=== PATIENT | female | born 1955 ===

== ENCOUNTER 2017-05-17 20:06 | Inpatient (IN) | payer OTHER, MEDICAID ==
[~2017-05-17] VITALS: Ht 154.9 cm; Wt 90.8 kg
--- NOTE | 2017-05-17 20:02 | ED.REPORT ---
HPI-Cardiac Arrest Date of Service May 17, 2017 ED Provider: Dr. Yo Pt is a 61 y/o female w/ an unknown history presenting to the ED from a SNF s/p cardiac arrest which occurred just prior to arrival. The patient was residing at [facility] in [place] after being transferred there for rehab from [facility] after some unspecified traumatic injury and screamed out to nursing staff from within her room. Nursing staff went into her room to find her unresponsive and started CPR. It is unknown if the nurse checked pulses prior to beginning CPR. Upon medics arrival she was found to be in PEA and received 2 further rounds of CPR and 1 mg of epinephrine at which time she had ROSC. On route she was intubated and was noted to be moving all 4 extremities and choking on the tube as well as vomiting copiously and was therefore sedated with 10 mg of Versed and 100 mcg of Fentanyl. Her rhythm after ROSC was thought to be A-fib with RvR with rate in the 120s which spontaneously converted to sinus tachycardia rate in 110s. Her BP was 150 systolic. The medics tell us that she has some unspecified cardiac and pulmonary disease although this is unable to be verified they have no additional further information. She is full code. the MAR from the [facility] indicates she is taking Percocet, bronchodilators, Ativan, Lasix and nortriptyline. After contacting the biomedical electronics technician of the facility: the patient has a history of severe interstitial lung disease, right-sided heart failure and chronic respiratory failure and is on 6-7 L O2 by AL at baseline. She is followed at for possible lung transplant. The patient was recently treated for respiratory failure at [facility] and was discharged 4 days ago. She was not at [facility] and did not have a traumatic injury. She also has right heart failure and has recently been treated for pneumonia. Today, she was declining her medications and passed out on her toilet and screamed prior to the event. Nursing Notes Stated Complaint: POST CARDIAC ARREST Nursing Notes Reviewed: Yes Allergies: Coded Allergies: Penicillins (Verified Allergy, Unknown, 05/17/17) Scheduled Epinephrine (Epipen 2-Jarad) 0.3 Mg/0.3 Ml Auto.injct 0.3 MG IM ANAPHYLLAXIS Fexofenadine (Fexofenadine) 180 Mg Tablet 180 MG PO QAM Flunisolide (Aerospan) 8.9 Gm Hfa.aer.ad 2 PUFFS IH BID Fluticasone Propionate (Fluticasone Propionate) 50 Mcg/Actuation [place].susp 1 SPRAY NS BID Furosemide (Furosemide) 40 Mg Tablet 40 MG PO BIDBL Furosemide (Furosemide) 80 Mg Tab 80 MG PO ONCE Gabapentin (Gabapentin) 600 Mg Tablet 600 MG PO TID Levalbuterol (Levalbuterol) 1.25 Mg/3 Ml Vial.neb 1.25 MG INHALATION Q6H Meloxicam (Meloxicam) 15 Mg Tablet 15 MG PO QAM Nortriptyline (Nortriptyline) 50 Mg Capsule 50 MG PO HS Omeprazole (Omeprazole) 20 Mg Capsule.dr 40 MG PO QAM Vit37/Iron/Folic Acid ([place] Chewable Tablet) 1 Each Tab.chew 1 EACH PO QAM Sertraline HCl (Sertraline) 100 Mg Tablet 100 MG PO QAM Topiramate (Topiramate) 100 Mg Tablet 100 MG PO QAM Scheduled PRN Albuterol HFA (Proair HFA) 8.5 Gm Hfa.aer.ad 2 PUFFS INHALATION Q4H PRN PRN For Shortness of Breath Bisacodyl (Dulcolax) 5 Mg Tablet.dr 5-10 MG PO DAILY PRN PRN For Constipation Bisacodyl (Dulcolax Rectal) 10 Mg Supp.rect 10 MG RC DAILY PRN PRN For Constipation Lactobacillus Acidophilus (Acidophilus Lactobacilli) 500 Million Cell Capsule 1 EACH PO DAILY PRN PRN WHEN ON ABX Lorazepam (Lorazepam) 0.5 Mg Tablet 0.5 MG PO BID PRN PRN For Anxiety Magnesium Hydroxide (Milk of Magnesia) 400 Mg/5 Ml Oral.susp 30 ML PO DAILY PRN PRN For Constipation Na Phos,M-B/Na Phos,Di-Ba (Fleet Enema) 133 Ml Enema 133 ML RC DAILY PRN PRN For Constipation Nortriptyline (Nortriptyline) 50 Mg Capsule 50 MG PO HS PRN PRN Insomnia IN ADDITION TO SCHEDULED IF NEEDED FOR INSOMNIA diphenhydrAMINE HCl (Benadryl) 25 Mg Capsule 25 MG PO Q6H PRN PRN ALLERGIES oxyCODONE-Acetaminophen 5-325 mg (oxyCODONE-Acetaminophen 5-325 mg) 1 Each Tablet 1 TAB PO Q4H PRN PRN For Pain General Time Seen by Provider: 20:07 Chief Complaint Other (s/p cardiac arrest) Hx Obtained From: EMS Unable to Obtain Hx: Patient condition Arrived By: Ambulance Past Medical History Unable to Obtain History Past medical history, Past surgical history, Family history, Smoking history, Social history, Occupation, Ambulatory status Review of Systems Unable to Obtain ROS Patient condition, Intubated Physical Exam Initial Vital Signs Vital Signs (First) Date Time Temp Pulse Resp B/P Pulse Ox O2 Delivery O2 Flow Rate FiO2 05/17/17 20:07 37.4 104 17 91/62 100 ET Tube Initial VS: Reviewed, Vital signs abnormal GENERAL: Intubated and sedated Respiratory / Chest: Breath sounds = bilat Intubated with 7-0 tube 23 cm at the teeth Cardiovascular: Regular rhythm, Heart sounds NL, No gallop, No murmurs, No rubs , Cap refill not delayed, Peripheral circulation NL, Pulses = bilaterally Heart Rate / Rhythm: Positive: Tachycardia Abdomen: Soft, No distention Ecchymosis which appears to be old Head / Eyes: Normocephalic, PERRL (3 mm) Ecchymosis and contusion over the forehead ENT: Atraumatic, Airway patent Vomit in mouth Neck: Atraumatic Upper Extremity / MS: Atraumatic, No deformity, Vascular intact Lower Extremity / Pelvis / MS: Vascular intact IO in left tibial plateau Abrasions about bilateral knees Skin: No rash, Warm, Dry NEURO: Sedated Making intentional movements Chewing on tube Interpretation & Diagnostics Lab Results Interpretation Result Diagram: 05/17/17203605/17/172036 Test 05/17/17 20:30 05/17/17 20:37 05/17/17 20:58 Triglycerides Level 61mg/dL (0-149) White Blood Count 11.6th/mm3 (3.8-10.1) Red Blood Count 3.81mil/mm3 (3.90-5.20) Hemoglobin 11.1g/dL (12.0-15.6) Hematocrit 36.2% (35.0-46.0) Mean Corpuscular Volume 95.0fL (81-100) Mean Corpuscular Hemoglobin 29.1pg (27.0-35.0) Mean Corpuscular Hemoglobin Concent 30.7% (32.0-37.0) Red Cell Distribution Width 15.2% (12.3-15.4) Platelet Count 289bil/L (150-400) Neutrophils (%) (Auto) 80.8% (40-74) Lymphocytes (%) (Auto) 10.2% (14-46) Monocytes (%) (Auto) 5.3% (4-12) Eosinophils (%) (Auto) 2.5% (0-5) Basophils (%) (Auto) 0.2% (0-3) Prothrombin Time 9.7sec (8.1-12.5) Prothromb Time International Ratio 0.91ratio Activated Partial Thromboplast Time 24.4sec (22.8-33.0) Sodium Level 137mEq/L (134-144) Potassium Level 4.7mEq/L (3.5-5.2) Chloride Level 99mEq/L (97-108) Carbon Dioxide Level 24mmol/L (18-29) Blood Urea Nitrogen 25mg/dL (6-24) Creatinine 1.30mg/dL (0.57-1.00) Estimat Glomerular Filtration Rate 60mL/min (>59) Glucose Level 122mg/dL (60-99) Calcium Level 7.8mg/dL (8.5-10.1) Magnesium Level 2.3mg/dL (1.6-2.6) Total Bilirubin 0.2mg/dL (0.0-1.2) Aspartate Amino Transf (AST/SGOT) 69U/L (0-50) Alanine Aminotransferase (ALT/SGPT) 39U/L (0-32) Alkaline Phosphatase 98U/L (25-165) Troponin T 0.010ug/L (0.0-0.011) Pro-B-Type Natriuretic Peptide 2070pg/mL (0-287) Total Protein 6.4g/dL (6.4-8.4) Albumin 3.3g/dL (3.4-5.0) Hold Soto Top Tube Received (Received) Hold Urine Received (Received) ECG Interpretation ECG Interpretation: Sinus tachycardia RAD No acute ST segment or T wave abnormalities No prior available for comparison Time: 20:30 Interpreted by: ED physician Normal ECG Interpretation: No acute ischemic changes X-Ray Chest Interpretation Chest Xray Interpretation: IMPRESSION: 1. Acute on chronic diffuse pulmonary opacities new since 05/11/2017 may represent edema, infection, or blood products superimposed on chronic scarring/fibrosis. 2. ET and enteric tubes. Dictated by: Junior Quinn M.D. on 05/17/2017 at 20:42 Approved by: Junior Quinn M.D. on 05/17/2017 at 20:45 View: Portable, 1 view Interpretation / Wet Read by: Interpret - Radiologist Chest Xray Interpretation: Proper central line placement. No other acute changes from prior. View: Portable, 1 view Interpretation / Wet Read by: Wet read ED physician CT Head Interpretation IMPRESSION: Low-density in the maninder may represent early infarction. Recommend MRI with and without contrast for further evaluation. If MRI cannot be performed, recommend short term CT followup. Dictated by: Junior Quinn M.D. on 05/17/2017 at 21:19 Approved by: Junior Quinn M.D. on 05/17/2017 at 21:24 Study: Head CT no contrast Interpretation / Wet Read by: Interpret - Radiologist CT Chest Interpretation IMPRESSION: 1. No acute pulmonary emboli in the main, left or right pulmonary arteries. Smaller pulmonary obscured by respiratory motion and cannot be evaluated. 2. Diffuse interstitial opacities with confluent opacities in the dependent right greater than left lungs representing chronic emphysema with superimposed fluid imbalance, atelectasis, infection, blood products, or a combination of these possibilities. 3. Bilateral anterior rib fractures. 4. ET and enteric tube in appropriate position . Dictated by: Junior Quinn M.D. on 05/17/2017 at 21:32 Approved by: Junior Quinn M.D. on 05/17/2017 at 21:41 Study type: CT pulm angiogram Interpretation / Wet Read by: Interpret - Radiologist CT C-Spine Interpretation IMPRESSION: 1. No CT evidence of acute cervical spine pathology. 2. Extensive degenerative change. 3. Possible right mandibular fracture or motion artifact on this study and on today's head CT. Please correlate with clinical point tenderness of the right mandible. Dictated by: Junior Quinn M.D. on 05/17/2017 at 21:27 Approved by: Junior Quinn M.D. on 05/17/2017 at 21:32 Study type: CT no contrast Interpretation / Wet Read by: Interpret - Radiologist Procedures Central Line Placement Central Line Placement Note: Already sedated with versed and fentanyl Time: 21:40 Procedure Performed by: ED physician Consent / Setup / Site Prep: No consent - emergent, Time-out performed, Needle aspirate performed, Oxygen administered, Pulse oximeter applied, laboratory monitor applied, Hand hygiene observed, Standard surgical scrub, Max barrier precaution, Sterile drapes applied, Position Trendelenburg Skin Preparation Agent: Hibiclens - Chlorhexidine Side / Location / Ultrasound: Internal jugular right, Ultrasound assisted Catheter / Lumen / Technique: Triple lumen, Good blood return Central Line Tip Location: Cath tip good position in the SVC Post-Procedure / Complications: Dressing placed, CXR neg for pneumothorax, Condition improved, Tolerated procedure well, Patient stable Lab Results Interpretation Result Diagram: 05/17/17203605/17/172036 Test 05/17/17 20:30 05/17/17 20:37 05/17/17 20:58 Triglycerides Level 61mg/dL (0-149) White Blood Count 11.6th/mm3 (3.8-10.1) Red Blood Count 3.81mil/mm3 (3.90-5.20) Hemoglobin 11.1g/dL (12.0-15.6) Hematocrit 36.2% (35.0-46.0) Mean Corpuscular Volume 95.0fL (81-100) Mean Corpuscular Hemoglobin 29.1pg (27.0-35.0) Mean Corpuscular Hemoglobin Concent 30.7% (32.0-37.0) Red Cell Distribution Width 15.2% (12.3-15.4) Platelet Count 289bil/L (150-400) Neutrophils (%) (Auto) 80.8% (40-74) Lymphocytes (%) (Auto) 10.2% (14-46) Monocytes (%) (Auto) 5.3% (4-12) Eosinophils (%) (Auto) 2.5% (0-5) Basophils (%) (Auto) 0.2% (0-3) Prothrombin Time 9.7sec (8.1-12.5) Prothromb Time International Ratio 0.91ratio Activated Partial Thromboplast Time 24.4sec (22.8-33.0) Sodium Level 137mEq/L (134-144) Potassium Level 4.7mEq/L (3.5-5.2) Chloride Level 99mEq/L (97-108) Carbon Dioxide Level 24mmol/L (18-29) Blood Urea Nitrogen 25mg/dL (6-24) Creatinine 1.30mg/dL (0.57-1.00) Estimat Glomerular Filtration Rate 60mL/min (>59) Glucose Level 122mg/dL (60-99) Calcium Level 7.8mg/dL (8.5-10.1) Magnesium Level 2.3mg/dL (1.6-2.6) Total Bilirubin 0.2mg/dL (0.0-1.2) Aspartate Amino Transf (AST/SGOT) 69U/L (0-50) Alanine Aminotransferase (ALT/SGPT) 39U/L (0-32) Alkaline Phosphatase 98U/L (25-165) Troponin T 0.010ug/L (0.0-0.011) Pro-B-Type Natriuretic Peptide 2070pg/mL (0-287) Total Protein 6.4g/dL (6.4-8.4) Albumin 3.3g/dL (3.4-5.0) Hold Soto Top Tube Received (Received) Hold Urine Received (Received) US FAST Exam 20:44 - negative Exam Performed by: ED physician Exam Type: Diagnostic Clinical Category: Initial exam Exam Interpreted by: ED physician Re-Eval/Medical Decision Med Decision/Clinical Course The patient is a 61-year-old female brought to the emergency department by EMS after sustaining a cardiac arrest. History is provided by medics and is extremely limited. They initially stated that she was at [facility] and had been transferred there from [facility] due to an unspecified traumatic injury. Later in the management of the patient I was able to contact their physician at the care facility and obtained contradictory history that the patient had not been at [facility], had not sustained any traumatic injuries and had recently been discharged from [facility] where she was being managed for respiratory failure secondary to severe pulmonary fibrosis and right-sided heart failure. Upon arrival in the emergency department the patient was intubated, intermittently hypotensive with a blood pressure as low as the 60s over 40s, intermittently gagging on her ET tube and making somewhat purposeful movements with her upper extremities. She was sedated with fentanyl and Versed placed on the ventilator. She was noted to have good oxygen saturation and good bilateral breath sounds. Portable chest x-ray revealed adequate tube placement. She had one interosseous line in 1 peripheral IV. A second peripheral IV was obtained and she was noted to have strong radial and femoral pulses bilaterally. The patient was placed on the ventilator and given her initial history of traumatic injury I had initial concern for possible exsanguination as a cause of her hypotension and cardiac arrest. Therefore I administered 2 [id number] 1 L fluid boluses with improvement in her blood pressure however shortly thereafter she was again noted to become hypotensive and was started on a norepinephrine drip. A central line was placed in the right internal jugular vein and was confirmed with chest x-ray. Given that the patient was completely undifferentiated with no known history upon her arrival I underwent an extensive workup attempting to determine the cause of the patient 's cardiac arrest. Given her known recent hospitalization strongly considered pulmonary embolism in my differential diagnosis. Initial EKG and troponin demonstrated no evidence of cardiac ischemia and therefore massive OK was lower on my differential diagnosis. Prior to obtaining the patient's history of right-sided heart failure was noted on bedside ultrasound to have evidence of right-sided heart strain further raising my concern for possible PE. EKG: Sinus tachycardia RAD No acute ST segment or T wave abnormalities No prior available for comparison Labs notable as below: CBC: Leukocytosis of 11.6, HCT of 36.2, Coag studies normal CMP: BUN of 24 and creatinine of 1.3. No significant electrolyte abnormalities. Mildly elevated transaminases Cardiac markers: Troponin negative, BNP of 2070 Chest x-ray: 1. Acute on chronic diffuse pulmonary opacities new since 05/11/2017 may represent edema, infection, or blood products superimposed on chronic scarring/ fibrosis. 2. ET and enteric tubes. Chest CTA: 1. No acute pulmonary emboli in the main, left or right pulmonary arteries. Smaller pulmonary obscured by respiratory motion and cannot be evaluated. 2. Diffuse interstitial opacities with confluent opacities in the dependent right greater than left lungs representing chronic emphysema with superimposed fluid imbalance, atelectasis, infection, blood products, or a combination of these possibilities. 3. Bilateral anterior rib fractures. 4. ET and enteric tube in appropriate position Brain CT: Low-density in the maninder may represent early infarction. Recommend MRI with and without contrast for further evaluation. If MRI cannot be performed, recommend short term CT followup. C-spine CT: 1. No CT evidence of acute cervical spine pathology. 2. Extensive degenerative change. 3. Possible right mandibular fracture or motion artifact on this study and on today's head CT. Please correlate with clinical point tenderness of the right mandible. After undergoing the above extensive workup I was finally able to contact the patient's physician at her care facility and obtained the additional history of her underlying severe pulmonary disease and cor pulmonale. Given this additional history I suspect that the patient's cardiac arrest may have been more respiratory in nature. That being said, her history does not entirely make sense as I would expect her to have significant decline in her respiratory status that would have been observed by care facility staff before she abruptly sustained a cardiac arrest. This leads me to wonder if there may have been additional factors. Of note, I obtained additional history the patient was on the commode having a bowel movement when she screamed out and subsequently to the floor. I certainly wonder if there may have been a vasovagal component to whatever event happened at her care facility. At this time, the patient has been stabilized with MAP >60 and she is no longer on vasopressors. The patient has been discussed with the admitting team and accepted for further management in the intensive care unit. I initially considered cooling the patient however she is quite purposeful in her movements and therefore after discussing the main hospital history of opted to withhold cooling protocol. Source of Hx: Private physician Re-Evaluation/Progress #1: Time of Eval: 20:41 Patient Status: Condition worsened Re-Evaluation/Progress Note: Pt rechecked. Becoming hypotensive with systolic BP in 60s. Repeat BP 81/45. FAST US performed and negative. Re-Evaluation/Progress #2: Time of Eval: 20:46 Patient Status: Condition improved Re-Evaluation/Progress Note: MAP now improved at 88. Re-Evaluation/Progress #3: Time of Eval: 20:57 Patient Status: Condition improved Re-Evaluation/Progress Note: Pt rechecked. Improved. Trying to stabilize to obtain CTs. Re-Evaluation/Progress #4: Time of Eval: 21:42 Patient Status: Condition unchanged Re-Evaluation/Progress Note: Will place central line. Consultation #1: Call Returned at: 20:53 Director Government: Agrees with eval, Agrees with plan Note: Discussed case with biomedical electronics technician of the [facility] José. Obtained further history. Consultation #2: Referral / Consult Name: Sole Foley DO Consulted With: Hospitalist Call Returned at: 22:14 Director Government: Will see patient, Agrees with eval, Agrees with plan, Accepts admit Counseled Regarding: Diagnosis, Lab results, Need for admission Discharge & Departure Impression: Primary Impression: Cardiac arrest Additional Impressions: Chronic pulmonary disease Rib fractures Encounter type: initial encounter Rib fracture type: multiple ribs Fracture type: closed Laterality: bilateral Qualified Code: S22.43XA - Multiple fractures of ribs, bilateral, initial encounter for closed fracture Hypotension Hypotension type: unspecified hypotension type Qualified Code: I95.9 - Hypotension, unspecified Leukocytosis Leukocytosis type: unspecified Qualified Code: D72.829 - Elevated white blood cell count, unspecified Elevated brain natriuretic peptide (BNP) level Cor pulmonale Acute respiratory failure Respiratory failure complication: unspecified whether with hypoxia or hypercapnia Qualified Code: J96.00 - Acute respiratory failure, unspecified whether with hypoxia or hypercapnia Right-sided heart failure Disposition: ADMITTED TO HOSPITAL All VS Reviewed: Yes Condition: Critical Crit Care Except Billable Proc Time Spent: 135-164 minutes Services Performed: Patient management by me, Time spent at bedside, Reviewing test results, Reviewing imaging, Discussing patient care, Documentation in record Critical Care Notes: Postarrest care, titration of vasopressors, discussion with consultants/specialists, stabilization of the patient, independent of any separately billable procedures Scribe Attestation Portions of this note were transcribed by Herber Wu. I, Dr. Yo personally performed the history, physical exam and medical decision-making; I reviewed and confirmed the accuracy of the information in the transcribed note. Jhonny Yo MD May 17, 2017 20:02 HERBER WU May 17, 2017 20:20
[2017-05-17 20:07] VITALS: BP 91/62; PULSE 104; RESP 17; O2SAT 100
[2017-05-17 20:10] VITALS: O2SAT 99
[2017-05-17 20:13] VITALS: BP 94/63; PULSE 109; RESP 28; O2SAT 93
[2017-05-17] MEDS ORDERED: 0.9% Sodium Chloride 1,000 ML IV ONE (20:16)
[2017-05-17] MEDS ORDERED: fentaNYL-PF 50 mCg/mL 2 mL Inj ONE (20:16)
[2017-05-17] MEDS ORDERED: Norepinephrine 8,000 mCg/250 mL NS Premix IV ONE ×2 (20:18→20:19)
[2017-05-17] MEDS ORDERED: FEXO-106 PO (20:26)
[2017-05-17] MEDS: fentaNYL 2,500 mCg/250 mL 2,500 MCG in IV Premix 1 EACH IV SCH (20:34)
[2017-05-17] MEDS: Midazolam 100 mg/100 mL Premix IV PRN (20:38)
[2017-05-17] MEDS ORDERED: MELO7.5O PO (20:45)
[2017-05-17] MEDS ORDERED: MELO-253 PO (20:47)
[2017-05-17] MEDS ORDERED: PREN-107 PO (20:47)
--- NOTE | 2017-05-17 20:47 | DRSVH ---
PROCEDURE: X-RAY CHEST ONE VIEW, PORTABLE ([id number]) INDICATIONS: ET tube TECHNIQUE: One view of the chest was acquired. COMPARISON: 05/11/2017. FINDINGS: Surgical changes and devices: Left-sided rib k. Enteric tube tip below the diaphragm. ET tube with ti p 3 CM above the cassidy. Lungs and pleura: No pleural effusions or pneumothorax. Diffuse bilateral pulmonary opacities. Mediastinum: Mediastinal contours appear normal. Heart size is normal. Bones and chest wall: No suspicious bony lesions. Overlying soft tissues appear unremarkable. Plea se note the left ribs are obscured and cannot be evaluated for fracture. IMPRESSION: 1. Acute on chronic diffuse pulmonary opacities new since 05/11/2017 may represent edema, infection, o r blood products superimposed on chronic scarring/fibrosis. 2. ET and enteric tubes. Dictated by: Junior Quinn M.D. on 05/17/2017 at 20:42 Approved by: Junior Quinn M.D. on 05/17/2017 at 20:45
[2017-05-17] MEDS ORDERED: NORT50CA PO (20:48)
[2017-05-17] MEDS ORDERED: SERT100T9 PO (20:53)
[2017-05-17] MEDS ORDERED: OMEP20CA11 PO (20:53)
[2017-05-17] MEDS ORDERED: FURO40TA4 PO (20:53)
[2017-05-17] MEDS ORDERED: FLUT15.88 NS (20:53)
[2017-05-17] MEDS ORDERED: TOPI-31 PO (20:53)
[2017-05-17] MEDS ORDERED: GABA600T2 PO (20:53)
[2017-05-17] MEDS ORDERED: FLUN8.9H IH (20:53)
[2017-05-17] MEDS ORDERED: LEVA1.2515 INHALATION (21:00)
[2017-05-17] MEDS ORDERED: DIPH25CA6 PO (21:00)
[2017-05-17] MEDS ORDERED: LACT1CAP86 PO (21:00)
[2017-05-17] MEDS ORDERED: BISA-67 PO (21:00)
[2017-05-17] MEDS ORDERED: FRSM80T PO (21:03)
[2017-05-17] MEDS ORDERED: EPIN0.3P2 IM (21:03)
[2017-05-17] MEDS ORDERED: BISA10SU61 RC (21:03)
[2017-05-17] MEDS ORDERED: NA P133E23 RC (21:03)
[2017-05-17 21:04] LABS: BASOPHILS % (AUTO) 0.2 % (0-3); EOSINOPHILS % (AUTO) 2.5 % (0-5); MONOCYTES % (AUTO) 5.3 % (4-12); Mean Corpuscular Hemoglobin 29.1 pg (27.0-35.0); NEUTROPHILS % (AUTO) 80.8 % (40-74); Platelet Count 289 bil/L (150-400)
[2017-05-17] MEDS ORDERED: MAGN400O4 PO (21:05)
[2017-05-17] MEDS ORDERED: ALBU8.5H2 INHALATION (21:05)
[2017-05-17] MEDS ORDERED: LORA0.5T PO (21:05)
[2017-05-17] MEDS ORDERED: OXYC1TAB24 PO (21:05)
[2017-05-17 21:15] LABS: INR 0.91 ratio
--- NOTE | 2017-05-17 21:25 | DRSVH ---
PROCEDURE: CT BRAIN WITHOUT CONTRAST ([id number]) INDICATIONS: cardiac arrest, PE? TECHNIQUE: Noncontrast 4.5 mm thick angled axial sections acquired from the foramen magnum to the vertex, with c oronal reformats. COMPARISON: [facility], CT, PE STUDY (CTA CHEST), 04/15/2017, 20:06. FINDINGS: Image quality: Excellent. CSF spaces: Basal cisterns are patent. No extra-axial fluid collections. Ventricles are normal in size and shape. Brain: No midline shift. No intracranial masses or hemorrhage. Gonzalez-white matter interface is norm al. Low density throughout the maninder (se 5 im 13). Skull and face: Calvarium and visualized facial bones are intact, without suspicious lesions. Sinuses: Mucosal thickening in the ethmoid air cells. Right maxillary sinus air-fluid level. Mastoid air cells are clear. IMPRESSION: Low-density in the maninder may represent early infarction. Recommend MRI with and without contrast for f urther evaluation. If MRI cannot be performed, recommend short term CT followup. Dictated by: Junior Quinn M.D. on 05/17/2017 at 21:19 Approved by: Junior Quinn M.D. on 05/17/2017 at 21:24
[2017-05-17 21:26] LABS: Magnesium 2.3 mg/dL (1.6-2.6); TROPONIN T 0.01 ug/L (0.0-0.011)
--- NOTE | 2017-05-17 21:34 | DRSVH ---
PROCEDURE: CT CERVICAL SPINE WITHOUT CONTRAST ([id number]) INDICATIONS: cardiac arrest, PE? TECHNIQUE: Noncontrast 3 mm thick sections acquired from the skull base to the T4 level. Sagittal and coronal r eformats were then constructed. For radiation dose reduction, the following was used: automated exp osure control, adjustment of mA and/or kV according to patient size. COMPARISON: [facility], CT, PE STUDY (CTA CHEST), 04/15/2017, 20:06. FINDINGS: Image quality: Excellent. Bones: T3 vertebral body height loss grossly stable since an 04/15/[address] No cervical vertebral body height loss. Normal vertebral body alignment. Intervertebral body disc height loss and osteophy te formation consistent with degenerative change greatest at C4-5. Motion obscures evaluation of the partially visualized mandible. Possible right mandibular irregularity. Soft tissues: ET and enteric tubes. Biapical pulmonary opacity better seen on today's chest CT. IMPRESSION: 1. No CT evidence of acute cervical spine pathology. 2. Extensive degenerative change. 3. Possible right mandibular fracture or motion artifact on this study and on today's head CT. Please correlate with clinical point tenderness of the right mandible. Dictated by: Junior Quinn M.D. on 05/17/2017 at 21:27 Approved by: Junior Quinn M.D. on 05/17/2017 at 21:32
[2017-05-17] MEDS ORDERED: Albuterol 2.5 mg/3 mL Inhalation Solution NEB ONE (21:35)
[2017-05-17] MEDS ORDERED: Albuterol-Ipratropium 3 mL Inhalation Solution ONE (21:35)
--- NOTE | 2017-05-17 21:43 | DRSVH ---
PROCEDURE: CT ANGIO CHEST PULMONARY EMBOLISM ([id number]) INDICATIONS: cardiac arrest, PE? TECHNIQUE: After the administration of intravenous contrast, 2 mm thick sections acquired from the pulmonary api rachna to the posterior costophrenic angles. 3-dimensional maximum intensity projection (MIP) coronal a nd sagittal reformats were then acquired through the thorax. For radiation dose reduction, the follo wing was used: automated exposure control, adjustment of mA and/or kV according to patient size. COMPARISON: [facility], CT, PE STUDY (CTA CHEST), 04/15/2017, 20:06. FINDINGS: Image quality: Excellent. Pulmonary arteries: No acute pulmonary emboli in the main, left or right pulmonary arteries. Smaller pulmonary arteries are obscured by respiratory motion and cannot be evaluated. Lungs and pleura: The left and right main stem bronchi are partially collapsed. There are diffuse int erstitial pulmonary opacities throughout both lungs with confluent pulmonary opacities in the depende nt and peripheral lungs. Emphysema. Mediastinum: Prominent mediastinal lymph nodes. ET and enteric tubes. Retroaortic right subclavian a rtery a benign variant. Otherwise the thoracic aorta and proximal great vessels are normal. Bones and chest wall: Nondisplaced anterior bilateral third-sixth rib fractures and anterior left sec ond rib fracture. Thyroid gland is enlarged where seen.. No axillary or supraclavicular adenopathy. Abdomen: Visualized upper abdominal solid organs appear normal in the early arterial phase of enhanc ement. IMPRESSION: 1. No acute pulmonary emboli in the main, left or right pulmonary arteries. Smaller pulmonary obscure d by respiratory motion and cannot be evaluated. 2. Diffuse interstitial opacities with confluent opacities in the dependent right greater than left l ungs representing chronic emphysema with superimposed fluid imbalance, atelectasis, infection, blood products, or a combination of these possibilities. 3. Bilateral anterior rib fractures. 4. ET and enteric tube in appropriate position . Dictated by: Junior Quinn M.D. on 05/17/2017 at 21:32 Approved by: Junior Quinn M.D. on 05/17/2017 at 21:41
[2017-05-17 22:32] VITALS: BP 135/95; PULSE 105; RESP 20; O2SAT 98
--- NOTE | 2017-05-17 22:32 | PCM.HPMED ---
Subjective Date of Service May 17, 2017 Primary Provider: Admitting Physician: Sole Foley DO Primary Care Physician: Brian Attending Physician: Sole Foley DO Chief Complaint: Post Cardiac Arrest History of Present Illness: Barbara Davila is a 61 year old woman with a PMH of severe interstitial lung disease of as yet unclear etiology with associated right sided heart failure and cor pulmonale with recent hospitalization at [facility] for respiratory failure only discharged 4 days ago and apparently some recent trauma requiring hospitalization at [facility] the nature of which is unclear at this time. She presents following a presumed cardiac arrest at [facility]. Nursing staff at the facility noted that the patient was acting strangely and refusing her home meds, then this evening she staff was alerted to her scream and found her passed out on the toilet and initiated CPR; it is unclear to what degree the patient was assessed prior to initiation of CPR; in any case when EMS arrived they noted the patient to be in PEA, and administered 2 further round of CPR and 1 dose of Epinephrine resulting in ROSC. She was somnolent post ROSC and was intubated en route to this facility, EMS notes that the patient was moving all 4 extremities and biting the ET tube, she also vomited profusely and was subsequently sedated with Versed and Fentanyl. Upon arrival to the ED the patient was initially only minimally responsive, however she began to manifest purposeful movements and was fighting the ventilator so she was again sedated in the ED. The patient is unable to provide any history or ROS. EMS noted in the field that her cardiac rhythm post ROSC appeared to be rapid Afib, however this spontaneously converted to Sinus Tach and the Afib was never definitively recorded. Per discussion with [facility], the patient is on 6-7 L O2 chronically due to her lung disease, and is in the midst of an evaluation for possible lung transplant at . In the ED the patient underwent extensive imaging including a Brain CT which was indicative of possible early infarction; a CXR which noted likely pulmonary opacities new since her last CXR on 05/11/[address] [facility]; a CT chest which revealed no PE with re-demonstration of pulmonary opacities and bilateral anterior rib fractures; CT of C spine revealed no cervical fracture and a possible mandibular fracture. ECG was noted to be Right axis deviated and negative for acute ischemic changes. Review of Systems: Comprehensive ROS negative except as listed above. Allergies Coded Allergies: Penicillins (Verified Allergy, Unknown, 05/17/17) Home Medications Epinephrine (Epipen 2-Jarad) 0.3 Mg/0.3 Ml Auto.injct 0.3 MG IM ANAPHYLLAXIS Fexofenadine (Fexofenadine) 180 Mg Tablet 180 MG PO QAM Flunisolide (Aerospan) 8.9 Gm Hfa.aer.ad 2 PUFFS IH BID Fluticasone Propionate (Fluticasone Propionate) 50 Mcg/Actuation [place].susp 1 SPRAY NS BID Furosemide (Furosemide) 40 Mg Tablet 40 MG PO BIDBL Furosemide (Furosemide) 80 Mg Tab 80 MG PO ONCE Gabapentin (Gabapentin) 600 Mg Tablet 600 MG PO TID Levalbuterol (Levalbuterol) 1.25 Mg/3 Ml Vial.neb 1.25 MG INHALATION Q6H Meloxicam (Meloxicam) 15 Mg Tablet 15 MG PO QAM Nortriptyline (Nortriptyline) 50 Mg Capsule 50 MG PO HS Omeprazole (Omeprazole) 20 Mg Capsule.dr 40 MG PO QAM Vit37/Iron/Folic Acid ([place]ata Chewable Tablet) 1 Each Tab.chew 1 EACH PO QAM Sertraline HCl (Sertraline) 100 Mg Tablet 100 MG PO QAM Topiramate (Topiramate) 100 Mg Tablet 100 MG PO QAM Scheduled PRN Albuterol HFA (Proair HFA) 8.5 Gm Hfa.aer.ad 2 PUFFS INHALATION Q4H PRN PRN For Shortness of Breath Bisacodyl (Dulcolax) 5 Mg Tablet.dr 5-10 MG PO DAILY PRN PRN For Constipation Bisacodyl (Dulcolax Rectal) 10 Mg Supp.rect 10 MG RC DAILY PRN PRN For Constipation Lactobacillus Acidophilus (Acidophilus Lactobacilli) 500 Million Cell Capsule 1 EACH PO DAILY PRN PRN WHEN ON ABX Lorazepam (Lorazepam) 0.5 Mg Tablet 0.5 MG PO BID PRN PRN For Anxiety Magnesium Hydroxide (Milk of Magnesia) 400 Mg/5 Ml Oral.susp 30 ML PO DAILY PRN PRN For Constipation Na Phos,M-B/Na Phos,Di-Ba (Fleet Enema) 133 Ml Enema 133 ML RC DAILY PRN PRN For Constipation Nortriptyline (Nortriptyline) 50 Mg Capsule 50 MG PO HS PRN PRN Insomnia IN ADDITION TO SCHEDULED IF NEEDED FOR INSOMNIA diphenhydrAMINE HCl (Benadryl) 25 Mg Capsule 25 MG PO Q6H PRN PRN ALLERGIES oxyCODONE-Acetaminophen 5-325 mg (oxyCODONE-Acetaminophen 5-325 mg) 1 Each Tablet 1 TAB PO Q4H PRN PRN For Pain . PMH Severe interstitial lung disease Right sided heart failure Cor pulmonale Depression/Anxiety Chronic Pain . Surgical History Patient cannot provide surgical history and none is forthcoming in accompanying documentation. Family History Patient unable to provide Family history and none was forthcoming with accompanying documentation Social History Smoking Status: Unknown if Ever Smoker Living Arrangement: [facility] Facility Exam Vital Signs Vital Sign - Last Date Time Temp Pulse Resp B/P Pulse Ox O2 Delivery O2 Flow Rate FiO2 05/17/17 20:13 109 28 94/63 93 ET Tube 05/17/17 20:07 37.4 Exam Gen: Intubated and sedated patient without meaningful response to external stimuli Neck: Right IJ in place and appears patent, no JVD, trachea midline HEENT: PERRL, does not motion track, no scleral icterus, no conjunctival pallor CV: Tachycardia with regular rate, 2/6 systolic murmur best heard over L Lower sternal border, no rubs or gallops Resp: Diffusely coarse breath sounds with significant expiratory wheezing, no rales or rhonchi Chest: Ecchymosis and abrasions on chest wall, no observed flail chest Abd: Soft, non distended, no appreciable masses or organomegaly Extr: Abrasions on BL knees, mild BL LE pitting edema Neuro: Patient without meaningful response to external stimuli at the time of evaluation, no focal neurologic deficit Lab and Diagnostics Labs Item Value Date Time Red Blood Count 3.81 mil/mm3 L 05/17/172036 Mean Corpuscular Volume 95.0 fL 05/17/172036 Mean Corpuscular Hemoglobin Concent 30.7 % L 05/17/172036 Mean Corpuscular Hemoglobin 29.1 pg 05/17/172036 Red Cell Distribution Width 15.2 % 05/17/172036 Neutrophils (%) (Auto) 80.8 % H 05/17/172036 Lymphocytes (%) (Auto) 10.2 % L 05/17/172036 Monocytes (%) (Auto) 5.3 % 05/17/172036 Eosinophils (%) (Auto) 2.5 % 05/17/172036 Basophils (%) (Auto) 0.2 % 05/17/172036 Estimat Glomerular Filtration Rate 60 mL/min 05/17/172036 Calcium Level 7.8 mg/dL L 05/17/172036 Magnesium Level 2.3 mg/dL 05/17/172036 Total Bilirubin 0.2 mg/dL 05/17/172036 Aspartate Amino Transf (AST/SGOT) 69 U/L H 05/17/172036 Alanine Aminotransferase (ALT/SGPT) 39 U/L H 05/17/172036 Alkaline Phosphatase 98 U/L 05/17/172036 Troponin T 0.010 ug/L 05/17/172036 Pro-B-Type Natriuretic Peptide 2070 pg/mL H 05/17/172036 Albumin 3.3 g/dL L 05/17/172036 Total Protein 6.4 g/dL 05/17/172036 Prothrombin Time 9.7 sec 05/17/172036 Activated Partial Thromboplast Time 24.4 sec 05/17/172036 Prothromb Time International Ratio 0.91 ratio 05/17/172036 Result Diagram: 05/17/17203605/17/172036 Microbiology Sputum culture pending Blood culture pending Nasal MRSA pending X-Rays, CTs and MRIs X-RAY CHEST ONE VIEW, PORTABLE IMPRESSION: 1. Acute on chronic diffuse pulmonary opacities new since 05/11/2017 may represent edema, infection, or blood products superimposed on chronic scarring/ fibrosis. 2. ET and enteric tubes. Dictated by: Junior Quinn M.D. on 05/17/2017 at 20:42 Approved by: Junior Quinn M.D. on 05/17/2017 at 20:45 CT CERVICAL SPINE WITHOUT CONTRAST IMPRESSION: 1. No CT evidence of acute cervical spine pathology. 2. Extensive degenerative change. 3. Possible right mandibular fracture or motion artifact on this study and on today's head CT. Please correlate with clinical point tenderness of the right mandible. Dictated by: Junior Quinn M.D. on 05/17/2017 at 21:27 Approved by: Junior Quinn M.D. on 05/17/2017 at 21:32 CT BRAIN WITHOUT CONTRAST IMPRESSION: Low-density in the maninder may represent early infarction. Recommend MRI with and without contrast for further evaluation. If MRI cannot be performed, recommend short term CT followup. Dictated by: Junior Quinn M.D. on 05/17/2017 at 21:19 Approved by: Junior Quinn M.D. on 05/17/2017 at 21:24 CT ANGIO CHEST PULMONARY EMBOLISM IMPRESSION: 1. No acute pulmonary emboli in the main, left or right pulmonary arteries. Smaller pulmonary obscured by respiratory motion and cannot be evaluated. 2. Diffuse interstitial opacities with confluent opacities in the dependent right greater than left lungs representing chronic emphysema with superimposed fluid imbalance, atelectasis, infection, blood products, or a combination of these possibilities. 3. Bilateral anterior rib fractures. 4. ET and enteric tube in appropriate position . Dictated by: Junior Quinn M.D. on 05/17/2017 at 21:32 Approved by: Junior Quinn M.D. on 05/17/2017 at 21:41 . 12-lead ECG Sinus tachycardia RAD No acute ST segment or T wave abnormalities No prior available for comparison . Additional Diagnostics: Abdominal FAST Ultrasound negative for acute intra-abdominal process . Assessment & Plan Barbara Davila is a 61 year old woman with a not entirely clear PMH inclusive of interstitial lung disease requiring 6-7L O2 chronically with associated right sided heart failure and cor pulmonale, who presents following a presumed cardiac arrest [facility]. Both EMT and ED staff note that in the period post ROSC and after arrival in the ED the patient was manifesting purposeful movement, biting the ET tube, and was battling the ventilator which was high suggestive of preserved underlying neurologic activity. Thus it was elected not to initiate therapeutic hypothermia. Of note review of records from [facility] note that the patient was hospitalized in Late April, and has had several admissions at that facility in 2017 due to respiratory difficulty. Prior to her most recent [place] hospitalization the patient had a syncopal episode due to her O2 tank running out and awoke upon receiving bystander CPR. Presumed Cardiac Arrest, POA, acute. Active -Etiology of arrest uncertain at this juncture, patient did scream prior to event which renders hypoxic or vasovagal syncope less likely -Patient manifesting purposeful movements and appropriate neurologic activity on the ventilator, thus is was decided not to initiate therapeutic hypothermia -Patient intubated post arrest due to concern over airway protection -Patient received compressions from SNF nursing staff, and 2 rounds by EMS with 1 mg of Epinephrine followed by ROSC -Anterior rib fractures noted -Fentanyl, Propofol, and Midazolam for sedation; patient with significant ventilator desynchrony if sedation is lightened Severe Interstitial Lung Disease with right sided heart failure and Cor Pulmonale, POA, chronic. Active -Patient is proving difficult to ventilate due to likely air trapping and poor pulmonary compliance -Currently saturating well on SIMV pressure support with tidal volumes in the 400-500 range -Holding paralytic agents as last resort given this patient's overall debility and the protracted recovery course that would entail -Patient recently was discharged having complete steroid therapy, will consider further steroid administration should respiratory difficulties persist -DuoNebs Q4 scheduled, with alternating Q4 PRN -Patient uses 6-7L O2 at baseline -Continue close monitoring and Tele Possible Aspiration event, POA, acute. Active -Patient vomited post intubation en route to the ED -New infiltrates on CXR and CT compared to 05/11 -Procalc pending, low threshold to initiate antibiotics with penicillin allergy in mind -Leukocytosis upon admission, though stress event and recent steroid use could explain this Chronic conditions to be managed by primary team Depression/Anxiety: currently holding home meds due to NPO status Chronic Pain: On Fentanyl as above Patient Status: Inpatient, anticipated length of stay >2 midnights due to severity of condition and complexity of treatment plan Pain Evaluation: Adequate Pain Control GI Prophylaxis: H2 pat VTE Prophylaxis: Sub-Q Heparin (Unfractionated) VTE Mechanical Devices: Intermittant Pneumatic CD Resuscitation Status: CPR: Attempt Resuscitation Attending Statement The patient was seen and examined together with house staff on 05/18/2017 and I agree with the history, exam and plan as outlined in the note above. Fco Leger DO May 17, 2017 22:32 Sole Foley DO May 18, 2017 04:35
[2017-05-17] MEDS ORDERED: Acetaminophen IV 1,000 MG in IV Premix 1 EACH IV PRN (22:40)
[2017-05-17] MEDS ORDERED: Alum-Mag Hydrox-Simeth 30 mL Suspension PO PRN (22:40)
[2017-05-17] MEDS ORDERED: fentaNYL-PF 50 mCg/mL 2 mL Inj IVPUSH PRN (22:40)
[2017-05-17] MEDS ORDERED: Ondansetron 2 mg/mL 2 mL Inj IVPUSH PRN (22:40)
[2017-05-17] MEDS ORDERED: Senna-Docusate 8.6-50 mg Tablet PO PRN (22:40)
[2017-05-17] MEDS ORDERED: Polyethylene Glycol (PEG) 17 Gm Powder PO PRN (22:40)
[2017-05-17 23:15] VITALS: BP 109/79; PULSE 109; RESP 22
[2017-05-17] MEDS ORDERED: Albuterol-Ipratropium 3 mL Inhalation Solution NEB PRN (23:20)
[2017-05-18] VITALS (14 sets, daily range): BP systolic 89–121; BP diastolic 46–63; PULSE 92–101; RESP 20–30; O2SAT 93–100
[2017-05-18] MEDS: Propofol Inj 1,000,000 MCG in IV Premix 1 EACH IV SCH ×2 (00:48→04:50)
[2017-05-18] MEDS: 0.9% Sodium Chloride 1,000 ML IV SCH ×4 (00:49→21:23)
[2017-05-18] MEDS: Chlorhexidine 0.12% 15 mL Oral Solution MT SCH ×5 (00:49→21:23)
[2017-05-18] MEDS: Heparin 5,000 Unit/mL Inj SUBQ SCH ×3 (00:49→16:18)
[2017-05-18] MEDS: Albuterol-Ipratropium 3 mL Inhalation Solution NEB SCH ×9 (00:57→23:56)
[2017-05-18] MEDS: fentaNYL 2,500 mCg/250 mL 2,500 MCG in IV Premix 1 EACH IV SCH (01:08)
--- NOTE | 2017-05-18 02:16 | ABG ---
DateTimeAnalyzed 02:07:00 -_ pH ____7.220 - 7.350 7.450 pCO2 ___66.3__ -mmHg 35.0 45.0 pO2 122 -mmHg 69.0 116 HCO3- ___26.1__ -mmol/L 22.0 26.0 ABE ___-2.1__ -mmol/L -2.0 2.0 tHb ___11.0__ -g/dL 12.0 18.0 O2Hb ___95.9__ -% COHb ____0.9__ -% 0.0 1.5 MetHb ____0.9__ -% 0.4 1.5 sO2 ___97.7__ -% FIO2 __100.0__ -% Pressure_Support ___20.0__ -cmH2O PEEP ____5.0__ -cmH2O Set_RR ___14.0__ -b/min Drawn By TLA - Date/Time Notified____ 02:16:00 -_ Spontaneous_RR ___21.0__ -b/min Oxygen Device 1 VENTILATOR - Notified By TLA - Notified Whom Abu C.- RN - B 756 -mmHg tO2 ___15.0__ -Vol% Wisam test _Positive -
--- NOTE | 2017-05-18 04:58 | ABG ---
DateTimeAnalyzed 04:51:00 -_ pH ____7.187 - 7.350 7.450 pCO2 ___70.4__ -mmHg 35.0 45.0 pO2 148 -mmHg 69.0 116 HCO3- ___25.7__ -mmol/L 22.0 26.0 ABE ___-3.4__ -mmol/L -2.0 2.0 tHb ___11.5__ -g/dL 12.0 18.0 O2Hb ___96.5__ -% COHb ____0.8__ -% 0.0 1.5 MetHb ____1.0__ -% 0.4 1.5 sO2 ___98.3__ -% FIO2 __100.0__ -% Pressure_Support ___20.0__ -cmH2O PEEP ____5.0__ -cmH2O Set_RR ___14.0__ -b/min Drawn By TLA - Date/Time Notified____ 04:58:00 -_ Spontaneous_RR ___21.0__ -b/min Oxygen Device 1 VENTILATOR - Notified By TLA - Notified Whom Abu C.-RN - B 756 -mmHg tO2 ___15.8__ -Vol% Wisam test _Positive -
[2017-05-18] MEDS ORDERED: MethylprednisoLONE Sodium Succinate 62.5 mg/mL 2 mL Inj IVPUSH ONE ×2 (05:15→09:45)
[2017-05-18 05:47] LABS: BASOPHILS % (AUTO) 0.2 % (0-3); EOSINOPHILS % (AUTO) 0.6 % (0-5); MONOCYTES % (AUTO) 6.1 % (4-12); Mean Corpuscular Volume 94.9 fL (81-100); NEUTROPHILS % (AUTO) 85.7 % (40-74); Platelet Count 276 bil/L (150-400)
[2017-05-18 06:30] LABS: Magnesium 2.2 mg/dL (1.6-2.6); Phosphorus 3.9 mg/dL (2.5-4.9)
--- NOTE | 2017-05-18 06:30 | NUR ---
CCU admit / Respiratory Pt arrived from ER to CCU # [id number] approx at 2300. Pt is intubated, mechanically ventilated, and sedated. Pt is unable to provide history. Most history obtained from SNF record and H&P. Pt was difficult to ventilate due to her chronic lung disease. Pt was over breathing, stacking breaths. ABGs shows poor ventilation. RT adjusted vent to various settings. Current setting SIMV 100% FIO2, PEEP=5, rate = 14, and PC above the PEEP =20. Dr. Leger at the bedside and aware of all findings including elevated Troponin-I. Please refer to CCU flowsheet for further details.
[2017-05-18] MEDS ORDERED: Cisatracurium Inj 200,000 MCG in 0.9% Sodium Chloride-Pha MIX 100 ML IV SCH (07:00)
--- NOTE | 2017-05-18 08:04 | DRSVH ---
PROCEDURE: X-RAY CHEST ONE VIEW, PORTABLE ([id number]) INDICATIONS: CENTRAL LINE PLACEMENT TECHNIQUE: One view of the chest was acquired. COMPARISON: [facility], CR, XR CHEST 1VW (PORTABLE), 05/17/2017, 20:23. FINDINGS: Surgical changes and devices: ET and NG tubes are stable in position. Central venous catheter has bee n placed which projects to the distal SVC via a right IJ approach. Lungs and pleura: No pleural effusions or pneumothorax. Bilateral, diffuse lung opacity stable hazel red to the prior examination. Mediastinum: Mediastinal contours appear normal. Heart size is normal. Bones and chest wall: No suspicious bony lesions. Overlying soft tissues appear unremarkable. IMPRESSION: Central venous catheter projects over the distal SVC. Dictated by: Anjali Dupont MD, PhD on 05/18/2017 at 8:01 Approved by: Anjali Dupont MD, PhD on 05/18/2017 at 8:02
--- NOTE | 2017-05-18 09:03 | DRSVH ---
PROCEDURE: X-RAY CHEST ONE VIEW, PORTABLE ([id number]) INDICATIONS: fu intubated TECHNIQUE: One view of the chest was acquired. COMPARISON: [facility], CR, XR CHEST 1VW (PORTABLE), 05/17/2017, 22:06. FINDINGS: Surgical changes and devices: ET tube projects 2.9 cm superior to the cassidy. NG tube and central lyric ous catheter are stable. Lungs and pleura: No pleural effusions or pneumothorax. Bilateral, diffuse, lung opacities no signif icant change compared to 05/17/17. Mediastinum: Mediastinal contours appear normal. Heart size is normal. Bones and chest wall: No suspicious bony lesions. Overlying soft tissues appear unremarkable. IMPRESSION: ET tube approximately 2.9 cm superior to the cassidy. Dictated by: Anjali Dupont MD, PhD on 05/18/2017 at 9:01 Approved by: Anjali Dupont MD, PhD on 05/18/2017 at 9:01
[2017-05-18] MEDS ORDERED: Sodium Chloride LOK Flush 10 mL Syringe IVFLUSH PRN ×4 (09:40→09:45)
[2017-05-18] MEDS ORDERED: Cisatracurium Inj 200,000 MCG in 0.9% Sodium Chloride 100 ML, Pharmacy To Mix 1 EA IV ONE (09:45)
[2017-05-18] MEDS ORDERED: Epinephrine Racemic 2.25% 0.5 mL Inhalation Solution NEB ONE (09:45)
--- NOTE | 2017-05-18 11:24 | NUR ---
NUTRITION ASSESSMENT Assess: 61 YO F admitted to CCU with cardiac arrest requiring intubation. Pt did not receive hypothermia protocol. Pt NPO X 1 day. PMHX: Interstitial lung disease, R sided heart failure, cor pulmonale, depression, anxiety, chronic pain. DIET: NPO. LABS: Cr 1.13, Glu 107, Ca 7.5, AST 67, ALT 39, Alb 3.3, PAB 14. MEDICATIONS: Reviewed. Fentanyl, Propofol. GI: No BM noted. SKIN: No issues noted. Low vernon. ANTHROPOMETRICS: Wt: 103.2 kg, BMI 43.0 kg/m2, Admit wt: 103.2 kg, IBW: 47.7 kg. ESTIMATED NEEDS: BMI/VENT Calories: 2335-6127 kcal/day (11-14 kcal/kg BW) Protein: 95-119 g/day (2.0-2.5 g/kg IBW) NUTRITION DIAGNOSIS: 1) Inadequate oral intake related to decreased ability to consume sufficient energy as evidenced by NPO/Vent status. INTERVENTION: 1) Will await plan of care decisions. If pt remains intubated, recommend initiating nutrition support in the next 24-48 hours. MONITOR/EVALUATE: NPO/Vent status, labs, nutrition support, GI/nutrition status. Follow per high nutrition risk guidelines.
--- NOTE | 2017-05-18 12:34 | CONS ---
[address] [address] CONSULTATION REPORT PATIENT: ALISSON STAFFORD : 1955 MR#: [id number] ADMIT: 05/17/2017 JOB ID: [id number] DATE OF SERVICE: 05/18/2017 PULMONARY CRITICAL CARE CONSULTATION: REQUESTING PHYSICIAN: Alexey Quintero MD REASON FOR CONSULTATION: Acute on chronic hypoxemic hypercarbic respiratory failure. HISTORY OF PRESENT ILLNESS: The patient is a 61-year-old female, currently on a ventilator. Patient unable to give any history whatsoever. The patient was apparently admitted to [facility] in [place] recently. She was discharged four days ago to a rehabilitation facility. Details surrounding her recent hospitalization are unclear. In any case she is reported to have underlying pulmonary fibrosis and is either being evaluated for or awaiting evaluation for lung transplantation for the pulmonary fibrosis. Again, details are unclear. In any case the patient was described as being a little confused prior to the episode where she cried out and was found unconscious in the bathroom. CPR was started. Details about pulse and rhythm are unclear. Paramedics arrived while CPR at the rehab facility was ongoing. She was found to be in PEA. ROSC obtained after two rounds of compression and 1 mg of epinephrine. Apparently with return of ROSC the patient was somewhat fighting the ventilator. Actually described by one observer as having purposeful movements but required heavy sedation. Therefore, upon transfer to this facility, therapeutic hypothermia was not undertaken. Report states that there were brief episodes of atrial fibrillation and sinus tach but not documented. No other particular history is available. REVIEW OF SYSTEMS: Unable. PAST MEDICAL HISTORY: As per HPI. MEDICATIONS: List of home medications includes epi pen, Marie, flunisolide, fluticasone, furosemide, gabapentin, levalbuterol, meloxicam, nortriptyline, omeprazole, iron, folic acid, sertraline, topiramate, albuterol inhaler, bisacodyl, lorazepam, magnesium hydroxide, nortriptyline for insomnia and diphenhydramine, and oxycodone with acetaminophen. ALLERGIES: PENICILLIN NOTED ON CHART. SOCIAL HISTORY: Smoking history unknown. PHYSICAL EXAMINATION: Vital signs on admission showed a pulse of 109, respiratory rate of 28, blood pressure 94/63. O2 sat on unknown concentration of oxygen 93%. The patient was very difficult to ventilate. Was heavily sedated utilizing fentanyl, propofol, and Midazolam. Maybe a bit hypotensive with propofol requiring addition of midazolam. Norepinephrine required for a brief period time. Multiple ventilator changes made without good effect. Arterial blood gases on an SIMV of 14, with pressure control of 20 and pressure support of 20, FiO2 of 100%, resulted in a pO2 of 122, pCO2 of 66, pH 7.22. Presently pulse about 100. Respiratory rate 24 with ventilator set at 14. Blood pressure 102/56. O2 sat on FiO2 of 90%, PEEP of 5 is 100%. General appearance: Heavily sedated. Occasional response to tactile stimuli. Pupils about 3-4 mm and reactive. Nose and throat could not be examined. Neck supple. Lymph nodes: None palpable. Chest: Moderately diminished breath sounds bilaterally. Diffuse inspiratory and expiratory leathery crackles, occasionally higher pitched. Some scattered inspiratory and expiratory wheezes. Marked use of the accessory muscles, especially with the use of the abdominal muscles during exhalation, with abdominal muscles contracted for maybe six or 7 seconds before they are released. Heart: Regular rhythm. Heart tones seem normal. Somewhat obscured by pulmonary adventitial sounds. Abdomen: No apparent tenderness. Soft when not actively exhaling. Extremities: SCDs in place, 2+ pretibial edema. CPR guide on lower anterior chest and sternal area. Defibrillation pad just to the left of that. Skin: Abrasions on forehead, especially the right lateral forehead and cheek. Abrasions on both knees. Some seem a bit older than some obvious fresh ones. Two purpuric lesions on the lower abdomen bilaterally, presuming from the subcu heparin. Ventilator showed marked ventilator/patient dyssynchrony. Inspiratory and expiratory loop showed marked expiratory limitation with 2-3 or 3/4 breaths having minimal expiatory volumes consisting of less than 100 mL, with the 4th breath showing expiratory volumes of 600, 700, 800 mL. The loop on that breath looked somewhat reasonable, but with most breaths the expiration was curtailed markedly and abruptly stopped. Inspiratory loop was not much better on those breaths with minimal inspiration and relatively high pressures. DIAGNOSTIC STUDIES: Chest x-ray showed diffuse markings both interstitial ground-glass and consolidation. Some of the pulmonary opacities were new since the film of May 11, 2017 done at [facility]. Cervical spine CT showed no evidence of acute cervical spine pathology. Extensive degeneration changes. Possible right mandibular fracture or motion artifact. Brain CT showed low density throughout the maninder. CT of the brain without contrast showed no masses or hemorrhages. Gonzalez-white interface was normal. Maninder had low density throughout. Right maxillary sinus air-fluid level. CT angiogram of the chest utilizing PE protocol showed no acute pulmonary emboli in the central arteries. Motion artifact obscured the small pulmonary vessels. Diffuse interstitial opacities with confluent consolidation and scattered areas of consolidation with areas of honeycombing and what appeared to be traction bronchiectasis. There are bilateral anterior rib fractures. Laboratory noted with a white count of 11,700 with moderate neutrophilia. Hemoglobin 10.8, platelet count 276,000. Lytes are normal. Creatinine mildly elevated 1.1. BUN normal at 22. Lactic acid is 0.8. Calcium is 7.5 with an albumin of 3.3. Phosphorus normal at 3.9, magnesium normal at 2.2. Total bilirubin normal at 0.3. AST mildly elevated at 67. ALT mildly elevated at 39. Alkaline phosphatase normal at 98. Procalcitonin 0.24, up from admission value of 0.13 six hours previously. INR is 0.9. PTT 24.4. ASSESSMENT: 1. Acute hypoxemic hypercarbic respiratory failure. Severe pulmonary parenchymal disease. In addition, there is marked narrowing of the airway. Review of the CT scan shows that a number seven endotracheal tube completely fills the tracheal lumen, which narrows distally at the main cassidy. Both the right mainstem and left mainstem bronchi are markedly narrowed. Multiple ventilator adjustments made. Continues to fight the ventilator, with poor ventilation, very variable in its character. Changes in flow, PEEP, respiratory rate, and tidal volume all ineffective. Ultimately decision made to paralyze the patient. Etiology unclear. She does have EpiPen and a Benadryl in her possession. Might be dealing with some kind of anaphylactic reaction and therefore will try high-dose steroids as well as H1 and H2 blockers. Given racemic epinephrine without effect. 2. Interstitial lung disease. Etiology unclear. Mention made that she is undergoing evaluation for possible lung transplant. Will obtain data from both [facility] where she was recently hospitalized as well as [facility] which she apparently is undergoing evaluation for lung transplant to see if we can get some more precise data and some help how to proceed. PLAN: 1. Echocardiogram unless echocardiogram recently done at [facility]. 2. Obtain data from [facility] and [facility]. 3. Pepcid IV. 4. Solu-Medrol IV push 250 mg now. 5. Racemic epinephrine already given. 6. Continue Versed, maybe switching over to lorazepam and fentanyl. Will taper the propofol as that made her somewhat hypotensive. Will try one sedative in order to simplify her regimen. 7. Evaluate for a radial arterial line. 8. Repeat EKG as corrected QT interval mildly prolonged. 9. Continue subcu heparin. 10. Continue nebulized DuoNeb. 11. Start cisatracurium drip. 12. Serial troponin-T. 13. Case discussed with nocturnal admitting physician as well as oncoming day team, and ICU team. Thank you so much, Dr. Quintero, for asking the Pulmonary Critical Care service to see this most engaging individual. TIME: Time spent in critical care 2 hours.
--- NOTE | 2017-05-18 14:56 | PCM.PROC ---
Procedure Note Date of Service: May 18, 2017 Pre Procedure Diagnosis: Acute Hypoxic Respiratory Failure Post Procedure Diagnosis: Acute Hypoxic Respiratory Failure Procedure: Left radial arterial line Provider and Pool Coordinator: Resident: Dr. Jany Moyer Attending: Dr. Leonardo Yeh Indication for Procedure: Frequent monitoring of blood gases and close hemodynamic monitoring Procedural Analgesia: Patient currently sedated with midazolam and fentanyl. No further analgesia provided. Procedure Details: A time-out was completed verifying correct patient, procedure, site, positioning , and special equipment if applicable. Allens test was performed to ensure adequate perfusion. The patients left wrist was prepped and draped in sterile fashion. A 20G Arrow arterial line was introduced into the radial artery. The catheter was threaded over the guide wire and the needle was removed with appropriate pulsatile blood return. The catheter was then secured with a sterile dressing. Perfusion to the extremity distal to the point of catheter insertion was checked and found to be adequate. Dr. Yeh and Dr. Moyer were present for the entire procedure. Estimated Blood Loss: 5 ml The patient tolerated the procedure well and there were no complications. JANY MOYER DO May 18, 2017 14:55
--- NOTE | 2017-05-18 15:07 | ABG ---
DateTimeAnalyzed 14:58:00 -_ pH ____7.184 - 7.350 7.450 pCO2 ___70.6__ -mmHg 35.0 45.0 pO2 ___82.7__ -mmHg 69.0 116 HCO3- ___25.5__ -mmol/L 22.0 26.0 ABE ___-3.3__ -mmol/L -2.0 2.0 tHb ___10.5__ -g/dL 12.0 18.0 O2Hb ___92.7__ -% COHb ____1.0__ -% 0.0 1.5 MetHb ____1.0__ -% 0.4 1.5 sO2 ___94.6__ -% FIO2 ___90.0__ -% PRVC 350 - PEEP ___12.0__ -cmH2O Set_RR ___15.0__ -b/min Vt __220.0__ -L Drawn By jmw - Date/Time Notified____ 15:06:00 -_ Spontaneous_RR ___18.0__ -b/min Oxygen Device 1 VENTILATOR - Notified By jmw - Notified Whom DR COMFORT - B 755 -mmHg tO2 ___13.8__ -Vol% Wisam test N/A -
--- NOTE | 2017-05-18 15:30 | NUR ---
Family contacts Patient's brother Edilson called and reports he was just here from [place] visiting. He attempts to keep in contact with his sister. He also reports he will contact the patient' s children which have been estranged from the patient for several years. Daughter Chrissy called and received update from both Doctor Gorge and nurse. She also verbalized consent for procedures. Chrissy reports that her mom is not especially close with any of the family members and has several sisters and brothers. She states that her brother who is in [facility] and and other sister is aware of thier mom's status. She also reports that it is ok to give information to siblings and her children. Brother Jose called and was updated he reports that both he and his brother Edilson believe that Chrissy should be the decision maker, he states he will try and come on tuesday from [place] in place of his brother Edilson since his brother was just here. He also states he will update the patient's sisters.
[2017-05-18] MEDS: Midazolam 100 mg/100 mL Premix IV PRN (16:17)
--- NOTE | 2017-05-18 16:52 | NUR ---
difficulty with ventilation Patient very difficult to ventilate . Settings were adjusted by Dr. Sommers , but unsuccessful and ordered nimbex to paralyze the patient. T 0f 4 baseline was only 1 out of 4 different sites and multiple attempts to do train of 4 however no twitches seen. Patient non reactive. Dr. Sommers notified of this. Per Dr. Sommers goal of nimbex is when patient is not initiating breaths on the ventilator. nimbex titrated up to 10mcg per kg which patient then stopped initiating breaths on the ventilator which is the goal Dr. Sommers is trying to achieve. Dr. Sommers then reported to stop the nimbex and when patient started initiating breaths again to restart the nimbex at 4mcg per kg. However after this being done patient has never quit initiating breaths. Dr. Sommers reports to continue to titrate back up until goal of no breaths is achieve. Patient is now on 10mcg per kg and still initiating breaths at this time . Per Dr. Sommers plan to continue at this rate. Reviewed labs vital signs and meds with Dr. Middleton and Dr. sommers. Arterial line placed and also Scope used to look down patient's throat via Dr. Sommers.(see Md notes.) BP borderline no pressers needed at this time. Sedation adjusted to place patient on versed and fentanyl only. Bis numbers in the 40's most of the shift. Patient has had minimal output from [facility] 400cc so far in 10 hours. IVF infusing.
[2017-05-18] MEDS: Cisatracurium Inj 200,000 MCG in 0.9% Sodium Chloride-Pha MIX 100 ML IV SCH (16:58)
--- NOTE | 2017-05-18 16:58 | NUR ---
Inpatient Wound Nurse Patient seen for Pressure Injury Prevention protocol. Heels warm and pink, without bogginess. All posterior areas warm and pink except for proximal half of intergluteal fold which is split for length of 4 cm. No drainage noted on bedding. Bordered sacral Mepilex with silicone facing was applied which can be changed PRN. Nursing staff are following appropriate pressure injury protocols, patient is repositioned frequently and heels are floated.
--- NOTE | 2017-05-18 17:05 | PCM.PNMED ---
Subjective Date of Service May 18, 2017 Subjective 61-year-old woman with history of pulmonary fibrosis and COPD presents with cardiac arrest due to pulseless electrical activity, and acute on chronic respiratory failure with hypercarbia and hypoxia. The patient remains intubated and sedated. She is proving very difficult to ventilate. Exam Vital Signs Vital Sign - Last Date Time Temp Pulse Resp B/P Pulse Ox O2 Delivery O2 Flow Rate FiO2 05/18/17 16:26 99 98/52 94 90 05/18/17 04:30 37.1 20 Mechanical Ventilator Intake and Output 05/17/17 05/17/17 05/18/17 Cumulative From/Thru 15:00 23:00 07:00 05/17/17 20:07 - 05/18/17 05:57 Intake Total 4000 ml 576 ml 4576 ml Output Total 300 ml 680 ml 980 ml Balance 3700 ml -104 ml 3596 ml Intake IV Total 4000 ml 576 ml 4576 ml Output Urine Total 550 ml 550 ml Gastric Drainage Total 130 ml 130 ml Other 300 ml 300 ml Exam General: Ill-appearing, intubated HEENT: sclerae anicteric Chest: Coarse inspiratory crackles bilaterally, no wheezing Cardiac: Difficult to auscultate S1S2, no apparent murmur Abdomen: BS present, Extremities: Pitting edema Neuro: Sedated, face is symmetric, motor tone seems normal, symmetric IVs and Medications Medications Reviewed: Medications were reviewed in detail Lab and Diagnostics Result Diagram: 05/18/17 0540 05/18/17 0540 Microbiology Sputum culture pending Blood culture pending Nasal MRSA pending X-Rays, CTs and MRIs X-RAY CHEST ONE VIEW, PORTABLE IMPRESSION: 1. Acute on chronic diffuse pulmonary opacities new since 05/11/2017 may represent edema, infection, or blood products superimposed on chronic scarring/ fibrosis. 2. ET and enteric tubes. Dictated by: Junior Quinn M.D. on 05/17/2017 at 20:42 CT CERVICAL SPINE WITHOUT CONTRAST IMPRESSION: 1. No CT evidence of acute cervical spine pathology. 2. Extensive degenerative change. 3. Possible right mandibular fracture or motion artifact on this study and on today's head CT. Please correlate with clinical point tenderness of the right mandible. Dictated by: Junior Quinn M.D. on 05/17/2017 at 21:27 CT BRAIN WITHOUT CONTRAST IMPRESSION: Low-density in the maninder may represent early infarction. Recommend MRI with and without contrast for further evaluation. If MRI cannot be performed, recommend short term CT followup. Dictated by: Junior Quinn M.D. on 05/17/2017 at 21:19 CT ANGIO CHEST PULMONARY EMBOLISM IMPRESSION: 1. No acute pulmonary emboli in the main, left or right pulmonary arteries. Smaller pulmonary obscured by respiratory motion and cannot be evaluated. 2. Diffuse interstitial opacities with confluent opacities in the dependent right greater than left lungs representing chronic emphysema with superimposed fluid imbalance, atelectasis, infection, blood products, or a combination of these possibilities. 3. Bilateral anterior rib fractures. 4. ET and enteric tube in appropriate position PROCEDURE: X-RAY CHEST ONE VIEW, PORTABLE ([id number]) IMPRESSION: ET tube approximately 2.9 cm superior to the cassidy. Dictated by: Anjali Dupont MD, PhD on 05/18/2017 at 9:01 . 12-lead ECG Sinus tachycardia RAD No acute ST segment or T wave abnormalities No prior available for comparison . Additional Diagnostics Abdominal FAST Ultrasound negative for acute intra-abdominal process . Assessment & Plan Barbara Davila is a 61 year old woman with interstitial lung disease requiring 6-7L O2, right sided heart failure, who presents with a hypotensive syncopal episode and acute hypercarbic respiratory failure Cardiac: Presumed Cardiac Arrest, POA, acute. Active -Etiology of arrest uncertain at this juncture, patient did scream prior to event which renders hypoxic or vasovagal syncope less likely -Patient manifesting purposeful movements and appropriate neurologic activity on the ventilator, thus is was decided not to initiate therapeutic hypothermia -Patient intubated post arrest due to concern over airway protection -Patient received compressions from SNF nursing staff, and 2 rounds by EMS with 1 mg of Epinephrine followed by ROSC Pulmonary: Acute on chronic respiratory failure with hypercarbia. Present on admission. Admission labs are notable for normal serum CO2, but markedly elevated PCO2 on venous blood gas. Chest CT and ventilator dynamics suggest airway narrowing and ventilatory dysfunction, unrelated to her history of pulmonary fibrosis, or even rib fractures. -Fentanyl, Propofol, and Midazolam for sedation; patient with significant ventilator desynchrony if sedation is lightened -Ventilator management per pulmonary consult -High-dose glucocorticoids and bronchodilators - Minimize fluid overload Severe Interstitial Lung Disease with right sided heart failure and Cor Pulmonale, POA, chronic. Active -Patient is proving difficult to ventilate due to likely air trapping and poor pulmonary compliance -Currently saturating well on SIMV pressure support with tidal volumes in the 400-500 range -Holding paralytic agents as last resort given this patient's overall debility and the protracted recovery course that would entail -Patient recently was discharged having complete steroid therapy, will consider further steroid administration should respiratory difficulties persist -DuoNebs Q4 scheduled, with alternating Q4 PRN -Patient uses 6-7L O2 at baseline -Continue close monitoring and Tele Rib fractures, present on admission. 2 recent episodes of CPR. Uncertain whether this contributes to her hypercarbia. -Analgesics as needed when patient emerges from ventilator sedation Infectious disease: Possible Aspiration event, POA, acute. Active. -Patient vomited post intubation en route to the ED -New infiltrates on CXR and CT compared to 05/11 -Leukocytosis upon admission, -Penicillin allergic Neurological: Possible CVA, acuity unknown. CT brain with diffuse low-density maninder. - Monitor neurologic status after emergence from sedation Renal: Acute kidney injury. Serum creatinine 1.3 on admission - Follow BMP - Maintenance hydration Resolving, stable and/or chronic problems: Depression/Anxiety: currently holding home meds due to NPO status Chronic Pain: On Fentanyl as above Patient Status: Inpatient, anticipated one week or more of hospital care GI Prophylaxis: H2 pat VTE Prophylaxis: Sub-Q Heparin (Unfractionated) VTE Mechanical Devices: Intermittant Pneumatic CD Resuscitation Status: CPR: Attempt Resuscitation Time spent 45 minutes Alexey Quintero MD May 18, 2017 17:05
--- NOTE | 2017-05-18 17:34 | NUR ---
Social Work: Attempted Assessment D: SOFTWARE SALES MANAGER attempted to complete assessment with patient's family at bedside. No family has been present during SOFTWARE SALES MANAGER attempts to visit. Patient is currently vented and sedated with high 02 needs. [facility] SOFTWARE SALES MANAGER has left a message for facility staff to contact SOFTWARE SALES MANAGER with possible [facility] contact information as there is none presently on the patient's chart. A: Pt who is in CCU, vented and sedated. P: Evolving; SOFTWARE SALES MANAGER to follow up with the patient and/or family when appropriate. SOFTWARE SALES MANAGER to continue to follow clinical course closely. STEPHON Avila
[2017-05-18] MEDS: fentaNYL 2,500 mCg/250 mL 2,500 MCG in IV Premix 1 EACH IV PRN (18:07)
[2017-05-18] MEDS: Famotidine Inj 20 MG in IV Premix 1 EACH IV SCH (21:23)
[2017-05-18] MEDS: MethylprednisoLONE Sodium Succinate 62.5 mg/mL 2 mL Inj IVPUSH SCH (21:23)
[2017-05-19] VITALS (14 sets, daily range): BP systolic 99–138; BP diastolic 54–75; PULSE 95–112; RESP 18–24; O2SAT 94–100
--- NOTE | 2017-05-19 00:40 | ABG ---
DateTimeAnalyzed 00:33:00 -_ pH ____7.203 - 7.350 7.450 pCO2 ___62.4__ -mmHg 35.0 45.0 pO2 ___94.4__ -mmHg 69.0 116 HCO3- ___23.6__ -mmol/L 22.0 26.0 ABE ___-4.6__ -mmol/L -2.0 2.0 tHb ___11.0__ -g/dL 12.0 18.0 O2Hb ___94.7__ -% COHb ____0.9__ -% 0.0 1.5 MetHb ____1.0__ -% 0.4 1.5 sO2 ___96.5__ -% FIO2 ___90.0__ -% Pressure_Support ___16.0__ -cmH2O PEEP ___12.0__ -cmH2O Drawn By TLA - Date/Time Notified____ 00:40:00 -_ Notified By TLA - Notified Whom Abu C.- RN - B 755 -mmHg tO2 ___14.8__ -Vol% Wisam test N/A -
[2017-05-19] MEDS: Chlorhexidine 0.12% 15 mL Oral Solution MT SCH ×6 (01:01→20:03)
[2017-05-19] MEDS: Heparin 5,000 Unit/mL Inj SUBQ SCH ×3 (01:01→17:13)
[2017-05-19] MEDS: Albuterol-Ipratropium 3 mL Inhalation Solution NEB SCH ×10 (02:00→21:51)
[2017-05-19] MEDS: Cisatracurium Inj 200,000 MCG in 0.9% Sodium Chloride-Pha MIX 100 ML IV SCH ×2 (03:45→14:32)
--- NOTE | 2017-05-19 04:26 | ABG ---
DateTimeAnalyzed 04:19:00 -_ pH ____7.280 - 7.350 7.450 pCO2 ___50.6__ -mmHg 35.0 45.0 pO2 108 -mmHg 69.0 116 HCO3- ___23.0__ -mmol/L 22.0 26.0 ABE ___-3.4__ -mmol/L -2.0 2.0 tHb ___10.8__ -g/dL 12.0 18.0 O2Hb ___96.0__ -% COHb ____0.9__ -% 0.0 1.5 MetHb ____1.1__ -% 0.4 1.5 sO2 ___98.0__ -% FIO2 ___90.0__ -% Pressure_Support ___19.0__ -cmH2O PEEP ___12.0__ -cmH2O Drawn By TLA - Date/Time Notified____ 04:26:00 -_ Oxygen Device 1 VENTILATOR - Notified By TLA - Notified Whom Abu C.- RN - B 756 -mmHg tO2 ___14.8__ -Vol% Wisam test N/A -
[2017-05-19 04:54] LABS: BASOPHILS % (AUTO) 0 % (0-3); EOSINOPHILS % (AUTO) 0 % (0-5); Mean Corpuscular Hemoglobin 29.3 pg (27.0-35.0); Mean Corpuscular Volume 96.8 fL (81-100); NEUTROPHILS % (AUTO) 94.9 % (40-74); Platelet Count 246 bil/L (150-400)
[2017-05-19 05:42] LABS: Magnesium 2.2 mg/dL (1.6-2.6); Phosphorus 2.2 mg/dL (2.5-4.9)
[2017-05-19] MEDS: 0.9% Sodium Chloride 1,000 ML IV SCH ×4 (06:21→23:30)
--- NOTE | 2017-05-19 07:00 | NUR ---
Respiratory / Sedation Pt was paralyzed on Nimbex at 10 mcg. TOF zero. BIS mid 30s. She is hypotensive. Levophed re-started. BP improved. Pt Respirations 30s. Nimbex stopped. Pt is awake and follows commands appropriately. Dr. Leger d/cd Nimbex and changed vent settings to Pressure Support mode. Pt tolerated well. Pt respirations and sats improved. Obtained ABGs and it showed improvement. Pt has period of apnea then she wakes up anxious. Over all she tolerated P.S well. VSS. No overt complications noted. Refer to CCU flowsheet for further details.
[2017-05-19] MEDS ORDERED: Sodium Phosphate Inj 20 MEQ in Dextrose 5% 250 ML IV ONE ×2 (07:50→17:30)
[2017-05-19] MEDS ORDERED: 0.9% Sodium Chloride 500 ML IV ONE (08:30)
--- NOTE | 2017-05-19 08:38 | DRSVH ---
PROCEDURE: X-RAY CHEST ONE VIEW, PORTABLE ([id number]) INDICATIONS: intubated TECHNIQUE: One view of the chest was acquired. COMPARISON: [facility], CR, XR CHEST 1VW (PORTABLE), 05/18/2017, 6:00. FINDINGS: Surgical changes and devices: Endotracheal tube with the tip approximately 3 cm above the cassidy. Rig ht central venous catheter with tip projecting in the lower SVC as before. Enteric tube with the tip not included on the study however beyond the gastroesophageal junction. Lungs and pleura: No pneumothorax seen. There are bibasilar consolidative and groundglass opacities. There is also hazy diffuse groundglass opacity suggesting pulmonary edema, although this appears slig htly decreased since yesterday within the left upper lobe. Mediastinum: Mediastinal contours appear normal. Heart size is normal. Bones and chest wall: No suspicious bony lesions. Overlying soft tissues appear unremarkable. IMPRESSION: Mild improvement in left upper lobe aeration since yesterday. Persistent bibasilar areas of consolidation, grossly unchanged. Recommend clinical correlation and co ntinued radiographic surveillance. Support equipment unchanged as above Dictated by: Dwayne Aguirre M.D. on 05/19/2017 at 8:32 Approved by: Dwayne Aguirre M.D. on 05/19/2017 at 8:36
[2017-05-19] MEDS: MethylprednisoLONE Sodium Succinate 62.5 mg/mL 2 mL Inj IVPUSH SCH ×2 (09:45→20:44)
[2017-05-19] MEDS: Famotidine Inj 20 MG in IV Premix 1 EACH IV SCH ×2 (09:46→20:32)
--- NOTE | 2017-05-19 10:00 | NUR ---
NUTRITION FOLLOW-UP. Assess: 61 YO female admitted to CCU with cardiac arrest (PEA), requiring intubation but not hypothermia protocol. Nimbex and propofol discontinued. Respiratory status improved. POC is for possible pressure support trial today. Orders received to initiate enteral feeding. PMHX: Interstitial lung disease, R sided heart failure, cor pulmonale, depression, anxiety, chronic pain. DIET: NPO. LABS: Glu 159, Ca 7.3, Phos 2.2, PAB 14. MEDICATIONS: Reviewed. Fentanyl, Midazolam, Levophed, Solu-medrol. GI: No BM noted. SKIN: Per Teen Counselor, proximal half of intergluteal fold is split for length of 4 cm. No drainage noted. ANTHROPOMETRICS: Wt: 103.2 kg, BMI 43.0 kg/m2, Admit wt: 103.2 kg, IBW: 47.7 kg. ESTIMATED NEEDS: BMI/VENT Calories: 4460-9994 kcal/day (11-14 kcal/kg BW) Protein: 95-119 g/day (2.0-2.5 g/kg IBW) NUTRITION DIAGNOSIS: 1) Inadequate oral intake related to decreased ability to consume sufficient energy as evidenced by NPO/Vent status - PERSISTS. INTERVENTION: 1) Enteral feeding initiated as follows this morning: Pulmocare at 10 mL/hr x 12 hr. Once tolerance established, mL every 8 hr. to goal rate 45 mL/hr. Once tolerance established, will add 1 packet ProSource liquid protein four times per day. Enteral feeding at goal will provide 1485 kcal, 62 g protein (106 g with ProSource), meeting approx. 100% nutrient needs. MONITOR/EVALUATE: NPO /vent status, enteral feeding initiation / advance / tolerance, labs, GI/nutrition status. Follow per high nutrition risk guidelines.
--- NOTE | 2017-05-19 11:05 | PROG NOTE ---
[address] [address] PROGRESS NOTE PATIENT: ALISSON STAFFORD : 1955 MR#: [id number] ADMIT: 05/17/2017 JOB ID: [id number] DATE: 05/19/2017 PROBLEMS: 1. Acute on chronic hypoxemic hypercarbic respiratory failure. 2. 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 3. Hypertension. 4. Obstructive airways disease. SUBJECTIVE: None. OBJECTIVE: Temperature 36.8 with a T-max being 37, pulse 100 to 108, respiratory rate 20 with vent set at 20, blood pressure 131/75 on norepinephrine at 0.05 mics per kg per minute. O2 sat on FiO2 90%, PEEP of 12 is 97%. General appearance no acute distress. Mental status: The patient is awake. Responds appropriately to questions. Eyes: Conjunctivae are pink. Nose and throat could not be examined. Chest fairly good breath sounds bilaterally. Right lung field is relatively clear, somewhat coarse harsh pulmonary adventitial sounds on both inspiration and expiration and the right anteriorly. Heart somewhat distant heart tones. Heart tones otherwise seem normal. Abdomen is soft. Nondistended. No tenderness. Bowel tones present. Extremities: No pretibial edema though SCDs precluded adequate optimal examination. Skin warm. Perfusing nicely. No use of the expiratory muscles. White cell count is 12,800 with a significant neutrophilia. Hemoglobin stable at 10.9. Platelet count slowly decreasing, currently at 246,000 with peak being 289,000. Sodium 141, potassium 4.6, chloride 108. CO2 is 21, BUN 21, creatinine 0.8 down from 1.1. Glucose mildly elevated at 159. Calcium 7.3 with albumin of 3.1. Phosphorus 2.2. Magnesium 2.2. Total bilirubin transaminases and alkaline phos all normal. Troponin T is undetectable. Precalcitonin is 0.13 with a hectic course. MRSA screen is negative. Blood cultures negative at 24 hours. Sputum shows a few polys. A few mixed normal erich. Growing a gram-negative huey with sensitivities to follow. Chest x-ray shows bibasilar consolidations. There is some hazy diffuse ground-glass opacity. Some improvement in the left upper lung field. Arterial blood gases on an FiO2 of 0.9, PEEP of 12, pressure support of 19 shows a pO2 of 108 with the patient in pressure support mode. PCO2 is 50, pH is 7.28. ASSESSMENT: 1. Airway obstruction. Significant problem yesterday. In fact, the patient was attempted to be paralyzed with cisatracurium. Apparently it was pharmacologically ineffective. Ventilator changed to pressure support and seemed to do better. Flow volume loop looks a little bit better with a better expiatory volume running about the mid-100s yesterday now in mid 200s. Need to talk to respiratory therapy about ventilating a patient who is somewhat hypotensive with respiratory failure in pressure support mode, but she seems to be doing well at the moment and that may be a way we can get her off the ventilator. Hard to argue with success. Her ventilation is better. Suspect it is more due to improvement in the airways with bronchodilators and Solu-Medrol may be playing a major role. 2. Sepsis. The patient currently on norepinephrine. Not getting much in terms of fluid. I suspect she is somewhat hypovolemic. Will set up the Vigileo monitoring hemodynamic monitor and see if we can get a better feel for this, but I would suspect she is slightly septic from pulmonary infection. 3. Mental status. Markedly improved. Sedation is being decreased. She currently is quite appropriate and notably comfortable on the ventilator. 4. Pulmonary fibrosis. Doing a bit better. PLAN: 1. Vigileo monitoring. 2. Likely will need increased fluids. Will give a 500 mL of saline bolus now. 3. Sputum Gram stain now growing a gram-negative huey, heavy growth. She has recently been hospitalized and given antibiotics for pneumonia. Has a PENICILLIN allergy with an unknown reaction. We will explore the PENICILLIN allergy as the patient likely received either Zosyn and Levaquin and therefore may be one of the other antibiotics might be needed. Will research the antibiotics she received previously and use another class. 4. Airway obstruction. Doing better. Will continue the relatively high doses of steroids as well as the bronchodilators. Discussed with respiratory therapy ventilator mode. May need some support if she tires though. Right now seems to be doing reasonably well. However, I think her work of breathing still remains rather high. 5. Electrolyte disorders. Phosphorus is a bit low. Will replete with sodium phosphate. 6. Renal function. Renal function improved. The patient discussed on rounds and with nursing in detail regarding the pulmonary and hemodynamic problems. TIME: Time spent so far in critical care 75 minutes.
--- NOTE | 2017-05-19 11:32 | DRSVH ---
[facility] [address] [place] [address] Echocardiogram Report Name: ALISSON STAFFORD CStudy Date: 05/18/20 17 Height: 61 in Hospital Exam Location: [facility] Weight: 227 lb Gender: Female BSA: 2.0 m2 : 1955 Age: 61 yrs BP: 92/59 mmHg Reason For Study: Cardiac arrest Ordering Physician: Performed By: [facility] Staff Interpretation Summary The left ventricle is normal in size. Left ventricular systolic function is mildly reduced. Left ventricular ejection fraction is estimated to be 45%. Flattened septum is consistent with RV pressure/volume overload. There is hypokinesis along the anterolateral and inferolateral wall. The right ventricle is not well visualized however appears at least mildly enlarged. Grossly normal systolic function. Right ventricular systolic pressure is estimated to be 24 mmHg plus the clinically estimated CVP which cannot be estimated on this exam. There is mild tricuspid regurgitation. Inspiratory collapse cannot be assessed because of mechanical ventilation, thus CVP cannot be estimated.. Procedure: A two-dimensional transthoracic echocardiogram with color flow and Doppler was performed in limited views only. A contrast injection of Definity was performed to improve assessment of LV function. Comparison is made with the echocardiogram of 05/06/2017. The patient was in a tachycardic rhythm during the exam. The heart rate ranged between 103 bpm during the study. Left Ventricle: The left ventricle is normal in size. Left ventricular wall thickness is at the upper limits of normal. Left ventricular systolic function is mildly reduced. Left ventricular ejection fraction is estimated to be 45%. Flattened septum is consistent with RV pressure/volume overload. There is hypokinesis along the anterolateral and inferolateral wall. Right Ventricle: The right ventricle is not well visualized however appears at least mildly enlarged. Grossly normal systolic function. Mitral Valve: No obvious hemodynamic mitral regurgitation. Aortic Valve: No aortic regurgitation is present. Tricuspid Valve: There is mild tricuspid regurgitation. Right ventricular systolic pressure is estimated to be 24 mmHg plus the clinically estimated CVP which cannot be estimated on this exam. Great Vessels: Inspiratory collapse cannot be assessed because of mechanical ventilation, thus CVP cannot be estimated.. Pericardium/ Pleura There is no pericardial effusion. There is no pleural effusion. MMode/2D Measurements & Calculations LVIDd LV johnson. diameter/BSA LV sys. diameter/BSA TAPSE : 5.1 cm (cm/m^2): 2.6 (cm/m^2): 2.0 : 1.9 cm LVIDs : 3.9 cm FS: 22.9 % IVSd : 0.9cm LVPWd : 0.9cm Doppler Measurements & Calculations TR max milad: 243.7 cm/sec TR max P.8 mmHg Reading Physician:CANELO
[2017-05-19] MEDS ORDERED: levoFLOXacin Inj 750 MG in IV Premix 1 EACH IV SCH (11:35)
[2017-05-19] MEDS ORDERED: 0.9% Sodium Chloride 1,000 ML IV SCH (11:40)
[2017-05-19] MEDS: Aztreonam Inj 2,000 MG in Dextrose 5% Minibag Plus 100 ML IV SCH ×2 (13:27→17:13)
--- NOTE | 2017-05-19 14:22 | PCM.PNMED ---
Subjective Date of Service May 19, 2017 Subjective 61-year-old woman with history of pulmonary fibrosis and COPD presents with cardiac arrest due to pulseless electrical activity, and acute on chronic respiratory failure with hypercarbia and hypoxia. The patient remains intubated but is more alert. She continues to be difficult to ventilate with obstructive dynamics. Exam Vital Signs Vital Sign - Last Date Time Temp Pulse Resp B/P Pulse Ox O2 Delivery O2 Flow Rate FiO2 05/19/17 11:01 110 124/75 95 80 05/19/17 04:30 36.8 20 Mechanical Ventilator Intake and Output 05/18/17 05/18/17 05/19/17 Cumulative From/Thru 15:00 23:00 07:00 05/17/17 20:07 - 05/19/17 06:47 Intake Total 2181 ml 1491 ml 8248 ml Output Total 600 ml 800 ml 2380 ml Balance 1581 ml 691 ml 5868 ml Intake IV Total 2181 ml 1491 ml 8248 ml Output Urine Total 500 ml 750 ml 1800 ml Gastric Drainage Total 100 ml 50 ml 280 ml Other 300 ml Exam General: Ill-appearing, intubated, responds to voice and tracks with eyes HEENT: sclerae anicteric Chest: No notable rales or crackles, no wheezing Cardiac: S1S2, no murmur Abdomen: BS present, Extremities: Trace edema Neuro: Alert to voice appropriate minimal responses, face is symmetric, motor tone seems normal, symmetric IVs and Medications Medications Reviewed: Medications were reviewed in detail Lab and Diagnostics Result Diagram: 05/19/17 0440 05/19/17 0440 Microbiology Sputum culture pending Blood culture pending Nasal MRSA pending X-Rays, CTs and MRIs X-RAY CHEST ONE VIEW, PORTABLE IMPRESSION: 1. Acute on chronic diffuse pulmonary opacities new since 05/11/2017 may represent edema, infection, or blood products superimposed on chronic scarring/ fibrosis. 2. ET and enteric tubes. Dictated by: Junior Quinn M.D. on 05/17/2017 at 20:42 CT CERVICAL SPINE WITHOUT CONTRAST IMPRESSION: 1. No CT evidence of acute cervical spine pathology. 2. Extensive degenerative change. 3. Possible right mandibular fracture or motion artifact on this study and on today's head CT. Please correlate with clinical point tenderness of the right mandible. Dictated by: Junior Quinn M.D. on 05/17/2017 at 21:27 CT BRAIN WITHOUT CONTRAST IMPRESSION: Low-density in the maninder may represent early infarction. Recommend MRI with and without contrast for further evaluation. If MRI cannot be performed, recommend short term CT followup. Dictated by: Junior Quinn M.D. on 05/17/2017 at 21:19 CT ANGIO CHEST PULMONARY EMBOLISM IMPRESSION: 1. No acute pulmonary emboli in the main, left or right pulmonary arteries. Smaller pulmonary obscured by respiratory motion and cannot be evaluated. 2. Diffuse interstitial opacities with confluent opacities in the dependent right greater than left lungs representing chronic emphysema with superimposed fluid imbalance, atelectasis, infection, blood products, or a combination of these possibilities. 3. Bilateral anterior rib fractures. 4. ET and enteric tube in appropriate position PROCEDURE: X-RAY CHEST ONE VIEW, PORTABLE ([id number]) IMPRESSION: ET tube approximately 2.9 cm superior to the cassidy. Dictated by: Anjali Dupont MD, PhD on 05/18/2017 at 9:01 . 12-lead ECG Sinus tachycardia RAD No acute ST segment or T wave abnormalities No prior available for comparison . Additional Diagnostics Abdominal FAST Ultrasound negative for acute intra-abdominal process . Assessment & Plan Barbara Davila is a 61 year old woman with interstitial lung disease requiring 6-7L O2, right sided heart failure, who presents with a hypotensive syncopal episode and acute hypercarbic respiratory failure. Primary issue is acute and chronic respiratory failure complicated by unexplained obstructive physiology, for which high-dose glucocorticoids administered. Cardiac: Presumed Cardiac Arrest, POA, acute. Active. Etiology of arrest uncertain. Patient intubated post arrest due to concern over airway protection with episode of emesis. Patient received compressions from SNF nursing staff, and 2 rounds by EMS with 1 mg of Epinephrine followed by ROSC. Hemodynamics have remained stable since admission requiring aggressive IV hydration and low- dose norepinephrine to counteract hypotension from sedation, but no evidence of primary dysrhythmia. - Continue to wean pressors as tolerated Pulmonary: Acute on chronic respiratory failure with hypercarbia. Present on admission. Admission labs are notable for normal serum CO2, but markedly elevated PCO2 on venous blood gas. Chest CT and ventilator dynamics suggest airway narrowing and ventilatory dysfunction, unrelated to her history of pulmonary fibrosis, or even rib fractures. -Fentanyl, Propofol, and Midazolam for sedation; patient with significant ventilator desynchrony if sedation is lightened -Ventilator management per pulmonary consult -High-dose glucocorticoids and bronchodilators - Minimize fluid overload Severe Interstitial Lung Disease with right sided heart failure and Cor Pulmonale, POA, chronic. Active -Patient is proving difficult to ventilate due to likely air trapping and poor pulmonary compliance -Currently saturating well on SIMV pressure support with tidal volumes in the 400-500 range -Holding paralytic agents as last resort given this patient's overall debility and the protracted recovery course that would entail -Patient recently was discharged having complete steroid therapy, will consider further steroid administration should respiratory difficulties persist -DuoNebs Q4 scheduled, with alternating Q4 PRN -Patient uses 6-7L O2 at baseline -Continue close monitoring and Tele Rib fractures, present on admission. 2 recent episodes of CPR. Uncertain whether this contributes to her hypercarbia. -Analgesics as needed when patient emerges from ventilator sedation Infectious disease: Possible Aspiration event, POA, acute. Active. -Patient vomited post intubation en route to the ED, but is remained afebrile with minimal secretions -New infiltrates on CXR and CT compared to 05/11 -Leukocytosis upon admission, but afebrile - No antibiotics at present Neurological: Possible CVA, acuity unknown. CT brain with diffuse low-density maninder. - Monitor neurologic status after emergence from sedation Renal: Acute kidney injury. Serum creatinine 1.3 on admission; declined to 0.83 - Follow BMP - Maintenance hydration Resolving, stable and/or chronic problems: Depression/Anxiety: currently holding home meds due to NPO status Chronic Pain: On Fentanyl as above Patient Status: Inpatient, anticipated one week or more of hospital care GI Prophylaxis: H2 pat VTE Prophylaxis: Sub-Q Heparin (Unfractionated) VTE Mechanical Devices: Intermittant Pneumatic CD Resuscitation Status: CPR: Attempt Resuscitation Time spent 35 minutes Alexey Quintero MD May 19, 2017 14:22
[2017-05-19] MEDS: Vancomycin Dose per Pharmacist XX SCH (16:25)
--- NOTE | 2017-05-19 16:27 | NUR ---
Social Work: Initial Assessment/Multidisciplinary Rounds D: Per EMR review, pt is a 61 year old female admitted for cardiac arrest. [facility]. PCP is not listed but had been followed by Dr. Cummings at [facility]. [facility] is not listed. Readmit score is high, 7/8. [employer] spoke with pulmonology resident who states that she was able to track down family [id number], the patient's brother Edilson Espinal ([phone]) and the patient's son Deisy (unknown last name) who is currently incarcerated at the [facility] ([phone]). [employer] attempted to make contact with the patient's brother to gather initial assessment information. Left message requesting return phone call. Pt discussed in multidisciplinary rounds; the patient remains in CCU on mechanical vent. No anticipated time frame for extubation provided. [employer] requested a CM order to coordinate with pt's previous SNF, [facility] in [place]. Order received and acknowledged by [employer]. t/c to Khoi Davies with [facility]. He confirms the patient was a rehab resident for several days between admissions at [facility] and [facility]. The patient had been ambulating using a walker with 6-8 L of 02 requirements. They would be willing to reconsider the patient for readmission pending the progress of her clinical status. Access provided. A: pt who is currently in CCU, vented. P: Evolving; [employer] to continue to follow pt's progress closely to assess for discharge needs. STEPHON Avila Addendum: 05/19/17 at 1640 by ENRIQUE MALAGON Amended: Links added.
[2017-05-19] MEDS ORDERED: Vancomycin Serum Trough XX ONE (16:55)
[2017-05-19] MEDS ORDERED: Vancomycin Inj 2,000 MG in 0.9% Sodium Chloride 500 ML IV ONE (16:55)
[2017-05-19 17:00] LABS: Magnesium 2.3 mg/dL (1.6-2.6); Phosphorus 2.7 mg/dL (2.5-4.9)
[2017-05-19] MEDS ORDERED: Dextrose 10% 250 ML IV PRN (18:00)
--- NOTE | 2017-05-19 18:13 | CONS ---
[address] [address] CONSULTATION REPORT PATIENT: ALISSON STAFFORD : 1955 MR#: [id number] ADMIT: 05/17/2017 JOB ID: [id number] DATE OF SERVICE: 05/19/[address] Leonardo Yeh for this consultation. REASON FOR CONSULT: Possible aspiration pneumonia in the setting of cardiopulmonary arrest in a patient with severe underlying pulmonary fibrosis and chronic respiratory failure. HISTORY OF PRESENT ILLNESS: The patient is an unfortunate 61-year-old woman who is admitted to this hospital for the first time under the most extreme of circumstances. Apparently, the patient has been evaluated and is under consideration for a lung transplant through the [facility] because of pulmonary fibrosis. It is reported this pulmonary fibrosis may have been a sequela of ARDS she suffered sometime ago. In any event, the patient has chronic respiratory insufficiency and has recently been both an inpatient and outpatient at the [facility] with periods of time at the [facility] in between. It is reported that the patient was in her usual state of chronic respiratory insufficiency but doing at least okay at the group home [facility], until May 17 when she was found to have a cardiac arrest while on the toilet. It was noted that just before this occurred, the patient was acting strangely and then passed out on the toilet and required CPR. On the same day, May 17, the patient had been re-evaluated on an outpatient basis at the [facility] and had been prescribed Lasix in addition to her usual standard medicines. In any event, she passed out on the toilet and then was found to be pulseless and apparently had a PEA arrest requiring CPR and intubation. She was transported here and had a spontaneous return of circulation and rhythm prior to her arrival here at [facility]. She was somnolent after the return of spontaneous circulation but was able to move everything and apparently follow some commands perhaps. Since that time, she has been in the ICU over the past 48 hours or so. There is little in the way of additional history, and we certainly have no reason to believe that she had a significant infection at the time she was evaluated in [place] two days ago prior to the events that led to her arrest and transfer here. It was noted, however, that she did vomit and presumably aspirated during the time of transport and intubation. This episode of vomiting has led to concerns about possible aspiration pneumonia which would consider a nosocomial-type aspiration pneumonia as he lives in a SNF and has recently been apparently hospitalized in [place]. ID consultation is requested at this time regarding management of possible significant aspiration pneumonia in the setting of pulmonary fibrosis and ventilatory-dependent respiratory failure. Note that the patient has a history of penicillin anaphylaxis and, for that reason, is said to carry an EpiPen. PAST MEDICAL HISTORY: 1. Pulmonary fibrosis with chronic respiratory failure. 2. Cor pulmonale. 3. History of ARDS which may have been a predecessor of the above-mentioned problems. 4. Recurrent sinusitis. 5. Peripheral neuropathy of unknown etiology. 6. History of substance abuse including alcohol, cocaine and methamphetamine in the past. 7. History of PFO was noted in some records we have on hand. SOCIAL HISTORY: Is basically unknown though the patient is reported to live in the local area typically and following an admission to the [facility] recently was sent to the [facility] where she was residing up until the date of her code on May 17, and we do not have an accurate smoking or alcohol history though apparently the family indicated to the nurse that there was a prior history of alcohol abuse and perhaps some other substance abuse, as mentioned above. FAMILY HISTORY: Cannot be obtained in this intubated patient. REVIEW OF SYSTEMS: Cannot be obtained in this intubated patient. PHYSICAL EXAMINATION: Reveals an afebrile woman, temperature 36.8, she has been afebrile during her almost 48 hours in the hospital. Pulse is currently 104 and the rhythm is sinus. Blood pressure is 116/68, and she has just been weaned off vasopressor agents. She is saturating pretty well but requiring 80% and 12 of PEEP at this point. Efforts to paralyze the patient were, interestingly, unsuccessful as even with maximal doses of paralytic agents she was not in fact paralyzed. Examination of the head reveals trauma to the right side of the head as well as the bridge of the nose and some mild right periorbital swelling. Her conjunctivae and sclerae appear normal at this time. She has no devices in her nose. She has oral endotracheal tube, oral gastric tube in good position. Her neck is without notable abnormality, though she is somewhat obese with a BMI of 43 so it is hard to tell. Lungs notable for diffuse crackles bilaterally consistent with her very severe interstitial lung disease. Cardiac tones: Regular rate and rhythm but distant. Abdomen: Obese, soft, no organomegaly. No apparent tenderness. No suprapubic fullness. A prior examiner notes that she did have some diffuse abdominal tenderness when she was more awake though at this point she is sufficiently sedated that I cannot ascertain if there is any tenderness. No suprapubic fullness. She has a Horn catheter. She is starting to produce reasonable amounts of urine. No evidence of synovitis. No skin rash per se but she does have abrasions over both knees which appear to be older than two days and are likely not related to the fall from the toilet on May 17. There is also a small lesion on the underside of the right foot which does not appear infected but appears to be evidence of older trauma. No drug apparent drug exanthem is present. No evidence of synovitis. Neurologic exam cannot be done in this intubated sedated patient. LABORATORIES: Include white count 11,000 when she came in, still 12,000. Almost no change. She has a left shift but this could easily be due to steroids. Her creatinine 0.83. Her LFTs are normal. Procalcitonin x3 all less than 0.25. Albumin 3.1. Urinalysis not done. Micro studies include negative blood cultures. Negative MRSA screen. A respiratory sample obtained on the after intubation shows few polys, mixed erich but grew gram-negative rods in heavy concentrations. We reviewed the chest x-ray which is very difficult to interpret. It shows bilateral infiltrates and we do not have old films to compare that to. We also reviewed her CT scan of the chest which is quite dramatic. It shows no pulmonary emboli, but there is bilateral diffuse interstitial opacities also with evidence of what appears to be chronic emphysema and bilateral anterior rib fractures likely related to CPR. IMPRESSION: This is an extremely difficult case of a patient on whom we have relatively few medical records. It is known that she is being followed very closely by the [facility] and evaluated for lung transplant on the basis of pulmonary fibrosis and associated cor pulmonale. She was seen at apparently just two days ago on an outpatient basis and her diuretic regimen was altered. That evening, she had a loss of consciousness, fell off the toilet and was found to have cardiopulmonary arrest requiring CPR briefly as well as intubation. She was known to have aspirated during these events on May 17 and after she was stabilized here, the respiratory culture showed relatively few polys but has grown a heavy growth of a gram-negative huey to be identified. Given the striking abnormalities of her lung neves on regular chest x-ray as well as CT, it is difficult to know if there is now a superimposed new infiltrate and/or aspiration type pneumonia. Nosocomial aspiration pneumonia in nursing homes or in hospital such as this is certainly a medical emergency and one must cover not only for standard oral streps and anaerobes but for more aggressive enteric gram-negative rods, Pseudomonas and Staph aureus. Because of the patient's PENICILLIN allergy, Dr. Yeh and his colleagues have wisely chosen to use aztreonam plus Flagyl for gram-negative and anaerobic coverage. To that I would only add vancomycin to give us some aerobic strep coverage as well as possible coverage for Staph aureus while we repeat a sputum and watch her status more closely. I would have preferred to use linezolid, but we were unable to do that because of her ongoing use of two selective serotonin reuptake inhibitors, likewise Ceftaroline would probably be unwise in this situation because of her penicillin anaphylaxis history and we have chosen not to use carbapenems because of the small but real risk of cross reactivity with a PENICILLIN allergy. RECOMMENDATIONS: 1. Will obtain urine Legionella and pneumococcal antigens. 2. We will add vancomycin to the aztreonam and Flagyl. 3. Will repeat a sputum Gram stain and culture. 4. Will continue to follow this complex patient with you. Thank you very much for this consult.
--- NOTE | 2017-05-19 19:08 | PCM.PHAPRO ---
Progress Date of Service: May 19, 2017 Post Cardiac Arrest Vancomycin Management per Pharmacy: Indication: Pneumonia Goal Trough: 15-20 mg/dL Labs: WBC: 12.8 Procalcitonin: 0.13 SrCr: 0.85 mg/dL Est CrCl: ~75 mL/min Nephrotoxic Risk Factors: None Micro: Sputum pending, MRSA nasal negative Additional Antibiotics: Aztreonam and Flagyl Vitals: All stable, HR somewhat elevated ~105 (baseline unknown) Recommendation: Load: Vancomycin 2000 mg IV x 1 (~20 mg/kg) Maintenance: Vancomycin 1250 mg IV Q12h (~17 mg/kg/dose adjusted body weight as BMI = 43). This may be overshooting only slightly but as it is the only antibiotic with gram positive coverage currently and patient has no nephrotoxic risk factors, as well as indication is pneumonia, higher levels are needed to penetrate the lungs, will go ahead w/ slightly higher dose. Trough: Due on 05/21 @ 1930 prior to 4th maintenance dose Pharmacy to continue to monitor and adjust dose as needed. Thank You, Rhiannon Ferreira, Pharm D. Rhiannon Ferreira May 19, 2017 19:08
[2017-05-19] MEDS: Midazolam 100 mg/100 mL Premix IV PRN (19:28)
[2017-05-19] MEDS: fentaNYL 2,500 mCg/250 mL 2,500 MCG in IV Premix 1 EACH IV PRN (19:30)
--- NOTE | 2017-05-19 19:33 | NUR ---
Sedation, Pressure support Patient very wakeful this am responsive however became more anxious , attempting to climb out of bed and pull on tubes even with restraints. Increased versed and fentanyl. Patient still responsive but much more calm . Pressors weaned off this am .[place] set up per Dr. Sommers. Numbers reviewed with him through out the day. Vital signs improving. Orogastric tube clogged from what looked like green beans and replaced with 16fr placed at 65 cm double checked and verified for placement with myself and Nurse Dona. Tube feeds started a trickle rate per orders. Patient tolerating ok so far. Ecoli found in sputum dr. sommers consulted ID Dr. Del Rio. Patient started on antibiotics. Patient's blood sugars also starting to climb. Dr. Middleton notified who ordered sliding scale insulin to start tonight. Patient's family (daughter Lidia and patients sister and brother here to see patient) updated on care.
[2017-05-19] MEDS: metroNIDAZOLE Inj 1,000 MG in IV Premix 1 EACH IV SCH (20:33)
[2017-05-19] MEDS: Insulin Human REGular 300 Unit/3 mL Inj SUBQ SCH (20:55)
[2017-05-19 23:34] LABS: Phosphorus 2.5 mg/dL (2.5-4.9)
[2017-05-20] VITALS (15 sets, daily range): BP systolic 95–132; BP diastolic 54–68; PULSE 95–118; RESP 14–22; O2SAT 91–98
[2017-05-20] MEDS: Albuterol-Ipratropium 3 mL Inhalation Solution NEB SCH ×8 (00:18→20:42)
[2017-05-20] MEDS: Heparin 5,000 Unit/mL Inj SUBQ SCH ×3 (01:03→16:22)
[2017-05-20] MEDS: Aztreonam Inj 2,000 MG in Dextrose 5% Minibag Plus 100 ML IV SCH ×3 (01:03→16:17)
[2017-05-20] MEDS: Chlorhexidine 0.12% 15 mL Oral Solution MT SCH ×6 (01:03→20:20)
[2017-05-20] MEDS: Insulin Human REGular 300 Unit/3 mL Inj SUBQ SCH ×4 (02:48→22:02)
[2017-05-20 05:11] LABS: BASOPHILS % (AUTO) 0 % (0-3); EOSINOPHILS % (AUTO) 0 % (0-5); MONOCYTES % (AUTO) 3.2 % (4-12); Mean Corpuscular Hemoglobin 29.1 pg (27.0-35.0); NEUTROPHILS % (AUTO) 93.8 % (40-74); Platelet Count 259 bil/L (150-400)
[2017-05-20] MEDS: metroNIDAZOLE Inj 1,000 MG in IV Premix 1 EACH IV SCH ×2 (05:13→16:21)
--- NOTE | 2017-05-20 05:14 | ABG ---
DateTimeAnalyzed 05:07:00 -_ pH ____7.305 - 7.350 7.450 pCO2 ___42.2__ -mmHg 35.0 45.0 pO2 ___81.0__ -mmHg 69.0 116 HCO3- ___20.4__ -mmol/L 22.0 26.0 ABE ___-5.1__ -mmol/L -2.0 2.0 tHb ____9.3__ -g/dL 12.0 18.0 O2Hb ___94.9__ -% COHb ____0.8__ -% 0.0 1.5 MetHb ____0.9__ -% 0.4 1.5 sO2 ___96.5__ -% FIO2 ___80.0__ -% Pressure_Support ___20.0__ -cmH2O PEEP ___12.0__ -cmH2O Drawn By TLA - Date/Time Notified____ 05:14:00 -_ Oxygen Device 1 VENTILATOR - Notified By TLA - Notified Whom _Anna- RN - B 756 -mmHg tO2 ___12.6__ -Vol% Wisam test N/A -
[2017-05-20 05:30] LABS: Magnesium 2.4 mg/dL (1.6-2.6); Phosphorus 2.4 mg/dL (2.5-4.9)
--- NOTE | 2017-05-20 06:47 | NUR ---
Respiratory/Sedation Patient remains on vent pressure support 20, 80% FiO2, PEEP 12. Large amounts of calderon thick secretions, frequent coughing. Fentanyl and versed for sedation, patient able to wake to voice and follows commands, moves all extremities. Vigileo monitor on, SVRI 1163 to 1220, C.I. 3.9-4.3, CVP 12-14. Patient tolerating tube feed, infusing at 20ml/hr, goal of 45ml/hr, low residuals. BG 143 and 150 overnight. Family at bedside at the beginning of shiftman, planning on returning for rounds this AM.
[2017-05-20] MEDS ORDERED: Potassium Phos (mEq) Inj 20 MEQ in Dextrose 5% 250 ML IV ONE (07:55)
--- NOTE | 2017-05-20 08:24 | DRSVH ---
PROCEDURE: X-RAY CHEST ONE VIEW, PORTABLE ([id number]) INDICATIONS: 61-year-old female with intubation. TECHNIQUE: One view of the chest was acquired. COMPARISON: [facility], CR, XR CHEST 1VW (PORTABLE), 05/19/2017, 4:01. [facility], CR, XR CHEST 1VW (PORTABLE), 05/18/2017, 6:00. [facility], CR, XR CHEST 1VW (ANABEL BLE), 05/17/2017, 22:06. FINDINGS: Surgical changes and devices: Endotracheal tube, nasogastric tube, and right internal jugular central venous catheter remain in expected positions. Lungs and pleura: Bilateral perihilar edema has continued to decrease. There is persistent trace bas al left pleural effusion. No pneumothorax. Mediastinum: Mediastinal contours appear normal. Heart size is normal. There is aortic atheroscler osis. Bones and chest wall: No suspicious bony lesions. Overlying soft tissues appear unremarkable. IMPRESSION: Continued interval decrease in bilateral perihilar pulmonary edema. Persistent small basa l left pleural effusion. Dictated by: Brooks Richard M.D. on 05/20/2017 at 8:21 Approved by: Brooks Richard M.D. on 05/20/2017 at 8:22
[2017-05-20] MEDS: Vancomycin Dose per Pharmacist XX SCH (08:30)
[2017-05-20] MEDS ORDERED: Vancomycin Inj 1,250 MG in 0.9% Sodium Chloride 250 ML IV SCH (08:30)
[2017-05-20] MEDS: Famotidine Inj 20 MG in IV Premix 1 EACH IV SCH ×2 (09:41→20:21)
[2017-05-20] MEDS: 0.9% Sodium Chloride 1,000 ML IV SCH ×2 (09:45→22:01)
[2017-05-20 09:47] LABS: APPEARANCE,URINE HAZY (CLEAR,HAZY); COLOR,URINE YELLOW (YELLOW); OCCULT BLOOD,URINE SMALL (NEGATIVE)
[2017-05-20 09:48] LABS: UROBILINOGEN,URINE NORMAL (NORMAL)
--- NOTE | 2017-05-20 10:06 | PROG NOTE ---
[address] [address] PROGRESS NOTE PATIENT: ALISSON STAFFORD : 1955 MR#: [id number] ADMIT: 05/17/2017 JOB ID: [id number] DATE: 05/20/2017 INFECTIOUS DISEASE FOLLOWUP NOTE: REASON FOR FOLLOWUP: Possible aspiration pneumonia in a patient with underlying severe pulmonary fibrosis following cardiac arrest. INTERVAL HISTORY: Overnight, the patient has been improving, though she remains ventilator dependent on relatively high FiO2 and PEEP. The patient has awakened, and is actually able to interact some this morning and to follow commands and even laugh when appropriate. She remains intubated, however, and it is difficult to obtain much additional history from her other than she denies facial pain or abdominal pain. This case discussed for about 20 minutes during ICU rounds with the entire team, as well as the patient's family. PHYSICAL EXAMINATION: Reveals an afebrile woman. Temp 37.4, pulse 100, respiratory rate is ventilator dependent. Blood pressure 117/63. She has been weaned off vasopressor agents. She is on 80% and 12 of PEEP, saturating well. Face notable for right forehead ecchymosis, as well as periorbital hematoma, as well as a scrape on the bridge of the nose. There is also some swelling along the right mandible. None of these areas surprisingly are tender despite the fact the patient is wide awake, and one would think they would be. She has some mild conjunctivitis of the right eye. Oral endotracheal tube and orogastric tube in good position. Lines without evidence of infection. Lungs are notable for diffuse crackles and Velcro-like sounds. Cardiac tones distant. Abdomen soft, nontender. She has a Horn catheter. No suprapubic fullness. No additional skin rash noted except bilateral knee abrasions. LABORATORIES: Include a white count of 9500, platelet count 259. Creatinine 0.8. LFT normal. Albumin 2.9. Procalcitonin 0.13. Urinalysis not done. Micro studies include the original sputum from the 5th which grew klebsiella. Recall it had only a few polys, however, so it is unclear whether this is colonization or more significant. That klebsiella was fairly susceptible except resistant to Bactrim and as all klebsiella are resistant to ampicillin. MRSA screen negative. Chest x-ray today was reviewed on the computer and compared to prior films. There may be less of the pulmonary edema type pattern in the lower lung neves but it is extremely difficult to draw any conclusions with the fibrotic appearance of the lungs bilaterally. IMPRESSION: This patient has improved overnight in that she has awakened and is now of fully cognizant of what is going on. In addition, her blood pressure has stabilized, and she no longer has any manifestations of shock. Whether or not she has pneumonia and/or septic shock remains unclear and probably unprovable given the fact we have negative blood cultures and difficult to interpret chest x-rays and CT scans but I think it is reasonable to continue with our broad-spectrum antibiotic coverage, which does include coverage for the klebsiella, until the situation has been clarified and stabilized. RECOMMENDATIONS: 1. I would continue with vancomycin, aztreonam and Flagyl to avoid a PENICILLIN anaphylaxis and provide broad-spectrum aspiration coverage for 5-7 days. 2. This case discussed in great detail with the ICU team, as well as the family. 3. We are going to repeat the sputum culture and especially more importantly perhaps the sputum Gram stain to see where we are going with respect to these organisms. 4. We await urine legionella and pneumococcal antigens, which I anticipate will be negative.
--- NOTE | 2017-05-20 11:04 | PCM.PNMED ---
Subjective Date of Service May 20, 2017 Subjective Pulmonology/Critical Care Progress Note Barbara Davila is a 61 year old woman with interstitial lung disease secondary to ARDS in 2011 who requires 6-7 L O2 at baseline who has been followed by [facility] for possibility of lung transplant which has been put on hold due to her recent bout of pneumonia in October and two arrest secondary to hypoxemia the second of which is the reason for this hospital admission. She was intubated in the field and found to be in acute hypercarbic respiratory failure. Initial CT demonstrated new obstruction of airways along with her interstitial lung disease which was not seen on last CT in April. Interval History Yesterday patient was weaned off norepinephrine and given a total of 4 L of fluid as she was fluid responsive. Overnight MAPs have maintained in the high 70s off norepinephrine and on maintenance fluids alone. Patient continues to tolerate pressure support. Ventilation has been somewhat easier and her expiratory volumes continue to slowly improve. She wakes to verbal stimuli. She follows commands and responds to questions appropriately. Today the patient's brother, sister, and daughter at the bedside. Her prognosis and current condition is explained. Exam Vital Signs Vital Sign - Last Date Time Temp Pulse Resp B/P Pulse Ox O2 Delivery O2 Flow Rate FiO2 05/20/17 08:22 104 117/63 94 80 05/20/17 04:45 Ventilator 05/20/17 04:35 37.4 20 Intake and Output 05/19/17 05/19/17 05/20/17 Cumulative From/Thru 15:00 23:00 07:00 05/17/17 20:07 - 05/20/17 06:43 Intake Total 3613 ml 2410 ml 78938 ml Output Total 550 ml 600 ml 3530 ml Balance 3063 ml 1810 ml 29947 ml Intake IV Total 3613 ml 2164 ml 36205 ml Tube Feeding 166 ml 166 ml Tube Irrigant 80 ml 80 ml Output Urine Total 550 ml 600 ml 2950 ml Gastric Drainage Total 280 ml Other 300 ml Exam General: Intubated and sedated but responsive to verbal stimuli. Appropriately responsive and follows commands. HEENT: Superficial abrasion on the nose and forehead from recent fall. Conjunctivae are pink no scleral icterus. ET tube in place. Neck: Supple with full range of motion. No jugular venous distension. No bruits. No lymphadenopathy or thyromegaly. Cardiovascular: Regular rate and rhythm with no murmurs, rubs, or gallops appreciated Pulmonary: Clear to auscultation bilaterally with no crackles, wheezes, or rhonchi. Normal respiratory effort with no use of accessory muscles. Abdomen: Bowel tones present. Soft, nontender, nondistended. No hepatosplenomegaly or masses appreciated. Extremities: Trace pretibial edema. Skin: Warm and well-perfused. Scattered superficial abrasions from recent fall. Neurological: Cranial nerves grossly intact. Lines: ET tube Horn catheter Right IJ Left radial arterial line Right peripheral Lab and Diagnostics Result Diagram: 05/20/17 0500 05/20/17 0500 Microbiology Sputum culture positive for Klebsiella Blood culture negative MRSA negative X-Rays, CTs and MRIs X-RAY CHEST ONE VIEW, PORTABLE IMPRESSION: 1. Acute on chronic diffuse pulmonary opacities new since 05/11/2017 may represent edema, infection, or blood products superimposed on chronic scarring/ fibrosis. 2. ET and enteric tubes. Dictated by: Junior Quinn M.D. on 05/17/2017 at 20:42 CT CERVICAL SPINE WITHOUT CONTRAST IMPRESSION: 1. No CT evidence of acute cervical spine pathology. 2. Extensive degenerative change. 3. Possible right mandibular fracture or motion artifact on this study and on today's head CT. Please correlate with clinical point tenderness of the right mandible. Dictated by: Junior Quinn M.D. on 05/17/2017 at 21:27 CT BRAIN WITHOUT CONTRAST IMPRESSION: Low-density in the maninder may represent early infarction. Recommend MRI with and without contrast for further evaluation. If MRI cannot be performed, recommend short term CT followup. Dictated by: Junior Quinn M.D. on 05/17/2017 at 21:19 CT ANGIO CHEST PULMONARY EMBOLISM IMPRESSION: 1. No acute pulmonary emboli in the main, left or right pulmonary arteries. Smaller pulmonary obscured by respiratory motion and cannot be evaluated. 2. Diffuse interstitial opacities with confluent opacities in the dependent right greater than left lungs representing chronic emphysema with superimposed fluid imbalance, atelectasis, infection, blood products, or a combination of these possibilities. 3. Bilateral anterior rib fractures. 4. ET and enteric tube in appropriate position PROCEDURE: X-RAY CHEST ONE VIEW, PORTABLE ([id number]) IMPRESSION: ET tube approximately 2.9 cm superior to the cassidy. Dictated by: Anjali Dupont MD, PhD on 05/18/2017 at 9:01. Additional Diagnostics ABG pH 7.3/42.2/81/20.4 on pressure support of a PEEP of 12 and pressure support 20 above PEEP Assessment & Plan Barbara Davila is a 61 year old woman with interstitial lung disease secondary to ARDS in 2011 who requires 6-7 L O2 at baseline who has been followed by [facility] for possibility of lung transplant which has been put on hold due to her recent bout of pneumonia in October and two arrest secondary to hypoxemia the second of which is the reason for this hospital admission. She was intubated in the field and found to be in acute hypercarbic respiratory failure. Initial CT demonstrated new obstruction of airways along with her interstitial lung disease which was not seen on last CT in April. Acute on chronic hypercarbic respiratory failure in setting of severe interstitial lung disease. Interstitial lung disease is secondary to ARDS in 2011 and she has been following with [facility]. On this admission CT showed airway obstruction along with interstitial lung disease. She was initially extremely difficult to ventilate and continues to have low but increasing expiratory volumes. As expiratory volumes continue to improve we will continue with steroids but decreased to Solu-Medrol 80mg Q12H. She is currently on pressure support and we will continue with this course. A breathing trial is scheduled for today. We will also work to lower her sedation although at this time she is able to follow commands and answer questions appropriately as able with ET tube in place. Hypotension which is difficult to determine whether this is secondary to sepsis or hypovolemia. It is difficult to determine whether this is secondary to sepsis as there has been Klebsiella isolated from her sputum but with her chronic lung disease this could be colonization. She also had a negative procalcitonin and unimpressive blood cell count. Although this is true in light of her recent hospitalization she has had many opportunities to contract infection and therefore antibiotic so started yesterday. Her hypotension at this time has resolved. She was fluid responsive yesterday with 1500 mL fluid bolus along with an additional 2.5 L for a total of 4 L. After initial fluid bolus norepinephrine was able to be titrated off without difficulty. She has maintained maps in the mid 70s without difficulty overnight. We will continue to monitor blood pressure and urine output closely. But at this time she appears euvolemic and possibly less septic due to initiation of antibiotics. Possible Klebsiella infection. Sputum culture obtained on admission has grown Klebsiella. Difficult to assess whether this is a real infection or colonization as discussed above. Empiric antibiotics were started by infectious disease. Antibiotics include aztreonam, vancomycin, and Flagyl. Repeat sputum sample sent along with urine Legionella and urine strep pneumonia. We appreciate infectious disease's recommendations. Nutrition. Tube feeds currently at 30 mL's will increase to goal of 45 mL over the course of today as long as patient continues to tolerate. GI prophylaxis: Famotidine DVT prophylaxis: Heparin CODE STATUS: FULL Total time spent 75 minutes. GI Prophylaxis: H2 pat VTE Prophylaxis: Sub-Q Heparin (Unfractionated) VTE Mechanical Devices: Intermittant Pneumatic CD Resuscitation Status: CPR: Attempt Resuscitation JANY MOYER DO May 20, 2017 11:04 Resolving, stable and/or chronic problems: Depression/Anxiety: currently holding home meds due to NPO status Chronic Pain: On Fentanyl as above Patient Status: Inpatient, anticipated one week or more of hospital care GI Prophylaxis: H2 pat VTE Prophylaxis: Sub-Q Heparin (Unfractionated) VTE Mechanical Devices: Intermittant Pneumatic CD Resuscitation Status: CPR: Attempt Resuscitation JANY MOYER DO May 20, 2017 11:04
--- NOTE | 2017-05-20 11:33 | NUR ---
FCI TRANSFER : Faxed clinicals to [facility], patient comes from there and is likely to return with to follow. Updated STUFFER
--- NOTE | 2017-05-20 13:54 | NUR ---
NUTRITION FOLLOW-UP. Assess: 61 YO female admitted to CCU with cardiac arrest (PEA), requiring intubation but not hypothermia protocol. Initial CT demonstrated new obstruction of airways along with her interstitial lung disease which was not seen on last CT in April. Yesterday patient was weaned off norepinephrine and given a total of 4 L of fluid as she was fluid responsive. Overnight MAPs have maintained in the high 70s off norepinephrine and on maintenance fluids alone. Patient continues to tolerate pressure support. Ventilation has been somewhat easier and her expiratory volumes continue to slowly improve. She wakes to verbal stimuli. She follows commands and responds to questions appropriately. Enteral feeding advancing to goal today, well tolerated. PMHX: Interstitial lung disease due to ARDS 2012, R sided heart failure, cor pulmonale, depression, anxiety, chronic pain. DIET: NPO. ENTERAL FEEDING: Pulmocare approaching goal rate 45 mL/hr, including 1 packet of ProSource liquid protein four times per day, providing 1485 kcal, 62 g protein (106 g with ProSource), meeting approx. 100% nutrient needs. LABS: Na 145, Chloride 114, Glu 150, Ca 7.0, Phos 2.4, Alb 2.9. MEDICATIONS: Reviewed. Fentanyl, Versed, Solu-medrol. GI: No BM noted. SKIN: Per Private Duty Lpn, proximal half of intergluteal fold is split for length of 4 cm. No drainage noted. ANTHROPOMETRICS: Wt: 104.6 kg, BMI 43.0 kg/m2, Admit wt: 103.2 kg, IBW: 47.7 kg. ESTIMATED NEEDS: BMI/VENT Calories: 2250-9345 kcal/day (11-14 kcal/kg BW) Protein: 95-119 g/day (2.0-2.5 g/kg IBW) NUTRITION DIAGNOSIS: 1) Inadequate oral intake related to decreased ability to consume sufficient energy as evidenced by NPO/Vent status - IMPROVED WITH ENTERAL FEEDING APPROACHING GOAL RATE. INTERVENTION: 1) No further recommendations at this time. MONITOR / EVALUATE: NPO / vent status, enteral feeding advance / tolerance, labs, nutritional status. Follow up per high nutrition risk guidelines.
[2017-05-20] MEDS: fentaNYL 2,500 mCg/250 mL 2,500 MCG in IV Premix 1 EACH IV PRN (14:54)
[2017-05-20] MEDS: Midazolam 100 mg/100 mL Premix IV PRN (14:54)
[2017-05-20 15:58] LABS: Magnesium 2.5 mg/dL (1.6-2.6); Phosphorus 2.4 mg/dL (2.5-4.9)
--- NOTE | 2017-05-20 17:34 | PCM.PNMED ---
Subjective Date of Service May 20, 2017 Subjective 61-year-old woman with history of pulmonary fibrosis and COPD presents with cardiac arrest due to pulseless electrical activity, and acute on chronic respiratory failure with hypercarbia and hypoxia. The continues to be more alert. Respiratory status seems to be improving with pressure support ventilation. May have breathing trial today. Family members counseling at bedside. Exam Vital Signs Vital Sign - Last Date Time Temp Pulse Resp B/P Pulse Ox O2 Delivery O2 Flow Rate FiO2 05/20/17 15:27 99 126/67 95 80 05/20/17 12:30 37.7 14 Mechanical Ventilator Intake and Output 05/19/17 05/19/17 05/20/17 Cumulative From/Thru 15:00 23:00 07:00 05/17/17 20:07 - 05/20/17 06:43 Intake Total 3613 ml 2410 ml 07595 ml Output Total 550 ml 600 ml 3530 ml Balance 3063 ml 1810 ml 47811 ml Intake IV Total 3613 ml 2164 ml 53465 ml Tube Feeding 166 ml 166 ml Tube Irrigant 80 ml 80 ml Output Urine Total 550 ml 600 ml 2950 ml Gastric Drainage Total 280 ml Other 300 ml Exam General: Eyes open, responds to voice, follows commands and tracks with eyes HEENT: sclerae anicteric moist secretions Chest: No notable rales or crackles, no wheezing Cardiac: S1S2, no murmur Abdomen: BS present, Extremities: Trace edema Neuro: Alert to voice appropriate minimal responses, face is symmetric, motor normal, symmetric Lab and Diagnostics Result Diagram: 05/20/17 0500 05/20/17 1519 Microbiology Sputum culture positive for Klebsiella Blood culture negative MRSA negative X-Rays, CTs and MRIs X-RAY CHEST ONE VIEW, PORTABLE IMPRESSION: 1. Acute on chronic diffuse pulmonary opacities new since 05/11/2017 may represent edema, infection, or blood products superimposed on chronic scarring/ fibrosis. 2. ET and enteric tubes. Dictated by: Junior Quinn M.D. on 05/17/2017 at 20:42 CT CERVICAL SPINE WITHOUT CONTRAST IMPRESSION: 1. No CT evidence of acute cervical spine pathology. 2. Extensive degenerative change. 3. Possible right mandibular fracture or motion artifact on this study and on today's head CT. Please correlate with clinical point tenderness of the right mandible. Dictated by: Junior Quinn M.D. on 05/17/2017 at 21:27 CT BRAIN WITHOUT CONTRAST IMPRESSION: Low-density in the maninder may represent early infarction. Recommend MRI with and without contrast for further evaluation. If MRI cannot be performed, recommend short term CT followup. Dictated by: Junior Quinn M.D. on 05/17/2017 at 21:19 CT ANGIO CHEST PULMONARY EMBOLISM IMPRESSION: 1. No acute pulmonary emboli in the main, left or right pulmonary arteries. Smaller pulmonary obscured by respiratory motion and cannot be evaluated. 2. Diffuse interstitial opacities with confluent opacities in the dependent right greater than left lungs representing chronic emphysema with superimposed fluid imbalance, atelectasis, infection, blood products, or a combination of these possibilities. 3. Bilateral anterior rib fractures. 4. ET and enteric tube in appropriate position PROCEDURE: X-RAY CHEST ONE VIEW, PORTABLE ([id number]) IMPRESSION: ET tube approximately 2.9 cm superior to the cassidy. Dictated by: Anjali Dupont MD, PhD on 05/18/2017 at 9:01. Additional Diagnostics ABG pH 7.3/42.2/81/20.4 on pressure support of a PEEP of 12 and pressure support 20 above PEEP Assessment & Plan Barbara Davila is a 61 year old woman with interstitial lung disease requiring 6-7L O2, right sided heart failure, who presents with a hypotensive syncopal episode and acute hypercarbic respiratory failure. Primary issue is acute and chronic respiratory failure complicated by unexplained obstructive physiology, for which high-dose glucocorticoids administered. Cardiac: Presumed Cardiac Arrest, POA, acute. Active. Etiology of arrest uncertain. Patient intubated post arrest due to concern over airway protection with episode of emesis. Patient received compressions from SNF nursing staff, and 2 rounds by EMS with 1 mg of Epinephrine followed by [facility]. Hemodynamics have remained stable since admission requiring aggressive IV hydration and low- dose norepinephrine to counteract hypotension from sedation, but no evidence of primary dysrhythmia. Cardiovascular monitoring indicated high output peripheral resistance. Initially required norepinephrine which is weaned off. - Intravenous fluids as needed Pulmonary: Acute on chronic respiratory failure with hypercarbia. Present on admission. Admission labs are notable for normal serum CO2, but markedly elevated PCO2 on venous blood gas. Chest CT and ventilator dynamics suggest airway narrowing and ventilatory dysfunction, unrelated to her history of pulmonary fibrosis, or even rib fractures. -Fentanyl, Propofol, and Midazolam for sedation; patient with significant ventilator desynchrony if sedation is lightened -Ventilator management per pulmonary consult -High-dose glucocorticoids and bronchodilators - Minimize fluid overload Severe Interstitial Lung Disease with right sided heart failure and Cor Pulmonale, POA, chronic. Active -Patient is proving difficult to ventilate due to likely air trapping and poor pulmonary compliance -Currently saturating well on SIMV pressure support with tidal volumes in the 400-500 range -Holding paralytic agents as last resort given this patient's overall debility and the protracted recovery course that would entail -Patient recently was discharged having complete steroid therapy, will consider further steroid administration should respiratory difficulties persist -DuoNebs Q4 scheduled, with alternating Q4 PRN -Patient uses 6-7L O2 at baseline -Continue close monitoring and Tele Rib fractures, present on admission. 2 recent episodes of CPR. Probably contributes to her acute on chronic respiratory failure. -Analgesics as needed when patient emerges from ventilator sedation Infectious disease: Possible Aspiration event, POA, acute. Active. Patient vomited post intubation en route to the ED. Klebsiella grown from sputum. Sputum not significantly purulent showing mixed erich. She has been afebrile. New infiltrates on CXR and CT compared to 05/11 -Leukocytosis upon admission, now resolved, but remains afebrile -Antibiotic coverage per infectious disease consult Neurological: Possible CVA, acuity unknown. No focal abnormalities on limited neurologic exam at present. CT brain with diffuse low-density maninder. - Monitor neurologic status after emergence from sedation Renal: Acute kidney injury. Serum creatinine 1.3 on admission; declined to 0.74 - Follow BMP - Maintenance hydration Resolving, stable and/or chronic problems: Depression/Anxiety: currently holding home meds due to NPO status Chronic Pain: On Fentanyl as above GI Prophylaxis: H2 pat VTE Prophylaxis: Sub-Q Heparin (Unfractionated) VTE Mechanical Devices: Intermittant Pneumatic CD Resuscitation Status: CPR: Attempt Resuscitation Time spent 45 minutes Alexey Quintero MD May 20, 2017 17:34
--- NOTE | 2017-05-20 17:52 | NUR ---
P: Respiratory Distress I: Versed decreased to 1mg and fentanyl decreased to 50mcqs and pt PST started. Pt became agitated and sats dropped to 88%. PST stopped. versed increased to 2mg and fentanyl increased to 75mcqs. Pt needs some bolus with care and turns. K phos rider infused. Tube feeding at goal 45cc/hr with 40 H2O flush Q 4 hours. Residuals 30cc. CVP 18. Vigileo dc'd per Dr. Yeh. ST occasional PVC. T max 37.7. Turned q 2 hours. SCD's on. Left arterial line patent. RIJ TLC patent. Pt opens her eyes. Shakes her head yes and no appropriately. E: Stable S: Restraints on for pt safety. Frequent rounding.
[2017-05-20] MEDS ORDERED: Sodium Phosphate Inj 40 MEQ in Dextrose 5% 500 ML IV ONE (18:20)
[2017-05-20] MEDS: MethylprednisoLONE Sodium Succinate 62.5 mg/mL 2 mL Inj IVPUSH SCH (20:20)
[2017-05-20] MEDS: Vancomycin Inj 1,000 MG in IV Premix 1 EACH IV SCH (20:21)
[2017-05-21] VITALS (9 sets, daily range): BP systolic 115–153; BP diastolic 58–84; PULSE 97–109; RESP 14–19; O2SAT 90–98
[2017-05-21] MEDS: Albuterol-Ipratropium 3 mL Inhalation Solution NEB SCH ×6 (00:18→20:32)
[2017-05-21] MEDS: Aztreonam Inj 2,000 MG in Dextrose 5% Minibag Plus 100 ML IV SCH ×4 (01:07→23:46)
[2017-05-21] MEDS: Chlorhexidine 0.12% 15 mL Oral Solution MT SCH ×7 (01:07→23:46)
[2017-05-21] MEDS: Heparin 5,000 Unit/mL Inj SUBQ SCH ×3 (01:07→17:19)
[2017-05-21] MEDS: Insulin Human REGular 300 Unit/3 mL Inj SUBQ SCH ×4 (02:30→21:15)
--- NOTE | 2017-05-21 04:25 | ABG ---
DateTimeAnalyzed 04:18:00 -_ pH ____7.300 - 7.350 7.450 pCO2 ___40.7__ -mmHg 35.0 45.0 pO2 129 -mmHg 69.0 116 HCO3- ___19.4__ -mmol/L 22.0 26.0 ABE ___-6.0__ -mmol/L -2.0 2.0 tHb ____9.6__ -g/dL 12.0 18.0 O2Hb ___96.9__ -% COHb ____0.8__ -% 0.0 1.5 MetHb ____0.8__ -% 0.4 1.5 sO2 ___98.5__ -% FIO2 ___80.0__ -% Pressure_Support ___20.0__ -cmH2O PEEP ___12.0__ -cmH2O Drawn By MK - Date/Time Notified____ 04:24:00 -_ Spontaneous_RR ___11.0__ -b/min Oxygen Device 1 VENTILATOR - Notified By MK - B 757 -mmHg tO2 ___13.4__ -Vol% Wisam test N/A -
[2017-05-21 04:27] LABS: BASOPHILS % (AUTO) 0 % (0-3); EOSINOPHILS % (AUTO) 0 % (0-5); MONOCYTES % (AUTO) 3.7 % (4-12); Mean Corpuscular Hemoglobin 28.8 pg (27.0-35.0); Mean Corpuscular Volume 97.6 fL (81-100); NEUTROPHILS % (AUTO) 92.8 % (40-74); Platelet Count 267 bil/L (150-400)
[2017-05-21 04:51] LABS: Magnesium 2.6 mg/dL (1.6-2.6); Phosphorus 3.2 mg/dL (2.5-4.9)
[2017-05-21] MEDS: metroNIDAZOLE Inj 1,000 MG in IV Premix 1 EACH IV SCH ×2 (05:22→17:22)
--- NOTE | 2017-05-21 06:13 | NUR ---
Sedation/FiO2 Dr. Venegas consulted regarding need for additional sedation and Dr. Lofton's instruction to lighten sedation. Earlier in the night, the patient was thrashing her head back and foreth and had disconnected the ventilator tubing from her ET tube. Tube immediatly reconnected and Versed increased to 3mg/hour, and fentanyl to 125mcg/hour. Versed subsequently increased again to 4mg/hour. Starting at 0400 this morning, fentanyl remained unchanged and Versed titrated back down to 2mg/hour. Morning ABG resulted in lowering FiO2 to 70%. Vent changes made by RT.
--- NOTE | 2017-05-21 06:42 | DRSVH ---
PROCEDURE: X-RAY CHEST ONE VIEW, PORTABLE ([id number]) INDICATIONS: 61 year-old intubated female. TECHNIQUE: One view of the chest was acquired. COMPARISON: [facility], CR, XR CHEST 1VW (PORTABLE), 05/20/2017, 5:41. [facility], CR, XR CHEST 1VW (PORTABLE), 05/19/2017, 4:01. [facility], CR, XR CHEST 1VW (ANABEL BLE), 05/18/2017, 6:00. FINDINGS: Surgical changes and devices: Endotracheal tube, nasogastric tube, and right internal jugular central venous catheter remain in expected positions. Lungs and pleura: Bilateral perihilar and peripheral interstitial opacities persist. Trace left basa l pleural effusion has decreased. Lung volumes are low. No pneumothorax. Mediastinum: Mediastinal contours appear normal. Heart size is normal. There is aortic atheroscler osis. Bones and chest wall: No suspicious bony lesions. Overlying soft tissues appear unremarkable. IMPRESSION: 1. No significant interval change in mild residual pulmonary edema. 2. Trace left basal pleural effusion has decreased. Dictated by: Brooks Richard M.D. on 05/21/2017 at 6:38 Approved by: Brooks Richard M.D. on 05/21/2017 at 6:41
[2017-05-21] MEDS: MethylprednisoLONE Sodium Succinate 62.5 mg/mL 2 mL Inj IVPUSH SCH ×2 (08:35→20:57)
[2017-05-21] MEDS: Famotidine Inj 20 MG in IV Premix 1 EACH IV SCH ×2 (08:35→20:57)
[2017-05-21] MEDS: Vancomycin Dose per Pharmacist XX SCH (08:36)
[2017-05-21] MEDS: Vancomycin Inj 1,000 MG in IV Premix 1 EACH IV SCH (08:38)
[2017-05-21] MEDS: Midazolam 100 mg/100 mL Premix IV PRN (10:43)
[2017-05-21] MEDS: 0.9% Sodium Chloride 1,000 ML IV SCH (12:46)
[2017-05-21] MEDS: fentaNYL 2,500 mCg/250 mL 2,500 MCG in IV Premix 1 EACH IV PRN ×2 (12:47→23:46)
--- NOTE | 2017-05-21 12:58 | PCM.PNMED ---
Subjective Date of Service May 21, 2017 Subjective Pulmonology/Critical Care Progress Note Barbara Davila is a 61 year old woman with interstitial lung disease secondary to ARDS in 2011 who requires 6-7 L O2 at baseline who has been followed by [facility] for possibility of lung transplant which has been put on hold due to her recent bout of pneumonia in October and two arrest secondary to hypoxemia the second of which is the reason for this hospital admission. She was intubated in the field and found to be in acute hypercarbic respiratory failure. Initial CT demonstrated new obstruction of airways along with her interstitial lung disease which was not seen on last CT in April. Hospital day 5. Ventilator day 5. Interval History Yesterday patient had long periods of apnea during her breathing trial. She was placed back on pressure support and has remained on this mode since. Ventilation had been coming minimally easier every day with her expiratory volumes continuing to slowly improve although today they seem unchanged from yesterday. Blood pressure has remained stable and has not required fluid boluses or norepinephrine. She wakes to verbal stimuli. She follows commands and responds to questions appropriately. Exam Vital Signs Vital Sign - Last Date Time Temp Pulse Resp B/P Pulse Ox O2 Delivery O2 Flow Rate FiO2 05/21/17 11:42 144/77 95 65 05/21/17 08:00 36.9 109 16 Mechanical Ventilator Intake and Output 05/20/17 05/20/17 05/21/17 Cumulative From/Thru 15:00 23:00 07:00 05/17/17 20:07 - 05/21/17 05:39 Intake Total 4236 ml 2619 ml 86255 ml Output Total 650 ml 1000 ml 5180 ml Balance 3586 ml 1619 ml 46598 ml Intake Oral 0 ml 0 ml IV Total 3742 ml 2067 ml 12158 ml Tube Feeding 414 ml 472 ml 1052 ml Tube Irrigant 80 ml 80 ml 240 ml Output Urine Total 650 ml 1000 ml 4600 ml Gastric Drainage Total 280 ml Other 300 ml # Bowel Movements 0 0 Exam General: Intubated and sedated but responsive to verbal stimuli. Appropriately responsive and follows commands. HEENT: Superficial abrasion on the nose and forehead from recent fall. Conjunctivae are pink no scleral icterus. ET tube in place. Neck: Supple with full range of motion. No jugular venous distension. No bruits. No lymphadenopathy or thyromegaly. Cardiovascular: Regular rate and rhythm with no murmurs, rubs, or gallops appreciated Pulmonary: Clear to auscultation bilaterally with no crackles, wheezes, or rhonchi. Abdomen: Bowel tones present. Soft, nontender, nondistended. No hepatosplenomegaly or masses appreciated. Extremities: Trace pretibial edema. Skin: Warm and well-perfused. Scattered superficial abrasions from recent fall. Neurological: Cranial nerves grossly intact. Lines: ET tube Horn catheter Right IJ Left radial arterial line Right peripheral Lab and Diagnostics Result Diagram: 05/21/1740905/21/17409 Microbiology Sputum culture positive for Klebsiella Blood culture negative MRSA negative X-Rays, CTs and MRIs X-RAY CHEST ONE VIEW, PORTABLE IMPRESSION: 1. Acute on chronic diffuse pulmonary opacities new since 05/11/2017 may represent edema, infection, or blood products superimposed on chronic scarring/ fibrosis. 2. ET and enteric tubes. Dictated by: Junior Quinn M.D. on 05/17/2017 at 20:42 CT CERVICAL SPINE WITHOUT CONTRAST IMPRESSION: 1. No CT evidence of acute cervical spine pathology. 2. Extensive degenerative change. 3. Possible right mandibular fracture or motion artifact on this study and on today's head CT. Please correlate with clinical point tenderness of the right mandible. Dictated by: Junior Quinn M.D. on 05/17/2017 at 21:27 CT BRAIN WITHOUT CONTRAST IMPRESSION: Low-density in the maninder may represent early infarction. Recommend MRI with and without contrast for further evaluation. If MRI cannot be performed, recommend short term CT followup. Dictated by: Junior Quinn M.D. on 05/17/2017 at 21:19 CT ANGIO CHEST PULMONARY EMBOLISM IMPRESSION: 1. No acute pulmonary emboli in the main, left or right pulmonary arteries. Smaller pulmonary obscured by respiratory motion and cannot be evaluated. 2. Diffuse interstitial opacities with confluent opacities in the dependent right greater than left lungs representing chronic emphysema with superimposed fluid imbalance, atelectasis, infection, blood products, or a combination of these possibilities. 3. Bilateral anterior rib fractures. 4. ET and enteric tube in appropriate position PROCEDURE: X-RAY CHEST ONE VIEW, PORTABLE ([id number]) IMPRESSION: ET tube approximately 2.9 cm superior to the cassidy. Dictated by: Anjali Dupont MD, PhD on 05/18/2017 at 9:01. Additional Diagnostics ABG pH 7.3/42.2/81/20.4 on pressure support of a PEEP of 12 and pressure support 20 above PEEP Assessment & Plan Barbara Davila is a 61 year old woman with interstitial lung disease secondary to ARDS in 2011 who requires 6-7 L O2 at baseline who has been followed by [facility] for possibility of lung transplant which has been put on hold due to her recent bout of pneumonia in October and two arrest secondary to hypoxemia the second of which is the reason for this hospital admission. She was intubated in the field and found to be in acute hypercarbic respiratory failure. Initial CT demonstrated new obstruction of airways along with her interstitial lung disease which was not seen on last CT in April. Hospital day 5. Ventilator day 5. Acute on chronic hypercarbic respiratory failure in setting of severe interstitial lung disease. Interstitial lung disease is secondary to ARDS in 2011 and she has been following with [facility]. On this admission CT showed airway obstruction along with interstitial lung disease. She was initially extremely difficult to ventilate and continues to have low but increasing expiratory volumes. As expiratory volumes continue to improve we will continue with steroids but decreased to Solu-Medrol 80mg Q12H. She is currently on pressure support and we will continue with this course. Breathing trial yesterday was unsuccessful and patient had long periods of apnea. Sedation has been attempted to be weaned back but patient's polysubstance abuse is making this difficult as her tolerance is likely high. Plans to extubate this patient are extremely guarded as she did not tolerate breathing trial and her combined processes of interstitial lung disease and airway obstruction make her situation complex. There may need to be discussions regarding possible tracheostomy in the future. Hypotension which is difficult to determine whether this is secondary to sepsis or hypovolemia. It is difficult to determine whether this is secondary to sepsis as there has been Klebsiella isolated from her sputum but with her chronic lung disease this could be colonization. She also had a negative procalcitonin and unimpressive blood cell count. Although this is true in light of her recent hospitalization she has had many opportunities to contract infection and therefore antibiotic so started yesterday. Her hypotension at this time has resolved. She was fluid responsive yesterday with 1500 mL fluid bolus along with an additional 2.5 L for a total of 4 L. After initial fluid bolus norepinephrine was able to be titrated off without difficulty. She has maintained maps in the mid 70s without difficulty overnight. We will continue to monitor blood pressure and urine output closely. But at this time she appears euvolemic and possibly less septic due to initiation of antibiotics. Possible Klebsiella infection. Sputum culture obtained on admission has grown Klebsiella. Difficult to assess whether this is a real infection or colonization as discussed above. Empiric antibiotics were started by infectious disease. Antibiotics include aztreonam, vancomycin, and Flagyl. Repeat sputum sample sent along with urine Legionella and urine strep pneumonia. We appreciate infectious disease's recommendations. Nutrition. Tube feeds at goal of 45 ml/hr. Patient tolerating. GI prophylaxis: Famotidine DVT prophylaxis: Heparin CODE STATUS: FULL Total time spent 35 minutes. GI Prophylaxis: H2 pat VTE Prophylaxis: Sub-Q Heparin (Unfractionated) VTE Mechanical Devices: Intermittant Pneumatic CD Resuscitation Status: CPR: Attempt Resuscitation JANY MOYER DO May 21, 2017 12:58
--- NOTE | 2017-05-21 18:22 | NUR ---
Respiratory/sedation Pt has intermittent, seemingly random periods of desat, low tidal volumes, increased RR to 40s as well as sinus tach and hypertension with systolics in the 180s. Suction pt with small creamy brown secretions, notified RT, who lavaged PRN as well as MD adjusting vent settings. Pt coughing with suction. Pt RASS -1, with the ability to nod yes and no to questions and follow some commands. FELDT score 0-4 most of shift, with bolus of versed and fentanyl used for patient care and anxiety. Q2h turns, oral care and frequent rounding continues.
--- NOTE | 2017-05-21 18:33 | PCM.PNMED ---
Subjective Date of Service May 21, 2017 Subjective 61-year-old woman with history of pulmonary fibrosis and COPD presents with cardiac arrest due to pulseless electrical activity, and acute on chronic respiratory failure with hypercarbia and hypoxia. FiO2 is slightly lower but she is not tolerating pressure support trials. Does not tolerate reduction in sedation. Exam Vital Signs Vital Sign - Last Date Time Temp Pulse Resp B/P Pulse Ox O2 Delivery O2 Flow Rate FiO2 05/21/17 16:00 144/77 97 60 05/21/17 16:00 36.9 97 16 Mechanical Ventilator Intake and Output 05/20/17 05/20/17 05/21/17 Cumulative From/Thru 15:00 23:00 07:00 05/17/17 20:07 - 05/21/17 05:39 Intake Total 4236 ml 2619 ml 76858 ml Output Total 650 ml 1000 ml 5180 ml Balance 3586 ml 1619 ml 15196 ml Intake Oral 0 ml 0 ml IV Total 3742 ml 2067 ml 48272 ml Tube Feeding 414 ml 472 ml 1052 ml Tube Irrigant 80 ml 80 ml 240 ml Output Urine Total 650 ml 1000 ml 4600 ml Gastric Drainage Total 280 ml Other 300 ml # Bowel Movements 0 0 Exam General: Eyes open, responds to voice, follows commands and tracks with eyes HEENT: sclerae anicteric moist secretions Chest: Coarse breath sounds but no rales, no wheezing Cardiac: S1S2, no murmur Abdomen: BS present, Extremities: Trace edema Neuro: Alert to voice, minimal responses, face is symmetric, motor normal, symmetric Lab and Diagnostics Result Diagram: 05/21/17 0410 05/21/17 0410 Microbiology Sputum culture positive for Klebsiella Blood culture negative MRSA negative X-Rays, CTs and MRIs X-RAY CHEST ONE VIEW, PORTABLE IMPRESSION: 1. Acute on chronic diffuse pulmonary opacities new since 05/11/2017 may represent edema, infection, or blood products superimposed on chronic scarring/ fibrosis. 2. ET and enteric tubes. Dictated by: Junior Quinn M.D. on 05/17/2017 at 20:42 CT CERVICAL SPINE WITHOUT CONTRAST IMPRESSION: 1. No CT evidence of acute cervical spine pathology. 2. Extensive degenerative change. 3. Possible right mandibular fracture or motion artifact on this study and on today's head CT. Please correlate with clinical point tenderness of the right mandible. Dictated by: Junior Quinn M.D. on 05/17/2017 at 21:27 CT BRAIN WITHOUT CONTRAST IMPRESSION: Low-density in the maninder may represent early infarction. Recommend MRI with and without contrast for further evaluation. If MRI cannot be performed, recommend short term CT followup. Dictated by: Junior Quinn M.D. on 05/17/2017 at 21:19 CT ANGIO CHEST PULMONARY EMBOLISM IMPRESSION: 1. No acute pulmonary emboli in the main, left or right pulmonary arteries. Smaller pulmonary obscured by respiratory motion and cannot be evaluated. 2. Diffuse interstitial opacities with confluent opacities in the dependent right greater than left lungs representing chronic emphysema with superimposed fluid imbalance, atelectasis, infection, blood products, or a combination of these possibilities. 3. Bilateral anterior rib fractures. 4. ET and enteric tube in appropriate position PROCEDURE: X-RAY CHEST ONE VIEW, PORTABLE ([id number]) IMPRESSION: ET tube approximately 2.9 cm superior to the cassidy. Dictated by: Anjali Dupont MD, PhD on 05/18/2017 at 9:01. Additional Diagnostics ABG pH 7.3/42.2/81/20.4 on pressure support of a PEEP of 12 and pressure support 20 above PEEP Assessment & Plan Barbara Davila is a 61 year old woman with interstitial lung disease requiring 6-7L O2, right sided heart failure, who presents with a hypotensive syncopal episode and acute hypercarbic respiratory failure. Primary issue is acute and chronic respiratory failure complicated by unexplained obstructive physiology, for which high-dose glucocorticoids administered. Pulmonary: Acute on chronic respiratory failure with hypercarbia. Present on admission. Admission labs are notable for normal serum CO2, but markedly elevated PCO2 on venous blood gas. Chest CT and ventilator dynamics suggest airway narrowing and ventilatory dysfunction, unrelated to her history of pulmonary fibrosis, or even rib fractures. -Fentanyl, Propofol, and Midazolam for sedation; patient with significant ventilator desynchrony if sedation is lightened -Ventilator management per pulmonary consult -High-dose glucocorticoids and bronchodilators - Minimize fluid overload Severe Interstitial Lung Disease with right sided heart failure and Cor Pulmonale, POA, chronic. Active -Patient is proving difficult to ventilate due to likely air trapping and poor pulmonary compliance -Currently saturating well on SIMV pressure support with tidal volumes in the 400-500 range -Holding paralytic agents as last resort given this patient's overall debility and the protracted recovery course that would entail -Patient recently was discharged having complete steroid therapy, will consider further steroid administration should respiratory difficulties persist -DuoNebs Q4 scheduled, with alternating Q4 PRN -Patient uses 6-7L O2 at baseline -Continue close monitoring and Tele Rib fractures, present on admission. 2 recent episodes of CPR. Probably contributes to her acute on chronic respiratory failure. -Analgesics as needed when patient emerges from ventilator sedation Infectious disease: Possible Aspiration event, POA, acute. Active. Patient vomited post intubation en route to the ED. Klebsiella grown from sputum. Sputum not significantly purulent showing mixed erich. She has been afebrile. New infiltrates on CXR and CT compared to 05/11 -Leukocytosis upon admission, now resolved, but remains afebrile -Antibiotic coverage per infectious disease consult Cardiac: Presumed Cardiac Arrest, POA, acute. Active. Etiology of arrest uncertain. Patient intubated post arrest due to concern over airway protection with episode of emesis. Patient received compressions from SNF nursing staff, and 2 rounds by EMS with 1 mg of Epinephrine followed by [facility]. Cardiac rhythm is stable since admission. She has intermittent hypotension. Cardiovascular monitoring indicated high output peripheral resistance. Initially required norepinephrine which is weaned off. - Intravenous fluids as needed Resolving, stable and are chronic problems: Neurological: Possible CVA, acuity unknown. CT brain with diffuse low-density maninder. No focal abnormalities on limited neurologic exam at present. - Monitor neurologic status after emergence from sedation Renal: Acute kidney injury. Serum creatinine 1.3 on admission; declined to 0.75 - Follow BMP - Maintenance hydration Depression/Anxiety: currently holding home meds due to NPO status Chronic Pain: On Fentanyl as above GI Prophylaxis: H2 pat VTE Prophylaxis: Sub-Q Heparin (Unfractionated) VTE Mechanical Devices: Intermittant Pneumatic CD Resuscitation Status: CPR: Attempt Resuscitation Time spent 30 minutes Alexey Quintero MD May 21, 2017 18:33
[2017-05-21] MEDS ORDERED: Vancomycin Serum Trough XX ONE (19:30)
--- NOTE | 2017-05-21 20:19 | PCM.PHAPRO ---
Progress Date of Service: May 21, 2017 Post Cardiac Arrest VANCOMYCIN MANAGEMENT A\ 61YO F ADMITTED FOR PNEUMONIA VANCOMYCIN TROUGH =19.5 DRAWN APPROXIMATELY 30MIN EARLY GOAL VANCOMYCIN PER ID RECOMMENDATION 13MCG/ML SCR=0.76 CRCL=94 WBC=10.2 AFEBRILE P\ WILL DECREASE VANCOMYCIN PER ID RECOMMENDATION FOR VANCOMYCIN GOAL OF 13MCG/ ML VANCOMYCIN 750MG IV Q12H AND CHECK A LEVEL BEFORE THE 4TH DOSE 05/23 0800 WITH MONITORING OF DAILY SERUM CREATININE LEVELS FOR 3 DAYS. Olman [facility] May 21, 2017 20:19
[2017-05-21] MEDS: Vancomycin Inj 750 MG in 0.9% Sodium Chloride 250 ML IV SCH (20:57)
[2017-05-22] VITALS (12 sets, daily range): BP systolic 122–178; BP diastolic 60–109; PULSE 74–99; RESP 15–30; O2SAT 92–97
[2017-05-22] MEDS: Midazolam 100 mg/100 mL Premix IV PRN ×2 (00:16→20:32)
[2017-05-22] MEDS: Albuterol-Ipratropium 3 mL Inhalation Solution NEB SCH ×6 (00:22→20:07)
[2017-05-22] MEDS: Heparin 5,000 Unit/mL Inj SUBQ SCH ×3 (00:49→18:30)
[2017-05-22] MEDS: Dexmedetomidine 400 mCg/100 mL 400 MCG in IV Premix 1 EACH IV SCH ×3 (00:50→18:28)
[2017-05-22] MEDS: Insulin Human REGular 300 Unit/3 mL Inj SUBQ SCH ×4 (02:30→20:19)
[2017-05-22] MEDS: 0.9% Sodium Chloride 1,000 ML IV SCH ×2 (03:18→07:05)
[2017-05-22] MEDS: Chlorhexidine 0.12% 15 mL Oral Solution MT SCH ×6 (04:38→20:15)
[2017-05-22] MEDS: metroNIDAZOLE Inj 1,000 MG in IV Premix 1 EACH IV SCH ×2 (04:41→18:29)
[2017-05-22 06:10] LABS: BASOPHILS % (AUTO) 0 % (0-3); EOSINOPHILS % (AUTO) 0 % (0-5); MONOCYTES % (AUTO) 6.8 % (4-12); Mean Corpuscular Hemoglobin 28.7 pg (27.0-35.0); Mean Corpuscular Volume 97.7 fL (81-100); NEUTROPHILS % (AUTO) 85.9 % (40-74); Platelet Count 261 bil/L (150-400)
--- NOTE | 2017-05-22 06:20 | NUR ---
Vent Pt's work of breathing increasing throughout the night. RT Philly called to assess patient. Dr. Hutchinson consulted regarding PRN nebulizer treatments. Pt having intermittent coughing. Addendum: 05/22/17 at 0621 by CLAUDIA OLVERA RN Wrong Patient.
[2017-05-22 06:32] LABS: Magnesium 2.6 mg/dL (1.6-2.6); Phosphorus 2.6 mg/dL (2.5-4.9)
[2017-05-22] MEDS: Aztreonam Inj 2,000 MG in Dextrose 5% Minibag Plus 100 ML IV SCH ×2 (08:45→15:56)
[2017-05-22] MEDS: Vancomycin Dose per Pharmacist XX SCH (08:48)
[2017-05-22] MEDS: Famotidine Inj 20 MG in IV Premix 1 EACH IV SCH ×2 (09:03→20:15)
[2017-05-22] MEDS: MethylprednisoLONE Sodium Succinate 62.5 mg/mL 2 mL Inj IVPUSH SCH (09:10)
--- NOTE | 2017-05-22 09:39 | DRSVH ---
PROCEDURE: X-RAY CHEST ONE VIEW, PORTABLE ([id number]) INDICATIONS: intubated TECHNIQUE: One view of the chest was acquired. COMPARISON: [facility], CR, XR CHEST 1VW (PORTABLE), 05/17/2017, 22:06. [facility], , CHEST 1 VIEW, 05/11/2017, 5:26. [facility], , CHEST 2 VIEW, 05/08/2017, 6:56. FINDINGS: Surgical changes and devices: equipment monitor phototypesetting leads are seen over the chest. There is an NG tube into the stomach. There is an endotracheal tube ending 4.4 cm above the cassidy. There is a right internal jugular catheter at the level of the right hilum. Lungs and pleura: The appearance of the lungs is that of incompletely cleared but significantly impro luna pulmonary edema. There is air bronchogram in the left lower lobe suggesting consolidation. Mediastinum: Mediastinal contours appear normal. Heart size is normal. Bones and chest wall: No suspicious bony lesions. Overlying soft tissues appear unremarkable. IMPRESSION: Significantly improved congestive heart failure/ pulmonary edema changes. There is now the appearance of some air bronchograms consistent with some consolidation/pneumonia in the left lower lobe. Tubes and lines are appropriate in position. Dictated by: Edilson Atkins M.D. on 05/22/2017 at 9:34 Approved by: Edilson Atkins M.D. on 05/22/2017 at 9:38
--- NOTE | 2017-05-22 10:47 | PCM.PNMED ---
Subjective Date of Service May 22, 2017 Subjective 61-year-old woman with history of pulmonary fibrosis and COPD presents with cardiac arrest due to pulseless electrical activity, and acute on chronic respiratory failure with hypercarbia and hypoxia. FiO2 is slightly lower; still not tolerating pressure support trials. Does not tolerate reduction in sedation. Exam Vital Signs Vital Sign - Last Date Time Temp Pulse Resp B/P Pulse Ox O2 Delivery O2 Flow Rate FiO2 05/22/17 10:20 101 17 96 55 05/22/17 09:30 178/109 05/22/17 08:00 Ventilator 05/22/17 08:00 38.0 Intake and Output 05/21/17 05/21/17 05/22/17 Cumulative From/Thru 15:00 23:00 07:00 05/17/17 20:07 - 05/22/17 06:12 Intake Total 2329 ml 2190 ml 66468 ml Output Total 1150 ml 1400 ml 7730 ml Balance 1179 ml 790 ml 40939 ml Intake Oral 0 ml 0 ml IV Total 1652 ml 1553 ml 83343 ml Tube Feeding 557 ml 517 ml 2126 ml Tube Irrigant 120 ml 120 ml 480 ml Output Urine Total 1150 ml 1400 ml 7150 ml Gastric Drainage Total 280 ml Other 300 ml # Bowel Movements 1 1 Exam General: Sedated today, HEENT: sclerae anicteric, facial abrasions, moist secretions Chest: Coarse breath sounds but no rales, no wheezing Cardiac: S1S2, no murmur Abdomen: BS present, Extremities: 1+ edema Neuro: Limited responses at today, face seems symmetric, motor tone normal, symmetric IVs and Medications Medications Reviewed: Medications were reviewed in detail Lab and Diagnostics Result Diagram: 05/22/17 0552 05/22/17 0552 Microbiology Sputum culture positive for Klebsiella Blood culture negative MRSA negative X-Rays, CTs and MRIs X-RAY CHEST ONE VIEW, PORTABLE IMPRESSION: 1. Acute on chronic diffuse pulmonary opacities new since 05/11/2017 may represent edema, infection, or blood products superimposed on chronic scarring/ fibrosis. 2. ET and enteric tubes. Dictated by: Junior Quinn M.D. on 05/17/2017 at 20:42 CT CERVICAL SPINE WITHOUT CONTRAST IMPRESSION: 1. No CT evidence of acute cervical spine pathology. 2. Extensive degenerative change. 3. Possible right mandibular fracture or motion artifact on this study and on today's head CT. Please correlate with clinical point tenderness of the right mandible. Dictated by: Junior Quinn M.D. on 05/17/2017 at 21:27 CT BRAIN WITHOUT CONTRAST IMPRESSION: Low-density in the maninder may represent early infarction. Recommend MRI with and without contrast for further evaluation. If MRI cannot be performed, recommend short term CT followup. Dictated by: Junior Quinn M.D. on 05/17/2017 at 21:19 CT ANGIO CHEST PULMONARY EMBOLISM IMPRESSION: 1. No acute pulmonary emboli in the main, left or right pulmonary arteries. Smaller pulmonary obscured by respiratory motion and cannot be evaluated. 2. Diffuse interstitial opacities with confluent opacities in the dependent right greater than left lungs representing chronic emphysema with superimposed fluid imbalance, atelectasis, infection, blood products, or a combination of these possibilities. 3. Bilateral anterior rib fractures. 4. ET and enteric tube in appropriate position PROCEDURE: X-RAY CHEST ONE VIEW, PORTABLE ([id number]) IMPRESSION: Significantly improved congestive heart failure/ pulmonary edema changes. There is now the appearance of some air bronchograms consistent with some consolidation/pneumonia in the left lower lobe. Tubes and lines are appropriate in position. Dictated by: Edilson Atkins M.D. on 05/22/2017 at 9:34 . Additional Diagnostics DateTimeAnalyzed 04:18:00 -_ pH ____7.300 - 7.350 7.450 pCO2 ___40.7__ -mmHg 35.0 45.0 pO2 129 -mmHg 69.0 116 HCO3- ___19.4__ -mmol/L 22.0 26.0 FIO2 ___80.0__ -% Pressure_Support ___20.0__ -cmH2O PEEP ___12.0__ -cmH2O Assessment & Plan Barbara Davila is a 61 year old woman with interstitial lung disease, right sided heart failure, who presents with a hypotensive syncopal episode and acute hypercarbic respiratory failure. Primary issue is acute and chronic respiratory failure complicated by unexplained obstructive physiology, for which high-dose glucocorticoids administered. Pulmonary: Acute on chronic respiratory failure with hypercarbia. Present on admission. Admission labs are notable for normal serum CO2, but markedly elevated PCO2 on venous blood gas. Chest CT and ventilator dynamics suggest airway narrowing and ventilatory dysfunction, unrelated to her history of pulmonary fibrosis, or even rib fractures. High-dose glucocorticoids initiated on 05/17/17 -Fentanyl, Propofol, and Midazolam for sedation; patient with significant ventilator desynchrony if sedation is lightened -Ventilator management per pulmonary consult -High-dose glucocorticoids and bronchodilators - Minimize fluid overload Severe Interstitial Lung Disease with right sided heart failure and Cor Pulmonale, POA, chronic. Active. Patient uses 6-7L O2 at baseline. Recently discontinued chronic prednisone. -Patient is proving difficult to ventilate due to likely air trapping and poor pulmonary compliance; not typical for restrictive interstitial lung disease. Etiology of obstructive pattern is unclear. -Currently saturating well on SIMV pressure support -DuoNebs Q4 scheduled, with alternating Q4 PRN -Continue close monitoring and Tele Rib fractures, present on admission. 2 recent episodes of CPR. Probably contributes to her acute on chronic respiratory failure. -Analgesics as needed when patient emerges from ventilator sedation Infectious disease: Possible Aspiration event, POA, acute. Active. Patient vomited post intubation en route to the ED. Klebsiella grown from sputum. Sputum not significantly purulent showing mixed erich. She has been afebrile. New infiltrates on CXR and CT compared to 05/11 -Leukocytosis upon admission, now resolved, but remains afebrile -Antibiotic coverage per infectious disease consult Cardiac: Presumed Cardiac Arrest, POA, acute. Active. Etiology of arrest uncertain. Patient received compressions from SNF nursing staff, and 2 rounds by EMS with 1 mg of Epinephrine followed by ROSC. Cardiac rhythm is stable since admission. She has had intermittent hypotension, but now hypertensive. Initially required norepinephrine which is weaned off. - Minimize Intravenous fluids - Diuretics as per the pulmonary service Resolving, stable and are chronic problems: Neurological: Possible CVA, acuity unknown. CT brain with diffuse low-density maninder. No focal abnormalities on limited neurologic exam at present. - Monitor neurologic status after emergence from sedation Renal: Acute kidney injury. Serum creatinine 1.3 on admission; declined to 0.75 - Follow BMP Depression/Anxiety: currently holding home meds due to NPO status Chronic Pain: On Fentanyl as above GI Prophylaxis: H2 pat VTE Prophylaxis: Sub-Q Heparin (Unfractionated) VTE Mechanical Devices: Intermittant Pneumatic CD Resuscitation Status: CPR: Attempt Resuscitation Alexey Quintero MD May 22, 2017 10:47
[2017-05-22] MEDS ORDERED: Furosemide 10 mg/mL 2 mL Inj IVPUSH SCH (10:50)
[2017-05-22] MEDS: Vancomycin Inj 750 MG in 0.9% Sodium Chloride 250 ML IV SCH ×2 (10:57→20:15)
--- NOTE | 2017-05-22 13:12 | PROG NOTE ---
[address] [address] PROGRESS NOTE PATIENT: ALISSON STAFFORD : 1955 MR#: [id number] ADMIT: 05/17/2017 JOB ID: [id number] DATE: 05/22/2017 PROBLEM LIST: 1. Acute on chronic hypoxemic, hypercarbic respiratory failure. 2. 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 3. Polysubstance abuse. 4. Upper airway obstruction. 5. Klebsiella/MSSA respiratory tract infection. OBJECTIVE: Temperature 38, which is T-max. Pulse 74-101, respiratory rate 15-18 on pressure support, ventilatory mode. Blood pressure 171/86. O2 sat on FiO2 of 55%, PEEP of 12 is 96%. I and O shows 4.9 L in, 2.1 L out. Currently, she is 18 L positive over the past six days. General appearance: Sedated on the ventilator. Apparently, had a pressure support trial with pressure support of 10. Did rather well. However, upon awakening, she was quite agitated yet short of breath and therefore was placed back on her original settings with improvement in her anxiety. Nursing reports that when she is a bit more awake, she remains neurologically and cognitively appropriate. Chest fairly good breath sounds bilaterally. Good inspiratory as well as some expiratory sounds. No wheeze. No use of the accessory muscles. Heart: Regular rhythm. Heart tones normal. Abdomen is soft. Nondistended. Bowel tones present. Extremities: 1 to 2+ pedal edema. SCD in place. Distal extremities: Warm. LABORATORY DATA: Shows a white count of 9000 with a moderate neutrophilia. Hemoglobin stable at 10. Platelet count stable at 261,000. Sodium 148, potassium 5.3, chloride 117, BUN 33, creatinine 0.72 and stable. Calcium 7.4 with albumin of 3. Phosphorus normal at 2.6. Magnesium normal at 2.6. Total bilirubin normal at 0.2. AST normal at 43. ALT minimally elevated at 33 and relatively stable. Alkaline phos normal at 64. Sputum I now growing Klebsiella with Staph aureus. Gram stain shows many polys. Sensitivity show Staph aureus, MSSA, with vancomycin sensitivity of 1 mcg/mL. Chest x-ray shows a decreased in the interstitial markings. Tubes and lines in good position. There is left lower lobe consolidation. Arterial blood gases on pressure support of 20, PEEP of 12 noted spontaneous respiratory rate of 11, FiO2 of 0.6 shows a pO2 of 129, pCO2 of 40, pH is 7.30, and bicarbonate 19.4. FiO2 subsequently was turned to 0.55. ASSESSMENT: 1. Pulmonary fibrosis with subsequent aspiration pneumonia. Pulmonary status is slowly improving. Flow volume loops show still significant compromise with some collapse of the expiratory flow. However, expiratory volumes have been increasing, currently now at about 400-450, with delivered volumes of a little over 600. This has significantly improved since we started with return volumes of 27 mL to, at best, less than 100. With the improvement in expiratory flows, even though the flow volume loop is still problematic, I think we can decrease the steroids which will help with the infectious process. Suspect the infection started at the time of her aspiration. Only growing it now and therefore I do not think it represents a hospital-acquired pneumonia but rather community-acquired in a patient who has basically a healthcare-associated pneumonia. 2. Anxiety. Apparently quite anxious. When she was awake, she was extremely anxious and, in fact, developed significant patient ventilator dyssynchrony. Doing quite a bit better now. This we will have to face down the line. Currently, on dexmedetomidine to see if this will help with her anxiety. Also receiving benzodiazepines with a concern that some element of some of this behavior might be related to withdrawal symptoms. PLAN: 1. Decrease methylprednisolone to 60 mg daily. 2. Increase Lasix to 20 mg q.12. 3. Discontinue saline infusion. 4. Continue enteral feeding. 5. Continue current regimen of antibiotics. Discussed the current status and plan with the patient's daughter in detail. Also discussed the difficulty we might have with weaning and concerned about her underlying pulmonary functional status given that she has severe fibrosis and now we are dealing with a Staph respiratory tract infection along with Klebsiella. Time spent in critical care 55 minutes.
[2017-05-22] MEDS: fentaNYL 2,500 mCg/250 mL 2,500 MCG in IV Premix 1 EACH IV PRN (15:50)
[2017-05-22] MEDS: Furosemide 10 mg/mL 2 mL Inj IVPUSH SCH (18:29)
--- NOTE | 2017-05-22 19:49 | NUR ---
Agitation/Emesis... Has been able to awaken intermittently and nod appropriately. Noted to agitate intermittently and was found with tube feeding pulled apart and draining on bed. Settles once given fentanyl boluses. Noted at 1630 to have tube feed like emesis from mouth. Pt's HOB was elevated and pt was on L side when noted to have emesis. Feeds stopped and OGT placed to suction. MD notified and feeds will be dc'd. Daughter was here and updated on status and plan of care.
[2017-05-23] VITALS (12 sets, daily range): BP systolic 117–158; BP diastolic 50–78; PULSE 73–95; RESP 17–25; O2SAT 92–97
[2017-05-23] MEDS: Albuterol-Ipratropium 3 mL Inhalation Solution NEB SCH ×6 (00:32→20:57)
[2017-05-23] MEDS: Heparin 5,000 Unit/mL Inj SUBQ SCH ×3 (00:35→16:57)
[2017-05-23] MEDS: Chlorhexidine 0.12% 15 mL Oral Solution MT SCH ×6 (00:36→20:35)
[2017-05-23] MEDS: Aztreonam Inj 2,000 MG in Dextrose 5% Minibag Plus 100 ML IV SCH ×3 (00:36→16:57)
[2017-05-23] MEDS: Dexmedetomidine 400 mCg/100 mL 400 MCG in IV Premix 1 EACH IV SCH ×3 (02:03→16:55)
[2017-05-23] MEDS: Insulin Human REGular 300 Unit/3 mL Inj SUBQ SCH ×4 (03:00→20:30)
[2017-05-23 03:39] LABS: BASOPHILS % (AUTO) 0 % (0-3); EOSINOPHILS % (AUTO) 0.9 % (0-5); MONOCYTES % (AUTO) 8.1 % (4-12); Mean Corpuscular Hemoglobin 28.8 pg (27.0-35.0); Mean Corpuscular Volume 96.6 fL (81-100); NEUTROPHILS % (AUTO) 76.6 % (40-74); Platelet Count 241 bil/L (150-400)
[2017-05-23 04:15] LABS: Magnesium 2.2 mg/dL (1.6-2.6); Phosphorus 2.7 mg/dL (2.5-4.9)
--- NOTE | 2017-05-23 04:40 | ABG ---
DateTimeAnalyzed 04:33:00 -_ pH ____7.376 - 7.350 7.450 pCO2 ___45.7__ -mmHg 35.0 45.0 pO2 ___69.9__ -mmHg 69.0 116 HCO3- ___26.2__ -mmol/L 22.0 26.0 ABE ____1.3__ -mmol/L -2.0 2.0 tHb ____9.2__ -g/dL 12.0 18.0 O2Hb ___92.2__ -% COHb ____1.1__ -% 0.0 1.5 MetHb ____1.0__ -% 0.4 1.5 sO2 ___94.2__ -% FIO2 ___60.0__ -% Pressure_Support ___18.0__ -cmH2O PEEP ___10.0__ -cmH2O Drawn By AF - Date/Time Notified____ 04:40:00 -_ Spontaneous_RR ___.0__ -b/min Oxygen Device 1 VENTILATOR - Notified By AF - B 762 -mmHg tO2 ___12.1__ -Vol% OrderingPhysicianInitials bak - Wisam test N/A -
[2017-05-23] MEDS: metroNIDAZOLE Inj 1,000 MG in IV Premix 1 EACH IV SCH ×2 (05:49→16:57)
[2017-05-23] MEDS: fentaNYL 2,500 mCg/250 mL 2,500 MCG in IV Premix 1 EACH IV PRN ×2 (05:59→17:43)
[2017-05-23] MEDS ORDERED: Vancomycin Serum Trough XX ONE (08:00)
[2017-05-23] MEDS: Furosemide 10 mg/mL 2 mL Inj IVPUSH SCH ×2 (08:28→16:59)
[2017-05-23] MEDS: Famotidine Inj 20 MG in IV Premix 1 EACH IV SCH ×2 (08:29→20:34)
[2017-05-23] MEDS: Vancomycin Inj 750 MG in 0.9% Sodium Chloride 250 ML IV SCH ×2 (08:29→20:35)
[2017-05-23] MEDS: Vancomycin Dose per Pharmacist XX SCH (08:30)
[2017-05-23] MEDS: MethylprednisoLONE Sodium Succinate 62.5 mg/mL 2 mL Inj IVPUSH SCH (08:31)
--- NOTE | 2017-05-23 10:32 | PCM.PNMED ---
Subjective Date of Service May 23, 2017 Subjective Pulmonology/Critical Care Progress Note Barbara Davila is a 61 year old woman with interstitial lung disease secondary to ARDS in 2011 who requires 6-7 L O2 at baseline who has been followed by [facility] for possibility of lung transplant which has been put on hold due to her recent bout of pneumonia in October and two arrest secondary to hypoxemia the second of which is the reason for this hospital admission. She was intubated in the field and found to be in acute hypercarbic respiratory failure. Initial CT demonstrated new obstruction of airways along with her interstitial lung disease which was not seen on last CT in April. Hospital day 7. Ventilator day 7. Interval History Yesterday patient had an episode of emesis and tube feeds were subsequently turned off. Sedation continues to be an issue as patient is quite alert and fights the vent. She has failed breathing trials. Diuresis was started yesterday. Patient had 3 bowel movements yesterday. Exam Vital Signs Vital Sign - Last Date Time Temp Pulse Resp B/P Pulse Ox O2 Delivery O2 Flow Rate FiO2 05/23/17 07:50 73 118/50 93 60 05/23/17 04:00 Ventilator 05/23/17 04:00 37.7 18 Intake and Output 05/22/17 05/22/17 05/23/17 Cumulative From/Thru 15:00 23:00 07:00 05/17/17 20:07 - 05/23/17 06:15 Intake Total 2145 ml 1067 ml 41149 ml Output Total 2500 ml 2950 ml 93466 ml Balance -355 ml -1883 ml 43707 ml Intake Oral 0 ml IV Total 1561 ml 1067 ml 46033 ml Tube Feeding 464 ml 2590 ml Tube Irrigant 120 ml 600 ml Output Urine Total 2500 ml 2800 ml 83895 ml Gastric Drainage Total 150 ml 430 ml Other 300 ml # Bowel Movements 2 0 3 Exam General: Intubated and sedated but responsive to verbal stimuli. Appropriately responsive and follows commands. HEENT: Superficial abrasion on the nose and forehead from recent fall. Conjunctivae are pink no scleral icterus. ET tube in place. Neck: Supple with full range of motion. No jugular venous distension. No bruits. No lymphadenopathy or thyromegaly. Cardiovascular: Regular rate and rhythm with no murmurs, rubs, or gallops appreciated Pulmonary: Coarse inspiratory breath sounds bilaterally but greater on the right. Abdomen: Bowel tones present. Soft, nontender, nondistended. No hepatosplenomegaly or masses appreciated. Extremities: Trace pretibial edema. Skin: Warm and well-perfused. Scattered superficial abrasions from recent fall. Neurological: Cranial nerves grossly intact. Lines: ET tube Horn catheter Right IJ Left radial arterial line Right peripheral Lab and Diagnostics Result Diagram: 05/23/1731405/23/17314 Microbiology Sputum culture positive for Klebsiella Blood culture negative MRSA negative X-Rays, CTs and MRIs X-RAY CHEST ONE VIEW, PORTABLE IMPRESSION: 1. Acute on chronic diffuse pulmonary opacities new since 05/11/2017 may represent edema, infection, or blood products superimposed on chronic scarring/ fibrosis. 2. ET and enteric tubes. Dictated by: Junior Quinn M.D. on 05/17/2017 at 20:42 CT CERVICAL SPINE WITHOUT CONTRAST IMPRESSION: 1. No CT evidence of acute cervical spine pathology. 2. Extensive degenerative change. 3. Possible right mandibular fracture or motion artifact on this study and on today's head CT. Please correlate with clinical point tenderness of the right mandible. Dictated by: Junior Qunin M.D. on 05/17/2017 at 21:27 CT BRAIN WITHOUT CONTRAST IMPRESSION: Low-density in the maninder may represent early infarction. Recommend MRI with and without contrast for further evaluation. If MRI cannot be performed, recommend short term CT followup. Dictated by: Junior Quinn M.D. on 05/17/2017 at 21:19 CT ANGIO CHEST PULMONARY EMBOLISM IMPRESSION: 1. No acute pulmonary emboli in the main, left or right pulmonary arteries. Smaller pulmonary obscured by respiratory motion and cannot be evaluated. 2. Diffuse interstitial opacities with confluent opacities in the dependent right greater than left lungs representing chronic emphysema with superimposed fluid imbalance, atelectasis, infection, blood products, or a combination of these possibilities. 3. Bilateral anterior rib fractures. 4. ET and enteric tube in appropriate position PROCEDURE: X-RAY CHEST ONE VIEW, PORTABLE ([id number]) IMPRESSION: Significantly improved congestive heart failure/ pulmonary edema changes. There is now the appearance of some air bronchograms consistent with some consolidation/pneumonia in the left lower lobe. Tubes and lines are appropriate in position. Dictated by: Edilson Atkins M.D. on 05/22/2017 at 9:34 . Additional Diagnostics DateTimeAnalyzed 04:33:00 -_ pH ____7.376 - 7.350 7.450 pCO2 ___45.7__ -mmHg 35.0 45.0 pO2 ___69.9__ -mmHg 69.0 116 HCO3- ___26.2__ -mmol/L 22.0 26.0 ABE ____1.3__ -mmol/L -2.0 2.0 tHb ____9.2__ -g/dL 12.0 18.0 O2Hb ___92.2__ -% COHb ____1.1__ -% 0.0 1.5 MetHb ____1.0__ -% 0.4 1.5 sO2 ___94.2__ -% FIO2 ___60.0__ -% Pressure_Support ___18.0__ -cmH2O PEEP ___10.0__ -cmH2O Drawn By AF - Date/Time Notified____ 04:40:00 -_ Spontaneous_RR ___11.0__ -b/min Assessment & Plan Barbara Davila is a 61 year old woman with history of spinal substance abuse and interstitial lung disease secondary to ARDS in 2011 who requires 6-7 L O2 at baseline who has been followed by [facility] for possibility of lung transplant which has been put on hold due to her recent bout of pneumonia in October and two arrest secondary to hypoxemia the second of which is the reason for this hospital admission. She was intubated in the field and found to be in acute hypercarbic respiratory failure. Initial CT demonstrated new obstruction of airways along with her interstitial lung disease which was not seen on last CT in April. Hospital day 7. Ventilator day 7. Acute on chronic hypercarbic respiratory failure in setting of severe interstitial lung disease. Interstitial lung disease is thought to be secondary to ARDS in 2011 according to notes from the [facility] who she has been following with. On this admission CT showed airway obstruction along with interstitial lung disease. She was initially extremely difficult to ventilate and continues to have low but increasing expiratory volumes. - Patient is currently on pressure support at 18/10. She continues to fail SBTs. - Solu-Medrol 60 mg daily. Initially given high-dose steroids as there was some suspicion of an allergic component due to the airway obstruction seen on CT. - Furosemide 20 mg twice a day started yesterday as we work towards extubation. - Sedation currently is with fentanyl, midazolam, and Precedex. Attention then made to wean back sedation but due to patient's polysubstance abuse this has proven difficult. Possible aspiration event. Patient with positive sputum cultures 2 for Klebsiella along with a recent urine culture positive for Klebsiella. Difficult to assess whether this is an active infection or colonization. - Patient has had low-grade fevers throughout hospitalization MAXIMUM TEMPERATURE over the last 24 hours was 37.7. - Patient currently on aztreonam, vancomycin, and Flagyl per ID. - Procalcitonin is 0.06 and has never been significantly elevated. Presumed cardiac arrest. Etiology uncertain although likely secondary to hypoxic episode. Patient was also noted to have a prolonged QT and therefore arrhythmia must be considered. - Avoid QT prolonging medications. - Treatment for respiratory failure as above to remove likely cause. Polysubstance abuse. Family has brought forth that the patient uses numerous street drugs and alcohol. Unclear when her last use was as she was recently in a SNF prior to this admission. - Complicating sedation at this time. Current sedation with midazolam and Precedex. - Pain from rib fractures sustained during CPR. - Pain control with fentanyl gtt. Nutrition. Tube feeds at goal of 45 ml/hr but stopped yesterday due to episode of emesis. Likely will restart tube feeds today. GI prophylaxis: Famotidine DVT prophylaxis: Heparin CODE STATUS: FULL Total time spent 35 minutes. GI Prophylaxis: H2 pat VTE Prophylaxis: Sub-Q Heparin (Unfractionated) VTE Mechanical Devices: Intermittant Pneumatic CD Resuscitation Status: CPR: Attempt Resuscitation Attending Statement I have seen and examined this patient with the resident physician. Vital signs , labs, imaging have been reviewed. I agree with the assessment and plan above. Please refer to my separately dictated progress note for any modifications to above. Josie Reese M.D. Pulmonary and Critical Care medicine Pager [phone] JANY MOYER DO May 23, 2017 10:32 Josie Reese MD May 24, 2017 16:03 uncertain. Patient received compressions from SNF nursing staff, and 2 rounds by EMS with 1 mg of Epinephrine followed by ROSC. Cardiac rhythm is stable since admission. She has had intermittent hypotension, but now hypertensive. Initially required norepinephrine which is weaned off. - Minimize Intravenous fluids - Diuretics as per the pulmonary service Resolving, stable and are chronic problems: Neurological: Possible CVA, acuity unknown. CT brain with diffuse low-density maninder. No focal abnormalities on limited neurologic exam at present. - Monitor neurologic status after emergence from sedation Renal: Acute kidney injury. Serum creatinine 1.3 on admission; declined to 0.75 - Follow BMP Depression/Anxiety: currently holding home meds due to NPO status Chronic Pain: On Fentanyl as above GI Prophylaxis: H2 pat VTE Prophylaxis: Sub-Q Heparin (Unfractionated) VTE Mechanical Devices: Intermittant Pneumatic CD Resuscitation Status: CPR: Attempt Resuscitation COMFORTJANY Moise GAMEZ May 23, 2017 10:32 - Minimize Intravenous fluids - Diuretics as per the pulmonary service Resolving, stable and are chronic problems: Neurological: Possible CVA, acuity unknown. CT brain with diffuse low-density maninder. No focal abnormalities on limited neurologic exam at present. - Monitor neurologic status after emergence from sedation Renal: Acute kidney injury. Serum creatinine 1.3 on admission; declined to 0.75 - Follow BMP Depression/Anxiety: currently holding home meds due to NPO status Chronic Pain: On Fentanyl as above GI Prophylaxis: H2 pat VTE Prophylaxis: Sub-Q Heparin (Unfractionated) VTE Mechanical Devices: Intermittant Pneumatic CD Resuscitation Status: CPR: Attempt Resuscitation JANY MOYER DO May 23, 2017 10:32
--- NOTE | 2017-05-23 10:59 | PROG NOTE ---
[address] [address] PROGRESS NOTE PATIENT: ALISSON STAFFORD : 1955 MR#: [id number] ADMIT: 05/17/2017 JOB ID: [id number] DATE: 05/23/2017 REASON FOR FOLLOWUP: Possible aspiration pneumonia in the setting of a severe advanced pulmonary fibrosis with cardiac arrest at a alf facility. INTERVAL HISTORY: Recall this is a patient who was admitted now seven days ago following cardiac arrest at a alf facility. Recall that she had been closely followed at the [facility] and in fact was there just before her cardiac arrest at the alf facility for re-evaluation of her pulmonary fibrosis and possible lung transplant status. Upon admission here it was unclear if this had been purely a cardiac event or whether she may have aspirated. Sputum subsequently grew Klebsiella in this patient with a life-threatening PENICILLIN allergy so she was treated very broadly for aspiration pneumonia with vanc, aztreonam, and Flagyl to cover all the bacterial pathogens associated with aspiration pneumonia as well as to specifically cover the Klebsiella. Over the past few days she has remained intubated in the ICU, but she has been relatively stable and at times awake on the ventilator. Her respiratory status has been slowly improving as she has been weaned from 80% FiO2 to 60, but she has failed breathing trials and is not yet a candidate by any means for extubation. Her blood pressure has been relatively stable. She has not been on vasopressor agents over the weekend. PHYSICAL EXAMINATION: Reveals an afebrile intubated woman lying supine in the ICU. Her temp is 37.7 this morning. She has been as high as 38.0 over the past 24 hours. Her highest temperature during the entire admission though has been the 38 even yesterday morning. Blood pressure 118/50. No vasopressors she is on 60% and 10 of PEEP and saturating fairly well. The patient is not responsive this morning, though she has been to other examiners earlier today. Eyes without conjunctivitis. Oral endotracheal tube and orogastric tube in good position. Lungs scattered Velcro type rales bilaterally, more or less as before certainly no better. Cardiac tones regular rate and rhythm. Abdomen soft, nontender. No skin rash. Lines in good position. LABORATORIES: Include white count today 10,000. Creatinine 0.76. LFTs are normal. Procalcitonin is basically zero at this point. Recall that she has now had four procalcitonins none exceeding 0.25. Vanco troughs physiologic. Urinalysis 6-10 white cells. Urine Legionella negative. Micro includes sputum growing now Staph aureus which is MSSA as well as Klebsiella pneumoniae. The Klebsiella is sensitive to cephalosporins, though we did not specifically test aztreonam it almost certainly is also sensitive to aztreonam. Chest x-ray shows bilateral interstitial infiltrates without notable change, and we reviewed this during ICU rounds. IMPRESSION: This extremely unfortunate woman with progressive pulmonary fibrosis and polysubstance abuse who suffered a cardiac arrest now one week ago and has been intubated since. She has awakened, but has not yet been able to be weaned off the ventilator and looks like this may be a lengthy process. As to whether or not she is infected remains unclear. She is clearly colonized with Klebsiella as this was found in both sputum and urine, but not in blood. Initial sputum did not grow Staphylococcus aureus, but we now have methicillin sensitive Staphylococcus aureus growing in his sputum culture. Whether or not she has a significant respiratory infection is unclear, but I am inclined to doubt it based on negative procalcitonin, absence of any temperature greater than 38 degrees, and scant purulent secretions. RECOMMENDATIONS: 1. Will continue with these current broad-spectrum antibiotics at least over the next day or two as we continue to closely follow this patient. It is likely we will start to draw back on antibiotics as we approach the 7-10 day total course. 2. This case discussed extensively during ICU rounds.
--- NOTE | 2017-05-23 12:01 | PCM.PHAPRO ---
Progress Post Cardiac Arrest VACOMYCIN DOSING PER PHARMACY Indication: pneumonia Dose 750 mg every 12 hours SCr: 0.76 (stable) Quang following Trough today: 14 (19.5 on 05/21 with 1,000 mg Q12h) Will continue with current dosing and monitor renal fx as indicated. Will not time repeat trough as of yet. Alex Perea, PharmD Alex Perea May 23, 2017 12:00
[2017-05-23] MEDS: Midazolam 100 mg/100 mL Premix IV PRN (13:11)
--- NOTE | 2017-05-23 13:12 | NUR ---
NUTRITION FOLLOW-UP. Assess: 61 YO female admitted to CCU with cardiac arrest (PEA), requiring intubation. She has been on TF and tolerating well at goal. Overnight, pt pulled out TF and had some emesis. TF has been offx1 day. PMHX: Interstitial lung disease due to ARDS 2011, R sided heart failure, cor pulmonale, depression, anxiety, chronic pain. DIET: NPO. ENTERAL FEEDING: On hold. LABS: Cl 110, Bun 32, glu 116, alb 3.0 MEDICATIONS: Reviewed. Fentanyl, Versed, Solu-medrol. GI: BMx3 05/22. SKIN: Per Program Management Intern, proximal half of intergluteal fold is split for length of 4 cm. No drainage noted. ANTHROPOMETRICS: Wt: 113.3kg, BMI 47.2 kg/m2, Admit wt: 103.2 kg, IBW: 47.7 kg. ESTIMATED NEEDS: BMI/VENT Calories: 2060-2265kcal/day (20-22kcal/kg) Protein: 85-95g/day (1.8-2.0g/kg IBW) NUTRITION DIAGNOSIS: 1) Inadequate oral intake related to decreased ability to consume sufficient energy as evidenced by NPO/Vent status PERSISTS, TF on hold INTERVENTION: 1) Recommend re-start TF of Pulmocare @ 20ml/hr and advance 10ml q 4 hrs until reach goal rate of 65ml/hr to provide 2145kcal/day and 89g pro (100% estimated needs). MONITOR / EVALUATE: NPO / vent status, TF restart?, labs, nutritional status. Follow up per high nutrition risk guidelines.
--- NOTE | 2017-05-23 14:26 | DRSVH ---
PROCEDURE: X-RAY CHEST ONE VIEW, PORTABLE ([id number]) INDICATIONS: poulmonary fibrosis, pneumonia TECHNIQUE: One view of the chest was acquired. COMPARISON: [facility], CR, CHEST 2 VIEW, 03/26/2017, 9:12. [facility], CR, CHEST 1 VIEW, 05/11/2017, 5:26. [facility], CR, XR CHEST 1VW (PORTABLE), 05/19/2017, 4:01. [facility], CR, XR CHEST 1VW (PORTABLE), 05/21/2017, 5:46. [facility], CR, XR CHEST 1VW ( PORTABLE), 05/22/2017, 5:16. FINDINGS: Surgical changes and devices: Stable positioning of the ETT, nasogastric tube and right IJ CVL. Lungs and pleura: Interval increase in patchy bibasilar patchy airspace opacities, otherwise persiste nt interstitial densities are unchanged. No definite pleural effusion. No pneumothorax. Mediastinum: Mediastinal contours appear normal. Heart size is enlarged. Bones and chest wall: No suspicious bony lesions. Overlying soft tissues appear unremarkable. IMPRESSION: 1. Interstitial opacities redemonstrated in this patient with history of chronic interstitial lung di sease. Although the interstitial opacities may be chronic, superimposed interstitial process cannot be excluded. 2. Interval increase in bibasilar patchy airspace opacities suggestive of pneumonia. Correlate clini yfn. Dictated by: Imtiaz Olivares RRA Interpreted: Zuly Bowen MD on 05/23/2017 at 9:44 Approved by: Zuly Bowen M.D. on 05/23/2017 at 14:24
--- NOTE | 2017-05-23 18:12 | PROG NOTE ---
[address] [address] PROGRESS NOTE PATIENT: ALISSON STAFFORD : 1955 MR#: [id number] ADMIT: 05/17/2017 JOB ID: [id number] DATE: 05/23/2017 The patient was seen and evaluated with resident physician, Kimberly Mcfadden. Please refer to her separate detailed note for complete information. PULMONARY CRITICAL CARE PROGRESS NOTE: The patient is a 61-year-old woman with history of post ARDS pulmonary fibrosis, chronic hypoxic respiratory failure admitted with acute respiratory failure requiring mechanical ventilation. INTERVAL HISTORY: No major overnight events. She remains on 60% FiO2 and 10 cm of PEEP. REVIEW OF SYSTEMS: Could not be obtained since patient is intubated. PHYSICAL EXAMINATION: Vital signs reviewed. Afebrile. T-max 37.7. She is on 60% FiO2, 10 cm of PEEP and pressure support of 18. General: Intubated, sedated, unresponsive. Chest clear. LABORATORIES: Reviewed. WBC 10.1. Chemistry also reviewed and within normal limits. Procalcitonin 0.06. Cultures: Sputum culture growing Staph aureus, Klebsiella. Chest x-ray reviewed and shows bilateral fibrotic changes similar to prior. Chest CT reviewed and shows bilateral multilobar fibrotic changes with acute consolidation that is new compared to April 2017. The consolidation is multilobar. Arterial blood gas shows pH 7.37, pCO2 of 45, pO2 of 69, bicarb of 26. ASSESSMENT AND RECOMMENDATIONS: 1. Acute on chronic hypoxic respiratory failure on mechanical ventilation since May 17, 2017. 2. Pulmonary fibrosis-post acute respiratory distress syndrome. 3. Severe sepsis. 4. Klebsiella and Staphylococcus aureus pneumonia. A 61-year-old woman with pulmonary fibrosis, followed at the [facility], presumed post ARDS from prior intubation and mechanical ventilation. I reviewed records from the [facility] which showed that her last PFTs from January 2017 have a total lung capacity of 73%, DLCO 28%, FVC 61% and FEV1 60%. Also, she had an echocardiogram that showed normal heart function with RVSP 35 mm. She had labs done in February 2017 which showed a negative IBRAHIMA and ANCA. For all these reasons, and her history of fibrotic lung disease after a hospitalization for mechanical ventilation and ARDS, she was attributed to have post ARDS pulmonary fibrosis. She has not had a lung transplant evaluation, however, and was informed by a sales project administrator at [facility] [employer] that she needs to lose weight and get to a BMI less than 30 before she would even be considered. The patient does have a distant history of polysubstance abuse last recorded in 2013 including methamphetamine. Currently, she is intubated, on mechanical ventilation with unusual pressure support settings of 18/10. There is a question of airflow obstruction/airway obstruction which is unclear to me. She has significant loss of tidal volume, which could be from an air leak from cuff leak, etc., so I think we should look into that in more detail. With regards to medications, she is getting Solu-Medrol 60 q.24 as well as metronidazole, vancomycin and aztreonam for suspected pneumonia especially in the setting of Klebsiella and Staph aureus in her sputum. I would like to start diuresis and trying to wean her vent settings slowly. She does not appear to have a steroid responsive disease based on workup to date. She is on appropriate DVT and GI prophylaxis. TIME: Critical care time is 60 minutes.
--- NOTE | 2017-05-23 18:41 | PCM.PNMED ---
Subjective Date of Service May 23, 2017 Subjective 61-year-old woman with history of pulmonary fibrosis and COPD presents with cardiac arrest due to pulseless electrical activity, and acute on chronic respiratory failure with hypercarbia and hypoxia. FiO2 is slightly lower; still not tolerating pressure support trials. Exam Vital Signs Vital Sign - Last Date Time Temp Pulse Resp B/P Pulse Ox O2 Delivery O2 Flow Rate FiO2 05/23/17 16:02 81 158/78 92 60 05/23/17 12:30 37.2 17 Mechanical Ventilator Intake and Output 05/22/17 05/22/17 05/23/17 Cumulative From/Thru 15:00 23:00 07:00 05/17/17 20:07 - 05/23/17 06:15 Intake Total 2145 ml 1067 ml 62738 ml Output Total 2500 ml 2950 ml 46685 ml Balance -355 ml -1883 ml 49232 ml Intake Oral 0 ml IV Total 1561 ml 1067 ml 66747 ml Tube Feeding 464 ml 2590 ml Tube Irrigant 120 ml 600 ml Output Urine Total 2500 ml 2800 ml 80073 ml Gastric Drainage Total 150 ml 430 ml Other 300 ml # Bowel Movements 2 0 3 Exam General: Sedated today, but moving spontaneously HEENT: sclerae anicteric, facial abrasions, moist secretions Chest: Coarse breath sounds, but no rales, no wheezing Cardiac: S1S2, no murmur Abdomen: BS present, Extremities: 1+ edema Neuro: Limited responses at today, face seems symmetric, motor tone normal, symmetric Lab and Diagnostics Result Diagram: 05/23/1731405/23/17314 Microbiology Sputum culture positive for Klebsiella Blood culture negative MRSA negative X-Rays, CTs and MRIs X-RAY CHEST ONE VIEW, PORTABLE IMPRESSION: 1. Acute on chronic diffuse pulmonary opacities new since 05/11/2017 may represent edema, infection, or blood products superimposed on chronic scarring/ fibrosis. 2. ET and enteric tubes. Dictated by: Junior Quinn M.D. on 05/17/2017 at 20:42 CT CERVICAL SPINE WITHOUT CONTRAST IMPRESSION: 1. No CT evidence of acute cervical spine pathology. 2. Extensive degenerative change. 3. Possible right mandibular fracture or motion artifact on this study and on today's head CT. Please correlate with clinical point tenderness of the right mandible. Dictated by: Junior Quinn M.D. on 05/17/2017 at 21:27 CT BRAIN WITHOUT CONTRAST IMPRESSION: Low-density in the maninder may represent early infarction. Recommend MRI with and without contrast for further evaluation. If MRI cannot be performed, recommend short term CT followup. Dictated by: Junior Quinn M.D. on 05/17/2017 at 21:19 CT ANGIO CHEST PULMONARY EMBOLISM IMPRESSION: 1. No acute pulmonary emboli in the main, left or right pulmonary arteries. Smaller pulmonary obscured by respiratory motion and cannot be evaluated. 2. Diffuse interstitial opacities with confluent opacities in the dependent right greater than left lungs representing chronic emphysema with superimposed fluid imbalance, atelectasis, infection, blood products, or a combination of these possibilities. 3. Bilateral anterior rib fractures. 4. ET and enteric tube in appropriate position PROCEDURE: X-RAY CHEST ONE VIEW, PORTABLE ([id number]) IMPRESSION: Significantly improved congestive heart failure/ pulmonary edema changes. There is now the appearance of some air bronchograms consistent with some consolidation/pneumonia in the left lower lobe. Tubes and lines are appropriate in position. Dictated by: Edilson Atkins M.D. on 05/22/2017 at 9:34 . Additional Diagnostics DateTimeAnalyzed 04:33:00 -_ pH ____7.376 - 7.350 7.450 pCO2 ___45.7__ -mmHg 35.0 45.0 pO2 ___69.9__ -mmHg 69.0 116 HCO3- ___26.2__ -mmol/L 22.0 26.0 ABE ____1.3__ -mmol/L -2.0 2.0 tHb ____9.2__ -g/dL 12.0 18.0 O2Hb ___92.2__ -% COHb ____1.1__ -% 0.0 1.5 MetHb ____1.0__ -% 0.4 1.5 sO2 ___94.2__ -% FIO2 ___60.0__ -% Pressure_Support ___18.0__ -cmH2O PEEP ___10.0__ -cmH2O Drawn By AF - Date/Time Notified____ 04:40:00 -_ Spontaneous_RR ___11.0__ -b/min Assessment & Plan Barbara Davila is a 61 year old woman with interstitial lung disease, right sided heart failure, who presents with a hypotensive syncopal episode, and acute hypercarbic respiratory failure. Pulmonary: Acute on chronic respiratory failure with hypercarbia. Present on admission. Admission labs are notable for normal serum CO2, but markedly elevated PCO2 on venous blood gas. High-dose glucocorticoids initiated on 05/17/17. Pressure- support ventilation initiated on 05/18/17. -Fentanyl, Propofol, and Midazolam for sedation; patient with significant ventilator desynchrony if sedation is lightened -Ventilator management per pulmonary consult -High-dose glucocorticoids and bronchodilators - Minimize fluid overload - initiate diuresis on 05/23/17 Severe Interstitial Lung Disease with right sided heart failure and Cor Pulmonale, POA, chronic. Active. Patient uses 6-7L O2 at baseline. Recently discontinued chronic prednisone. -Patient is proving difficult to ventilate due to likely air trapping and poor pulmonary compliance; not typical for restrictive interstitial lung disease. Etiology of obstructive pattern is unclear. -Currently saturating well on SIMV pressure support -DuoNebs Q4 scheduled, with alternating Q4 PRN -Continue close monitoring and Tele Rib fractures, present on admission. 2 recent episodes of CPR. Probably contributes to her acute on chronic respiratory failure. -Analgesics as needed when patient emerges from ventilator sedation Infectious disease: Possible Aspiration event, POA, acute. Active. Patient vomited post intubation en route to the ED. afebrile for the first several days of admission. Sputum initially not significantly purulent showing mixed erich. Subsequently with Klebsiella and staphylococcal cultures. New infiltrates on CXR and CT compared to 05/11 present on admission. [place] low-grade fever as of 05/22/17. -Antibiotic coverage aztreonam, metronidazole, vancomycin per infectious disease consult Cardiac: Pulseless electrical activity event. Possible Cardiac Arrest, POA, acute. Etiology of hypotension and syncope is uncertain. Patient received compressions from SNF nursing staff, and 2 rounds by EMS with 1 mg of Epinephrine followed by ROSC. Cardiac rhythm is stable since admission. She has had intermittent hypotension, but now hypertensive. Initially required norepinephrine which is weaned off. - Minimize Intravenous fluids - Diuretics as per the pulmonary service Resolving, stable and are chronic problems: Neurological: Possible CVA, acuity unknown. CT brain with diffuse low-density maninder. No focal abnormalities on limited neurologic exam at present. - Monitor neurologic status after emergence from sedation Renal: Acute kidney injury. Serum creatinine 1.3 on admission; declined to 0.75 - Follow BMP Depression/Anxiety: currently holding home meds due to NPO status Chronic Pain: On Fentanyl as above GI Prophylaxis: H2 pat VTE Prophylaxis: Sub-Q Heparin (Unfractionated) VTE Mechanical Devices: Intermittant Pneumatic CD Resuscitation Status: CPR: Attempt Resuscitation Time spent 35 minutes Alexey Quintero MD May 23, 2017 18:41
--- NOTE | 2017-05-23 19:06 | NUR ---
P: Respiratory Distress I: Pt requiring 60% FiO2 and 10 of peep. pt doesn't tolerate less pressure on her mode. Versed 4mg/hr and fentanyl 150 mcqs. Precedex 0.4mcqs. Pt wakes up and opens her eyes. She fights the vent and sats drop to 86%. Bolus of versed and fentanyl needed. Turned Q 2 hours. OGT patent with 150cc and Horn patent and drained 3300 clear yellow urine. Blood sugars WNL and did not require coverage. Daughter, brother and son all updated on pt's condition and plan of care. RIJ TLc patent and Left radial arterial line patent. E: Stable S: Restraints on for pt safety. Frequent rounding.
[2017-05-24] VITALS (15 sets, daily range): BP systolic 137–179; BP diastolic 56–79; PULSE 75–88; RESP 18–24; O2SAT 92–93
[2017-05-24] MEDS: Heparin 5,000 Unit/mL Inj SUBQ SCH ×3 (00:13→16:12)
[2017-05-24] MEDS: Dexmedetomidine 400 mCg/100 mL 400 MCG in IV Premix 1 EACH IV SCH ×5 (00:13→20:26)
[2017-05-24] MEDS: Chlorhexidine 0.12% 15 mL Oral Solution MT SCH ×6 (00:14→20:27)
[2017-05-24] MEDS: Aztreonam Inj 2,000 MG in Dextrose 5% Minibag Plus 100 ML IV SCH (00:14)
[2017-05-24] MEDS: Albuterol-Ipratropium 3 mL Inhalation Solution NEB SCH ×6 (00:36→21:15)
--- NOTE | 2017-05-24 01:05 | NUR ---
vent settings rt in to see pt and noted that resp rate was low and sats dropped to mid 80's,, resp rate usually in low 20's, with sats in low 90's, hob up, sx sml amt of thick creamy sputum per ett, ls- course decreased, back up rate added to vent settings per md orders, precedex increased to 0.5mcg/kg/min from 0.4, versed decreased to 3mg/hr and fentanyl decreased to 125mcg/hr from 150mcg/hr, pt's resp rate now continues to be in low 20's, pt intermittently opens eyes, pt fights oral care, .60 fio2, sats in low 90's, see ccu flow sheet, plan: monitor resp status, diuretics, cvp=15, large uop, bp stable, left a line intact, right ij cvl intact, see ccu flow sheet, plan:resp support,
[2017-05-24] MEDS: Insulin Human REGular 300 Unit/3 mL Inj SUBQ SCH ×4 (03:30→20:29)
[2017-05-24 03:42] LABS: BASOPHILS % (AUTO) 0 % (0-3); EOSINOPHILS % (AUTO) 1.4 % (0-5); MONOCYTES % (AUTO) 7.4 % (4-12); Mean Corpuscular Hemoglobin 28.5 pg (27.0-35.0); Mean Corpuscular Volume 93.4 fL (81-100); NEUTROPHILS % (AUTO) 75.3 % (40-74); Platelet Count 229 bil/L (150-400)
[2017-05-24 04:30] LABS: Magnesium 2.1 mg/dL (1.6-2.6); Phosphorus 3.1 mg/dL (2.5-4.9)
--- NOTE | 2017-05-24 04:42 | ABG ---
DateTimeAnalyzed 04:35:00 -_ pH ____7.449 - 7.350 7.450 pCO2 ___39.1__ -mmHg 35.0 45.0 pO2 ___87.8__ -mmHg 69.0 116 HCO3- ___26.7__ -mmol/L 22.0 26.0 ABE ____3.0__ -mmol/L -2.0 2.0 tHb ____9.8__ -g/dL 12.0 18.0 O2Hb ___95.5__ -% COHb ____1.2__ -% 0.0 1.5 MetHb ____0.8__ -% 0.4 1.5 sO2 ___97.5__ -% FIO2 ___60.0__ -% PEEP ___10.0__ -cmH2O Set_RR ___15.0__ -b/min Vt __350.0__ -L Drawn By AF - Date/Time Notified____ 04:42:00 -_ Spontaneous_RR ___15.0__ -b/min Notified By AF - B 757 -mmHg tO2 ___13.3__ -Vol% Wisam test N/A -
[2017-05-24] MEDS: metroNIDAZOLE Inj 1,000 MG in IV Premix 1 EACH IV SCH ×2 (05:31→16:13)
[2017-05-24] MEDS: Furosemide 10 mg/mL 2 mL Inj IVPUSH SCH ×2 (08:25→16:12)
[2017-05-24] MEDS: Famotidine Inj 20 MG in IV Premix 1 EACH IV SCH ×2 (08:25→20:27)
[2017-05-24] MEDS: MethylprednisoLONE Sodium Succinate 62.5 mg/mL 2 mL Inj IVPUSH SCH (08:25)
[2017-05-24] MEDS: Vancomycin Inj 750 MG in 0.9% Sodium Chloride 250 ML IV SCH ×2 (08:26→20:28)
[2017-05-24] MEDS: Vancomycin Dose per Pharmacist XX SCH (08:27)
[2017-05-24] MEDS ORDERED: Aztreonam Inj 2,000 MG in Dextrose 5% Minibag Plus 100 ML IV SCH (08:30)
[2017-05-24] MEDS: AZTREONAM IV SCH ×2 (09:30→16:25)
[2017-05-24] MEDS: DEXTROSE 5% IV SCH ×2 (09:30→16:25)
--- NOTE | 2017-05-24 10:09 | PROG NOTE ---
[address] [address] PROGRESS NOTE PATIENT: ALISSON STAFFORD : 1955 MR#: [id number] ADMIT: 05/17/2017 JOB ID: [id number] DATE: 05/24/2017 REASON FOR FOLLOWUP: Bilateral pulmonary fibrosis with superimposed infiltrates and respiratory failure. INTERVAL HISTORY: Overnight, the patient has been relatively stable on the ventilator. She remains on 60% and 10 of PEEP. The respiratory therapist notes that there has been some scant yellow secretions from endotracheal tube. There was an apparent episode of vomiting with a possible aspiration over the weekend two or three days ago. The patient remains intubated sedated and this morning is not interactive though earlier she was awake and following some commands. No additional history is available from the patient. PHYSICAL EXAMINATION: Reveals an afebrile woman. Temp 37.4, pulse 70, blood pressure 170/69. She is saturating well, but on 60% and 10 of PEEP. Oral endotracheal tube and orogastric tube in good position. Lungs with Velcro-like coarse breath sounds bilaterally which may be slightly improved over the past several days. Cardiac tones regular rate and rhythm. Abdomen unchanged, soft, nontender. No skin rash. LABORATORIES: Include white count 9100, basically normal diff 75% segs. Creatinine 0.71 stable. LFTs normal. Procalcitonin zero today or yesterday. His cultures are negative from blood and a MRSA screen is negative. Recall that we did isolate both Staph aureus and Klebsiella pneumoniae from sputum, that sputum sample showed many polys and on the Gram stain mixed erich, but grew moderate growth of both Klebsiella and Staph aureus. IMAGING: Reviewed today with the pulmonary attending. The chest x-rays are clearly improving since admission, but she is left with a very impressive bilateral fixed infiltrates consistent with her pulmonary fibrosis. IMPRESSION: This is a difficult case of an elderly woman with pulmonary fibrosis and polysubstance abuse. He suffered a cardiac arrest and has been intubated. It would appear that she had at least some degree of aspiration pneumonia on top of her chronic lung disease and her chest x-ray is now improving, arguing against infection is the absence of leukocytosis or elevated procalcitonin. At this point, I think our best course of action is to finish about a week of our broad-spectrum antibiotics. RECOMMENDATIONS: 1. Will continue with the antibiotics for seven days each. This would involve stopping the aztreonam and Flagyl tomorrow and continuing the vancomycin for a few more days. 2. This case discussed extensively during ICU rounds. 3. Will continue to follow this complex case with you.
[2017-05-24] MEDS: fentaNYL 2,500 mCg/250 mL 2,500 MCG in IV Premix 1 EACH IV PRN (10:20)
--- NOTE | 2017-05-24 10:28 | PCM.PNMED ---
Subjective Date of Service May 24, 2017 Subjective Pulmonology/Critical Care Progress Note Barbara Davila is a 61 year old woman with interstitial lung disease secondary to ARDS in 2011 who requires 6-7 L O2 at baseline who has been followed by [facility] for possibility of lung transplant which has been put on hold due to her recent bout of pneumonia in October and two arrest secondary to hypoxemia the second of which is the reason for this hospital admission. She was intubated in the field and found to be in acute hypercarbic respiratory failure. Initial CT demonstrated new obstruction of airways along with her interstitial lung disease which was not seen on last CT in April. Hospital day 8. Ventilator day 8. Interval History Tube feeds were turned off on 03/21/2017 due to episode of emesis. We will restart today at a slow rate. Overnight she became apneic and vent settings were changed to give her a set rate. Sedation continues to be an issue as patient is quite alert and fights the vent. She is now on midazolam, fentanyl, and Precedex. Diuresis continues. Exam Vital Signs Vital Sign - Last Date Time Temp Pulse Resp B/P Pulse Ox O2 Delivery O2 Flow Rate FiO2 05/24/17 04:45 69 170/69 93 60 05/24/17 04:00 37.4 23 Mechanical Ventilator Intake and Output 05/23/17 05/23/17 05/24/17 Cumulative From/Thru 15:00 23:00 07:00 05/17/17 20:07 - 05/24/17 05:51 Intake Total 1200 ml 1087 ml 80470 ml Output Total 3450 ml 1750 ml 46960 ml Balance -2250 ml -663 ml 74912 ml Intake Oral 0 ml IV Total 1200 ml 1087 ml 74602 ml Tube Feeding 2590 ml Tube Irrigant 600 ml Output Urine Total 3300 ml 1700 ml 09948 ml Gastric Drainage Total 150 ml 50 ml 630 ml Other 300 ml # Bowel Movements 0 3 Exam General: Intubated and sedated but responsive to verbal stimuli. Appropriately responsive and follows commands. HEENT: Superficial abrasion on the nose and forehead from recent fall. Conjunctivae are pink no scleral icterus. ET tube in place. Neck: Supple with full range of motion. No jugular venous distension. No bruits. No lymphadenopathy or thyromegaly. Cardiovascular: Regular rate and rhythm with no murmurs, rubs, or gallops appreciated Pulmonary: Clear to auscultation bilaterally. Abdomen: Bowel tones present. Soft, nontender, nondistended. No hepatosplenomegaly or masses appreciated. Extremities: Pitting edema extending to mid calf. Skin: Warm and well-perfused. Scattered superficial abrasions from recent fall. Neurological: Cranial nerves grossly intact. Lines: ET tube Horn catheter Right IJ Left radial arterial line Right peripheral Lab and Diagnostics Result Diagram: 05/24/17 03305/24/17 033 Microbiology Sputum culture positive for Klebsiella Blood culture negative MRSA negative X-Rays, CTs and MRIs X-RAY CHEST ONE VIEW, PORTABLE IMPRESSION: 1. Acute on chronic diffuse pulmonary opacities new since 05/11/2017 may represent edema, infection, or blood products superimposed on chronic scarring/ fibrosis. 2. ET and enteric tubes. Dictated by: Junior Quinn M.D. on 05/17/2017 at 20:42 CT CERVICAL SPINE WITHOUT CONTRAST IMPRESSION: 1. No CT evidence of acute cervical spine pathology. 2. Extensive degenerative change. 3. Possible right mandibular fracture or motion artifact on this study and on today's head CT. Please correlate with clinical point tenderness of the right mandible. Dictated by: Junior Quinn M.D. on 05/17/2017 at 21:27 CT BRAIN WITHOUT CONTRAST IMPRESSION: Low-density in the maninder may represent early infarction. Recommend MRI with and without contrast for further evaluation. If MRI cannot be performed, recommend short term CT followup. Dictated by: Junior Quinn M.D. on 05/17/2017 at 21:19 CT ANGIO CHEST PULMONARY EMBOLISM IMPRESSION: 1. No acute pulmonary emboli in the main, left or right pulmonary arteries. Smaller pulmonary obscured by respiratory motion and cannot be evaluated. 2. Diffuse interstitial opacities with confluent opacities in the dependent right greater than left lungs representing chronic emphysema with superimposed fluid imbalance, atelectasis, infection, blood products, or a combination of these possibilities. 3. Bilateral anterior rib fractures. 4. ET and enteric tube in appropriate position PROCEDURE: X-RAY CHEST ONE VIEW, PORTABLE ([id number]) IMPRESSION: Significantly improved congestive heart failure/ pulmonary edema changes. There is now the appearance of some air bronchograms consistent with some consolidation/pneumonia in the left lower lobe. Tubes and lines are appropriate in position. Dictated by: Edilson Atkins M.D. on 05/22/2017 at 9:34 . Additional Diagnostics DateTimeAnalyzed 04:35:00 -_ pH ____7.449 - 7.350 7.450 pCO2 ___39.1__ -mmHg 35.0 45.0 pO2 ___87.8__ -mmHg 69.0 116 HCO3- ___26.7__ -mmol/L 22.0 26.0 ABE ____3.0__ -mmol/L -2.0 2.0 tHb ____9.8__ -g/dL 12.0 18.0 O2Hb ___95.5__ -% COHb ____1.2__ -% 0.0 1.5 MetHb ____0.8__ -% 0.4 1.5 sO2 ___97.5__ -% FIO2 ___60.0__ -% PEEP ___10.0__ -cmH2O Set_RR ___15.0__ -b/min Vt __350.0__ -L Spontaneous_RR ___15.0__ -b/min Assessment & Plan Barbara Davila is a 61 year old woman with history of spinal substance abuse and interstitial lung disease secondary to ARDS in 2011 who requires 6-7 L O2 at baseline who has been followed by [facility] for possibility of lung transplant which has been put on hold due to her recent bout of pneumonia in October and two arrest secondary to hypoxemia the second of which is the reason for this hospital admission. She was intubated in the field and found to be in acute hypercarbic respiratory failure. Initial CT demonstrated new obstruction of airways along with her interstitial lung disease which was not seen on last CT in April. Hospital day 8. Ventilator day 8. Acute on chronic hypercarbic respiratory failure in setting of severe interstitial lung disease. Interstitial lung disease is thought to be secondary to ARDS in 2011 according to notes from the [facility] who she has been following with. On this admission CT showed airway obstruction along with interstitial lung disease. She was initially extremely difficult to ventilate and continues to have low but increasing expiratory volumes. - Patient Overnight and then sitting changed to have a set rate of 12. She has failed prior SBTs. Repeat trial today and attempts to decrease PEEP. - Solu-Medrol 60 mg daily. Initially given high-dose steroids as there was some suspicion of an allergic component due to the airway obstruction seen on CT. - Furosemide 20 mg twice a day started 05/22/2017 as we work towards extubation. - Sedation currently is with fentanyl, midazolam, and Precedex. Attempt will be made to wean back sedation but due to patient's polysubstance abuse this has proven difficult. Possible aspiration event. Patient with positive sputum cultures 2 for Klebsiella along with a recent urine culture positive for Klebsiella. Difficult to assess whether this is an active infection or colonization. - Patient has had low-grade fevers throughout hospitalization MAXIMUM TEMPERATURE over the last 24 hours was 38.1. - Patient currently on aztreonam, vancomycin, and Flagyl per ID. - Last procalcitonin was 0.06 and has never been significantly elevated. Presumed cardiac arrest. Etiology uncertain although likely secondary to hypoxic episode. Patient was also noted to have a prolonged QT and therefore arrhythmia must be considered. - Avoid QT prolonging medications. - Treatment for respiratory failure as above to remove likely cause. Polysubstance abuse. Family has brought forth that the patient uses numerous street drugs and alcohol. Unclear when her last use was as she was recently in a SNF prior to this admission. - Complicating sedation at this time. Current sedation with midazolam and Precedex. - Pain from rib fractures sustained during CPR. - Pain control with fentanyl gtt. Nutrition. Tube feeds to be restarted today. Addition of Reglan to help with nausea and to avoid emesis and possible aspiration. GI prophylaxis: Famotidine DVT prophylaxis: Heparin CODE STATUS: FULL GI Prophylaxis: H2 pat VTE Prophylaxis: Sub-Q Heparin (Unfractionated) VTE Mechanical Devices: Intermittant Pneumatic CD Resuscitation Status: CPR: Attempt Resuscitation Attending Statement I have seen and examined this patient with the resident physician. Vital signs , labs, imaging have been reviewed. I agree with the assessment and plan above. Please refer to my separately dictated progress note for any modifications to above. Josie Reese M.D. Pulmonary and Critical Care medicine Pager [phone] JANY MOYER DO May 24, 2017 07:15 Josie Reese MD May 24, 2017 16:07
[2017-05-24] MEDS: Midazolam 100 mg/100 mL Premix IV PRN (11:18)
--- NOTE | 2017-05-24 12:55 | PCM.PNMED ---
Subjective Date of Service May 24, 2017 Subjective 61-year-old woman with history of post inflammatory pulmonary scarring, past substance abuse, presents with cardiac arrest due to pulseless electrical activity, and acute on chronic respiratory failure with hypercarbia and hypoxia. Limited progress in weaning from respiratory support. Clinical impression of obstructive airway physiology may have been due to issues with ventilator function. Exam Vital Signs Vital Sign - Last Date Time Temp Pulse Resp B/P Pulse Ox O2 Delivery O2 Flow Rate FiO2 05/24/17 12:00 84 179/79 93 60 05/24/17 04:00 37.4 23 Mechanical Ventilator Intake and Output 05/23/17 05/23/17 05/24/17 Cumulative From/Thru 15:00 23:00 07:00 05/17/17 20:07 - 05/24/17 05:51 Intake Total 1200 ml 1087 ml 90763 ml Output Total 3450 ml 1750 ml 31653 ml Balance -2250 ml -663 ml 71601 ml Intake Oral 0 ml IV Total 1200 ml 1087 ml 71160 ml Tube Feeding 2590 ml Tube Irrigant 600 ml Output Urine Total 3300 ml 1700 ml 69999 ml Gastric Drainage Total 150 ml 50 ml 630 ml Other 300 ml # Bowel Movements 0 3 Exam General: Sedated today, but moving eyes and limbs spontaneously HEENT: sclerae anicteric, facial abrasions, moist secretions Chest: Coarse breath sounds, but no rales, no wheezing Cardiac: S1S2, no murmur Abdomen: BS present, Extremities: 1+ edema Neuro: Limited responses at today, face seems symmetric, motor tone normal, symmetric IVs and Medications Medications Reviewed: Medications were reviewed in detail Lab and Diagnostics Result Diagram: 05/24/17 0330 05/24/17 0330 Microbiology Sputum culture positive for Klebsiella Blood culture negative MRSA negative X-Rays, CTs and MRIs X-RAY CHEST ONE VIEW, PORTABLE IMPRESSION: 1. Acute on chronic diffuse pulmonary opacities new since 05/11/2017 may represent edema, infection, or blood products superimposed on chronic scarring/ fibrosis. 2. ET and enteric tubes. Dictated by: Junior Quinn M.D. on 05/17/2017 at 20:42 CT CERVICAL SPINE WITHOUT CONTRAST IMPRESSION: 1. No CT evidence of acute cervical spine pathology. 2. Extensive degenerative change. 3. Possible right mandibular fracture or motion artifact on this study and on today's head CT. Please correlate with clinical point tenderness of the right mandible. Dictated by: Junior Quinn M.D. on 05/17/2017 at 21:27 CT BRAIN WITHOUT CONTRAST IMPRESSION: Low-density in the maninder may represent early infarction. Recommend MRI with and without contrast for further evaluation. If MRI cannot be performed, recommend short term CT followup. Dictated by: Junior Quinn M.D. on 05/17/2017 at 21:19 CT ANGIO CHEST PULMONARY EMBOLISM IMPRESSION: 1. No acute pulmonary emboli in the main, left or right pulmonary arteries. Smaller pulmonary obscured by respiratory motion and cannot be evaluated. 2. Diffuse interstitial opacities with confluent opacities in the dependent right greater than left lungs representing chronic emphysema with superimposed fluid imbalance, atelectasis, infection, blood products, or a combination of these possibilities. 3. Bilateral anterior rib fractures. 4. ET and enteric tube in appropriate position PROCEDURE: X-RAY CHEST ONE VIEW, PORTABLE ([id number]) IMPRESSION: Significantly improved congestive heart failure/ pulmonary edema changes. There is now the appearance of some air bronchograms consistent with some consolidation/pneumonia in the left lower lobe. Tubes and lines are appropriate in position. Dictated by: Edilson Atkins M.D. on 05/22/2017 at 9:34 . Additional Diagnostics DateTimeAnalyzed 04:35:00 -_ pH ____7.449 - 7.350 7.450 pCO2 ___39.1__ -mmHg 35.0 45.0 pO2 ___87.8__ -mmHg 69.0 116 HCO3- ___26.7__ -mmol/L 22.0 26.0 ABE ____3.0__ -mmol/L -2.0 2.0 tHb ____9.8__ -g/dL 12.0 18.0 O2Hb ___95.5__ -% COHb ____1.2__ -% 0.0 1.5 MetHb ____0.8__ -% 0.4 1.5 sO2 ___97.5__ -% FIO2 ___60.0__ -% PEEP ___10.0__ -cmH2O Set_RR ___15.0__ -b/min Vt __350.0__ -L Spontaneous_RR ___15.0__ -b/min Assessment & Plan Barbara Davila is a 61 year old woman with interstitial lung disease, right sided heart failure, who presents with a hypotensive syncopal episode, and acute hypercarbic respiratory failure. Pulmonary: Acute on chronic respiratory failure with hypercarbia. Present on admission. Admission labs are notable for normal serum CO2, but markedly elevated PCO2 on venous blood gas. High-dose glucocorticoids initiated on 05/17/17. Pressure- support ventilation initiated on 05/18/17. She was reported to have apneic spell on 05/23; vent settings changed to IMV. -Fentanyl, Propofol, and Midazolam for sedation; patient with significant ventilator desynchrony if sedation is lightened -Ventilator management per pulmonary consult -High-dose methylprednisolone now reduced to 60 mg daily - Minimize fluid overload - furosemide 20 mg twice a day initiated 05/23/17 Severe Interstitial Lung Disease with right sided heart failure and Cor Pulmonale, POA, chronic. Active. Patient uses 6-7L O2 at baseline. Recently discontinued chronic prednisone. -Patient is proving difficult to ventilate due to likely air trapping and poor pulmonary compliance; not typical for restrictive interstitial lung disease. Etiology of obstructive pattern is unclear. -Currently saturating well on FiO2 0.6 -Ventilator management and weaning per pulmonary consult -Continue telemetry Infectious disease: Possible Aspiration event, POA, acute. Active. Afebrile for the first several days of admission, Low-grade fever as of 05/22/17. Sputum initially not significantly purulent showing mixed erich. Her admitting event was partially cardiovascular; unlikely pneumonia on admission despite new infiltrates. Subsequently with Klebsiella and staphylococcal aureus is on cultures. Procalcitonin not elevated. Doubt that this is sepsis due to pneumonia, although she may now have a degree of ventilator associated pneumonia. -Antibiotic coverage aztreonam, metronidazole, vancomycin per infectious disease consult Cardiac: Pulseless electrical activity event. Possible Cardiac Arrest, POA, acute. Etiology of hypotension and syncope is uncertain. Patient received compressions from SNF nursing staff, and 2 rounds by EMS with 1 mg of Epinephrine followed by [facility]. Cardiac rhythm is stable since admission. She has had intermittent hypotension, but now hypertensive. Initially required norepinephrine which is weaned off. - Minimize Intravenous fluids - Diuretics to maintain neutral fluid balance SIRS, present on admission. Tachycardic and tachypneic due to severe acute respiratory failure. Mild leukocytosis on admission which is resolving. Lactic acid was not elevated on admission. - Continue to monitor vital signs - Continuing antibiotic coverage for colonization versus infection Resolving, stable and are chronic problems: Rib fractures, present on admission. 2 recent episodes of CPR. Probably contributes to her acute on chronic respiratory failure. -Analgesics as needed when patient emerges from ventilator sedation Neurological: Possible CVA, acuity unknown. CT brain with diffuse low-density maninder. No focal abnormalities on limited neurologic exam at present. - Monitor neurologic status after emergence from sedation Renal: Acute kidney injury. Serum creatinine 1.3 on admission; declined to 0.75 - Follow BMP Depression/Anxiety: currently holding home meds due to NPO status GI Prophylaxis: H2 pat VTE Prophylaxis: Sub-Q Heparin (Unfractionated) VTE Mechanical Devices: Intermittant Pneumatic CD Resuscitation Status: CPR: Attempt Resuscitation Time spent 35 minutes Alexey Quintero MD May 24, 2017 12:55
--- NOTE | 2017-05-24 13:23 | NUR ---
NUTRITION FOLLOW-UP Assess: 61 YO female admitted to CCU with cardiac arrest (PEA), requiring intubation. She has been on TF and tolerating well at goal. On 05/22, pt pulled out TF and had some emesis. TF has been [id number]. Received verbal this am in CCU rounds to re-start TF. RN aware. PMHX: Interstitial lung disease due to ARDS 2011, R sided heart failure, cor pulmonale, depression, anxiety, chronic pain. DIET: NPO. ENTERAL FEEDING: ON HOLD LABS: Cl 110, Bun 28, glu 112, ca 8.3, alb 3.0 MEDICATIONS: Reviewed. Fentanyl, Versed, Solu-medrol, reglan GI: BMx3 05/22. SKIN: Per Machinist Mate, proximal half of intergluteal fold is split for length of 4 cm. No drainage noted. ANTHROPOMETRICS: Wt: 110.2kg, BMI 45.9kg/m2, Admit wt: 103.2 kg, IBW: 47.7 kg. ESTIMATED NEEDS: BMI/VENT Calories: 2060-2265kcal/day (20-22kcal/kg) Protein: 85-95g/day (1.8-2.0g/kg IBW) NUTRITION DIAGNOSIS: 1) Inadequate oral intake related to decreased ability to consume sufficient energy as evidenced by NPO/Vent status -- PERSISTS, TF to re-start today INTERVENTION: 1) Recommend re-start TF of Pulmocare @ 20ml/hr and advance 10ml q 6 hrs until reach goal rate of 65ml/hr to provide 2145kcal/day and 89g pro (100% estimated needs). MONITOR / EVALUATE: NPO / vent status, TF restart/joel, labs, nutritional status. Follow up per high nutrition risk guidelines.
--- NOTE | 2017-05-24 14:41 | PROG NOTE ---
[address] [address] PROGRESS NOTE PATIENT: ALISSON STAFFORD : 1955 MR#: [id number] ADMIT: 05/17/2017 JOB ID: [id number] DATE: 05/24/2017 PULMONARY CRITICAL CARE PROGRESS NOTE: The patient is a 61-year-old woman with post ARDS pulmonary fibrosis, admitted with acute on chronic respiratory failure. The patient was seen and evaluated with resident physician, Dr. Kimberly Mcfadden. Please refer to her separate detailed note for additional information. The following is a brief attending note. INTERVAL HISTORY: Her ventilator machine was switched out today, and with that, most of her ventilatory issues seem to have resolved, suggesting machine issues rather than primary respiratory issues. REVIEW OF SYSTEMS: Could not be obtained since she is intubated. PHYSICAL EXAMINATION: Vital signs reviewed. T-max of 37.5. She is on FiO2 of 60%. General: Intubated. Eyes open. Tries to follow commands. Chest: Clear to auscultation anteriorly. LABORATORIES: Reviewed. Chest x-ray--overall improved multilobar infiltrates compared to a few days ago. She does have persistent fibrotic changes which are chronic. Cultures: Sputum as before growing Klebsiella, Staph aureus, that is MSSA. ASSESSMENT AND RECOMMENDATIONS: 1. Acute on chronic hypoxic respiratory failure. 2. Suspected multilobar pneumonia with Klebsiella/MSSA. 3. Post ARDS pulmonary fibrosis. 4. Severe sepsis. This 61-year-old woman with pulmonary fibrosis, presumed to be post ARDS from prior critical illness, followed at the [facility], is admitted with respiratory failure requiring mechanical ventilation. She has been on the ventilator since May 17, 2017, and has persistent high FiO2 and PEEP requirements. I am hoping that we can start gentle diuresis and weaning from the vent. It does appear despite her low procalcitonin that she had multilobar bilateral infiltrates on presentation, suggesting acute bacterial infection which have improved now. I would like to do a pressure support trial on her, and with ongoing diuresis, I am hoping we can slowly wean her from the vent. At baseline, however she seemed quite decompensated based on her PFTs and also her baseline home oxygen requirement of 6 L, so this may be difficult to do with her underlying lung disease. We will try to get family involved in conversations regarding long-term goals of care in the meantime. She is on appropriate DVT and GI prophylaxis. CRITICAL CARE TIME: 40 minutes.
--- NOTE | 2017-05-24 16:43 | ABG ---
DateTimeAnalyzed 16:34:00 -_ pH ____7.430 - 7.350 7.450 pCO2 ___42.1__ -mmHg 35.0 45.0 pO2 ___60.2__ -mmHg 69.0 116 HCO3- ___27.4__ -mmol/L 22.0 26.0 ABE ____3.3__ -mmol/L -2.0 2.0 tHb ___10.5__ -g/dL 12.0 18.0 O2Hb ___88.6__ -% COHb ____1.5__ -% 0.0 1.5 MetHb ____1.0__ -% 0.4 1.5 sO2 ___90.9__ -% FIO2 ___60.0__ -% Pressure_Support ____5.0__ -cmH2O PEEP ____5.0__ -cmH2O Vt __480.0__ -L Drawn By nb - Date/Time Notified____ 16:42:00 -_ Spontaneous_RR ___20.0__ -b/min Oxygen Device 1 VENTILATOR - Notified By NB - B 756 -mmHg tO2 ___13.1__ -Vol% Wisam test N/A -
--- NOTE | 2017-05-24 16:59 | DRSVH ---
PROCEDURE: X-RAY CHEST ONE VIEW, PORTABLE ([id number]) INDICATIONS: intubated TECHNIQUE: One view of the chest was acquired. COMPARISON: [facility], CR, XR CHEST 1VW (PORTABLE), 05/23/2017, 5:16. FINDINGS: Surgical changes and devices: Stable positioning of the ETT, nasogastric tube and right IJ CVL. Lungs and pleura: Interval increase in patchy bibasilar patchy airspace opacities, otherwise persiste nt interstitial densities are unchanged. No definite pleural effusion. No pneumothorax. Mediastinum: Mediastinal contours appear normal. Heart size is enlarged. Bones and chest wall: No suspicious bony lesions. Overlying soft tissues appear unremarkable. IMPRESSION: 1. Persistent interstitial opacities not significantly changed and interval increase in focal air spa ce opacity involving the lung bases, left side greater than right consistent with worsening patchy pu lmonary edema versus pneumonia. 2. Stable support lines and tubes. Dictated by: Imtiaz AUGUSTIN Interpreted: Dilcia Hernandez MD on 05/24/2017 at 7:53 Approved by: Dilcia Hernandez M.D. on 05/24/2017 at 16:57
--- NOTE | 2017-05-24 17:53 | PCM.ADCARE ---
Advance Care Planning Note Purpose of Encounter: Telephone conversation with the patient's son Deisy (I believe this was his name although I am not entirely certain). Brought him up to date on his mother' s care and broach the question of decision about reintubation after possible extubation. Parties in Attendance: The patient's son, who identifies himself along with his uncle (patient's brother, Edilson Espinal [phone]) as primary medical decision makers for the patient. Decisional Capacity: The patient is not decisional Objective: The patient's course was explained to her son. I explained that she has chronic lung disease, possible acute pneumonia which is treated by antibiotics, possible fluid overload which is treated with Lasix, broken ribs and difficulty with airflow in and out of her airways. I explained that her course has shown only modest improvement and appears to be stalled at a level where she is unlikely to be able to recover off the ventilator. Goals of Care Determinations: Deisy seemed to understand the question of whether his mother would wish to be permanently on a ventilator, and expresses the opinion that she would not. He described her for episodes on the ventilator at [facility] during her previous bout of respiratory failure, and indicated that she welcomed mechanical ventilation at that time in the effort to achieve recovery in independent living. He endorsed that if she is much weaker now and less likely to live off the ventilator that she would not wish to on the ventilator. Nonetheless he suggested his mother would accept mechanical ventilation if it was a path to recovery of independent living. Plan: He asked that no firm decision be made at this time regarding reintubation after an attempted extubation. He indicated that he wished to discuss this with his uncle Edilson Espinal. Deisy is currently incarcerated and unable to participate in decisions at bedside. He is able to phone regularly, although as he has had some difficulty calling in and speaking to members of his mother' s care team. He would like the opportunity to call back and contribute his thoughts to a decision, he will also discuss this with his uncle who may convey his opinions. Due to his current incarceration, he is able to initiate but did not receive outside phone calls. I gave him the names of Dr. Ochoa and Dr. Reese, in the event that he may call back tomorrow to discuss this further with them. Alexey Quintero MD May 24, 2017 17:53
--- NOTE | 2017-05-24 18:13 | NUR ---
P: Respiratory Distress I: Pt has episodes of desats in the 80's. Versed 3mg/hr and fentanyl 125mcqs with bolus of both necessary to keep pt calm and keep pt from desating. Precedex 0.7mcqs. Pt opens her eyes and gets agitated with care. NSR. Hypertensive. Dr. Mcfadden notified and orders received. Vasotec 0.625mg IV with little effect. When pt not agitated BP 150-160's. Tube feedings started with 20cc residual. Horn patent and drained 3500 cc. Complete bath, chlora bath, Linen change and shampoo done. Mepilex applied. E: Stable S: Restraints on for pt safety. Frequent rounding.
[2017-05-24] MEDS: Acetaminophen 32.5 mg/mL 20 mL Liquid TUBE PRN (20:30)
[2017-05-24 20:36] LABS: APPEARANCE,URINE CLEAR (CLEAR,HAZY); COLOR,URINE YELLOW (YELLOW); OCCULT BLOOD,URINE SMALL (NEGATIVE); PH,URINE 6.5 (5.0-8.0); UROBILINOGEN,URINE NORMAL (NORMAL)
[2017-05-25] VITALS (15 sets, daily range): BP systolic 133–166; BP diastolic 54–77; PULSE 70–114; RESP 15–22; O2SAT 90–100
[2017-05-25] MEDS: Heparin 5,000 Unit/mL Inj SUBQ SCH ×3 (00:20→18:14)
[2017-05-25] MEDS: DEXTROSE 5% IV SCH ×2 (00:21→08:05)
[2017-05-25] MEDS: Chlorhexidine 0.12% 15 mL Oral Solution MT SCH ×6 (00:21→20:12)
[2017-05-25] MEDS: AZTREONAM IV SCH ×2 (00:21→08:05)
[2017-05-25] MEDS: Albuterol-Ipratropium 3 mL Inhalation Solution NEB SCH ×6 (00:34→20:26)
[2017-05-25] MEDS: Dexmedetomidine 400 mCg/100 mL 400 MCG in IV Premix 1 EACH IV SCH ×2 (01:12→06:09)
[2017-05-25] MEDS: Insulin Human REGular 300 Unit/3 mL Inj SUBQ SCH ×4 (02:00→20:30)
[2017-05-25] MEDS: fentaNYL 2,500 mCg/250 mL 2,500 MCG in IV Premix 1 EACH IV PRN ×2 (02:20→20:32)
[2017-05-25] MEDS: Midazolam 100 mg/100 mL Premix IV PRN (02:35)
[2017-05-25] MEDS: Acetaminophen 32.5 mg/mL 20 mL Liquid TUBE PRN (04:12)
[2017-05-25] MEDS: metroNIDAZOLE Inj 1,000 MG in IV Premix 1 EACH IV SCH (04:52)
--- NOTE | 2017-05-25 05:28 | ABG ---
DateTimeAnalyzed 05:21:00 -_ pH ____7.441 - 7.350 7.450 pCO2 ___40.3__ -mmHg 35.0 45.0 pO2 ___61.8__ -mmHg 69.0 116 HCO3- ___27.0__ -mmol/L 22.0 26.0 ABE ____3.1__ -mmol/L -2.0 2.0 tHb ____9.4__ -g/dL 12.0 18.0 O2Hb ___89.8__ -% COHb ____1.4__ -% 0.0 1.5 MetHb ____0.9__ -% 0.4 1.5 sO2 ___91.9__ -% FIO2 ___70.0__ -% PEEP ____8.0__ -cmH2O Set_RR ___18.0__ -b/min Vt __460.0__ -L Drawn By AF - Date/Time Notified____ 05:28:00 -_ Spontaneous_RR ___20.0__ -b/min Oxygen Device 1 VENTILATOR - Notified By AF - B 757 -mmHg tO2 ___11.9__ -Vol% OrderingPhysicianInitials mf - Wisam test N/A -
--- NOTE | 2017-05-25 06:01 | NUR ---
P) Fever/LOC/GI Pt. febrile tonight, T-max 38.7, tolerating tube feeding but increase agitation with continuous rotation. Hypoactive bowel tones, lungs coarse and decreased in bases, yellow phlegm suctioned from ET tube. Pt. SPO2 borderline all night between 90-94%, dropped to 88% this am. Opens eyes, fights oral care, does not follow any commands. I) Tylenol and passive cooling, stopped rotation, turning q2h, floating heels, sent blood, sputum and urine cultures. E) Resting quietly, bolus'd for pain and fighting vent x1.
[2017-05-25] MEDS ORDERED: Polyethylene Glycol (PEG) 17 Gm Powder PO PRN (07:50)
--- NOTE | 2017-05-25 07:57 | PCM.PNMED ---
Subjective Date of Service May 25, 2017 Subjective Pulmonology/Critical Care Progress Note Barbara Davila is a 61 year old woman with interstitial lung disease secondary to ARDS in 2011 who requires 6-7 L O2 at baseline who has begun to establish care with a pulmonology fellow at the [facility]. She said a recent bout of pneumonia in October and two arrest secondary to hypoxemia the second of which is the reason for this hospital admission. She was intubated in the field and found to be in acute hypercarbic respiratory failure. Initial CT demonstrated new obstruction of airways along with her interstitial lung disease which was not seen on last CT in April. Hospital day 9. Ventilator day 9. Interval History Yesterday patient had a breathing trial lasting over 2 hours. She tolerated well with desaturations or apneic episodes. Tolerating tube feeds and diuresis. Sedation continues to be an issue as patient is quite alert and fights the vent. She is now on midazolam, fentanyl, and Precedex. Overnight patient had a T-max of 38.7 repeat blood, sputum, and urine cultures sent. Today patient follows commands appropriately. Exam Vital Signs Vital Sign - Last Date Time Temp Pulse Resp B/P Pulse Ox O2 Delivery O2 Flow Rate FiO2 05/25/17 04:23 67 147/59 90 60 05/25/17 04:00 38.5 19 Mechanical Ventilator Intake and Output 05/24/17 05/24/17 05/25/17 Cumulative From/Thru 14:58 22:58 06:58 05/17/17 20:07 - 05/25/17 06:38 Intake Total 1436 ml 2043 ml 95420 ml Output Total 3500 ml 2300 ml 38505 ml Balance -2064 ml -257 ml 24750 ml Intake Oral 0 ml IV Total 1267 ml 1312 ml 81018 ml Tube Feeding 129 ml 501 ml 3220 ml Tube Irrigant 40 ml 230 ml 870 ml Output Urine Total 3500 ml 2300 ml 74912 ml Gastric Drainage Total 630 ml Other 300 ml # Bowel Movements 3 Exam General: Intubated and sedated but responsive to verbal stimuli. Appropriately responsive and follows commands. HEENT: Superficial abrasion on the nose and forehead from recent fall. Conjunctivae are pink no scleral icterus. ET tube in place. Neck: Supple with full range of motion. No jugular venous distension. No bruits. No lymphadenopathy or thyromegaly. Cardiovascular: Regular rate and rhythm with no murmurs, rubs, or gallops appreciated Pulmonary: Coarse breath sounds on inspiration. Left lung base with decreased breath sounds. Abdomen: Hypoactive bowel tones present. Soft, nontender, mildly distended. No hepatosplenomegaly or masses appreciated. Extremities: Edema of bilateral feet and hands. Skin: Warm and well-perfused. Scattered superficial abrasions from recent fall. Neurological: Cranial nerves grossly intact. Lines: ET tube Horn catheter Right IJ Left radial arterial line Right peripheral Lab and Diagnostics Result Diagram: 05/24/17 03305/24/17 033 Microbiology Sputum culture positive for Klebsiella Blood culture negative MRSA negative X-Rays, CTs and MRIs X-RAY CHEST ONE VIEW, PORTABLE IMPRESSION: 1. Acute on chronic diffuse pulmonary opacities new since 05/11/2017 may represent edema, infection, or blood products superimposed on chronic scarring/ fibrosis. 2. ET and enteric tubes. Dictated by: Junior Quinn M.D. on 05/17/2017 at 20:42 CT CERVICAL SPINE WITHOUT CONTRAST IMPRESSION: 1. No CT evidence of acute cervical spine pathology. 2. Extensive degenerative change. 3. Possible right mandibular fracture or motion artifact on this study and on today's head CT. Please correlate with clinical point tenderness of the right mandible. Dictated by: Junior Quinn M.D. on 05/17/2017 at 21:27 CT BRAIN WITHOUT CONTRAST IMPRESSION: Low-density in the maninder may represent early infarction. Recommend MRI with and without contrast for further evaluation. If MRI cannot be performed, recommend short term CT followup. Dictated by: Junior Quinn M.D. on 05/17/2017 at 21:19 CT ANGIO CHEST PULMONARY EMBOLISM IMPRESSION: 1. No acute pulmonary emboli in the main, left or right pulmonary arteries. Smaller pulmonary obscured by respiratory motion and cannot be evaluated. 2. Diffuse interstitial opacities with confluent opacities in the dependent right greater than left lungs representing chronic emphysema with superimposed fluid imbalance, atelectasis, infection, blood products, or a combination of these possibilities. 3. Bilateral anterior rib fractures. 4. ET and enteric tube in appropriate position PROCEDURE: X-RAY CHEST ONE VIEW, PORTABLE ([id number]) IMPRESSION: Significantly improved congestive heart failure/ pulmonary edema changes. There is now the appearance of some air bronchograms consistent with some consolidation/pneumonia in the left lower lobe. Tubes and lines are appropriate in position. Dictated by: Edilson Atkins M.D. on 05/22/2017 at 9:34 X-RAY CHEST ONE VIEW, PORTABLE ([id number]) IMPRESSION: Bilateral pneumonia pattern, slightly improved at the left lower lobe. Lines and tubes in normal position. Dictated by: Chris Stein M.D. on 05/25/2017 at 8:08 Approved by: Chris Stein M.D. on 05/25/2017 at 8:10 Additional Diagnostics DateTimeAnalyzed 05:21:00 -_ pH ____7.441 - 7.350 7.450 pCO2 ___40.3__ -mmHg 35.0 45.0 pO2 ___61.8__ -mmHg 69.0 116 HCO3- ___27.0__ -mmol/L 22.0 26.0 ABE ____3.1__ -mmol/L -2.0 2.0 tHb ____9.4__ -g/dL 12.0 18.0 O2Hb ___89.8__ -% COHb ____1.4__ -% 0.0 1.5 MetHb ____0.9__ -% 0.4 1.5 sO2 ___91.9__ -% FIO2 ___70.0__ -% PEEP ____8.0__ -cmH2O Set_RR ___18.0__ -b/min Vt __460.0__ -L Spontaneous_RR ___20.0__ -b/min Assessment & Plan Barbara Davila is a 61 year old woman with interstitial lung disease secondary to ARDS in 2011 who requires 6-7 L O2 at baseline who has begun to establish care with a pulmonology fellow at the [facility]. She said a recent bout of pneumonia in October and two arrest secondary to hypoxemia the second of which is the reason for this hospital admission. She was intubated in the field and found to be in acute hypercarbic respiratory failure. Initial CT demonstrated new obstruction of airways along with her interstitial lung disease which was not seen on last CT in April. Yesterday Dr. Quintero spoke with the patient's son who is [facility]. The son expressed that his mother would not wish to be sustained long-term or on mechanical ventilation but if mechanical ventilation at the possibility of helping her recover return to independent living she would be agreeable. Son plans to discuss goals of care with his uncle and then contact us to verify goals moving forward with his mother's care. The patient's son is not able to receive incoming calls at the correctional facility so we await his call today. Hospital day 9. Ventilator day 9. Acute on chronic hypercarbic respiratory failure in setting of severe interstitial lung disease. Interstitial lung disease is thought to be secondary to ARDS in 2012 according to notes from the [facility] who she has been following with. On this admission CT showed airway obstruction along with interstitial lung disease. She was initially extremely difficult to ventilate and continues to have low but increasing expiratory volumes. - Patient Overnight and then sitting changed to have a set rate of 12. She has failed prior SBTs. Repeat trial today and attempts to decrease PEEP. - Solu-Medrol 60 mg daily. Initially given high-dose steroids as there was some suspicion of an allergic component due to the airway obstruction seen on CT. - Furosemide 20 mg twice a day started 05/22/2017 as we work towards extubation. - Sedation currently is with fentanyl, midazolam, and Precedex. Attempt will be made to wean back sedation but due to patient's polysubstance abuse this has proven difficult. Nosocomial fever. Over the last few days patient has had a low-grade fever but overnight she spiked a MAXIMUM TEMPERATURE of 38.7. - Etiology is not clear as chest x-ray looks essentially unchanged from yesterday. Infectious disease is working up possible causes and at this time is suspicious of a possible line infection. - Repeat blood, urine, and sputum culture sent overnight. No growth to date. - Antibiotics switched from aztreonam, vancomycin, and Flagyl to meropenem and micafungin. Pulmonary infiltrate. Patient with positive sputum cultures 2 for Klebsiella along with a recent urine culture positive for Klebsiella. Difficult to assess whether this is an active infection or colonization. - Patient has had low-grade fevers throughout hospitalization but over the last 24-36 hours she has sustained temperatures with MAXIMUM TEMPERATURE 38.7. - Patient antibiotics switched to meropenem and micafungin. - Procalcitonin today was 0.06 and has never been significantly elevated. Presumed cardiac arrest. Etiology uncertain although likely secondary to hypoxic episode. Patient was also noted to have a prolonged QT and therefore arrhythmia must be considered. - Avoid QT prolonging medications. - Treatment for respiratory failure as above to remove likely cause. Polysubstance abuse. Family has brought forth that the patient uses numerous street drugs and alcohol. Unclear when her last use was as she was recently in a SNF prior to this admission. - Complicating sedation at this time. Current sedation with midazolam and Precedex. - Pain from rib fractures sustained during CPR. - Pain control with fentanyl gtt. Nutrition. Tube feeds at 50 ml/hr. Continue to increase to goal. Bowel regimen: Senna and docusate scheduled. MiraLAX when necessary. GI prophylaxis: Famotidine DVT prophylaxis: Heparin CODE STATUS: FULL GI Prophylaxis: H2 pat VTE Prophylaxis: Sub-Q Heparin (Unfractionated) VTE Mechanical Devices: Intermittant Pneumatic CD Resuscitation Status: CPR: Attempt Resuscitation Attending Statement I have seen and examined this patient with the resident physician. Vital signs , labs, imaging have been reviewed. I agree with the assessment and plan above. Please refer to my separately dictated progress note for any modifications to above. Josie Reese M.D. Pulmonary and Critical Care medicine Pager [phone] JANY MOYER DO May 25, 2017 07:57 Josie Reese MD May 26, 2017 13:29
--- NOTE | 2017-05-25 08:12 | DRSVH ---
PROCEDURE: X-RAY CHEST ONE VIEW, PORTABLE ([id number]) INDICATIONS: intubated TECHNIQUE: One view of the chest was acquired. COMPARISON: [facility], CR, XR CHEST 1VW (PORTABLE), 05/23/2017, 5:16. [facility], CR, XR CHEST 1VW (PORTABLE), 05/22/2017, 5:16. [facility], CR, XR CHEST 1VW (ANABEL BLE), 05/21/2017, 5:46. [facility], CR, XR CHEST 1VW (PORTABLE), 05/24/2017, 3:45. FINDINGS: Surgical changes and devices: Stable over time with lines and tubes in normal position. Lungs and pleura: No pleural effusions or pneumothorax. Lungs are again seen to be abnormal with a bibasilar pneumonia pattern, with slight improved aeration at the left lower lobe allowing visualizat ion of a portion of the left diaphragm. Mediastinum: Mediastinal contours appear normal. Heart size is normal. Bones and chest wall: No suspicious bony lesions. Overlying soft tissues appear unremarkable. IMPRESSION: Bilateral pneumonia pattern, slightly improved at the left lower lobe. Lines and tubes i n normal position. Dictated by: Chris Stein M.D. on 05/25/2017 at 8:08 Approved by: Chris Stein M.D. on 05/25/2017 at 8:10
[2017-05-25 08:21] LABS: BASOPHILS % (AUTO) 0 % (0-3); EOSINOPHILS % (AUTO) 2.4 % (0-5); MONOCYTES % (AUTO) 6.5 % (4-12); Mean Corpuscular Hemoglobin 28.8 pg (27.0-35.0); Mean Corpuscular Volume 93.1 fL (81-100); NEUTROPHILS % (AUTO) 78.9 % (40-74); Platelet Count 232 bil/L (150-400)
[2017-05-25] MEDS: Furosemide 10 mg/mL 2 mL Inj IVPUSH SCH ×2 (08:28→18:16)
[2017-05-25] MEDS ORDERED: Docusate Sodium 10 mg/mL 10 mL Liquid PO SCH (08:30)
[2017-05-25] MEDS: Senna Leaf Extract 528 mg/15 mL Syrup PO SCH ×2 (08:30→19:58)
[2017-05-25] MEDS: MethylprednisoLONE Sodium Succinate 62.5 mg/mL 2 mL Inj IVPUSH SCH (08:32)
[2017-05-25] MEDS: Famotidine Inj 20 MG in IV Premix 1 EACH IV SCH ×2 (08:32→20:11)
[2017-05-25] MEDS: Vancomycin Inj 750 MG in 0.9% Sodium Chloride 250 ML IV SCH (08:33)
[2017-05-25] MEDS: Vancomycin Dose per Pharmacist XX SCH (08:34)
[2017-05-25 09:13] LABS: Magnesium 1.8 mg/dL (1.6-2.6); Phosphorus 3.1 mg/dL (2.5-4.9)
--- NOTE | 2017-05-25 10:14 | PROG NOTE ---
[address] [address] PROGRESS NOTE PATIENT: ALISSON STAFFORD : 1955 MR#: [id number] ADMIT: 05/17/2017 JOB ID: [id number] DATE: 05/25/2017 REASON FOR FOLLOW UP: Bilateral pulmonary fibrosis with superimposed infiltrates and ventilatory dependent respiratory failure. INTERVAL HISTORY: Recall this is the 61-year-old woman with underlying pulmonary fibrosis who has now been here nine days. She was admitted with cardiac arrest, vomiting and respiratory failure. Subsequently, the patient is awake and in the ICU, and is currently awake on the ventilator. At this point, she is able to answer some questions by shaking her head yes or no. The major new event overnight is that in the past 24 hours or so she has developed rather persistent fevers. Recall that during the first several days of her admission between May 17 and really yesterday about noon, she was essentially afebrile with one temperature of 38 and one of 38.1, mixed among the first week in her hospital stay. Otherwise, afebrile. Over the past 24 hours, she has had persistent fevers at about 38.5, which is a radical change. When asked about this, the patient denies significant air hunger and, in fact, is asking for the endotracheal tube to be removed despite a relatively high FiO2. She denies abdominal pain or headache. Otherwise we cannot obtain much history from this intubated woman, though we did discuss the case with the team and the bedside nurse. PHYSICAL EXAMINATION: Temperature now 38.5, pulse 67, blood pressure 147/59, no vasopressor agents but her FiO2 has been increased from 60% consistently previously to 70% now. Examination of the eyes reveals no conjunctival abnormalities. Nose normal. Oral endotracheal tube, orogastric tube in good position. She has a right neck central line as well as peripheral IVs and a left radial A-line. None of these appear especially infected. Neck without notable abnormalities. Lungs coarse breath sounds bilaterally, sort of Velcro sounding bilateral chest sounds. Cardiac tones without new murmur, though difficult to hear over the noise of ventilator and respiratory sounds. Abdomen soft and nontender. She is not having any significant stool output, and the respiratory therapist and nurses report scant yellow sputum. LABORATORIES: Include white count 9500, platelet count 232,000. Creatinine yesterday 0.71. LFTs were normal. Procalcitonin yesterday was 0. Urinalysis 0-5 white cells. Micro: Recall that on the and on the the sputum grew Klebsiella pneumoniae. Also on the , there was some Staph aureus which was MSSA. A followup sputum from the shows rare polys and no organisms whatsoever, strongly suggesting that she does not have a respiratory source of this new fever. Urine culture done yesterday is likewise negative so far. IMAGING: Includes today's chest x-ray which shows bilateral pulmonary infiltrates. May be slightly better on the left side. IMPRESSION: This is a very ill woman who was admitted initially with cardiac arrest and respiratory failure. Recall that she has been closely followed by [facility] because of pulmonary fibrosis and is under consideration for a lung transplant. Initially after intubation, some sputum grew Klebsiella and we were unsure if this was colonizing or infecting. The subsequent sputum grew both Klebsiella and MSSA, and our most recent sputum from yesterday appears to have no organisms whatsoever. No white cells present. Her ventilatory status has been relatively stable but efforts to wean her have been unsuccessful. What is new is in the last 24 hours, she started to develop fevers and the source of these fevers remains unclear at this point. Possible sources of fever would include her lines, and she has numerous peripheral lines as well as an A-line and a central line. I think that might be the most likely source of this process. Other potential sources would include a new superimposed respiratory tract infection, but the fact that her chest x-ray is actually a little better today per the radiologist's read, and the fact that she has a sputum culture from yesterday with no white cells and no organisms, strongly argues against a pulmonary source of these recrudescent fevers. Also possible here would be a fungemia or perhaps arising from a line. Urinary tract infection seems very unlikely given the fact we have negative urine culture and she has been on broad-spectrum antibiotics. C. diff would seem to be precluded by the fact she has no abdominal pain and no stool. Hepatitis or pancreatitis remain unlikely but potential causes in this patient who has no abdominal pain. I do note that we have had normal LFTs up to and including yesterday, making that quite unlikely. RECOMMENDATIONS: 1. Today we need to collect sputum Gram stain and culture. 2. We should obtain three blood cultures, A line, central line and skin. 3. We already have a pending urine repeat culture, and so I do not think we need to further addressed the urinary situation. 4. Will add a lipase on to her morning labs as well as a procalcitonin. Note that her procalcitonin level two days ago was 0, and if it remains at these extremely low levels would argue against a bacteremia or bacterial sepsis producing these fevers. 5. The possibility of drug fever also exists, but there is no rash or eosinophilia to correlate with that. 6. In terms of her antibiotic, she has been maintained now for basically a week on a complex regimen which has included aztreonam because of her PENICILLIN allergy directed at the Klebsiella as well as vancomycin, and Flagyl. On this regimen, her sputum has really become acellular without any organisms, suggesting that we have had efficacy against the respiratory organisms that were seen, whether they were due to colonization or infection. We now have recrudescent fevers, so I think it is reasonable to change her antibiotics while we await our followup cultures and I would go to a combination of meropenem and micafungin. Meropenem is reasonably safe even in people with PENICILLIN anaphylaxis and I think its use here is warranted as the patient is in a controlled environment on the ventilator and we can account for any untoward reactions which could occur secondary to the meropenem.
--- NOTE | 2017-05-25 11:04 | NUR ---
NUTRITION FOLLOW-UP Assess: 61 YO female admitted to CCU with cardiac arrest (PEA), requiring intubation. She has been on TF and tolerating well at goal. On 05/22, pt pulled out TF and had some emesis.TF was off x2 days but was re-started 05/24. Currently running at 50ml/hr. Tolerating well and advancing toward goal. Received verbal this am to increase free water flushes to better meet pt's needs. Last BM was 05/22, scheduled bowel meds to be added today. PMHX: Interstitial lung disease due to ARDS 2011, R sided heart failure, cor pulmonale, depression, anxiety, chronic pain. DIET: NPO. ENTERAL FEEDING: Pulmocare @ 50ml/hr LABS: Reviewed. Bun 28, Glu 112, Ca 8.3, alb 3.0 MEDICATIONS: Reviewed. Fentanyl, Versed, Solu-medrol, reglan GI: BMx3 05/22. SKIN: Per Mammalogist, proximal half of intergluteal fold is split for length of 4 cm. No drainage noted. ANTHROPOMETRICS: Wt: 109.4kg, BMI 45.6kg/m2, Admit wt: 103.2 kg, IBW: 47.7 kg. ESTIMATED NEEDS: BMI/VENT Calories: 2060-2265kcal/day (20-22kcal/kg) Protein: 85-95g/day (1.8-2.0g/kg IBW) Fluids: ~2725ml/day (25ml/kg) NUTRITION DIAGNOSIS: 1) Inadequate oral intake related to decreased ability to consume sufficient energy as evidenced by NPO/Vent status -- PERSISTS, tolerating TF INTERVENTION: 1) Recommend continue to advance TF of Pulmocare towards goal rate of 65ml/hr to provide 2145kcal/day and 89g pro (100% estimated needs). 2) Fluid flush has been increased to 135ml q 2 hrs to provide an additional 1620ml/day. TF + fluid flush provides 2742ml/day MONITOR / EVALUATE: NPO / vent status, TF joel/ goal, fluids, labs, nutritional status. Follow up per high nutrition risk guidelines.
[2017-05-25] MEDS: Meropenem 1 Gm/100 mL NS Minibag Plus IV SCH ×4 (11:59→18:14)
[2017-05-25] MEDS: Micafungin Inj 150 MG in 0.9% Sodium Chloride 100 ML IV SCH (13:00)
[2017-05-25] MEDS: Propofol Inj 1,000,000 MCG in IV Premix 1 EACH IV SCH ×2 (13:20→21:49)
--- NOTE | 2017-05-25 15:48 | PROG NOTE ---
[address] [address] PROGRESS NOTE PATIENT: ALISSON STAFFORD : 1955 MR#: [id number] ADMIT: 05/17/2017 JOB ID: [id number] DATE: 05/25/2017 PULMONARY CRITICAL CARE PROGRESS NOTE: The patient is a 61-year-old woman with post ARDS pulmonary fibrosis admitted with acute hypoxic respiratory failure. The patient was seen and evaluated with resident physician, Kimberly Mcfadden. Please refer to her separate detailed note for additional information. The following is an addendum. INTERVAL HISTORY: She did extremely well on a spontaneous breathing trial yesterday evening with pressure support of 5/5 cm but was put back on assist control overnight. She did have a temperature of 38.5 early this morning and had desaturation resulting in increased FiO2 to 65%. REVIEW OF SYSTEMS: Could not be obtained. PHYSICAL EXAMINATION: Vital signs reviewed. T-max 38.5, FiO2 65%, PEEP of 8 cm. General: Intubated, on sedation but opens her eyes and nods in response to questions. She does appear lethargic. Chest: Clear to auscultation anteriorly. LABORATORIES: Reviewed. Procalcitonin remains 0.06 despite high temperature today. Cultures: No new data. Blood cultures including fungal cultures were sent as well as sputum. IMAGING: Chest x-ray looks unchanged with bilateral fibrotic changes. ASSESSMENT AND RECOMMENDATIONS: 1. Acute hypoxic respiratory failure. 2. Suspected sepsis. 3. Suspected multilobar pneumonia with Klebsiella/MSSA-completed antibiotics. 4. Post ARDS pulmonary fibrosis. A 61-year-old woman with pulmonary fibrosis, thought to be following a prolonged hospitalization with ARDS, admitted with respiratory failure and septic shock which has resolved. She did extremely well on a spontaneous breathing trial yesterday. She has been tolerating diuresis with IV Lasix and has lost a lot of fluid weight which I think is helping. I actually think she is pretty close to getting extubated but wanted to speak with her family and have a plan for any post extubation recurrent respiratory failure before we did that. She is currently on aztreonam, vancomycin, and this was switched to meropenem, micafungin. She is on Precedex, midazolam and fentanyl for sedation and I would like to stop the Precedex and midazolam and switch to propofol instead which I think would make extubation easier. I did speak with her son today who called the hospital. He is currently incarcerated but is very close to his mother and indicated that while she did not like to be intubated, she was willing to put up with mechanical ventilation if there was a chance of recovery to independent function which is her goal. Recall that at baseline she was on 6 L of oxygen because of her pulmonary fibrosis and so quite limited. Her son is hopeful that he can come visit her and his counselor is trying to arrange that with the alf. In the meantime, he will call back every day and I will try to speak to him every day and update him. We would like to repeat a pressure support trial and probably hope to extubate her tomorrow. This is assuming the fever today does not recur and she has no further worsening hypoxia or x-ray changes suggesting new infection. The negative procalcitonin is certainly reassuring. Based on my conversation with him, I do think the patient would be okay to be reintubated but certainly not okay with a tracheostomy and indefinite ventilator support. CRITICAL CARE TIME: 60 minutes.
--- NOTE | 2017-05-25 16:27 | PCM.PNMED ---
Subjective Date of Service May 25, 2017 Subjective Patient is awake and intubated. She is able to shake her congestion now. She denies any pain. She understands that I will take another day or so for the tube did come out. Review of systems is otherwise unobtainable as the subjective. No other overnight events noted other than 1 fever, increased sputum and a slight increase in FiO2 requirement. Exam Vital Signs Vital Sign - Last Date Time Temp Pulse Resp B/P Pulse Ox O2 Delivery O2 Flow Rate FiO2 05/25/17 13:30 92 18 134/61 94 60 05/25/17 12:00 Ventilator 05/25/17 12:00 36.8 Intake and Output 05/24/17 05/24/17 05/25/17 Cumulative From/Thru 14:59 22:59 06:59 05/17/17 20:07 - 05/25/17 06:38 Intake Total 1436 ml 2043 ml 63238 ml Output Total 3500 ml 2300 ml 00225 ml Balance -2064 ml -257 ml 27156 ml Intake Oral 0 ml IV Total 1267 ml 1312 ml 78650 ml Tube Feeding 129 ml 501 ml 3220 ml Tube Irrigant 40 ml 230 ml 870 ml Output Urine Total 3500 ml 2300 ml 49280 ml Gastric Drainage Total 630 ml Other 300 ml # Bowel Movements 3 Exam Alert and oriented. She is intubated. She is comfortable. Anicteric sclera. Lungs are clear with normal rate and effort. Basal rales. Heart is regular without murmur gallop or rub Abdomen soft nontender, flat Extremities are free of edema. Skin is free of rash or lesions. IVs and Medications Medications Reviewed: Medications were reviewed in detail Lab and Diagnostics Result Diagram: 05/25/17 0800 05/25/17 0800 Microbiology Sputum culture positive for Klebsiella Blood culture negative MRSA negative X-Rays, CTs and MRIs X-RAY CHEST ONE VIEW, PORTABLE IMPRESSION: 1. Acute on chronic diffuse pulmonary opacities new since 05/11/2017 may represent edema, infection, or blood products superimposed on chronic scarring/ fibrosis. 2. ET and enteric tubes. Dictated by: Junior Quinn M.D. on 05/17/2017 at 20:42 CT CERVICAL SPINE WITHOUT CONTRAST IMPRESSION: 1. No CT evidence of acute cervical spine pathology. 2. Extensive degenerative change. 3. Possible right mandibular fracture or motion artifact on this study and on today's head CT. Please correlate with clinical point tenderness of the right mandible. Dictated by: Junior Quinn M.D. on 05/17/2017 at 21:27 CT BRAIN WITHOUT CONTRAST IMPRESSION: Low-density in the maninder may represent early infarction. Recommend MRI with and without contrast for further evaluation. If MRI cannot be performed, recommend short term CT followup. Dictated by: Junior Quinn M.D. on 05/17/2017 at 21:19 CT ANGIO CHEST PULMONARY EMBOLISM IMPRESSION: 1. No acute pulmonary emboli in the main, left or right pulmonary arteries. Smaller pulmonary obscured by respiratory motion and cannot be evaluated. 2. Diffuse interstitial opacities with confluent opacities in the dependent right greater than left lungs representing chronic emphysema with superimposed fluid imbalance, atelectasis, infection, blood products, or a combination of these possibilities. 3. Bilateral anterior rib fractures. 4. ET and enteric tube in appropriate position PROCEDURE: X-RAY CHEST ONE VIEW, PORTABLE ([id number]) IMPRESSION: Significantly improved congestive heart failure/ pulmonary edema changes. There is now the appearance of some air bronchograms consistent with some consolidation/pneumonia in the left lower lobe. Tubes and lines are appropriate in position. Dictated by: Edilson Atkins M.D. on 05/22/2017 at 9:34 X-RAY CHEST ONE VIEW, PORTABLE ([id number]) IMPRESSION: Bilateral pneumonia pattern, slightly improved at the left lower lobe. Lines and tubes in normal position. Dictated by: Chris Stein M.D. on 05/25/2017 at 8:08 Approved by: Chris Stein M.D. on 05/25/2017 at 8:10 Additional Diagnostics DateTimeAnalyzed 05:21:00 -_ pH ____7.441 - 7.350 7.450 pCO2 ___40.3__ -mmHg 35.0 45.0 pO2 ___61.8__ -mmHg 69.0 116 HCO3- ___27.0__ -mmol/L 22.0 26.0 ABE ____3.1__ -mmol/L -2.0 2.0 tHb ____9.4__ -g/dL 12.0 18.0 O2Hb ___89.8__ -% COHb ____1.4__ -% 0.0 1.5 MetHb ____0.9__ -% 0.4 1.5 sO2 ___91.9__ -% FIO2 ___70.0__ -% PEEP ____8.0__ -cmH2O Set_RR ___18.0__ -b/min Vt __460.0__ -L Spontaneous_RR ___20.0__ -b/min Assessment & Plan Per Dr. Quintero's note, Dr. Quintero spoke with the patient's son who is incarcerated at [facility]. The son expressed that his mother would not wish to be sustained long-term or on mechanical ventilation but if mechanical ventilation at the possibility of helping her recover return to independent living she would be agreeable. Son plans to discuss goals of care with his uncle and then contact us to verify goals moving forward with his mother's care. The patient's son is not able to receive incoming calls at the correctional facility so we await his call today. Hospital day 10. Ventilator day 10. Acute on chronic respiratory failure with hypercarbia and hypoxia. Present on admission and active. -Fentanyl, Propofol, and Midazolam for sedation; patient with significant ventilator desynchrony if sedation is lightened -Ventilator management per pulmonary consult -High-dose methylprednisolone now reduced to 60 mg daily - Minimize fluid overload - furosemide 20 mg twice a day initiated 05/23/17 She is -2 L over 24 hours. We will continue diuresis. In addition she has evidence of worsening FiO2 requirement. We will continue to diurese and treat her with empiric antibiotics for treatment changed to meropenem and micafungin. Severe Interstitial Lung Disease with right sided heart failure and Cor Pulmonale, POA, chronic and active. Patient uses 6-7L O2 at baseline. Recently discontinued chronic prednisone. -Patient is proving difficult to ventilate due to likely air trapping and poor pulmonary compliance; not typical for restrictive interstitial lung disease. Etiology of obstructive pattern is unclear. -Currently saturating well on FiO2 0.6 -Ventilator management and weaning per pulmonary consult -Continue telemetry We will continue a pressure support trial today. This patient remains tenuous. I discussions with her son and indicated that she would want reintubation if it seemed likely she could get through her episode of extubated. She has not been intubated for 10 days. She does have significant chronic lung disease and her overall prognosis remains guarded. Aspiration pneumonia, present on admission and active. -Meropenem and micafungin per infectious disease. Cardiac arrest with pulseless electrical activity, present on admission and resolved. Initially required norepinephrine which is weaned off. - Minimize Intravenous fluids - Diuretics to maintain neutral fluid balance Sepsis with SIRS criteria met and pneumonia at time of infection.. Tachycardic and tachypneic due to severe acute respiratory failure. Mild leukocytosis on admission which is resolving. Lactic acid was not elevated on admission. - Continue to monitor vital signs - Continuing antibiotic coverage for aspiration pneumonia Multiple Rib fractures, present on admission and active. 2 recent episodes of CPR. Probably contributes to her acute on chronic respiratory failure. -Analgesics as needed when patient emerges from ventilator sedation Acute kidney injury, present on admission and resolved. -Serum creatinine 1.3 on admission; declined to 0.75 - Follow BMP Depression/Anxiety: currently holding home meds due to NPO status GI Prophylaxis: H2 pat VTE Prophylaxis: Sub-Q Heparin (Unfractionated) VTE Mechanical Devices: Intermittant Pneumatic CD Resuscitation Status: CPR: Attempt Resuscitation GI Prophylaxis: H2 pat VTE Prophylaxis: Sub-Q Heparin (Unfractionated) VTE Mechanical Devices: Intermittant Pneumatic CD Resuscitation Status: CPR: Attempt Resuscitation Wisam Ochoa MD May 25, 2017 16:27
--- NOTE | 2017-05-25 17:08 | NUR ---
Social work: Continued Discharge Planning/Multidisciplinary Rounds D/A: Pt discussed in multidisciplinary rounds; the patient remains in CCU, Vented. She tolerated breathing trials and it is anticipated that she will likely be extubated tomorrow pending a conversation re: future goals can be determined with family about possible re-intubation. Pt's son is primary decision maker, he is currently incarcerated [facility] but has been in communication about his mother's care. P: At this time, there are no current social work/discharge planning needs. Case Management continues to follow and will coordinate discharge planning once patient is more clinically stable and appropriate for discharge planning conversations. STEPHON Avila
--- NOTE | 2017-05-25 18:41 | NUR ---
Respiratory... Had sedation changed this am from Versed/Precedex to propofol. Pt has been awake since with appropriate gestures and attempts to write notes. Did a 3 hour pressure support trial and joel this well. Continues to have mod amts creamy secretions. Received a phone call from the pt's son Deisy who relays he is making arrangements to come to the hospital on Tuesday. He gave us his contact phone number.. placed on front of chart.
[2017-05-26] VITALS (13 sets, daily range): BP systolic 117–177; BP diastolic 53–83; PULSE 101–115; RESP 13–22; O2SAT 90–100
[2017-05-26] MEDS: Propofol Inj 1,000,000 MCG in IV Premix 1 EACH IV SCH ×4 (00:21→09:53)
[2017-05-26] MEDS: Chlorhexidine 0.12% 15 mL Oral Solution MT SCH ×6 (00:21→20:30)
[2017-05-26] MEDS: Heparin 5,000 Unit/mL Inj SUBQ SCH ×3 (00:21→16:31)
[2017-05-26] MEDS: Meropenem 1 Gm/100 mL NS Minibag Plus IV SCH ×2 (00:21)
[2017-05-26] MEDS: Albuterol-Ipratropium 3 mL Inhalation Solution NEB SCH ×6 (00:42→22:03)
[2017-05-26] MEDS: Insulin Human REGular 300 Unit/3 mL Inj SUBQ SCH ×4 (02:30→20:30)
[2017-05-26 03:46] LABS: BASOPHILS % (AUTO) 0.1 % (0-3); EOSINOPHILS % (AUTO) 2.9 % (0-5); MONOCYTES % (AUTO) 6.4 % (4-12); Mean Corpuscular Hemoglobin 28.4 pg (27.0-35.0); Mean Corpuscular Volume 91.4 fL (81-100); NEUTROPHILS % (AUTO) 81.7 % (40-74); Platelet Count 270 bil/L (150-400)
[2017-05-26 04:05] LABS: Magnesium 1.8 mg/dL (1.6-2.6)
--- NOTE | 2017-05-26 05:01 | ABG ---
DateTimeAnalyzed 04:54:00 -_ pH ____7.394 - 7.350 7.450 pCO2 ___49.6__ -mmHg 35.0 45.0 pO2 ___58.2__ -mmHg 69.0 116 HCO3- ___29.6__ -mmol/L 22.0 26.0 ABE ____4.5__ -mmol/L -2.0 2.0 tHb ___10.3__ -g/dL 12.0 18.0 O2Hb ___87.0__ -% COHb ____1.5__ -% 0.0 1.5 MetHb ____1.1__ -% 0.4 1.5 sO2 ___89.3__ -% FIO2 ___50.0__ -% PEEP ____8.0__ -cmH2O Set_RR ___15.0__ -b/min Vt __460.0__ -L Drawn By MM - Date/Time Notified____ 05:01:00 -_ Spontaneous_RR ___15.0__ -b/min Oxygen Device 1 VENTILATOR - Notified By MM - Notified Whom DR ROMEO - B 755 -mmHg tO2 ___12.6__ -Vol% Wisam test N/A -
[2017-05-26] MEDS ORDERED: Potassium Chloride 20 mEq SR Tablet PO ONE (05:10)
--- NOTE | 2017-05-26 06:36 | NUR ---
Sedation / Skin Patient requiring Propofol be titrated up overnight. RASS most between 0 and 1, seen to be dozing a couple of times. Patient remains somewhat anxious, attempting to talk around the tube but unable to effectively communicate with hand gestures or writing. Patient noted to have a bright pink rash in her perineum and up along her left side. MD noted who came to assess patient. No new orders.
--- NOTE | 2017-05-26 07:04 | PCM.PNMED ---
Subjective Date of Service May 26, 2017 Subjective Pulmonology/Critical Care Progress Note Barbara Davila is a 61 year old woman with interstitial lung disease secondary to ARDS in 2011 who requires 6-7 L O2 at baseline who has begun to establish care with a pulmonology fellow at the [facility]. She said a recent bout of pneumonia in October and two arrest secondary to hypoxemia the second of which is the reason for this hospital admission. She was intubated in the field and found to be in acute hypercarbic respiratory failure. Initial CT demonstrated new obstruction of airways along with her interstitial lung disease which was not seen on last CT in April. Hospital day 10. Ventilator day 10. Interval History The patient's son who is currently incarcerated called yesterday and discussed with Dr. Hugh cast's of care. He stated that his mother would be willing to be reintubated if there was a chance of recovery to independent living. Yesterday patient successfully completed a breathing trial of 3 hours. She follows commands appropriately. Tolerating tube feeds and diuresis. She has been afebrile over the last 24 hours. She does have a new diffuse, erythematous rash today. Exam Vital Signs Vital Sign - Last Date Time Temp Pulse Resp B/P Pulse Ox O2 Delivery O2 Flow Rate FiO2 05/26/17 04:50 108 117/55 90 50 05/26/17 03:17 36.9 14 Mechanical Ventilator Intake and Output 05/25/17 05/25/17 05/26/17 Cumulative From/Thru 15:00 23:00 07:00 05/17/17 20:07 - 05/26/17 06:20 Intake Total 1933 ml 1864 ml 34523 ml Output Total 2025 ml 1350 ml 19261 ml Balance -92 ml 514 ml 94601 ml Intake Oral 0 ml IV Total 1096 ml 677 ml 68021 ml Tube Feeding 662 ml 646 ml 4528 ml Tube Irrigant 175 ml 541 ml 1586 ml Output Urine Total 2025 ml 1350 ml 05490 ml Gastric Drainage Total 630 ml Other 300 ml # Bowel Movements 1 4 Exam General: Intubated and sedated but responsive to verbal stimuli. Appropriately responsive and follows commands. HEENT: Superficial abrasion on the nose and forehead from recent fall. Conjunctivae are pink no scleral icterus. ET tube in place. Neck: Supple with full range of motion. No jugular venous distension. No bruits. No lymphadenopathy or thyromegaly. Cardiovascular: Regular rate and rhythm with no murmurs, rubs, or gallops appreciated Pulmonary: Coarse breath sounds on inspiration. Left lung base with decreased breath sounds. Abdomen: Hypoactive bowel tones present. Soft, nontender, mildly distended. No hepatosplenomegaly or masses appreciated. Extremities: Edema of bilateral feet and hands. Skin: Warm and well-perfused. Scattered superficial abrasions from recent fall. Neurological: Cranial nerves grossly intact. Lines: ET tube Horn catheter Right IJ Left radial arterial line Right peripheral Lab and Diagnostics Result Diagram: 05/26/17 03305/26/17 033 Microbiology Sputum culture positive for Klebsiella Blood culture negative MRSA negative X-Rays, CTs and MRIs X-RAY CHEST ONE VIEW, PORTABLE IMPRESSION: 1. Acute on chronic diffuse pulmonary opacities new since 05/11/2017 may represent edema, infection, or blood products superimposed on chronic scarring/ fibrosis. 2. ET and enteric tubes. Dictated by: Junior Quinn M.D. on 05/17/2017 at 20:42 CT CERVICAL SPINE WITHOUT CONTRAST IMPRESSION: 1. No CT evidence of acute cervical spine pathology. 2. Extensive degenerative change. 3. Possible right mandibular fracture or motion artifact on this study and on today's head CT. Please correlate with clinical point tenderness of the right mandible. Dictated by: Junior Quinn M.D. on 05/17/2017 at 21:27 CT BRAIN WITHOUT CONTRAST IMPRESSION: Low-density in the maninder may represent early infarction. Recommend MRI with and without contrast for further evaluation. If MRI cannot be performed, recommend short term CT followup. Dictated by: Junior Quinn M.D. on 05/17/2017 at 21:19 CT ANGIO CHEST PULMONARY EMBOLISM IMPRESSION: 1. No acute pulmonary emboli in the main, left or right pulmonary arteries. Smaller pulmonary obscured by respiratory motion and cannot be evaluated. 2. Diffuse interstitial opacities with confluent opacities in the dependent right greater than left lungs representing chronic emphysema with superimposed fluid imbalance, atelectasis, infection, blood products, or a combination of these possibilities. 3. Bilateral anterior rib fractures. 4. ET and enteric tube in appropriate position PROCEDURE: X-RAY CHEST ONE VIEW, PORTABLE ([id number]) IMPRESSION: Significantly improved congestive heart failure/ pulmonary edema changes. There is now the appearance of some air bronchograms consistent with some consolidation/pneumonia in the left lower lobe. Tubes and lines are appropriate in position. Dictated by: Edilson Atkins M.D. on 05/22/2017 at 9:34 X-RAY CHEST ONE VIEW, PORTABLE ([id number]) IMPRESSION: Bilateral pneumonia pattern, slightly improved at the left lower lobe. Lines and tubes in normal position. Dictated by: Chris Stein M.D. on 05/25/2017 at 8:08 Approved by: Chris Stein M.D. on 05/25/2017 at 8:10 Additional Diagnostics DateTimeAnalyzed 04:54:00 -_ pH ____7.394 - 7.350 7.450 pCO2 ___49.6__ -mmHg 35.0 45.0 pO2 ___58.2__ -mmHg 69.0 116 HCO3- ___29.6__ -mmol/L 22.0 26.0 ABE ____4.5__ -mmol/L -2.0 2.0 tHb ___10.3__ -g/dL 12.0 18.0 O2Hb ___87.0__ -% COHb ____1.5__ -% 0.0 1.5 MetHb ____1.1__ -% 0.4 1.5 sO2 ___89.3__ -% FIO2 ___50.0__ -% PEEP ____8.0__ -cmH2O Set_RR ___15.0__ -b/min Vt __460.0__ -L Spontaneous_RR ___15.0__ -b/min Assessment & Plan Barbara Davila is a 61 year old woman with interstitial lung disease secondary to ARDS in 2011 who requires 6-7 L O2 at baseline who has begun to establish care with a pulmonology fellow at the [facility]. She said a recent bout of pneumonia in October and two arrest secondary to hypoxemia the second of which is the reason for this hospital admission. She was intubated in the field and found to be in acute hypercarbic respiratory failure. Initial CT demonstrated new obstruction of airways along with her interstitial lung disease which was not seen on last CT in April. The patient's son who is currently incarcerated called yesterday and discussed with Dr. Hugh cast's of care. He stated that his mother would be willing to be reintubated if there was a chance of recovery to independent living. Patient 's son is planning to visit tomorrow. Hospital day 10. Ventilator day 10. Acute on chronic hypercarbic respiratory failure in setting of severe interstitial lung disease. Interstitial lung disease is thought to be secondary to ARDS in 2011 according to notes from the [facility] who she has been following with. - Patient completed breathing trial of 3 hours yesterday. Today she is on a breathing trial again and is maintaining saturations in the high 90s and pulling appropriate tidal volumes. Plan is to extubate today after PICC line is placed. - Solu-Medrol 60 mg daily. Initially given high-dose steroids as there was some suspicion of an allergic component due to the airway obstruction seen on CT. - Furosemide 20 mg twice a day started 05/22/2017 as we work towards extubation. - Sedated currently with propofol and pain control with fentanyl. Nosocomial fever. Patient has been afebrile over the last 24 hours. Unclear whether this is secondary to switching antibiotics. Patient does have an elevated WBC compared to yesterday and a new diffuse erythematous rash. - She does not appear infectious at this time although it is difficult to assess as she has been on antibiotics for the past 9 days and has underlying interstitial lung disease making her chest x-ray difficult to interpret. - Repeat blood, urine, and sputum cultures were sent 36 hours ago and there has been no growth. - We will continue with micafungin but discontinue the meropenem at this time. - Closely monitor for fever, worsening rash, or elevation in her white blood cell count. Pulmonary infiltrate. Patient with positive sputum cultures 2 for Klebsiella along with a recent urine culture positive for Klebsiella. Difficult to assess whether this is an active infection or colonization. - Patient antibiotics switched to meropenem and micafungin. Meropenem discontinued today. - Procalcitonin yesterday was 0.06 and has never been significantly elevated. Presumed cardiac arrest. Etiology uncertain although likely secondary to hypoxic episode. Patient was also noted to have a prolonged QT and therefore arrhythmia must be considered. - Avoid QT prolonging medications. - Treatment for respiratory failure as above to remove likely cause. Polysubstance abuse. Family has brought forth that the patient uses numerous street drugs and alcohol. Unclear when her last use was as she was recently in a SNF prior to this admission. - Complicating sedation at this time. Current sedation with midazolam and Precedex. - Pain from rib fractures sustained during CPR. - Pain control with fentanyl gtt. Nutrition. Tube feeds at 65 ml/hr but stopped this morning as extubation is anticipated Bowel regimen: Senna and docusate scheduled. MiraLAX when necessary. GI prophylaxis: Famotidine DVT prophylaxis: Heparin CODE STATUS: FULL GI Prophylaxis: H2 pat VTE Prophylaxis: Sub-Q Heparin (Unfractionated) VTE Mechanical Devices: Intermittant Pneumatic CD Resuscitation Status: CPR: Attempt Resuscitation Attending Statement I have seen and examined this patient with the resident physician. Vital signs , labs, imaging have been reviewed. I agree with the assessment and plan above. Please refer to my separately dictated progress note for any modifications to above. Josie Reese M.D. Pulmonary and Critical Care medicine Pager [phone] JANY MOYER DO May 26, 2017 07:04 Josie Reese MD May 26, 2017 13:35
[2017-05-26] MEDS: Furosemide 10 mg/mL 2 mL Inj IVPUSH SCH ×2 (07:46→16:32)
[2017-05-26] MEDS: Micafungin Inj 150 MG in 0.9% Sodium Chloride 100 ML IV SCH (07:47)
[2017-05-26] MEDS: MethylprednisoLONE Sodium Succinate 62.5 mg/mL 2 mL Inj IVPUSH SCH (07:47)
[2017-05-26] MEDS: Famotidine Inj 20 MG in IV Premix 1 EACH IV SCH ×2 (07:47→21:10)
[2017-05-26] MEDS: Senna Leaf Extract 528 mg/15 mL Syrup PO SCH ×2 (07:48→20:30)
--- NOTE | 2017-05-26 09:00 | PROG NOTE ---
[address] [address] PROGRESS NOTE PATIENT: ALISSON STAFFORD : 1955 MR#: [id number] ADMIT: 05/17/2017 JOB ID: [id number] DATE: 05/26/2017 INFECTIOUS DISEASE FOLLOW UP NOTE: REASON FOR FOLLOWUP: Ventilatory dependent respiratory failure in a patient with bilateral pulmonary fibrosis and bilateral pulmonary infiltrates. INTERVAL HISTORY: Recall this is the complex 61-year-old patient with underlying pulmonary fibrosis who was admitted here 9-1/2 days ago. She has been persistently dependent on the ventilator but efforts are underway to extubate her. Early on her sputum grew Klebsiella as well as MSSA and because of a history of penicillin anaphylaxis, she was treated with an unusual regimen of vanco, Flagyl and aztreonam for what may have been an aspiration pneumonia. It is certainly possible as well that she was simply colonized with these organisms but we could not tell and decided to treat her aggressively. As we approach what we thought was the end of a week or so of aggressive antibiotic therapy, she started to spike fevers for the first time really on May 24 and early in the morning of the . Yesterday we re-evaluated and decided to stop the vanco, aztreonam and Flagyl and switched to a regimen of micafungin and meropenem while we awaited the results of numerous cultures. We did this in full awareness of the fact that she has a PENICILLIN anaphylaxis history, but we wanted to broaden her coverage and get off the antibiotics that she had been receiving which seemed to be failing. Overnight, the patient's fevers have resolved and steady progress has been made towards extubation. She is currently on a pressure support trial. Awake and alert. She denies fever or chills. She is quite anxious this morning. She additionally denies air hunger or abdominal pain. Not much else history can be obtained from her. At the bedside I discussed this case with the ICU nurse as well as the ICU team. PHYSICAL EXAMINATION: Reveals a woman who has now been afebrile for more than 24 hours. Current temperature 36.9, pulse 104, respiratory rate is about 25 on a pressure support trial. Blood pressure steady 135/53. No vasopressor agents. She is still intubated. The patient is awake, alert and anxious, pulling at her restraints. Eyes without conjunctivitis. She follows commands appropriately. She is obviously awake but very nervous. Oral endotracheal tube, orogastric tube in good position. Neck without change. IV lines appear benign. Lungs with coarse breath sounds as she has had throughout this hospital stay bilaterally. Cardiac tones: Distant, regular rate and rhythm. Abdomen: Soft and nontender. Extremities without change. Note that her skin now has a faint erythematous cast to it and this erythema extends over the torso and all the way down on to the proximal extremities, both upper and lower. It is especially pronounced in the area of her thighs. LABORATORIES: Include white blood count which has jumped from about 10,000 where it had been for several days to 15,000. She still has about 80% segs, which is consistent with her steroid use. There are no band forms. Creatinine 0.51. It is notable that her AST which has been around 40 has doubled to 88 and her ALT which has been around 30 has almost doubled to 50. Alk phos and bilirubin remains normal. Lipase yesterday 30 which is normal. Procalcitonin 0 again yesterday. Urinalysis without white cells. Cultures remain negative since the . Recall that on the the sputum grew Staph aureus which was MSSA and Klebsiella pneumonia. Follow up cultures of sputum on the completely negative. No growth. Urine on the also no growth. Blood cultures from the 12th are no growth and additional blood cultures done this morning that are no growth so far, of course. I carefully compared today's chest radiograph to prior films. They continue to show bilateral rather fixed infiltrates with no significant change. IMPRESSION: This is a difficult case in that we were never completely convinced the patient had a respiratory tract infection based upon her initial presentation which was characterized by cardiac arrest, aspiration and respiratory failure. Because of the colonization of the airway with Klebsiella and later MSSA, we decided to treat with a non beta-lactam regimen for possible aspiration as well as coverage for the Klebsiella with vanco, Flagyl and aztreonam. The sputum subsequently became culture negative and the patient seemed to be improving until late on the when she started having for the first time really fevers. As part of her fever workup and treatment, we switched the antibiotics and have now seen her fevers resolve even as she has developed a bit of an erythematous hue to her skin. At this point, I am not convinced this represents a significant drug allergy and given her apparent response in terms of resolved fevers and ongoing clinical improvement without evidence of anaphylaxis, I would be inclined to continue with these antibiotics. RECOMMENDATIONS: 1. Will continue at least briefly with meropenem and micafungin. 2. I have ordered a procalcitonin and Fungitell for this morning while we await our routine and fungal blood cultures. 3. Will continue to closely watch this patient with you.
[2017-05-26] MEDS ORDERED: Sodium Chloride LOK Flush 10 mL Syringe IVFLUSH PRN (09:15)
[2017-05-26] MEDS ORDERED: Meropenem Inj 2,000 MG in 0.9% Sodium Chloride 100 ML IV ONE (10:20)
--- NOTE | 2017-05-26 10:20 | NUR ---
Palliative Care - Cancelled Received verbal order from Dr Reese 05/25/17 to assist with goals of care. This order has been cancelled per Dr Cueva 05/26/17. Palliative Care did not/will not see patient at this time. Diana Willson
--- NOTE | 2017-05-26 11:14 | DRSVH ---
PROCEDURE: X-RAY CHEST ONE VIEW, PORTABLE ([id number]) INDICATIONS: fu intubated TECHNIQUE: One view of the chest was acquired. COMPARISON: [facility], CR, XR CHEST 1VW (PORTABLE), 05/24/2017, 3:45. [facility], CR, XR CHEST 1VW (PORTABLE), 05/23/2017, 5:16. [facility], CR, XR CHEST 1VW (ANABEL BLE), 05/22/2017, 5:16. [facility], CR, XR CHEST 1VW (PORTABLE), 05/21/2017, 5:46. [facility], CR, XR CHEST 1VW (PORTABLE), 05/20/2017, 5:41. [facility], CR, XR CHEST 1VW (PORTABLE), 05/19/2017, 4:01. [facility], CR, XR CHEST 1VW (PORTABLE), 05/25/2017, 7: 21. FINDINGS: Surgical changes and devices: Stable position of ETT, nasogastric tube and right IJ CVL. Lungs and pleura: Diffuse, widespread bilateral pulmonary interstitial and air space opacities are p resent not significant changed from prior examination. Mediastinum: Mediastinal contours appear normal. Heart size is enlarged. Bones and chest wall: No suspicious bony lesions. Overlying soft tissues appear unremarkable. IMPRESSION: 1. Stable support lines and tubes. 2. Pulmonary edema and/or diffuse bilateral pneumonia similar to prior examination. Dictated by: Imitaz Olivares RRA Interpreted: Anjali Dupont MD on 05/26/2017 at 10:03 Approved by: Anjali Dupont MD, PhD on 05/26/2017 at 11:11
--- NOTE | 2017-05-26 11:29 | PROG NOTE ---
[address] [address] PROGRESS NOTE PATIENT: ALISSON STAFFORD : 1955 MR#: [id number] ADMIT: 05/17/2017 JOB ID: [id number] DATE: 05/26/2017 PULMONARY CRITICAL CARE PROGRESS NOTE: The patient is a 61-year-old woman with post ARDS pulmonary fibrosis, admitted with acute on chronic hypoxic respiratory failure requiring mechanical ventilation. The patient was seen and evaluated with resident physician, Kimberly Mcfadden, please refer to her separate detailed note for additional information. INTERVAL HISTORY: She did very well on her spontaneous breathing trial yesterday evening on pressure support of 5/5 for three hours. This morning her FiO2 is down to 50%, and she is once again on a pressure support trial doing well. REVIEW OF SYSTEMS: Unable to obtain since she is intubated. PHYSICAL EXAMINATION: Vital signs reviewed. T-max today is much lower, 36.9, with no further fevers. She is on FiO2 50% to 55% with 5-8 cm of PEEP. General alert. Eyes open. Working with physical therapy. Chest is clear to auscultation. Skin: She has an erythematous rash on her back and torso which is new compared to yesterday. LABORATORIES: Reviewed. WBC up to 15 from 9.5 yesterday. Cultures: No new growth on blood cultures, fungal cultures, and sputum culture from May 24. Recall the previous cultures had Staph aureus and Klebsiella. Chest x-ray today is stable, unchanged compared to yesterday with bilateral infiltrates due to fibrosis. ASSESSMENT AND RECOMMENDATIONS: 1. Acute on chronic hypoxic respiratory failure on mechanical ventilation since May 17. 2. Multilobar pneumonia with Klebsiella/methicillin sensitive Staphylococcus aureus-completed therapy. 3. Post acute respiratory distress syndrome--pulmonary fibrosis. 4. Leukocytosis/fever-SIRS. A 61-year-old woman with post acute respiratory distress syndrome pulmonary fibrosis and chronic respiratory failure on about 6 L of oxygen at home admitted with acute respiratory failure requiring mechanical ventilation. She is tolerating diuresis very well, continuing to get Lasix 20 mg IV b.i.d. Currently she is on lower FiO2 than yesterday at 50% to 55%, and no longer has a fever, but she does have a rash which I think could be related to medication. After discussion with Dr. Del Rio we stopped meropenem, but are continuing micafungin until we get final results on the fungal blood cultures. At this point, I am not really certain that she has an ongoing infection despite the fever and white count and would rather not change her antibiotics constantly when cultures remain negative. So, for now she is on micafungin alone and hopefully we can stop this in a few days. Based on my conversation with her son yesterday I think the patient is willing to be reintubated if necessary if she fails. However, if I understood her goals correctly she does not want to be in a long-term care facility and her goal is to go back to independent living. In this case, the second round of intubation if it comes to that should be about a week's trial to see if we can get her extubated because it appears the tracheostomy would not be consistent with her long-term goals. Her son is hoping to make a visit with assistance from his counselor and leave the group home and come in tomorrow. I am hopeful that we can extubate her today, but I would like to speak to him on the phone and let him know before we do that. Tube feeds are on hold for potential extubation. Because of the nonspecific fever, leukocytosis we are going to try to remove her central line and replace it with a PICC line. Also we will remove her ART line after extubation. Plan is to put her on high-flow oxygen after extubation BiPAP if needed. She is on appropriate DVT and GI prophylaxis. CRITICAL CARE TIME: Fifty (50) minutes.
--- NOTE | 2017-05-26 15:11 | PCM.PNMED ---
Subjective Date of Service May 26, 2017 Subjective She was extubated to high flow oxygen weight this morning is doing well. She denies any pain. She does have a hoarse voice and sore throat. She feels fairly comfortable on the high flow oxygen saturations are in the mid 90s. She denies any chest pain, nausea or abdominal pain. She was able to visit with her son who was brought in from intermediate for approximately 2 hours TODAY. No other overnight events noted Exam Vital Signs Vital Sign - Last Date Time Temp Pulse Resp B/P Pulse Ox O2 Delivery O2 Flow Rate FiO2 05/26/17 11:57 108 177/83 97 50 05/26/17 11:09 18 05/26/17 08:10 36.9 Mechanical Ventilator Intake and Output 05/25/17 05/25/17 05/26/17 Cumulative From/Thru 15:00 23:00 07:00 05/17/17 20:07 - 05/26/17 06:20 Intake Total 1933 ml 1864 ml 54793 ml Output Total 2025 ml 1350 ml 94325 ml Balance -92 ml 514 ml 76380 ml Intake Oral 0 ml IV Total 1096 ml 677 ml 47223 ml Tube Feeding 662 ml 646 ml 4528 ml Tube Irrigant 175 ml 541 ml 1586 ml Output Urine Total 2025 ml 1350 ml 08349 ml Gastric Drainage Total 630 ml Other 300 ml # Bowel Movements 1 4 Exam Alert and oriented -3, no distress. Hoarse voice. High flow oxygen nasal cannula. Anicteric sclera. Lungs are clear with breath sounds and increased rate and slightly increased effort. Heart is regular without murmur gallop or rub Abdomen soft nontender, flat Extremities are with 2+ edema Skin is free of rash or lesions. She moves arms and legs spontaneously and can follow commands. IVs and Medications Medications Reviewed: Medications were reviewed in detail Lab and Diagnostics Result Diagram: 05/26/17 0330 05/26/17 1100 Microbiology Sputum culture positive for Klebsiella Blood culture negative MRSA negative X-Rays, CTs and MRIs X-RAY CHEST ONE VIEW, PORTABLE IMPRESSION: 1. Acute on chronic diffuse pulmonary opacities new since 05/11/2017 may represent edema, infection, or blood products superimposed on chronic scarring/ fibrosis. 2. ET and enteric tubes. Dictated by: Junior Quinn M.D. on 05/17/2017 at 20:42 CT CERVICAL SPINE WITHOUT CONTRAST IMPRESSION: 1. No CT evidence of acute cervical spine pathology. 2. Extensive degenerative change. 3. Possible right mandibular fracture or motion artifact on this study and on today's head CT. Please correlate with clinical point tenderness of the right mandible. Dictated by: Junior Quinn M.D. on 05/17/2017 at 21:27 CT BRAIN WITHOUT CONTRAST IMPRESSION: Low-density in the maninder may represent early infarction. Recommend MRI with and without contrast for further evaluation. If MRI cannot be performed, recommend short term CT followup. Dictated by: Junior Quinn M.D. on 05/17/2017 at 21:19 CT ANGIO CHEST PULMONARY EMBOLISM IMPRESSION: 1. No acute pulmonary emboli in the main, left or right pulmonary arteries. Smaller pulmonary obscured by respiratory motion and cannot be evaluated. 2. Diffuse interstitial opacities with confluent opacities in the dependent right greater than left lungs representing chronic emphysema with superimposed fluid imbalance, atelectasis, infection, blood products, or a combination of these possibilities. 3. Bilateral anterior rib fractures. 4. ET and enteric tube in appropriate position PROCEDURE: X-RAY CHEST ONE VIEW, PORTABLE ([id number]) IMPRESSION: Significantly improved congestive heart failure/ pulmonary edema changes. There is now the appearance of some air bronchograms consistent with some consolidation/pneumonia in the left lower lobe. Tubes and lines are appropriate in position. Dictated by: Edilson Atkins M.D. on 05/22/2017 at 9:34 X-RAY CHEST ONE VIEW, PORTABLE ([id number]) IMPRESSION: Bilateral pneumonia pattern, slightly improved at the left lower lobe. Lines and tubes in normal position. Dictated by: Chris Stein M.D. on 05/25/2017 at 8:08 Approved by: Chris Stein M.D. on 05/25/2017 at 8:10 Additional Diagnostics DateTimeAnalyzed 04:54:00 -_ pH ____7.394 - 7.350 7.450 pCO2 ___49.6__ -mmHg 35.0 45.0 pO2 ___58.2__ -mmHg 69.0 116 HCO3- ___29.6__ -mmol/L 22.0 26.0 ABE ____4.5__ -mmol/L -2.0 2.0 tHb ___10.3__ -g/dL 12.0 18.0 O2Hb ___87.0__ -% COHb ____1.5__ -% 0.0 1.5 MetHb ____1.1__ -% 0.4 1.5 sO2 ___89.3__ -% FIO2 ___50.0__ -% PEEP ____8.0__ -cmH2O Set_RR ___15.0__ -b/min Vt __460.0__ -L Spontaneous_RR ___15.0__ -b/min Assessment & Plan Barbara Davila is a 61 year old woman with interstitial lung disease secondary to ARDS in 2011 who requires 6-7 L O2 at baseline who has begun to establish care with a pulmonology fellow at the [facility]. She said a recent bout of pneumonia in October and two arrest secondary to hypoxemia the second of which is the reason for this hospital admission. She was intubated in the field and found to be in acute hypercarbic respiratory failure. Initial CT demonstrated new obstruction of airways along with her interstitial lung disease which was not seen on last CT in April. The patient's son who is currently incarcerated called yesterday and discussed with Dr. Hugh cast's of care. He stated that his mother would be willing to be reintubated if there was a chance of recovery to independent living. Patient 's son is planning to visit tomorrow. Hospital day 11. Ventilator day 11, extubated this AM. #. Acute on chronic hypercarbic respiratory failure in setting of severe interstitial lung disease. Improved. She was extubated to high flow oxygen today. We will watch her carefully. We will support her with high flow Next 24 hours to decrease her oxygenation failure and reintubation. #. Aspiration Pneumonia, Klebsiella and MSSA. Improving. Her pro-calcitonin is trending down. No fevers or last 24 hours. We will plan on stopping all antibiotics tomorrow. #. Possible drug fever, new improved. We will stop all antibiotics and micafungin tomorrow. #. Sepsis, present on admission with SIRS criteria are met. Source is aspiration pneumonia. This is resolved #. Acute kidney injury, present on admission and resolved. -Follow creatinine, this is been nonactive. #. Presumed cardiac arrest. Etiology uncertain although likely secondary to hypoxic episode. Patient was also noted to have a prolonged QT and therefore arrhythmia must be considered. - Avoid QT prolonging medications. -Continue to follow on telemetry. No evidence of arrhythmia. #. Polysubstance abuse, present on admission and resolved. Family has brought forth that the patient uses numerous street drugs and alcohol. Unclear when her last use was as she was recently in a SNF prior to this admission. - Complicating sedation at this time. Current sedation with midazolam and Precedex. - Pain from rib fractures sustained during CPR. - Pain control with fentanyl gtt. Bowel regimen: Senna and docusate scheduled. MiraLAX when necessary. GI prophylaxis: Famotidine DVT prophylaxis: Heparin CODE STATUS: FULL GI Prophylaxis: H2 pat VTE Prophylaxis: Sub-Q Heparin (Unfractionated) VTE Mechanical Devices: Intermittant Pneumatic CD Resuscitation Status: CPR: Attempt Resuscitation Wisam Ochoa MD May 26, 2017 15:11
[2017-05-26] MEDS ORDERED: Meropenem Inj 2,000 MG in 0.9% Sodium Chloride 100 ML IV SCH (16:30)
[2017-05-26] MEDS ORDERED: Labetalol 5 mg/mL 20 mL Inj IVPUSH PRN (18:35)
[2017-05-26] MEDS: Ondansetron 2 mg/mL 2 mL Inj IVPUSH PRN (19:28)
--- NOTE | 2017-05-26 19:38 | NUR ---
Extubation.. was able to again do several hours of pressure support and joel this well. Decision made to extubate the pt. Her son had been escorted to the hospital by half-way staff to be at the pt's bedside for a visit and was able to be present for the extubation at 1230. Both he and the pt are agreeable to have reintubation should that be needed and pt remains full code. Pt has been on hi flow nasal cannula and later this afternoon switched to bipap. At 1830 pt had an episode of nausea and drive heaves. Bipap pulled off and pt had dips to the 50's on her Spo2. With use of cannula and breathing techniques pt was able to return her sats to baseline. Dr Leger came to the bedside and an antiemetic is now ordered.
[2017-05-27] VITALS (14 sets, daily range): BP systolic 99–156; BP diastolic 65–96; PULSE 78–122; RESP 16–23; O2SAT 86–96
[2017-05-27] MEDS: Chlorhexidine 0.12% 15 mL Oral Solution MT SCH ×2 (00:30→04:15)
[2017-05-27] MEDS: Heparin 5,000 Unit/mL Inj SUBQ SCH ×3 (00:56→17:52)
[2017-05-27] MEDS: Ondansetron 2 mg/mL 2 mL Inj IVPUSH PRN ×2 (00:56→13:29)
[2017-05-27] MEDS: Insulin Human REGular 300 Unit/3 mL Inj SUBQ SCH ×4 (02:30→22:00)
[2017-05-27 04:24] LABS: BASOPHILS % (AUTO) 0.1 % (0-3); EOSINOPHILS % (AUTO) 3.2 % (0-5); Mean Corpuscular Hemoglobin 28.8 pg (27.0-35.0); Mean Corpuscular Volume 92.1 fL (81-100); NEUTROPHILS % (AUTO) 77.3 % (40-74); Platelet Count 294 bil/L (150-400)
[2017-05-27 04:47] LABS: Magnesium 1.9 mg/dL (1.6-2.6); Phosphorus 2.3 mg/dL (2.5-4.9)
--- NOTE | 2017-05-27 05:57 | NUR ---
Resp/activity: Pt was on nasal cannula at 6L/M at shift waiting to be placed on high flow O2 by RT because she was not able to tolerate Bipap. Spo2 was in the 60s. O2 increased to 8L/M per NC and pt was shown some breathing exercises to help with oxygenation. Spo2 quickly increased to 90s but drifted up and down between 80s and 90s. Oxy mask wask applied at 10L/M and spo2 remained in the high 90s until about 2030 when pt stated she was tired and wanted the high flow NC on. RT in and pt placed on high flow spo2 continuos in the 90s. Pt refused to turn and when she did turn would whiggle back to her butt or call and ask to be turned to her back.
--- NOTE | 2017-05-27 06:17 | NUR ---
Bath: Pt refused to have bath last night asked to do it in the morning.
[2017-05-27] MEDS ORDERED: Potassium Phos (mEq) Inj 20 MEQ in Dextrose 5% 250 ML IV ONE (06:20)
[2017-05-27] MEDS: Albuterol-Ipratropium 3 mL Inhalation Solution NEB SCH ×4 (08:11→19:53)
[2017-05-27] MEDS ORDERED: MethylprednisoLONE Sodium Succinate 62.5 mg/mL 2 mL Inj ONE (09:03)
--- NOTE | 2017-05-27 09:39 | NUR ---
Evaluation completed. Please go to "Notes" then click on "Assessments and Notes" (bottom left corner of screen). Then select appropriate discipline tab on top of screen.
--- NOTE | 2017-05-27 09:40 | PROG NOTE ---
[address] [address] PROGRESS NOTE PATIENT: ALISSON STAFFORD : 1955 MR#: [id number] ADMIT: 05/17/2017 JOB ID: [id number] INFECTIOUS DISEASE FOLLOWUP: DATE: 05/27/2017 REASON FOR FOLLOWUP: Pulmonary infiltrates complicating pulmonary fibrosis and ventilatory-dependent respiratory failure. INTERVAL HISTORY: Yesterday, we stopped the patient's broad-spectrum antibiotics as her fevers had resolved and she was appearing quite uninfected. This was done after extensive discussions with the ICU team. We chose to continue her antifungal therapy which had been initiated empirically a couple of days ago with a nosocomial fever spike. Overnight, the patient has improved considerably. She is now breathing comfortably awake and alert on high-flow nasal oxygen. She reports no fevers and no chills. She notes that her shortness of breath is coming back towards her always altered baseline as she has underlying pulmonary fibrosis. She has no abdominal pain or diarrhea. PHYSICAL EXAMINATION: Reveals a comfortable, afebrile woman. Temp 37.7, pulse 102, respiratory rate 20, blood pressure 141/69. She is saturating well on 65% FiO2. Examination of the mental status is unremarkable. She has nasal prongs high-flow oxygen going as noted. Oral cavity negative. Her lungs relatively are still with the diffuse crackles as have been heard throughout her hospital stay. Her abdomen is benign. No new skin rash. LABORATORY DATA: Labs include a white count of 14,000; though, she is on steroids. Platelets 299. Creatinine 0.57. AST is 97, ALT 63, albumin 3.0, procalcitonin again 0.12 yesterday. Micro studies of interest include negative fungal blood cultures from two days ago, negative routine blood cultures three days ago and a sputum which was negative from May 24 also three days ago. Previously, sputum had grown Staph aureus which was MSSA, as well as Klebsiella pneumonia. IMAGING: X-rays were reviewed. The patient's pulmonary infiltrates are little changed, likely chronic. IMPRESSION: No evidence for ongoing infection in this complicated case in which a woman with pulmonary fibrosis has undergone a cardiac arrest and had prolonged ventilator dependence, but is now successfully extubated and much improved. Her fever spike of three days ago remains unexplained, but it does not appear that there is any significant evidence of infection at this time. RECOMMENDATIONS: 1. I would stop the micafungin today. 2. I would observe the patient off antibiotics. 3. ID will go ahead and sign off at this time. Please do not hesitate to call if there are additional issues or questions with this patient.
--- NOTE | 2017-05-27 10:03 | PCM.PNMED ---
Subjective Date of Service May 27, 2017 Subjective Pulmonology/Critical Care Progress Note Barbara Davila is a 61 year old woman with interstitial lung disease secondary to ARDS in 2011 who requires 6-7 L O2 at baseline who has begun to establish care with a pulmonology fellow at the [facility]. She said a recent bout of pneumonia in October and two arrest secondary to hypoxemia the second of which is the reason for this hospital admission. She was intubated in the field and found to be in acute hypercarbic respiratory failure. Initial CT demonstrated new obstruction of airways along with her interstitial lung disease which was not seen on last CT in April. Hospital day 11. Extubated after 10 days on 05/26/17. Interval History The patient's son came to visit yesterday and the patient was able to be extubated while he was present. Patient has continued on HiFlo nasal canula and maintains sats in the high 90s when not talking. No acute events overnight. She has remained afebrile and rash has resolved. Exam Vital Signs Vital Sign - Last Date Time Temp Pulse Resp B/P Pulse Ox O2 Delivery O2 Flow Rate FiO2 05/27/17 08:12 102 20 94 HI FLOW NC 50L 65 05/27/17 04:39 50 05/27/17 04:30 37.7 141/69 Intake and Output 05/26/17 05/26/17 05/27/17 Cumulative From/Thru 15:00 23:00 07:00 05/17/17 20:07 - 05/27/17 06:11 Intake Total 723 ml 313 ml 94802 ml Output Total 1500 ml 1700 ml 40029 ml Balance -777 ml -1387 ml 8701 ml Intake Oral 0 ml IV Total 723 ml 313 ml 13201 ml Tube Feeding 4528 ml Tube Irrigant 1586 ml Output Urine Total 1500 ml 1700 ml 33363 ml Gastric Drainage Total 630 ml Other 300 ml # Bowel Movements 3 7 Exam General: Awake and alert. No acute distress. HEENT: Superficial abrasion on the nose and forehead from recent fall. Conjunctivae are pink no scleral icterus. Neck: Supple with full range of motion. No jugular venous distension. No bruits. No lymphadenopathy or thyromegaly. Cardiovascular: Regular rate and rhythm with no murmurs, rubs, or gallops appreciated Pulmonary: Coarse breath sounds on inspiration. Left lung base with decreased breath sounds. Abdomen: Soft, nontender, nondistended with active bowel sounds. No hepatosplenomegaly or masses appreciated. :Horn catheter in place. Extremities: Radial and posterior tibialis 2/4 bilaterally. Skin: Warm and well-perfused. Scattered superficial abrasions from recent fall. Neurological: Cranial nerves grossly intact. Lab and Diagnostics Result Diagram: 05/27/1740905/27/17409 Microbiology Sputum culture positive for Klebsiella Blood culture negative MRSA negative X-Rays, CTs and MRIs X-RAY CHEST ONE VIEW, PORTABLE IMPRESSION: 1. Acute on chronic diffuse pulmonary opacities new since 05/11/2017 may represent edema, infection, or blood products superimposed on chronic scarring/ fibrosis. 2. ET and enteric tubes. Dictated by: Junior Quinn M.D. on 05/17/2017 at 20:42 CT CERVICAL SPINE WITHOUT CONTRAST IMPRESSION: 1. No CT evidence of acute cervical spine pathology. 2. Extensive degenerative change. 3. Possible right mandibular fracture or motion artifact on this study and on today's head CT. Please correlate with clinical point tenderness of the right mandible. Dictated by: Junior Quinn M.D. on 05/17/2017 at 21:27 CT BRAIN WITHOUT CONTRAST IMPRESSION: Low-density in the maninder may represent early infarction. Recommend MRI with and without contrast for further evaluation. If MRI cannot be performed, recommend short term CT followup. Dictated by: Junior Quinn M.D. on 05/17/2017 at 21:19 CT ANGIO CHEST PULMONARY EMBOLISM IMPRESSION: 1. No acute pulmonary emboli in the main, left or right pulmonary arteries. Smaller pulmonary obscured by respiratory motion and cannot be evaluated. 2. Diffuse interstitial opacities with confluent opacities in the dependent right greater than left lungs representing chronic emphysema with superimposed fluid imbalance, atelectasis, infection, blood products, or a combination of these possibilities. 3. Bilateral anterior rib fractures. 4. ET and enteric tube in appropriate position PROCEDURE: X-RAY CHEST ONE VIEW, PORTABLE ([id number]) IMPRESSION: Significantly improved congestive heart failure/ pulmonary edema changes. There is now the appearance of some air bronchograms consistent with some consolidation/pneumonia in the left lower lobe. Tubes and lines are appropriate in position. Dictated by: Edilson Atkins M.D. on 05/22/2017 at 9:34 X-RAY CHEST ONE VIEW, PORTABLE ([id number]) IMPRESSION: Bilateral pneumonia pattern, slightly improved at the left lower lobe. Lines and tubes in normal position. Dictated by: Chris Stein M.D. on 05/25/2017 at 8:08 Approved by: Chris Stein M.D. on 05/25/2017 at 8:10 Assessment & Plan Barbara Davila is a 61 year old woman with interstitial lung disease secondary to ARDS in 2011 who requires 6-7 L O2 at baseline who has begun to establish care with a pulmonology fellow at the [facility]. She said a recent bout of pneumonia in October and two arrest secondary to hypoxemia the second of which is the reason for this hospital admission. She was intubated in the field and found to be in acute hypercarbic respiratory failure. Initial CT demonstrated new obstruction of airways along with her interstitial lung disease which was not seen on last CT in April. Hospital day 11. Extubated after 10 days on 05/26/17. Acute on chronic hypercarbic respiratory failure in setting of severe interstitial lung disease. Interstitial lung disease is thought to be secondary to ARDS in 2011 according to notes from the [facility] who she has been following with. - Patient extubated 05/26/17. Currently on HiFlo at FiO2 of .65 and flow of 50L. - Tapering steroids. Prednisone 40 mg QD. Nosocomial fever. Patient has been afebrile over the last 48 hours, rash has resolved, and WBC is decreasing. - She does not appear infectious at this time although it is difficult to assess as she has been on antibiotics for the past 9 days and has underlying interstitial lung disease making her chest x-ray difficult to interpret. - Repeat blood, urine, and sputum cultures were sent two days ago and there has been no growth. - Micafungin discontinued. Pulmonary infiltrate. Patient with positive sputum cultures 2 for Klebsiella along with a recent urine culture positive for Klebsiella. Difficult to assess whether this is an active infection or colonization. - Antibiotics and micafungin discontinued. Presumed cardiac arrest. Etiology uncertain although likely secondary to hypoxic episode. Patient was also noted to have a prolonged QT and therefore arrhythmia must be considered. - Avoid QT prolonging medications. - Treatment for respiratory failure as above to remove likely cause. Polysubstance abuse. Family has brought forth that the patient uses numerous street drugs and alcohol. Unclear when her last use was as she was recently in a SNF prior to this admission. Nutrition. Speech eval scheduled for this morning. Diet per recommendations. Bowel regimen: PRN now that patient is extubated DVT prophylaxis: Heparin CODE STATUS: FULL VTE Prophylaxis: Sub-Q Heparin (Unfractionated) VTE Mechanical Devices: Intermittant Pneumatic CD Resuscitation Status: CPR: Attempt Resuscitation Attending Statement I have seen and examined this patient with the resident physician. Vital signs , labs, imaging have been reviewed. I agree with the assessment and plan above. Please refer to my separately dictated progress note for any modifications to above. Josie Reese M.D. Pulmonary and Critical Care medicine Pager [phone] JANY MOYER DO May 27, 2017 10:02 Josie Reese MD May 27, 2017 12:17
--- NOTE | 2017-05-27 10:42 | PCM.PNMED ---
Subjective Date of Service May 27, 2017 Subjective She is doing well today. She was extubated to high flow yesterday and was continuing to tolerate this without difficulty. Respiratory rate still is slightly fast. She is having no chest pain, cough or abdominal pain. No nausea. She denies confusion. No overnight events noted. Exam Vital Signs Vital Sign - Last Date Time Temp Pulse Resp B/P Pulse Ox O2 Delivery O2 Flow Rate FiO2 05/27/17 08:12 102 20 94 HI FLOW NC 50L 65 05/27/17 04:39 50 05/27/17 04:30 37.7 141/69 Intake and Output 05/26/17 05/26/17 05/27/17 Cumulative From/Thru 15:00 23:00 07:00 05/17/17 20:07 - 05/27/17 06:11 Intake Total 723 ml 313 ml 17298 ml Output Total 1500 ml 1700 ml 70114 ml Balance -777 ml -1387 ml 8701 ml Intake Oral 0 ml IV Total 723 ml 313 ml 97530 ml Tube Feeding 4528 ml Tube Irrigant 1586 ml Output Urine Total 1500 ml 1700 ml 20148 ml Gastric Drainage Total 630 ml Other 300 ml # Bowel Movements 3 7 Exam Alert and oriented -3, no distress. Fluent speech. High flow oxygen. Anicteric sclera. Lungs are with increased rate and slight increased labor. Mostly clear anteriorly. Heart is regular without murmur gallop or rub Abdomen soft nontender, flat Extremities are free of edema. Skin is free of rash or lesions. IVs and Medications Medications Reviewed: Medications were reviewed in detail Lab and Diagnostics Result Diagram: 05/27/1740905/27/17409 Microbiology Sputum culture positive for Klebsiella Blood culture negative MRSA negative X-Rays, CTs and MRIs X-RAY CHEST ONE VIEW, PORTABLE IMPRESSION: 1. Acute on chronic diffuse pulmonary opacities new since 05/11/2017 may represent edema, infection, or blood products superimposed on chronic scarring/ fibrosis. 2. ET and enteric tubes. Dictated by: Junior Quinn M.D. on 05/17/2017 at 20:42 CT CERVICAL SPINE WITHOUT CONTRAST IMPRESSION: 1. No CT evidence of acute cervical spine pathology. 2. Extensive degenerative change. 3. Possible right mandibular fracture or motion artifact on this study and on today's head CT. Please correlate with clinical point tenderness of the right mandible. Dictated by: Junior Quinn M.D. on 05/17/2017 at 21:27 CT BRAIN WITHOUT CONTRAST IMPRESSION: Low-density in the maninder may represent early infarction. Recommend MRI with and without contrast for further evaluation. If MRI cannot be performed, recommend short term CT followup. Dictated by: Junior Quinn M.D. on 05/17/2017 at 21:19 CT ANGIO CHEST PULMONARY EMBOLISM IMPRESSION: 1. No acute pulmonary emboli in the main, left or right pulmonary arteries. Smaller pulmonary obscured by respiratory motion and cannot be evaluated. 2. Diffuse interstitial opacities with confluent opacities in the dependent right greater than left lungs representing chronic emphysema with superimposed fluid imbalance, atelectasis, infection, blood products, or a combination of these possibilities. 3. Bilateral anterior rib fractures. 4. ET and enteric tube in appropriate position PROCEDURE: X-RAY CHEST ONE VIEW, PORTABLE ([id number]) IMPRESSION: Significantly improved congestive heart failure/ pulmonary edema changes. There is now the appearance of some air bronchograms consistent with some consolidation/pneumonia in the left lower lobe. Tubes and lines are appropriate in position. Dictated by: Edilson Atkins M.D. on 05/22/2017 at 9:34 X-RAY CHEST ONE VIEW, PORTABLE ([id number]) IMPRESSION: Bilateral pneumonia pattern, slightly improved at the left lower lobe. Lines and tubes in normal position. Dictated by: Chris Stein M.D. on 05/25/2017 at 8:08 Approved by: Chris Stein M.D. on 05/25/2017 at 8:10 Assessment & Plan Barbara Davila is a 61 year old woman with interstitial lung disease secondary to ARDS in 2011 who requires 6-7 L O2 at baseline who has begun to establish care with a pulmonology fellow at the [facility]. She said a recent bout of pneumonia in October and two arrest secondary to hypoxemia the second of which is the reason for this hospital admission. She was intubated in the field and found to be in acute hypercarbic respiratory failure. Initial CT demonstrated new obstruction of airways along with her interstitial lung disease which was not seen on last CT in April. The patient's son who is currently incarcerated called yesterday and discussed with Dr. Hugh cast's of care. He stated that his mother would be willing to be reintubated if there was a chance of recovery to independent living. Patient 's son is planning to visit tomorrow. Hospital day 13. Ventilator day 13, extubated yesterday #. Acute on chronic hypercarbic respiratory failure in setting of severe interstitial lung disease. Improved. She was extubated to high flow oxygen today. We will watch her carefully. We will support her with high flow We will continue high flow today and follow closely. #. Aspiration Pneumonia, Klebsiella and MSSA. Resolved. Her pro-calcitonin is trending down. No fevers or last 24 hours. All antibiotics and micafungin have been stopped. #. Possible drug fever, resolved. We have stopped all antibiotics and micafungin tomorrow. #. Sepsis, present on admission with SIRS criteria are met. Source is aspiration pneumonia. Resolved. #. Acute kidney injury, present on admission and resolved. -Follow creatinine, this is been nonactive. #. Possible cardiac arrest. Etiology uncertain although likely secondary to hypoxic episode. Patient was also noted to have a prolonged QT and therefore arrhythmia must be considered. - Avoid QT prolonging medications. -Continue to follow on telemetry. No evidence of arrhythmia. #. Polysubstance abuse, present on admission and resolved. Family has brought forth that the patient uses numerous street drugs and alcohol. Unclear when her last use was as she was recently in a SNF prior to this admission. - Complicating sedation at this time. Current sedation with midazolam and Precedex. - Pain from rib fractures sustained during CPR. - Pain control with fentanyl gtt. Bowel regimen: Senna and docusate scheduled. MiraLAX when necessary. GI prophylaxis: Famotidine DVT prophylaxis: Heparin CODE STATUS: FULL GI Prophylaxis: H2 pat VTE Prophylaxis: Sub-Q Heparin (Unfractionated) VTE Mechanical Devices: Intermittant Pneumatic CD Resuscitation Status: CPR: Attempt Resuscitation We will change her to PCC status and transfer out of the CCU. VTE Prophylaxis: Sub-Q Heparin (Unfractionated) VTE Mechanical Devices: Intermittant Pneumatic CD Resuscitation Status: CPR: Attempt Resuscitation Wisam Ochoa MD May 27, 2017 10:42
--- NOTE | 2017-05-27 11:08 | DRSVH ---
PROCEDURE: X-RAY CHEST ONE VIEW, PORTABLE ([id number]) INDICATIONS: SHORTNESS OF BREATH TECHNIQUE: One view of the chest was acquired. COMPARISON: [facility], CR, XR CHEST 1VW (PORTABLE), 05/25/2017, 7:21. [facility], CR, XR CHEST 1VW (PORTABLE), 05/26/2017, 5:23. FINDINGS: Surgical changes and devices: Stable position of right IJ CVL. Lungs and pleura: Diffuse, widespread bilateral pulmonary interstitial and air space opacities are m inimally improved since the prior examination. No pleural effusion or pneumothorax. Mediastinum: Mediastinal contours appear normal. Heart size is enlarged. Bones and chest wall: No suspicious bony lesions. Overlying soft tissues appear unremarkable. IMPRESSION: 1. Stable support lines and tubes. 2. Pulmonary edema and/or diffuse bilateral pneumonia minimally improved since the previous study. Dictated by: Imtiaz Olivares [facility] Interpreted: Junior Quinn MD on 05/27/2017 at 8:15 Approved by: Junior Quinn M.D. on 05/27/2017 at 11:06
--- NOTE | 2017-05-27 11:16 | NUR ---
NUTRITION FOLLOW-UP Assess: 61 YO female admitted to CCU following cardiac arrest (PEA), requiring intubation, with acute on chronic hypercarbic respiratory failure in setting of severe interstitial lung disease. She was successfully extubated yesterday. Speech Therapy advanced her diet today to stimulation, no liquids, which is insufficient to meet nutrient needs to any significant extent. She was receiving enteral nutrition while she was intubated. PMHX:Interstitial lung disease due to ARDS 2012, R sided heart failure, cor pulmonale, depression, anxiety, chronic pain. DIET: Stimulation, no liquids. PO intake not yet recorded. ENTERAL FEEDING DISCONTINUED: Pulmocare @ 65 ml/hr. LABS: Reviewed. K+ 3.4, CO2 30, Phos 2.3, AST 97, ALT 63, Alb 3.0. MEDICATIONS: Reviewed. Prednisone. GI: BM x3 (05/26). SKIN: Per Procedures Nurse, proximal half of intergluteal fold is split for length of 4 cm. No drainage noted. ANTHROPOMETRICS: Wt: 107.1 kg, BMI 44.0 kg/m2, Admit wt: 103.2 kg, IBW: 47.7 kg. ESTIMATED NEEDS: BMI/VENT Calories: 2060-2265kcal/day (20-22kcal/kg) Protein: 85-95g/day (1.8-2.0g/kg IBW) Fluids: ~2725ml/day (25ml/kg) NUTRITION DIAGNOSIS: 1) Inadequate oral intake related to decreased ability to consume sufficient energy as evidenced by NPO/Vent status - PERSISTS FOLLOWING EXTUBATION WITH STIM DIET UNABLE TO MEET NEEDS. INTERVENTION: 1) In the event diet unable to be advanced tomorrow, recommend restart enteral feeding per previous recommendations. MONITOR / EVALUATE: Diet advance / tolerance, labs, nutritional status. Follow up per high nutrition risk guidelines.
--- NOTE | 2017-05-27 13:19 | PROG NOTE ---
[address] [address] PROGRESS NOTE PATIENT: ALISSON STAFFORD : 1955 MR#: [id number] ADMIT: 05/17/2017 JOB ID: [id number] DATE: 05/27/2017 PULMONARY CRITICAL CARE PROGRESS NOTE: The patient is a 61-year-old woman with post ARDS pulmonary fibrosis admitted with acute on chronic hypoxic respiratory failure requiring mechanical ventilation. The patient was seen and evaluated with resident physician, Kimberly Mcfadden. Please refer to her separate detailed note for additional information. INTERVAL HISTORY: She was extubated yesterday. Her son came in to visit from long term and she had an hour with him. She has been on high-flow nasal cannula since that time, currently at 65% FiO2. She was briefly on BiPAP but found the mask uncomfortable. She denies any chest pain, fevers, chills, abdominal pain. REVIEW OF SYSTEMS: As above. PHYSICAL EXAMINATION: Vital signs reviewed. Afebrile. FiO2 65% on high-flow nasal cannula. Sats anywhere from 84 when she is talking to 94 when she is breathing comfortably. Chest: Clear anteriorly, but posteriorly she has basilar crackles. Heart: Regular rate, rhythm. Abdomen: Soft, nontender. LABORATORIES: Reviewed. WBC 14.9 from 15.4 yesterday. Procalcitonin 0.17 from 0.12. Cultures: No growth. IMAGING: Chest x-ray unchanged, with bilateral fibrotic changes. ASSESSMENT: 1. Acute on chronic hypoxic respiratory failure. Intubated from May 17 until May 26. 2. Multilobar pneumonia with Klebsiella/MSSA, completed therapy. 3. Post ARDS pulmonary fibrosis. 4. SIRS. RECOMMENDATIONS: A 61-year-old woman with post ARDS pulmonary fibrosis presenting with respiratory failure, likely due to multilobar pneumonia with Klebsiella and Staph aureus. She completed treatment and got extubated yesterday but is still quite hypoxic, requiring 65% high-flow nasal cannula. Recall that at baseline she has a pretty high oxygen requirement of about 6 L or so. She is on Solu-Medrol 60 mg daily and we cut that down to 40 mg. I would also like to try her on an OxyMask at 15 L and wean this down if tolerated. The nasal cannula on the high-flow seems to be difficult to position properly on her and frequently slips out of position and her sats drop. With regards to antibiotics, all of her antibacterials have been stopped and she is only on micafungin currently; but, per discussion with Dr. Del Rio, we decided to stop this as well. We will remove her central line and arterial line and manage with two peripheral IVs in the meantime. She is on appropriate DVT prophylaxis and GI prophylaxis can be discontinued. CRITICAL CARE TIME: 40 minutes.
[2017-05-27] MEDS: Sodium Chloride LOK Flush 10 mL Syringe IVFLUSH PRN (13:29)
--- NOTE | 2017-05-27 18:05 | NUR ---
Tolerating either Oxymask at 15L or High Flow NC at 70% plus 50L. Unimpressive nose bleed x1 this morning while on HF NC, very brief and resolves with minimal intervention and rest on Oxymask. Saturations mid to upper 80's to low 90's depending on activity and tendency to be rather loquacious. Med changes as ordered, antibiotics discontinued. Low grade fever this morning now normalized. Passed swallow for Stim diet, tolerates without evidence aspiration but is impulsive and tends to talk with mouth full and not swallow fully without cues. Remains 1:1 feed for safety. Still trying to find family or friend to bring in trilogy (apparently it is at her "old" house). Barbara is making a list of items to be brought into hospital including teeth, glasses and resp equipment.
[2017-05-28] VITALS (16 sets, daily range): BP systolic 130–149; BP diastolic 61–75; PULSE 95–114; RESP 17–26; O2SAT 90–98
[2017-05-28] MEDS: Heparin 5,000 Unit/mL Inj SUBQ SCH ×3 (00:13→17:44)
[2017-05-28] MEDS: Albuterol-Ipratropium 3 mL Inhalation Solution NEB SCH ×4 (00:24→19:59)
[2017-05-28 04:29] LABS: Mean Corpuscular Hemoglobin 29.1 pg (27.0-35.0); Mean Corpuscular Volume 92.7 fL (81-100); Platelet Count 297 bil/L (150-400)
[2017-05-28 04:54] LABS: EOSINOPHILS % (AUTO) 1 % (0-5); MONOCYTES % (AUTO) 2 % (4-12); NEUTROPHILS % (AUTO) 77 % (40-74)
[2017-05-28 04:55] LABS: BASOPHILS % (AUTO) 0 % (0-3)
--- NOTE | 2017-05-28 05:43 | NUR ---
Respiratory/Low-Grade Fever Pt SpO2 >92% on hi-flow at 70% and 30L when pt is not talking. Pt desats quickly when talking and momentarily maintains SpO2 in the upper 70s until pt stops talking and takes deep breaths in and coughs. Pt encouraged to cough and deep breath. Pt's cough sounds moist and is either productive but phlegm is swallowed or else it is non-productive. Pt still needs reinforcement when using IS that is at the bedside. Pt was running a low-grade temperature of 37.5 C at 0030. When pt has been rechecked during the shift she was afebrile.
[2017-05-28] MEDS: Insulin Human REGular 300 Unit/3 mL Inj SUBQ SCH ×4 (07:30→22:00)
[2017-05-28] MEDS ORDERED: PredniSONE 1 mg/mL 500 mL Liquid PO SCH (08:00)
[2017-05-28] MEDS: predniSONE 20 mg Tablet PO SCH (08:02)
--- NOTE | 2017-05-28 08:54 | DRSVH ---
PROCEDURE: X-RAY CHEST ONE VIEW, PORTABLE ([id number]) INDICATIONS: SOB TECHNIQUE: One view of the chest was acquired. COMPARISON: [facility], CR, XR CHEST 1VW (PORTABLE), 05/26/2017, 5:23. [facility], CR, XR CHEST 1VW (PORTABLE), 05/27/2017, 5:03. FINDINGS: Surgical changes and devices: None. Lungs and pleura: No pleural effusions or pneumothorax. Diffuse bilateral lung interstitial and airs pace opacities are stable compared to 05/27/17. Mediastinum: Mediastinal contours appear normal. Heart size is normal. Bones and chest wall: No suspicious bony lesions. Overlying soft tissues appear unremarkable. IMPRESSION: Bilateral pulmonary edema or pneumonia stable compared to 05/27/17. Status post removal of central venous line. Dictated by: Anjali Dupont MD, PhD on 05/28/2017 at 8:50 Approved by: Anjali Dupont MD, PhD on 05/28/2017 at 8:52
--- NOTE | 2017-05-28 11:19 | PCM.PNMED ---
Subjective Date of Service May 28, 2017 Subjective He is doing better today. She is still somewhat anxious. Her breathing is much improved her cough is less frequent and mostly dry. No chest pain. No abdominal pain, nausea. She has a Horn catheter in place. No diarrhea. No overnight events noted. Exam Vital Signs Vital Sign - Last Date Time Temp Pulse Resp B/P Pulse Ox O2 Delivery O2 Flow Rate FiO2 05/28/17 08:40 101 05/28/17 07:50 Supplement Oxygen 05/28/17 07:50 36.8 24 143/72 95 13.00 05/27/17 21:44 70 Intake and Output 05/27/17 05/27/17 05/28/17 Cumulative From/Thru 15:00 23:00 07:00 05/17/17 20:07 - 05/28/17 06:36 Intake Total 307 ml 125 ml 88953 ml Output Total 1800 ml 500 ml 17804 ml Balance -1493 ml -375 ml 6833 ml Intake Oral 240 ml 0 ml 240 ml IV Total 67 ml 125 ml 01610 ml Tube Feeding 4528 ml Tube Irrigant 1586 ml Output Urine Total 1800 ml 500 ml 41874 ml Gastric Drainage Total 630 ml Other 300 ml # Bowel Movements 2 1 10 Exam Alert and oriented -3, no distress. Fluent speech. Oxygen nasal cannula. Anicteric sclera. Lungs are notable for good air movement. Good breath sounds. She does have some expiratory wheezing in all lung neves. Normal rate and effort. Heart is regular without murmur gallop or rub Abdomen soft nontender, flat Extremities are with 1+ edema Skin is free of rash or lesions. IVs and Medications Medications Reviewed: Medications were reviewed in detail Lab and Diagnostics Result Diagram: 05/28/17 0322 05/28/17 0322 Microbiology Sputum culture positive for Klebsiella Blood culture negative MRSA negative X-Rays, CTs and MRIs X-RAY CHEST ONE VIEW, PORTABLE IMPRESSION: 1. Acute on chronic diffuse pulmonary opacities new since 05/11/2017 may represent edema, infection, or blood products superimposed on chronic scarring/ fibrosis. 2. ET and enteric tubes. Dictated by: Junior Quinn M.D. on 05/17/2017 at 20:42 CT CERVICAL SPINE WITHOUT CONTRAST IMPRESSION: 1. No CT evidence of acute cervical spine pathology. 2. Extensive degenerative change. 3. Possible right mandibular fracture or motion artifact on this study and on today's head CT. Please correlate with clinical point tenderness of the right mandible. Dictated by: Junior Quinn M.D. on 05/17/2017 at 21:27 CT BRAIN WITHOUT CONTRAST IMPRESSION: Low-density in the maninder may represent early infarction. Recommend MRI with and without contrast for further evaluation. If MRI cannot be performed, recommend short term CT followup. Dictated by: Junior Quinn M.D. on 05/17/2017 at 21:19 CT ANGIO CHEST PULMONARY EMBOLISM IMPRESSION: 1. No acute pulmonary emboli in the main, left or right pulmonary arteries. Smaller pulmonary obscured by respiratory motion and cannot be evaluated. 2. Diffuse interstitial opacities with confluent opacities in the dependent right greater than left lungs representing chronic emphysema with superimposed fluid imbalance, atelectasis, infection, blood products, or a combination of these possibilities. 3. Bilateral anterior rib fractures. 4. ET and enteric tube in appropriate position PROCEDURE: X-RAY CHEST ONE VIEW, PORTABLE ([id number]) IMPRESSION: Significantly improved congestive heart failure/ pulmonary edema changes. There is now the appearance of some air bronchograms consistent with some consolidation/pneumonia in the left lower lobe. Tubes and lines are appropriate in position. Dictated by: Edilson Atkins M.D. on 05/22/2017 at 9:34 X-RAY CHEST ONE VIEW, PORTABLE ([id number]) IMPRESSION: Bilateral pneumonia pattern, slightly improved at the left lower lobe. Lines and tubes in normal position. Dictated by: Chris Stein M.D. on 05/25/2017 at 8:08 Approved by: Chris Stein M.D. on 05/25/2017 at 8:10 Assessment & Plan Barbara Davila is a 61 year old woman with interstitial lung disease secondary to ARDS in 2011 who requires 6-7 L O2 at baseline who has begun to establish care with a pulmonology fellow at [facility]. She said a recent bout of pneumonia in October and two arrest secondary to hypoxemia the second of which is the reason for this hospital admission. She was intubated in the field and found to be in acute hypercarbic respiratory failure. Initial CT demonstrated new obstruction of airways along with her interstitial lung disease which was not seen on last CT in April. #. Acute on chronic hypercarbic and hypoxic respiratory failure in setting of severe interstitial lung disease. Improved. She was extubated to high flow oxygen 2 days ago. She continues to improve is now off high flow. Continue to wean oxygen as able. #. Aspiration Pneumonia, Klebsiella and MSSA. Resolved. Her pro-calcitonin is trending down. No fevers or last 24 hours. All antibiotics and micafungin have been stopped. No further antimicrobials. #. Possible drug fever, resolved. We have stopped all antibiotics and micafungin tomorrow. #. Sepsis, present on admission with SIRS criteria are met. Source is aspiration pneumonia. Resolved. #. Acute kidney injury, present on admission and resolved. -Follow creatinine, this is been nonactive. #. Possible cardiac arrest. Etiology uncertain although likely secondary to hypoxic episode. Patient was also noted to have a prolonged QT and therefore arrhythmia must be considered. - Avoid QT prolonging medications. -Continue to follow on telemetry. No evidence of arrhythmia. #. Polysubstance abuse, present on admission and resolved. Family has brought forth that the patient uses numerous street drugs and alcohol. Unclear when her last use was as she was recently in a SNF prior to this admission. - Complicating sedation at this time. Current sedation with midazolam and Precedex. - Pain from rib fractures sustained during CPR. - Pain control with fentanyl gtt. Bowel regimen: Senna and docusate scheduled. MiraLAX when necessary. GI prophylaxis: Famotidine DVT prophylaxis: Heparin CODE STATUS: FULL GI Prophylaxis: H2 pat VTE Prophylaxis: Sub-Q Heparin (Unfractionated) VTE Mechanical Devices: Intermittant Pneumatic CD Resuscitation Status: CPR: Attempt Resuscitation We will continue to support her, physical therapy and work towards placement with long term facility. She would like to avoid [facility] long term because of a bad past experience. VTE Prophylaxis: Sub-Q Heparin (Unfractionated) VTE Mechanical Devices: Intermittant Pneumatic CD Resuscitation Status: CPR: Attempt Resuscitation Wisam Ochoa MD May 28, 2017 11:19
--- NOTE | 2017-05-28 13:31 | PROG NOTE ---
[address] [address] PROGRESS NOTE PATIENT: ALISSON STAFFORD : 1955 MR#: [id number] ADMIT: 05/17/2017 JOB ID: [id number] DATE: 05/28/2017 PULMONARY/CRITICAL CARE PROGRESS NOTE: The patient is a 61-year-old woman with post-ARDS pulmonary fibrosis admitted with acute on chronic hypoxic respiratory failure requiring mechanical ventilation. INTERVAL HISTORY: She is much more lethargic this morning for me and is having difficulty answering questions, trying to fall asleep. The nurse tells me that she had a rough night and was up most of the night so she may simply be tired. Oxygenation seems to have improved and she is now on 13 L OxyMask instead of on high-flow nasal cannula. REVIEW OF SYSTEMS: Could not be obtained due to mental status. PHYSICAL EXAMINATION: Vital signs reviewed. Temp 37.1, pulse 103, respirations 26, BP 133/70, sats 91% on 13 L OxyMask. General: Sitting in bed, lethargic. Opens her eyes and looks at me, but mumbles when I try to talk to her. Chest: Coarse bilateral breath sounds, likely upper airway. LABORATORIES: Reviewed. WBC 14.8, unchanged from yesterday. Chemistry also reviewed. Procalcitonin is low at 0.13. Cultures: No new growth. Chest x-ray this morning shows similar findings to prior with bilateral fibrotic changes. ASSESSMENT: 1. Acute on chronic hypoxic respiratory failure. Intubated from May 17 until May 26. Currently on OxyMask 13 L. 2. Multilobar pneumonia with Klebsiella and MSSA-completed therapy. 3. Post-ARDS pulmonary fibrosis. 4. Acute encephalopathy. RECOMMENDATIONS: A 61-year-old woman with post-ARDS pulmonary fibrosis, on almost 6 L of oxygen at home at baseline, admitted with acute respiratory failure requiring mechanical ventilation. She was extubated and has been slowly weaned down from high-flow nasal cannula down to OxyMask now. I am a little concerned about her mental status. but it could simply be that she had a very rough night and is a little bit delirious and sleepy now. The nurse is going to monitor this and give me a call, and get a blood gas later on if she does not improve in the next few hours. I would like her to continue to work with physical therapy, do pulmonary toilet with incentive spirometry, get out of bed into the chair, etc. and I think all of this will help her breathing as well. She is off all antibiotics including micafungin as of yesterday and doing well. All of her lines are out as well. She is on appropriate DVT prophylaxis and does not require GI prophylaxis. CRITICAL CARE TIME: 35 minutes.
--- NOTE | 2017-05-28 15:14 | PCM.ADCARE ---
Advance Care Planning Note Purpose of Encounter: To reassess level of care as well as resuscitation wishes. Parties in Attendance: Patient and her brother Decisional Capacity: She is decisional Subjective: She is doing better today. Still short of breath but using much less oxygen. Objective: Lungs are clear, with increased rate and relative improvement in amount of effort. Heart is regular without murmur Extremities with 1+ edema alert and oriented 3. Goals of Care Determinations: Otilio is full resuscitation She would be a reintubation for short period time such as 5-7 days. It only if it appeared that this would be a reversible process with a reasonable wads of extubation. Plan: Forces stationed Intubate as necessary for reversible ulnar process with a limit of 5-7 days. Otherwise follow care including IV antibiotics and pressors as needed. CODE STATUS: Full resuscitation Time Spent Adv.Care Plannin minutes Adv. Care Plan Documenation: As above Wisam Ochoa MD May 28, 2017 15:14
--- NOTE | 2017-05-28 18:08 | NUR ---
Somnolence/Anne Pt became somnolent and difficult to rouse when MD was rounding on Pt, VSS on 13L oxymask at this time. Pt awakened while turning/providing care, MD updated, no further somnolent events noted this shift. Pt's anne catheter ordered to be removed by , discussed with Pt and Pt requested anne removed after dinner, dinner hadn't arrived by 1730, spoke with Pt again and anne removed.
[2017-05-29] VITALS (11 sets, daily range): BP systolic 145–158; BP diastolic 80–90; PULSE 92–106; RESP 18–24; O2SAT 91–96
[2017-05-29] MEDS: Heparin 5,000 Unit/mL Inj SUBQ SCH ×3 (00:30→16:24)
[2017-05-29 04:14] LABS: BASOPHILS % (AUTO) 0.2 % (0-3); EOSINOPHILS % (AUTO) 2.3 % (0-5); Mean Corpuscular Hemoglobin 29.1 pg (27.0-35.0); Mean Corpuscular Volume 94.6 fL (81-100); Platelet Count 261 bil/L (150-400)
--- NOTE | 2017-05-29 07:46 | DRSVH ---
PROCEDURE: X-RAY CHEST ONE VIEW, PORTABLE ([id number]) INDICATIONS: respiratory failure TECHNIQUE: One view of the chest was acquired. COMPARISON: [facility], CR, CHEST 2 VIEW, 11/12/2016, 10:59. [facility], CR, XR [address] 1VW (PORTABLE), 05/24/2017, 3:45. [facility], CR, XR CHEST 1VW (PORTABLE), 05/28/2017, 5:26. [facility], CR, XR CHEST 1VW (PORTABLE), 05/27/2017, 5:03. FINDINGS: Surgical changes and devices: None. Lungs and pleura: No pleural effusions or pneumothorax. Moderate diffuse chronic interstitial pulmon matt opacity is unchanged. Superimposed left basilar air space opacity is present. Mediastinum: Mediastinal contours appear normal. Heart size is enlarged Bones and chest wall: No suspicious bony lesions. Overlying soft tissues appear unremarkable. IMPRESSION: 1. Left lower lobe pneumonia superimposed on chronic interstitial lung disease. 2. Cardiomegaly. Dictated by: Julia Whitman M.D. on 05/29/2017 at 7:44 Approved by: Julia Whitman M.D. on 05/29/2017 at 7:45
--- NOTE | 2017-05-29 08:00 | NUR ---
Incontinent of Stool Pt was incontinent of stool multiple times and had frequent bed linen changes. Pt was unable to make it to the [facility] in time. A PCR stool sample was sent to the micro lab for testing. Barrier cream was generously applied to pt's excoriated skin.
[2017-05-29] MEDS: Albuterol-Ipratropium 3 mL Inhalation Solution NEB SCH ×4 (08:16→20:30)
[2017-05-29] MEDS: Insulin Human REGular 300 Unit/3 mL Inj SUBQ SCH ×4 (08:53→22:00)
[2017-05-29] MEDS: predniSONE 20 mg Tablet PO SCH (08:54)
--- NOTE | 2017-05-29 11:12 | PCM.PNMED ---
Subjective Date of Service May 29, 2017 Subjective She is more sedated today. She is developed diarrhea overnight. Physical management system was placed. His C. difficile toxin is pending. She denies much in terms of abdominal pain or cramping. No nausea or vomiting. She has done relatively well on oxygen overnight. She does seem more somnolent. No overnight events noted other than diarrhea. And 1 fever. Antibiotics were stopped 3 days ago. Exam Vital Signs Vital Sign - Last Date Time Temp Pulse Resp B/P Pulse Ox O2 Delivery O2 Flow Rate FiO2 05/29/17 10:05 102 05/29/17 08:45 37.9 24 145/81 93 OxyMask 15.00 05/28/17 23:38 70 Intake and Output 05/28/17 05/28/17 05/29/17 Cumulative From/Thru 15:00 23:00 07:00 05/17/17 20:07 - 05/29/17 04:13 Intake Total 660 ml 120 ml 18616 ml Output Total 750 ml 350 ml 60034 ml Balance -90 ml -230 ml 6513 ml Intake Oral 660 ml 120 ml 1020 ml IV Total 70317 ml Tube Feeding 4528 ml Tube Irrigant 1586 ml Output Urine Total 750 ml 350 ml 46452 ml Gastric Drainage Total 630 ml Other 300 ml # Bowel Movements 6 16 Exam Somnolent but arousable. No distress.. No slurred speech. Anicteric sclera. Lungs are clear with normal increased rate and normal effort. Some expiratory wheezing. Heart is regular throughout 6 systolic murmur, no gallop. Abdomen soft nontender, flat Extremities are 2+ pedal edema Skin is free of rash or lesions. IVs and Medications Medications Reviewed: Medications were reviewed in detail Lab and Diagnostics Result Diagram: 05/29/1734405/29/17 034 Microbiology Sputum culture positive for Klebsiella Blood culture negative MRSA negative X-Rays, CTs and MRIs X-RAY CHEST ONE VIEW, PORTABLE IMPRESSION: 1. Acute on chronic diffuse pulmonary opacities new since 05/11/2017 may represent edema, infection, or blood products superimposed on chronic scarring/ fibrosis. 2. ET and enteric tubes. Dictated by: Junior Quinn M.D. on 05/17/2017 at 20:42 CT CERVICAL SPINE WITHOUT CONTRAST IMPRESSION: 1. No CT evidence of acute cervical spine pathology. 2. Extensive degenerative change. 3. Possible right mandibular fracture or motion artifact on this study and on today's head CT. Please correlate with clinical point tenderness of the right mandible. Dictated by: Junior Quinn M.D. on 05/17/2017 at 21:27 CT BRAIN WITHOUT CONTRAST IMPRESSION: Low-density in the maninder may represent early infarction. Recommend MRI with and without contrast for further evaluation. If MRI cannot be performed, recommend short term CT followup. Dictated by: Junior Quinn M.D. on 05/17/2017 at 21:19 CT ANGIO CHEST PULMONARY EMBOLISM IMPRESSION: 1. No acute pulmonary emboli in the main, left or right pulmonary arteries. Smaller pulmonary obscured by respiratory motion and cannot be evaluated. 2. Diffuse interstitial opacities with confluent opacities in the dependent right greater than left lungs representing chronic emphysema with superimposed fluid imbalance, atelectasis, infection, blood products, or a combination of these possibilities. 3. Bilateral anterior rib fractures. 4. ET and enteric tube in appropriate position PROCEDURE: X-RAY CHEST ONE VIEW, PORTABLE ([id number]) IMPRESSION: Significantly improved congestive heart failure/ pulmonary edema changes. There is now the appearance of some air bronchograms consistent with some consolidation/pneumonia in the left lower lobe. Tubes and lines are appropriate in position. Dictated by: Edilson Atkins M.D. on 05/22/2017 at 9:34 X-RAY CHEST ONE VIEW, PORTABLE ([id number]) IMPRESSION: Bilateral pneumonia pattern, slightly improved at the left lower lobe. Lines and tubes in normal position. Dictated by: Chris Stein M.D. on 05/25/2017 at 8:08 Approved by: Chris Stein M.D. on 05/25/2017 at 8:10 Assessment & Plan Barbara Davila is a 61 year old woman with interstitial lung disease secondary to ARDS in 2011 who requires 6-7 L O2 at baseline who has begun to establish care with a pulmonology fellow at [facility]. She said a recent bout of pneumonia in October and two arrest secondary to hypoxemia the second of which is the reason for this hospital admission. She was intubated in the field and found to be in acute hypercarbic respiratory failure. Initial CT demonstrated new obstruction of airways along with her interstitial lung disease which was not seen on last CT in April. #. Diarrhea, new and active. Patient has a fecal management system placed and will have a C. difficile toxin to rule out colitis. We will follow clinically in the interim. #. Acute on chronic hypercarbic and hypoxic respiratory failure in setting of severe interstitial lung disease. Improved. She continues to do relatively well although she is somewhat tachypneic with saturation 90% today. She is more somnolent so we will need to continue to consider the possibility of hypercarbia. We will monitor closely. #. Aspiration Pneumonia, Klebsiella and MSSA. Resolved. Her pro-calcitonin is trending down. No fevers or last 24 hours. All antibiotics and micafungin have been stopped. No further antimicrobials. She did have 1 low-grade fever, we will watch carefully. #. Possible drug fever, resolved. We have stopped all antibiotics and micafungin tomorrow. #. Sepsis, present on admission with SIRS criteria were met. Source was aspiration pneumonia. Resolved. #. Acute kidney injury, present on admission and resolved. -Follow creatinine, this is been nonactive. #. Possible cardiac arrest. Etiology uncertain although likely secondary to hypoxic episode. Patient was also noted to have a prolonged QT and therefore arrhythmia must be considered. - Avoid QT prolonging medications. -Continue to follow on telemetry. No evidence of arrhythmia. #. Polysubstance abuse, present on admission and resolved. Family has brought forth that the patient uses numerous street drugs and alcohol. Unclear when her last use was as she was recently in a SNF prior to this admission. - Complicating sedation at this time. Current sedation with midazolam and Precedex. - Pain from rib fractures sustained during CPR. - Pain control with fentanyl gtt. Bowel regimen: Senna and docusate scheduled. MiraLAX when necessary. GI prophylaxis: Famotidine DVT prophylaxis: Heparin CODE STATUS: FULL GI Prophylaxis: H2 pat VTE Prophylaxis: Sub-Q Heparin (Unfractionated) VTE Mechanical Devices: Intermittant Pneumatic CD Resuscitation Status: CPR: Attempt Resuscitation Discharge planning will involve halfway facility. Anticipate discharge in about 2-3 days from now. June 01 VTE Prophylaxis: Sub-Q Heparin (Unfractionated) VTE Mechanical Devices: Intermittant Pneumatic CD Resuscitation Status: CPR: Attempt Resuscitation Wisam Ochoa MD May 29, 2017 11:12
--- NOTE | 2017-05-29 13:18 | PROG NOTE ---
[address] [address] PROGRESS NOTE PATIENT: ALISSON STAFFORD : 1955 MR#: [id number] ADMIT: 05/17/2017 JOB ID: [id number] DATE: 05/29/2017 PULMONARY CRITICAL CARE PROGRESS NOTE: The patient is a 61-year-old woman with interstitial lung disease admitted with acute on chronic hypoxic respiratory failure requiring mechanical ventilation. INTERVAL HISTORY: She is much more alert today and conversant, on 13 L OxyMask alternating with high-flow for meals. She is having diarrhea and has a rectal tube put in. REVIEW OF SYSTEMS: Positive for diarrhea. Dyspnea is unchanged. Temperature of 37.9 overnight. PHYSICAL EXAMINATION: Vital signs reviewed. T-max 37.9, pulse 106, respirations 24, BP 145/81, sats 93% on 15 L OxyMask. General: Sitting in bed, talking, in no distress. Chest is clear anteriorly. LABORATORIES: Reviewed. WBC 16.4, hemoglobin 10, platelets 81. Chemistry reviewed and normal. Procalcitonin 0.11. Cultures: No growth on catheter tips. C. diff toxin still pending. IMAGING: Chest x-ray is unchanged and shows bilateral infiltrates from fibrosis. ASSESSMENT AND RECOMMENDATIONS: 1. Acute on chronic hypoxic respiratory failure--intubated May 17 to May 25, currently on OxyMask 13 L. 2. Multilobar pneumonia with Staph aureus and Klebsiella--improved. 3. Post acute respiratory distress syndrome pulmonary fibrosis. 4. Diarrhea and low-grade fever. A 61-year-old woman with post ARDS pulmonary fibrosis admitted with respiratory failure requiring mechanical ventilation on May 17. She was extubated May 25 and has been on high-flow oxygen alternating with OxyMask since that time. She is working well with physical therapy and I would like her to continue this every day. She does have a low-grade temperature again and with her diarrhea, a C. diff is pending at this time. She has been on steroids for many days in the hope that it will help for fibrosis. I do not think post ARDS pulmonary fibrosis will respond to steroids. I have started to wean this down. She has been on 40 mg of prednisone daily the last few days and I just cut her down to 20 mg starting tomorrow. I think we can stopped this after five more days. She is on appropriate DVT prophylaxis and no GI prophylaxis is indicated.
--- NOTE | 2017-05-29 15:21 | NUR ---
Social work: Continued Discharge Planning/Multidisciplinary Rounds D/A: EMR reviewed. Pt is on day 12 of hospitalization. Pt discussed in multidisciplinary rounds; pt will to continue to require SNF level of care at discharge. Pt is progressing slowly towards discharge in the next 2-3 days. PT and providers continues to recommend SNF at discharge. SW notified that pt is not interested in returning to [facility] for continued rehab. SW met with pt at bedside to discuss this. Pt agrees that she need SNF level of care, disagrees that [facility] is a good fit. Pt is adamant that she wants to think about other facilities. Pt has [facility] [place] [employer] and [facility] Medicaid. Pt's payor may prove to be a barrier to new facility placement. Discussed this with pt. Discussed that it is unknown if pt's insurance would authorize another SNF. Pt states that she would want to go farther south than [place], potentially to [facility]. Discussed with pt transportation barriers as facilities that far south would not provide transportation from [facility]. Unclear if pt fully understands the potential barriers to this discharge plan, despite attempts at education, and remains hopeful that she will be able to d/c to another facility than [facility]. SW provided [place] [facility] tablet with settings to [facility] to explore options. T/C to [facility] admissions, left message updating them of pt's condition and requesting more information regarding pt's insurance. Unclear if [facility] obtained one time auth or is contracted with [facility]. Requested return call with this information. P: Pt interested in discharging to a different SNF. Pt provided with list of [facility] contracted facilities. There are many barriers to this discharge plan including payor source, authorization & transportation. Unclear if pt full grasps this at this time. SW will continue to follow and coordinate SNF at discharge [facility]
--- NOTE | 2017-05-29 18:44 | NUR ---
Diarrhea Pt had copious amounts of diarrhea on NOC shift, Pt placed in enteric precautions after shift change. Discussed with Pt and MD, order placed for FMS which was successfully placed, sample collected and sent to lab. Later in the shift, Pt's sample came back negative for C-diff and accidentally expelled FMS while on the commode, FMS left D/C'd, precautions D/C'd. Pt had one more small bout of diarrhea later in the shift on the bedpan.
[2017-05-30] VITALS (14 sets, daily range): BP systolic 139–158; BP diastolic 75–87; PULSE 87–106; RESP 17–32; O2SAT 91–98
[2017-05-30] MEDS: Heparin 5,000 Unit/mL Inj SUBQ SCH ×3 (00:30→17:04)
[2017-05-30 02:54] LABS: BASOPHILS % (AUTO) 0.2 % (0-3); EOSINOPHILS % (AUTO) 3.3 % (0-5); MONOCYTES % (AUTO) 6.3 % (4-12); Mean Corpuscular Volume 92.8 fL (81-100); NEUTROPHILS % (AUTO) 78.4 % (40-74); Platelet Count 221 bil/L (150-400)
[2017-05-30] MEDS: Insulin Human REGular 300 Unit/3 mL Inj SUBQ SCH ×4 (07:30→22:00)
--- NOTE | 2017-05-30 07:44 | NUR ---
Respiratory/Incontinent Pt's SpO2 continued to drop into the 70s and 80s when pt fell asleep while on 13L oxymask. Pt's O2 was increased to max on the oxymask with no increase in pt's SpO2. When pt was woken up the pt's O2 sats would start to go back up and pt SpO2 would be at a high of 96%. Pt's O2 was turned back down to 13L on the oxymask since pt was awake with SpO2 >92%. Pt mentioned that she was supposed to have someone bring in her home trilogy. She says that she uses that during the daytime on and off. Pt did admit to not being compliant with it recently in the last month. Pt tends to obstruct airway when she falls asleep. Pt was incontinent 3 times during the shift.
[2017-05-30] MEDS: Albuterol-Ipratropium 3 mL Inhalation Solution NEB SCH ×4 (08:18→21:00)
--- NOTE | 2017-05-30 08:49 | NUR ---
Upon arrival to pt's room, Pt had RR of 38 with increased WOB, respiratory distress and SaO2 of 88%. Pt sat up in high aleman's position, neb treatment given with duoneb. CDB encouraged. Pt placed on high flow( see flowsheet for detail) . Pt aPPears better 20 minutes after being on high flow for 20 minutes. RN aware of changes.
[2017-05-30] MEDS: predniSONE 20 mg Tablet PO SCH ×2 (08:52→17:03)
--- NOTE | 2017-05-30 10:19 | NUR ---
Evaluation completed. Please go to "Notes" then click on "Assessments and Notes" (bottom left corner of screen). Then select appropriate discipline tab on top of screen.
--- NOTE | 2017-05-30 11:43 | PCM.PNMED ---
Subjective Date of Service May 30, 2017 Subjective Pulmonology Progress Note Barbara Davila is a 61 year old woman with post-ARDS pulmonary fibrosis in 2011 on 6-7 L O2 at baseline and polysubstance abuse, who presented with acute hypercarbic respiratory failure, and PEA arrest, requiring CPR and intubation in the field. Intubated May 17 and extubated May 25. She has been on high flow nasal cannula alternating with OxyMask since that time. Initial CT demonstrated new obstruction of airways along with her interstitial lung disease which was not seen on last CT in April. Overnight, the patient descended to the 70s to 80s while asleep and on 13 L OxyMask, but improved when awoken. She states that she is on trilogy at home. She had an episode of moderate respiratory distress early this morning, improved with DuoNebs and high flow nasal cannula. Today, she reports mild shortness of breath with a cough productive of white sputum. She also reports bilateral leg aching and abdominal discomfort, but denies edema. Exam Vital Signs Vital Sign - Last Date Time Temp Pulse Resp B/P Pulse Ox O2 Delivery O2 Flow Rate FiO2 05/30/17 10:28 106 05/30/17 08:57 Supplement Oxygen 05/30/17 08:54 36.7 26 154/82 94 70 05/30/17 08:44 30 Intake and Output 05/29/17 05/29/17 05/30/17 Cumulative From/Thru 15:00 23:00 07:00 05/17/17 20:07 - 05/30/17 06:08 Intake Total 1280 ml 536 ml 87207 ml Output Total 300 ml 28246 ml Balance 980 ml 536 ml 8029 ml Intake Oral 1280 ml 536 ml 2836 ml IV Total 33911 ml Tube Feeding 4528 ml Tube Irrigant 1586 ml Output Urine Total 300 ml 50802 ml Gastric Drainage Total 630 ml Other 300 ml # Voids 3 3 # Bowel Movements 3 3 22 Exam General: Alert, Oriented X3, Cooperative, on high flow nasal cannula. Mild respiratory distress - pt appears somewhat short of breath while talking and requires breath every 4-5 words. Head: Normocephalic, atraumatic. External ears normal. Eyes: PERRLA, EOMI. Anicteric sclerae. Mouth: Mouth normal, Mucous membranes moist/pink Neck: Neck supple with full range of motion. Chest& Lungs: Crackles throughout, coarse breath sounds worse on the right. Cardiovascular: Regular rate/rhythm, Normal S1, Normal S2, No murmurs/rubs/ gallops Abdomen: Non-tender, Non-distended, No masses, Normoactive bowel tones, Soft Musculoskeletal: Normal range of motion Extremities: Mild bilateral lower extremity edema Neurological: Grossly neurologically intact. Normal speech Lab and Diagnostics Result Diagram: 05/30/17 02405/30/17 024 Microbiology Sputum culture positive for Klebsiella Blood culture negative MRSA negative X-Rays, CTs and MRIs X-RAY CHEST ONE VIEW, PORTABLE IMPRESSION: 1. Acute on chronic diffuse pulmonary opacities new since 05/11/2017 may represent edema, infection, or blood products superimposed on chronic scarring/ fibrosis. 2. ET and enteric tubes. Dictated by: Junior Quinn M.D. on 05/17/2017 at 20:42 CT CERVICAL SPINE WITHOUT CONTRAST IMPRESSION: 1. No CT evidence of acute cervical spine pathology. 2. Extensive degenerative change. 3. Possible right mandibular fracture or motion artifact on this study and on today's head CT. Please correlate with clinical point tenderness of the right mandible. Dictated by: Junior Quinn M.D. on 05/17/2017 at 21:27 CT BRAIN WITHOUT CONTRAST IMPRESSION: Low-density in the maninder may represent early infarction. Recommend MRI with and without contrast for further evaluation. If MRI cannot be performed, recommend short term CT followup. Dictated by: Junior Quinn M.D. on 05/17/2017 at 21:19 CT ANGIO CHEST PULMONARY EMBOLISM IMPRESSION: 1. No acute pulmonary emboli in the main, left or right pulmonary arteries. Smaller pulmonary obscured by respiratory motion and cannot be evaluated. 2. Diffuse interstitial opacities with confluent opacities in the dependent right greater than left lungs representing chronic emphysema with superimposed fluid imbalance, atelectasis, infection, blood products, or a combination of these possibilities. 3. Bilateral anterior rib fractures. 4. ET and enteric tube in appropriate position PROCEDURE: X-RAY CHEST ONE VIEW, PORTABLE ([id number]) IMPRESSION: Significantly improved congestive heart failure/ pulmonary edema changes. There is now the appearance of some air bronchograms consistent with some consolidation/pneumonia in the left lower lobe. Tubes and lines are appropriate in position. Dictated by: Edilson Atkins M.D. on 05/22/2017 at 9:34 X-RAY CHEST ONE VIEW, PORTABLE ([id number]) IMPRESSION: Bilateral pneumonia pattern, slightly improved at the left lower lobe. Lines and tubes in normal position. Dictated by: Chris Stein M.D. on 05/25/2017 at 8:08 Approved by: Chris Stein M.D. on 05/25/2017 at 8:10 Assessment & Plan Barbara Davila is a 61 year old woman with post-ARDS pulmonary fibrosis in 2011 on 6-7 L O2 at baseline and polysubstance abuse, who presented with acute hypercarbic respiratory failure, intubated May 17 and extubated May 25. She has been on high flow nasal cannula alternating with OxyMask since that time. Initial CT demonstrated new obstruction of airways along with her interstitial lung disease which was not seen on last CT in April. Acute on chronic hypercarbic and hypoxic respiratory failure in setting of severe interstitial lung disease. Improved. - Secondary to post-ARDS pulmonary fibrosis and MSSA and Klebsiella pneumonia. Intubated May 17 to May 25, currently on high flow nasal cannula. - Continue HFNC, attempt to wean to baseline home O2. - Doing well with physical therapy - continue PT - Pulmonary toilet with incentive spirometry Acute sepsis, resolving. - Secondary to aspiration pneumonia. Pt had low grade fevers and diarrhea over the last 2 days, but C. diff was negative. Afebrile for over 24 hours. - All antibiotics and micafungin have been stopped. No further antimicrobials. - Continue to monitor Aspiration pneumonia with Staph aureus and Klebsiella. Improved. - Procalcitonin trending down, now 0.09. Continues to have leukocytosis, WBC 14.7 with 78% neutrophils. - All antibiotics and micafungin have been stopped. No further antimicrobials. Post acute respiratory distress syndrome pulmonary fibrosis. Chronic. - Patient has been on steroids for several days, but it is unlikely that this will help her pulmonary fibrosis. She was recently on 40 mg of prednisone, decreased to 20 mg today. - We will continue to wean prednisone over the next 5 days and then stop Cardiac arrest. Resolved. - Pt was found unconscious and pulseless in the bathroom the day of admission, requiring CPR and intubation. She was down for a minimal amount of time as she alerted house staff moments prior to being found down. She regained consciousness prior to arrival to [facility], so cooling protocol was not initiated. - Avoid QT prolonging medications. -Continue to follow on telemetry. No evidence of arrhythmia. VTE Prophylaxis: Sub-Q Heparin (Unfractionated) VTE Mechanical Devices: Intermittant Pneumatic CD Resuscitation Status: CPR: Attempt Resuscitation Ronald Finney May 30, 2017 11:18
--- NOTE | 2017-05-30 13:52 | NUR ---
NUTRITION FOLLOW-UP Assess: 61 YO female admitted to CCU following cardiac arrest (PEA), requiring intubation, with acute on chronic hypercarbic respiratory failure in setting of severe interstitial lung disease. She was successfully extubated (05/26). Diet advanced to dysphagia mechanical with fair PO intake. PMHX: Interstitial lung disease due to ARDS, R sided heart failure, cor pulmonale, depression, anxiety, chronic pain. DIET: Dysphagia mechanical + Banatrol TID. PO intake 50-75%. ENTERAL FEEDING DISCONTINUED: Pulmocare @ 65 ml/hr. LABS: Reviewed. Cr 0.44, Glu 108, AST 94, ALT 78, Alb 3.3 MEDICATIONS: Reviewed. Prednisone. GI: 3 BM (05/30). SKIN: Per Wet Char Conveyor Tender, proximal half of intergluteal fold is split for length of 4 cm. ANTHROPOMETRICS: Wt: 97.0 kg, BMI 40.4 kg/m2, Admit wt: 103.2 kg, IBW: 47.7 kg, Adj BW: 60.0 kg. ESTIMATED NEEDS: BMI Calories: 8481-2905 kcal/day (25-30kcal/kg Adj. BW) Protein: 72-90 g/day (1.2-1.5 g/kg Adj. BW) Fluids: ~2725 ml/day (25 ml/kg) NUTRITION DIAGNOSIS: 1) Inadequate oral intake related to decreased ability to consume sufficient energy as evidenced by NPO/Vent status - IMPROVING. Diet advanced to dysphagia mechanical with fair PO intake. INTERVENTION: 1) Continue to advance diet as tolerated. MONITOR/EVALUATE: PO intake, Diet advance/tolerance, labs, GI/nutrition status. Follow per moderate nutrition risk guidelines.
--- NOTE | 2017-05-30 14:12 | PCM.PNMED ---
Subjective Date of Service May 30, 2017 Subjective Patient continues to report improvement in her respiratory status. She states that she feels she is getting stronger, but still feels she has some way to go until she is ready for discharge. She otherwise denies chest pain, increasing SOB, or dysuria. She continues to endorse cramping abdominal pain with associated diarrhea, which has minimally improved overnight. Patient continues to desaturate and have apnea overnight. ROS negative except as listed above. Exam Vital Signs Vital Sign - Last Date Time Temp Pulse Resp B/P Pulse Ox O2 Delivery O2 Flow Rate FiO2 05/30/17 12:43 Nasal Cannula 05/30/17 12:30 36.8 100 24 139/75 96 05/30/17 08:54 70 05/30/17 08:44 30 Intake and Output 05/29/17 05/29/17 05/30/17 Cumulative From/Thru 15:00 23:00 07:00 05/17/17 20:07 - 05/30/17 06:08 Intake Total 1280 ml 536 ml 43602 ml Output Total 300 ml 90906 ml Balance 980 ml 536 ml 8029 ml Intake Oral 1280 ml 536 ml 2836 ml IV Total 05889 ml Tube Feeding 4528 ml Tube Irrigant 1586 ml Output Urine Total 300 ml 29585 ml Gastric Drainage Total 630 ml Other 300 ml # Voids 3 3 # Bowel Movements 3 3 22 Exam Gen: A/O x3 pleasant cooperative elderly woman in mild acute distress secondary to cramping abdominal pain Neck: Full ROM for age, no JVD HEENT: PERRL, EOMI, no scleral icterus CV: RRR, no murmurs rubs or gallops Resp: Diffuse scattered rhonchi in all lung neves, no rales, no increased work of breathing Abd: diffuse mild tenderness to palpation in all 4Q, no rebound or guarding Extr: Mild BL LE edema, no cyanosis or clubbing Neuro: CN 2-12 grossly intact, no focal neurologic deficit Psych: Pleasant and appropriate mood and affect IVs and Medications Medications Reviewed: Medications were reviewed in detail Lab and Diagnostics Item Value Date Time Red Blood Count 3.59 mil/mm3 L 05/30/17246 Mean Corpuscular Volume 92.8 fL 05/30/17 024 Mean Corpuscular Hemoglobin 29.0 pg 05/30/17246 Mean Corpuscular Hemoglobin Concent 31.2 % L 05/30/17246 Red Cell Distribution Width 15.0 % 05/30/17 024 Neutrophils (%) (Auto) 78.4 % H 05/30/17 024 Lymphocytes (%) (Auto) 8.5 % L 05/30/17246 Monocytes (%) (Auto) 6.3 % 05/30/17 024 Eosinophils (%) (Auto) 3.3 % 05/30/17 024 Basophils (%) (Auto) 0.2 % 05/30/17 024 Estimat Glomerular Filtration Rate 210 mL/min 05/30/17246 Calcium Level 8.6 mg/dL 05/30/17246 Total Bilirubin 0.6 mg/dL 05/30/17246 Aspartate Amino Transf (AST/SGOT) 94 U/L H 05/30/17 024 Alanine Aminotransferase (ALT/SGPT) 78 U/L H 05/30/17246 Alkaline Phosphatase 78 U/L 05/30/17246 Total Protein 6.2 g/dL L 05/30/17246 Albumin 3.3 g/dL L 05/30/17246 Procalcitonin 0.09 ng/mL H 05/30/17 024 Result Diagram: 05/30/17 02405/30/17246 Microbiology Sputum culture positive for Klebsiella Blood culture negative MRSA negative X-Rays, CTs and MRIs X-RAY CHEST ONE VIEW, PORTABLE IMPRESSION: 1. Acute on chronic diffuse pulmonary opacities new since 05/11/2017 may represent edema, infection, or blood products superimposed on chronic scarring/ fibrosis. 2. ET and enteric tubes. Dictated by: Junior Quinn M.D. on 05/17/2017 at 20:42 CT CERVICAL SPINE WITHOUT CONTRAST IMPRESSION: 1. No CT evidence of acute cervical spine pathology. 2. Extensive degenerative change. 3. Possible right mandibular fracture or motion artifact on this study and on today's head CT. Please correlate with clinical point tenderness of the right mandible. Dictated by: Junior Quinn M.D. on 05/17/2017 at 21:27 CT BRAIN WITHOUT CONTRAST IMPRESSION: Low-density in the maninder may represent early infarction. Recommend MRI with and without contrast for further evaluation. If MRI cannot be performed, recommend short term CT followup. Dictated by: Junior Quinn M.D. on 05/17/2017 at 21:19 CT ANGIO CHEST PULMONARY EMBOLISM IMPRESSION: 1. No acute pulmonary emboli in the main, left or right pulmonary arteries. Smaller pulmonary obscured by respiratory motion and cannot be evaluated. 2. Diffuse interstitial opacities with confluent opacities in the dependent right greater than left lungs representing chronic emphysema with superimposed fluid imbalance, atelectasis, infection, blood products, or a combination of these possibilities. 3. Bilateral anterior rib fractures. 4. ET and enteric tube in appropriate position PROCEDURE: X-RAY CHEST ONE VIEW, PORTABLE ([id number]) IMPRESSION: Significantly improved congestive heart failure/ pulmonary edema changes. There is now the appearance of some air bronchograms consistent with some consolidation/pneumonia in the left lower lobe. Tubes and lines are appropriate in position. Dictated by: Edilson Atkins M.D. on 05/22/2017 at 9:34 X-RAY CHEST ONE VIEW, PORTABLE ([id number]) IMPRESSION: Bilateral pneumonia pattern, slightly improved at the left lower lobe. Lines and tubes in normal position. Dictated by: Chris Stein M.D. on 05/25/2017 at 8:08 Approved by: Chris Stein M.D. on 05/25/2017 at 8:10 Cardiac Echo Impressions Interpretation Summary The left ventricle is normal in size. Left ventricular systolic function is mildly reduced. Left ventricular ejection fraction is estimated to be 45%. Flattened septum is consistent with RV pressure/volume overload. There is hypokinesis along the anterolateral and inferolateral wall. The right ventricle is not well visualized however appears at least mildly enlarged. Grossly normal systolic function. Right ventricular systolic pressure is estimated to be 24 mmHg plus the clinically estimated CVP which cannot be estimated on this exam. There is mild tricuspid regurgitation. Inspiratory collapse cannot be assessed because of mechanical ventilation, thus CVP cannot be estimated. Reading Physician:CANELO . Assessment & Plan Barbara Davila is a 61 year old woman with interstitial lung disease secondary to ARDS in 2011 who requires 6-7 L O2 at baseline who has begun to establish care with a pulmonology fellow at the [facility]. She said a recent bout of pneumonia in October and two arrest secondary to hypoxemia the second of which is the reason for this hospital admission. She was intubated in the field and found to be in acute hypercarbic respiratory failure. Initial CT demonstrated new obstruction of airways along with her interstitial lung disease which was not seen on last CT in April. Diarrhea, Not POA, acute. Active -C.diff negative by PCR -Improving but not resolved diarrhea -Will consider Loperamide if diarrhea persists given negative C.diff Acute on chronic hypercarbic and hypoxic respiratory failure in setting of severe interstitial lung disease, POA. Active -Continued oxygen requirement above baseline -Pulmonary status continues to improve -Continue with DuoNebs Aspiration Pneumonia, Klebsiella and MSSA. Resolved. -Her pro-calcitonin is trending down. No fevers or last 24 hours. -All antibiotics and micafungin have been stopped. No further antimicrobials. -Will continue to observe Possible drug fever, resolved. -We have stopped all antibiotics and micafungin Sepsis, present on admission with SIRS criteria were met.Resolved -Patient presented with leukocytosis and tachycardia -Resolved with IVF and Abx Acute kidney injury, present on admission and resolved. -Follow creatinine, this is been nonactive. Possible cardiac arrest. -Etiology uncertain although likely secondary to hypoxic episode. -Patient was also noted to have a prolonged QT and therefore arrhythmia must be considered. -Avoid QT prolonging medications. -Continue to follow on telemetry. No evidence of arrhythmia. Polysubstance abuse, present on admission and resolved. -Family has brought forth that the patient uses numerous street drugs and alcohol. Unclear when her last use was as she was recently in a SNF prior to this admission. -Complicating sedation at this time. Current sedation with midazolam and Precedex. -Pain from rib fractures sustained during CPR. -Pain control with fentanyl gtt. Patient Status: Patient is improving but still requiring increased O2 compared to baseline. Anticipate DC in 1-3 days pending continued response to medical therapy Pain Evaluation: Adequate Pain Control VTE Prophylaxis: Sub-Q Heparin (Unfractionated) VTE Mechanical Devices: Intermittant Pneumatic CD Resuscitation Status: CPR: Attempt Resuscitation Attending Statement The patient was seen and examined with Dr. Leger on May 30. Agree with all aspects of his documentation. I did participate in all aspects of care including the exam diagnostics and treatment planning. This patient will continue to be treated for diarrhea as well as aspiration pneumonia and acute respiratory failure with hypoxia. Fco Leger DO May 30, 2017 14:12 Wisam Ochoa MD Jun 09, 2017 17:07
--- NOTE | 2017-05-30 15:57 | DRSVH ---
PROCEDURE: X-RAY CHEST ONE VIEW, PORTABLE ([id number]) INDICATIONS: respiratory failure TECHNIQUE: One view of the chest was acquired. COMPARISON: [facility], CR, XR CHEST 1VW (PORTABLE), 05/19/2017, 4:01. [facility], CR, CHEST 1 VIEW, 05/11/2017, 5:26. [facility], CR, XR CHEST 1VW (PORTABLE), 05/28/2017, 5 :26. [facility], CR, XR CHEST 1VW (PORTABLE), 05/20/2017, 5:41. [facility], CR, XR CHEST 1VW (PORTABLE), 05/29/2017, 5:58. FINDINGS: Surgical changes and devices: None. Lungs and pleura: Diffuse, widespread bilateral pulmonary interstitial and bibasilar air space opaci ties are present no significant change from prior examination. No pleural effusion or pneumothorax. Mediastinum: Mediastinal contours appear normal. Heart size is enlarged. Bones and chest wall: No suspicious bony lesions. Overlying soft tissues appear unremarkable. IMPRESSION: Diffuse bilateral interstitial opacities present in this patient with history of chronic interstitial lung disease and persistent bibasilar airspace opacities are present similar to prior examination [id number] ggestive of patchy pulmonary edema and/or bibasilar pneumonia. Dictated by: Imtiaz Olivares [facility] Interpreted: Haroon Jackson MD on 05/30/2017 at 8:09 Approved by: Haroon Jackson M.D. on 05/30/2017 at 15:55
--- NOTE | 2017-05-30 17:06 | NUR ---
Temp Pt is diaphoretic but states she is cold. Slight temp of 37.5. Gave 650 mg of Tylenol. Will check back in by end of shift on temp.
[2017-05-31] VITALS (16 sets, daily range): BP systolic 112–148; BP diastolic 67–93; PULSE 85–125; RESP 16–28; O2SAT 90–99
[2017-05-31] MEDS: Heparin 5,000 Unit/mL Inj SUBQ SCH ×3 (00:29→17:35)
[2017-05-31 04:23] LABS: BASOPHILS % (AUTO) 0.1 % (0-3); EOSINOPHILS % (AUTO) 0.9 % (0-5); MONOCYTES % (AUTO) 6.1 % (4-12); Mean Corpuscular Hemoglobin 28.8 pg (27.0-35.0); Mean Corpuscular Volume 92.5 fL (81-100); NEUTROPHILS % (AUTO) 81.9 % (40-74); Platelet Count 257 bil/L (150-400)
[2017-05-31 04:58] LABS: Magnesium 1.8 mg/dL (1.6-2.6)
[2017-05-31] MEDS: Ondansetron 2 mg/mL 2 mL Inj IVPUSH PRN (05:08)
--- NOTE | 2017-05-31 05:57 | NUR ---
Bowel Movements: At start of shift, pt. complaining of having multiple loose bowel movements during day shift. Physician notified of findings, orders received for PRN Immodium. PRN Immodium administered twice during shift. Pt. passed two, small, loose bowel movements during shift. Which were decreased in frequency and size from prior shift per pt. Offered warm pad to abdomen to calm stomach, pt. refused. Will continue to monitor.
[2017-05-31] MEDS: Insulin Human REGular 300 Unit/3 mL Inj SUBQ SCH ×4 (07:30→23:23)
[2017-05-31] MEDS: Albuterol-Ipratropium 3 mL Inhalation Solution NEB SCH ×4 (08:05→20:54)
--- NOTE | 2017-05-31 09:24 | NUR ---
CORRECTION TRANSFER : Gave access and faxed referral to [facility], [facility], [place]. Patient has been accepted at [facility] but patient is not wanting to return there. Addendum: 05/31/17 at 0935 by AILEEN STARR [facility] called and they are not contracted with [employer] Addendum: 05/31/17 at 1129 by AILEEN STARR Spoke with Micki and [facility] does not have a bed for this patient and Micki was concerned with the Coordinated Care piece. Updated INFORMATION TECHNOLOGY CONSULTANT
[2017-05-31] MEDS ORDERED: Furosemide 10 mg/mL 2 mL Inj IVPUSH ONE ×2 (10:20→17:15)
--- NOTE | 2017-05-31 10:36 | PCM.PNMED ---
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 Intubated May 17 and extubated May 25. She has been on high flow nasal cannula alternating with OxyMask since that time. Initial CT demonstrated new obstruction of airways along with her interstitial lung disease which was not seen on last CT in April. There were no acute events overnight. Patient was afebrile overnight. This morning she reports some mild abdominal discomfort, but denies shortness of breath, chest pain, nausea or vomiting, or any other complaints. Exam Vital Signs Vital Sign - Last Date Time Temp Pulse Resp B/P Pulse Ox O2 Delivery O2 Flow Rate FiO2 05/31/17 08:06 96 18 99 Nasal Cannula 30 70 05/31/17 07:39 37.1 136/81 Intake and Output 05/30/17 05/30/17 05/31/17 Cumulative From/Thru 15:00 23:00 07:00 05/17/17 20:07 - 05/31/17 06:28 Intake Total 636 ml 500 ml 35840 ml Output Total 800 ml 94120 ml Balance -164 ml 500 ml 8365 ml Intake Oral 636 ml 500 ml 3972 ml IV Total 78870 ml Tube Feeding 4528 ml Tube Irrigant 1586 ml Output Urine Total 800 ml 97015 ml Gastric Drainage Total 630 ml Other 300 ml # Voids 3 6 # Bowel Movements 2 2 26 Exam General: Alert, Oriented X3, Cooperative, on high flow nasal cannula. No acute distress. Head: Normocephalic, atraumatic. External ears normal. Eyes: PERRLA, EOMI. Anicteric sclerae. Mouth: Mouth normal, Mucous membranes moist/pink Neck: Neck supple with full range of motion. Chest& Lungs: Crackles throughout bilateral lung neves. Cardiovascular: Regular rate/rhythm, Normal S1, Normal S2, No murmurs/rubs/ gallops Abdomen: Non-tender, Non-distended, No masses, Normoactive bowel tones, Soft Musculoskeletal: Normal range of motion Extremities: Minimal bilateral lower extremity edema Neurological: Grossly neurologically intact. Normal speech Lab and Diagnostics Result Diagram: 05/31/17 [id number] 05/31/17 0405 Microbiology Sputum culture positive for Klebsiella Blood culture negative MRSA negative X-Rays, CTs and MRIs X-RAY CHEST ONE VIEW, PORTABLE IMPRESSION: 1. Acute on chronic diffuse pulmonary opacities new since 05/11/2017 may represent edema, infection, or blood products superimposed on chronic scarring/ fibrosis. 2. ET and enteric tubes. Dictated by: Junior Quinn M.D. on 05/17/2017 at 20:42 CT CERVICAL SPINE WITHOUT CONTRAST IMPRESSION: 1. No CT evidence of acute cervical spine pathology. 2. Extensive degenerative change. 3. Possible right mandibular fracture or motion artifact on this study and on today's head CT. Please correlate with clinical point tenderness of the right mandible. Dictated by: Junior Quinn M.D. on 05/17/2017 at 21:27 CT BRAIN WITHOUT CONTRAST IMPRESSION: Low-density in the maninder may represent early infarction. Recommend MRI with and without contrast for further evaluation. If MRI cannot be performed, recommend short term CT followup. Dictated by: Junior Quinn M.D. on 05/17/2017 at 21:19 CT ANGIO CHEST PULMONARY EMBOLISM IMPRESSION: 1. No acute pulmonary emboli in the main, left or right pulmonary arteries. Smaller pulmonary obscured by respiratory motion and cannot be evaluated. 2. Diffuse interstitial opacities with confluent opacities in the dependent right greater than left lungs representing chronic emphysema with superimposed fluid imbalance, atelectasis, infection, blood products, or a combination of these possibilities. 3. Bilateral anterior rib fractures. 4. ET and enteric tube in appropriate position PROCEDURE: X-RAY CHEST ONE VIEW, PORTABLE ([id number]) IMPRESSION: Significantly improved congestive heart failure/ pulmonary edema changes. There is now the appearance of some air bronchograms consistent with some consolidation/pneumonia in the left lower lobe. Tubes and lines are appropriate in position. Dictated by: Edilson Atkins M.D. on 05/22/2017 at 9:34 X-RAY CHEST ONE VIEW, PORTABLE ([id number]) IMPRESSION: Bilateral pneumonia pattern, slightly improved at the left lower lobe. Lines and tubes in normal position. Dictated by: Chris Stein M.D. on 05/25/2017 at 8:08 Approved by: Chris Stein M.D. on 05/25/2017 at 8:10 Assessment & Plan Barbara Davila is a 61 year old woman with post-ARDS pulmonary fibrosis in 2011 on 6-7 L O2 at baseline and polysubstance abuse, who presented with acute hypercarbic respiratory failure, intubated May 17 and extubated May 25. She has been on high flow nasal cannula alternating with OxyMask since that time. Initial CT demonstrated new obstruction of airways along with her interstitial lung disease which was not seen on last CT in April. Acute on chronic hypercarbic and hypoxic respiratory failure in setting of severe interstitial lung disease. Improved. - Secondary to post-ARDS pulmonary fibrosis and MSSA and Klebsiella pneumonia. Intubated May 17 to May 25, currently on high flow nasal cannula. Possible pulmonary edema chest x-ray, patient is 8L positive over hospital stay. - Lasix 20 mg IV once - Continue HFNC, attempt to wean to baseline home O2. - Doing well with physical therapy - continue PT - Pulmonary toilet with incentive spirometry Acute sepsis, resolved. - Secondary to aspiration pneumonia. Pt had low grade fevers and diarrhea over the last 2 days, but C. diff was negative. Afebrile for over 24 hours. - All antibiotics and micafungin have been stopped. No further antimicrobials. - Continue to monitor Aspiration pneumonia with Staph aureus and Klebsiella. Improved. -Patient was witnessed to have aspirated during the early hospital stay. She received several doses of aztreonam, meropenem, and vancomycin but did not complete a full course as there was doubt of whether there was an active infectious process. She has been afebrile since 05/25/2017. Pro-calcitonin has been negative. Continues to have leukocytosis, which appears stable and may be secondary to prednisone. - We will continue to monitor at this time and consider restarting antibiotics if she shows any signs of infection. - Aztreonam, meropenem, vancomycin, and micafungin have been stopped Post acute respiratory distress syndrome pulmonary fibrosis. Chronic. - Patient has been on steroids for several days, but it is unlikely that this will help her pulmonary fibrosis. She was recently on 40 mg of prednisone, decreased to 20 mg daily on 05/30. We will continue to wean prednisone over the next few days and then stop. - Will decrease to 10 mg prednisone daily tomorrow. Cardiac arrest. Resolved. - Pt was found unconscious and pulseless in the bathroom the day of admission, requiring CPR and intubation. She was down for a minimal amount of time as she alerted house staff moments prior to being found down. She regained consciousness prior to arrival to [facility], so cooling protocol was not initiated. -Continue to follow on telemetry. No evidence of arrhythmia. - Code: Full Code - Fluids: None - Diet: Soft GI Prophylaxis: Not indicated VTE Prophylaxis: Sub-Q Heparin (Unfractionated) VTE Mechanical Devices: Intermittant Pneumatic CD Resuscitation Status: CPR: Attempt Resuscitation Attending Statement Patient seen, examined, and discussed with the resident. Agree with assessment and plan. WBC 13.6 <-14.7 <-16.4 Hb 10.4 Plts 257 K 3.8 BUN 7 Cr 0.47 Procal 0.10 <-<-<-0.17 Fungal Ab (05/27): Negative Urine legionella (05/20): Negative C diff (05/29): Negative Catheter Tip (05/27): Negative Blood Cx 05/25: Negative 05/24: Negative Urine Cx 05/24: Negative 05/20: Klebsiella Tracheal Aspirate 05/24: NF 05/20: MSSA, klebsiella (s) CXR (05/30): diffuse b/l interstitial opacities, basilar airspace dz CT (05/27): Negative PE, b/l interstitial opacities, b/l anterior rib fx Assessment: -hypoxic respiratory failure -s/p PEA arrest -pulmonary fibrosis (hx ARDS) -basilar aspiration pneumonia vs pneumonitis (seen on initial CT) -?pulmonaryHTN (prior echo poor study) -tobacco (smoked 1/2ppd x35 years), marijuana use -prolonged QTc -PCN allergy? -hx depression/anxiety, chronic pain Plan: -Clinically improving, although remains on significant supplemental O2 -Will diurese gently today with iv lasix. +8L fluid balance since admission. can check BNP. Repeat echo after diuresis. -Completed short course broad abx since admission. Will re-assess tomorrow about extending duration -weaning steroids to off. decrease duonebs to q6 -PT/OT, OOB, IS -Nutrition:PO -Lines: PIV -Prophylaxis: sq heparin -Dispo: PCU while on highflow O2 -Code: Full Ronald Finney May 31, 2017 10:36 Gilbert Mayers MD May 31, 2017 18:07
[2017-05-31] MEDS ORDERED: predniSONE 20 mg Tablet PO ONE (11:20)
--- NOTE | 2017-05-31 14:36 | NUR ---
Social Work: Continued Discharge Planning/bedside Rounds D: HEM MARKER met with the patient at bedside to review discharge planning and SNF options. Patient adamantly states she will not return to [facility]. She is receptive to locating another facility but understands that it is hard to locate facilities who are contracted with her insurance. HEM MARKER and patient reviewed the [facility] CHOICE LIST together. Te patient is receptive to placing referrals to all of the local skilled rehab facilities and does not have a preference for one over another. [employer] has placed referrals to all of the local facilities. HEM MARKER, attending and resident providers along with bedside and credit charge authorizer met with patient at bedside to complete bedside rounds. Patient's care plan reviewed; patient still on high flow 02 with attempts to wean her off. Patient will likely be here several more days while this occurs. Patient states that she knows she needs skilled rehab. She does not want to return to [facility] although she knows that she has been accepted. t/c from [facility]; they cannot accept the patient due to a lack of contract with [employer] t/c from [facility]; they cannot accept the patient due to the [facility] contract t/c from [facility] Delio; they cannot accept the patient. Per PT notes from today, pt ambulated 30 feet CGA with [facility]. Patient might be able to progress to a home plan if she has good social support in place. A: Pt who was previously living at home in [place] P: Evolving; Pt recommended for SNF at this time. [facility] has accepted which is the only facility who has currently accepted. Awaiting responses from Gunner Castro and [facility] Jasmine Mcdonough. HEM MARKER to continue to follow STEPHON Avila
--- NOTE | 2017-05-31 15:10 | NUR ---
NURSING HOME TRANSFER : Faxed referral to [facility] per TUNNEL MUCKER request
--- NOTE | 2017-05-31 15:38 | PCM.PNMED ---
Subjective Date of Service May 31, 2017 Subjective Today the patient states that she continues to improve, she is eager and willing to work with PT to gain strength. She states that she is still more SOB than baseline, and reports that as recently as October she was able to do most of her daily activities without supplemental O2. She has further concerns about any potential damage her heart suffered through her ordeal. She otherwise denies nausea, vomiting, diarrhea, abdominal pain, fevers or chills. Overnight the patient continued to suffer from loose BMs, though they are reduced in volume and increased in solidity compared to the prior day. Exam Vital Signs Vital Sign - Last Date Time Temp Pulse Resp B/P Pulse Ox O2 Delivery O2 Flow Rate FiO2 05/31/17 13:04 125 Mask 14.00 05/31/17 12:24 18 98 70 05/31/17 11:53 36.9 131/67 Intake and Output 05/30/17 05/30/17 05/31/17 Cumulative From/Thru 15:00 23:00 07:00 05/17/17 20:07 - 05/31/17 06:28 Intake Total 636 ml 500 ml 26702 ml Output Total 800 ml 62305 ml Balance -164 ml 500 ml 8365 ml Intake Oral 636 ml 500 ml 3972 ml IV Total 29833 ml Tube Feeding 4528 ml Tube Irrigant 1586 ml Output Urine Total 800 ml 73487 ml Gastric Drainage Total 630 ml Other 300 ml # Voids 3 6 # Bowel Movements 2 2 26 Exam Gen: A/O x3 pleasant cooperative elderly woman in NAD Neck: Full ROM for age, no JVD HEENT: PERRL, EOMI, no scleral icterus CV: RRR, no murmurs rubs or gallops Resp: Diffuse scattered rhonchi in all lung neves, no rales, no increased work of breathing Abd: diffuse mild tenderness to palpation in all 4Q, no rebound or guarding Extr: Mild BL LE edema, no cyanosis or clubbing Neuro: CN 2-12 grossly intact, no focal neurologic deficit Psych: Pleasant and appropriate mood and affect IVs and Medications Medications Reviewed: Medications were reviewed in detail Lab and Diagnostics Item Value Date Time Red Blood Count 3.61 mil/mm3 L 05/31/17 0405 Mean Corpuscular Volume 92.5 fL 05/31/17 0405 Mean Corpuscular Hemoglobin 28.8 pg 05/31/17 0405 Mean Corpuscular Hemoglobin Concent 31.1 % L 05/31/17 0405 Red Cell Distribution Width 15.1 % 05/31/17 0405 Neutrophils (%) (Auto) 81.9 % H 05/31/17 0405 Lymphocytes (%) (Auto) 9.2 % L 05/31/17 0405 Monocytes (%) (Auto) 6.1 % 05/31/17 0405 Eosinophils (%) (Auto) 0.9 % 05/31/17 0405 Basophils (%) (Auto) 0.1 % 05/31/17 0405 Estimat Glomerular Filtration Rate 194 mL/min 05/31/17 0405 Calcium Level 8.6 mg/dL 05/31/17 0405 Phosphorus Level 3.0 mg/dL 05/31/17 0405 Magnesium Level 1.8 mg/dL 05/31/17 0405 Total Bilirubin 0.6 mg/dL 05/31/17 0405 Aspartate Amino Transf (AST/SGOT) 67 U/L H 05/31/17 0405 Alanine Aminotransferase (ALT/SGPT) 72 U/L H 05/31/17 0405 Alkaline Phosphatase 80 U/L 05/31/17 0405 Total Protein 6.1 g/dL L 05/31/17 0405 Albumin 3.4 g/dL 05/31/17 0405 Procalcitonin 0.10 ng/mL H 05/31/17 0405 Fungal Antibodies 40 pg/mL 05/27/17 0410 Result Diagram: 05/31/17 0405 05/31/17 040 Microbiology Sputum culture positive for Klebsiella Blood culture negative MRSA negative X-Rays, CTs and MRIs X-RAY CHEST ONE VIEW, PORTABLE IMPRESSION: 1. Acute on chronic diffuse pulmonary opacities new since 05/11/2017 may represent edema, infection, or blood products superimposed on chronic scarring/ fibrosis. 2. ET and enteric tubes. Dictated by: Junior Quinn M.D. on 05/17/2017 at 20:42 CT CERVICAL SPINE WITHOUT CONTRAST IMPRESSION: 1. No CT evidence of acute cervical spine pathology. 2. Extensive degenerative change. 3. Possible right mandibular fracture or motion artifact on this study and on today's head CT. Please correlate with clinical point tenderness of the right mandible. Dictated by: Junior Quinn M.D. on 05/17/2017 at 21:27 CT BRAIN WITHOUT CONTRAST IMPRESSION: Low-density in the maninder may represent early infarction. Recommend MRI with and without contrast for further evaluation. If MRI cannot be performed, recommend short term CT followup. Dictated by: Junior Quinn M.D. on 05/17/2017 at 21:19 CT ANGIO CHEST PULMONARY EMBOLISM IMPRESSION: 1. No acute pulmonary emboli in the main, left or right pulmonary arteries. Smaller pulmonary obscured by respiratory motion and cannot be evaluated. 2. Diffuse interstitial opacities with confluent opacities in the dependent right greater than left lungs representing chronic emphysema with superimposed fluid imbalance, atelectasis, infection, blood products, or a combination of these possibilities. 3. Bilateral anterior rib fractures. 4. ET and enteric tube in appropriate position PROCEDURE: X-RAY CHEST ONE VIEW, PORTABLE ([id number]) IMPRESSION: Significantly improved congestive heart failure/ pulmonary edema changes. There is now the appearance of some air bronchograms consistent with some consolidation/pneumonia in the left lower lobe. Tubes and lines are appropriate in position. Dictated by: Edilson Atkins M.D. on 05/22/2017 at 9:34 X-RAY CHEST ONE VIEW, PORTABLE ([id number]) IMPRESSION: Bilateral pneumonia pattern, slightly improved at the left lower lobe. Lines and tubes in normal position. Dictated by: Chris Stein M.D. on 05/25/2017 at 8:08 Approved by: Chris Stein M.D. on 05/25/2017 at 8:10 Cardiac Echo Impressions Interpretation Summary The left ventricle is normal in size. Left ventricular systolic function is mildly reduced. Left ventricular ejection fraction is estimated to be 45%. Flattened septum is consistent with RV pressure/volume overload. There is hypokinesis along the anterolateral and inferolateral wall. The right ventricle is not well visualized however appears at least mildly enlarged. Grossly normal systolic function. Right ventricular systolic pressure is estimated to be 24 mmHg plus the clinically estimated CVP which cannot be estimated on this exam. There is mild tricuspid regurgitation. Inspiratory collapse cannot be assessed because of mechanical ventilation, thus CVP cannot be estimated.. Reading Physician:AM . Assessment & Plan Barbara Davila is a 61 year old woman with interstitial lung disease secondary to ARDS in 2011 who requires 6-7 L O2 at baseline who has begun to establish care with a pulmonology fellow at the [facility]. She said a recent bout of pneumonia in October and two arrest secondary to hypoxemia the second of which is the reason for this hospital admission. She was intubated in the field and found to be in acute hypercarbic respiratory failure. Initial CT demonstrated new obstruction of airways along with her interstitial lung disease which was not seen on last CT in April. Diarrhea, Not POA, acute. Active -C.diff negative by PCR -Improving, stools are now loose but not liquid and reduced in volume and frequency -Loperamide PRN Acute on chronic hypercarbic and hypoxic respiratory failure in setting of severe interstitial lung disease, POA. Active -Continued oxygen requirement above baseline -Respiratory status continues to improve, slowly -Continue with DuoNebs Aspiration Pneumonia, Klebsiella and MSSA. Resolved. -Her pro-calcitonin is trending down -All antibiotics and micafungin have been stopped. No further antimicrobials. -Will continue to observe Possible drug fever, resolved. -We have stopped all antibiotics and micafungin Sepsis, present on admission with SIRS criteria were met.Resolved -Patient presented with leukocytosis and tachycardia -Resolved with IVF and Abx Acute kidney injury, present on admission and resolved. -Follow creatinine, this is been nonactive. Possible cardiac arrest, POA, acute. Resolved -Etiology uncertain although likely secondary to hypoxic episode. -Patient was also noted to have a prolonged QT and therefore arrhythmia must be considered. -Avoid QT prolonging medications. -Continue to follow on telemetry. No evidence of arrhythmia. Polysubstance abuse, present on admission and resolved. -Family has brought forth that the patient uses numerous street drugs and alcohol. Unclear when her last use was as she was recently in a SNF prior to this admission. -Complicating sedation at this time. Current sedation with midazolam and Precedex. -Pain from rib fractures sustained during CPR. -Pain control with fentanyl gtt. Disposition: Patient still approaching baseline respiratory and functional mobility status. Anticipate DC in 1-2 days. Pain Evaluation: Adequate Pain Control GI Prophylaxis: Not indicated VTE Prophylaxis: Sub-Q Heparin (Unfractionated) VTE Mechanical Devices: Intermittant Pneumatic CD Resuscitation Status: CPR: Attempt Resuscitation Attending Statement The patient was seen and examined together with Dr. Leger on 05/31/17 and I agree with the history, exam and plan as outlined in the note above. Fco Leger DO May 31, 2017 15:38 Timo Torres May 31, 2017 18:41
--- NOTE | 2017-05-31 18:35 | NUR ---
SPO2/diarrhea Cardiac: Pt denies CP. Tele: SR 90s-100s. Resp: Pt denies SOB. High flow 30L 70%, SPO2 93% GI/: Pt reports mild nausea. Complains of abdominal pain 7/10 and tenderness with palpation. Diarrhea for the past few shifts and again this morning. Imodium given last night and again today. Pt reports no more nausea and abdominal pain somewhat resolved by end of shift. Neuro: Alert and oriented X3.
--- NOTE | 2017-05-31 21:08 | DRSVH ---
PROCEDURE: X-RAY CHEST ONE VIEW, PORTABLE ([id number]) INDICATIONS: Pulmonary edema TECHNIQUE: One view of the chest was acquired. COMPARISON: None. FINDINGS: Surgical changes and devices: None. Lungs and pleura: No pleural effusions or pneumothorax. Minimal improvement in bibasilar and left mi dlung pulmonary opacities. Mediastinum: Mediastinal contours appear normal. Heart size is normal. Bones and chest wall: No suspicious bony lesions. Overlying soft tissues appear unremarkable. Old proximal right humeral fracture deformity. IMPRESSION: Minimal improvement of bibasilar and left midlung pulmonary opacities. Dictated by: Junior Quinn M.D. on 05/31/2017 at 21:05 Approved by: Junior Quinn M.D. on 05/31/2017 at 21:06
[2017-06-01] VITALS (16 sets, daily range): BP systolic 127–151; BP diastolic 68–88; PULSE 83–131; RESP 18–26; O2SAT 89–99
[2017-06-01] MEDS: Heparin 5,000 Unit/mL Inj SUBQ SCH ×3 (00:11→17:08)
[2017-06-01 04:07] LABS: BASOPHILS % (AUTO) 0.2 % (0-3); EOSINOPHILS % (AUTO) 1.8 % (0-5); MONOCYTES % (AUTO) 7.4 % (4-12); Mean Corpuscular Hemoglobin 28.8 pg (27.0-35.0); Mean Corpuscular Volume 91.8 fL (81-100); NEUTROPHILS % (AUTO) 75.5 % (40-74); Platelet Count 261 bil/L (150-400)
[2017-06-01 04:59] LABS: Magnesium 1.8 mg/dL (1.6-2.6); Phosphorus 4.3 mg/dL (2.5-4.9)
--- NOTE | 2017-06-01 06:18 | NUR ---
Pain/BM Assumed care of pt at 2330. Pt c/o headache 03/21. Tylenol 650 mg given and pt appeared to be asleep upon reassessment. No further complaints at this time. Pt had a brown small formed bm and no diarrhea this shift. VSS. Care continues.
[2017-06-01] MEDS: Insulin Human REGular 300 Unit/3 mL Inj SUBQ SCH ×4 (07:30→22:00)
[2017-06-01] MEDS ORDERED: predniSONE 20 mg Tablet PO SCH (08:00)
[2017-06-01] MEDS: Albuterol-Ipratropium 3 mL Inhalation Solution NEB SCH ×4 (09:17→20:35)
--- NOTE | 2017-06-01 10:43 | DRSVH ---
PROCEDURE: X-RAY CHEST ONE VIEW, PORTABLE ([id number]) INDICATIONS: fu post extubation TECHNIQUE: One view of the chest was acquired. COMPARISON: [facility], CR, XR CHEST 1VW (PORTABLE), 05/20/2017, 5:41. [facility], CR, XR CHEST 1VW (PORTABLE), 05/27/2017, 5:03. [facility], CR, XR CHEST 1VW (ANABEL BLE), 05/31/2017, 17:42. FINDINGS: Surgical changes and devices: None. Lungs and pleura: Diffuse, widespread bilateral pulmonary interstitial and bibasilar air space opaci ties are present similar to prior exam. No pleural effusion or pneumothorax. Mediastinum: Mediastinal contours appear normal. Heart size is normal. Bones and chest wall: No suspicious bony lesions. Overlying soft tissues appear unremarkable. Heal ed right humeral head/neck fracture deformity redemonstrated. IMPRESSION: 1. Pulmonary edema and/or pneumonia involving the lung bases not significantly changed. Dictated by: Imtiaz Olivares A Interpreted: Haroon Jackson MD on 06/01/2017 at 9:41 Approved by: Haroon Jackson M.D. on 06/01/2017 at 10:41
--- NOTE | 2017-06-01 12:48 | PCM.PNMED ---
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 Intubated May 17 and extubated May 25. She has been on high flow nasal cannula alternating with OxyMask since that time. Initial CT demonstrated new obstruction of airways along with her interstitial lung disease which was not seen on last CT in April. No acute events overnight. Patient states that she feels better today and has no complaints. She denies shortness of breath, chest pain, abdominal pain, nausea, vomiting, diarrhea. Exam Vital Signs Vital Sign - Last Date Time Temp Pulse Resp B/P Pulse Ox O2 Delivery O2 Flow Rate FiO2 06/01/17 10:49 90 06/01/17 09:21 18 93 Nasal Cannula 30 70 06/01/17 08:30 37.5 06/01/17 03:44 151/85 Intake and Output 05/31/17 05/31/17 06/01/17 Cumulative From/Thru 15:00 23:00 07:00 05/17/17 20:07 - 06/01/17 05:15 Intake Total 780 ml 118 ml 33622 ml Output Total 750 ml 250 ml 87735 ml Balance 30 ml -132 ml 8263 ml Intake Oral 780 ml 118 ml 4870 ml IV Total 57528 ml Tube Feeding 4528 ml Tube Irrigant 1586 ml Output Urine Total 750 ml 250 ml 35344 ml Gastric Drainage Total 630 ml Other 300 ml # Voids 2 8 # Bowel Movements 2 2 30 Exam General: Alert, Oriented X3, Cooperative, on high flow nasal cannula. No acute distress. Head: Normocephalic, atraumatic. External ears normal. Eyes: PERRLA, EOMI. Anicteric sclerae. Mouth: Mouth normal, Mucous membranes moist/pink Neck: Neck supple with full range of motion. Chest& Lungs: Crackles throughout bilateral lung neves. Cardiovascular: Regular rate/rhythm, Normal S1, Normal S2, No murmurs/rubs/ gallops Abdomen: Non-tender, Non-distended, No masses, Normoactive bowel tones, Soft Musculoskeletal: Normal range of motion Extremities: Minimal bilateral lower extremity edema Neurological: Grossly neurologically intact. Normal speech Lab and Diagnostics Result Diagram: 06/01/17 0342 06/01/17 0342 Microbiology Sputum culture positive for Klebsiella Blood culture negative MRSA negative X-Rays, CTs and MRIs X-RAY CHEST ONE VIEW, PORTABLE IMPRESSION: 1. Acute on chronic diffuse pulmonary opacities new since 05/11/2017 may represent edema, infection, or blood products superimposed on chronic scarring/ fibrosis. 2. ET and enteric tubes. Dictated by: Junior Quinn M.D. on 05/17/2017 at 20:42 CT CERVICAL SPINE WITHOUT CONTRAST IMPRESSION: 1. No CT evidence of acute cervical spine pathology. 2. Extensive degenerative change. 3. Possible right mandibular fracture or motion artifact on this study and on today's head CT. Please correlate with clinical point tenderness of the right mandible. Dictated by: Junior Quinn M.D. on 05/17/2017 at 21:27 CT BRAIN WITHOUT CONTRAST IMPRESSION: Low-density in the maninder may represent early infarction. Recommend MRI with and without contrast for further evaluation. If MRI cannot be performed, recommend short term CT followup. Dictated by: Junior Quinn M.D. on 05/17/2017 at 21:19 CT ANGIO CHEST PULMONARY EMBOLISM IMPRESSION: 1. No acute pulmonary emboli in the main, left or right pulmonary arteries. Smaller pulmonary obscured by respiratory motion and cannot be evaluated. 2. Diffuse interstitial opacities with confluent opacities in the dependent right greater than left lungs representing chronic emphysema with superimposed fluid imbalance, atelectasis, infection, blood products, or a combination of these possibilities. 3. Bilateral anterior rib fractures. 4. ET and enteric tube in appropriate position PROCEDURE: X-RAY CHEST ONE VIEW, PORTABLE ([id number]) IMPRESSION: Significantly improved congestive heart failure/ pulmonary edema changes. There is now the appearance of some air bronchograms consistent with some consolidation/pneumonia in the left lower lobe. Tubes and lines are appropriate in position. Dictated by: Edilson Atkins M.D. on 05/22/2017 at 9:34 X-RAY CHEST ONE VIEW, PORTABLE ([id number]) IMPRESSION: Bilateral pneumonia pattern, slightly improved at the left lower lobe. Lines and tubes in normal position. Dictated by: Chris Stein M.D. on 05/25/2017 at 8:08 Approved by: Chris Stein M.D. on 05/25/2017 at 8:10 Cardiac Echo Impressions Interpretation Summary The left ventricle is normal in size. Left ventricular systolic function is mildly reduced. Left ventricular ejection fraction is estimated to be 45%. Flattened septum is consistent with RV pressure/volume overload. There is hypokinesis along the anterolateral and inferolateral wall. The right ventricle is not well visualized however appears at least mildly enlarged. Grossly normal systolic function. Right ventricular systolic pressure is estimated to be 24 mmHg plus the clinically estimated CVP which cannot be estimated on this exam. There is mild tricuspid regurgitation. Inspiratory collapse cannot be assessed because of mechanical ventilation, thus CVP cannot be estimated.. Reading Physician:CANELO . 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 She has been on high flow nasal cannula alternating with OxyMask since that time. Initial CT demonstrated new obstruction of airways along with her interstitial lung disease which was not seen on last CT in April. Acute on chronic hypercarbic and hypoxic respiratory failure in setting of severe interstitial lung disease. Improved. - Secondary to post-ARDS pulmonary fibrosis and MSSA and Klebsiella pneumonia. Intubated May 17 to May 25, currently on high flow nasal cannula. CXR today shows improved pulmonary edema. Patient is 8L positive over hospital stay, although I/O appears to be inaccurate. Patient is on 40 mg Lasix by mouth BID at home. - Lasix 20 mg IV BID - Continue HFNC, attempt to wean to baseline home O2. - Doing well with physical therapy - continue PT - Pulmonary toilet with incentive spirometry - Decrease DuoNebs to q6h. Acute sepsis, resolved. - Secondary to aspiration pneumonia. Pt had low grade fevers and diarrhea over the last 2 days, but C. diff was negative. Patient continues to be afebrile. - All antibiotics and micafungin have been stopped. No further antimicrobials. - Continue to monitor Aspiration pneumonia with Staph aureus and Klebsiella. Improved. -Patient was witnessed to have aspirated during the early hospital stay. She received several doses of aztreonam, meropenem, and vancomycin but did not complete a full course as there was doubt of whether there was an active infectious process. She has been afebrile since 05/25/2017. Pro-calcitonin has been negative. Continues to have leukocytosis, which appears stable and may be secondary to prednisone. - We will continue to monitor at this time and consider restarting antibiotics if she shows any signs of infection. - Aztreonam, meropenem, vancomycin, and micafungin have been stopped Post acute respiratory distress syndrome pulmonary fibrosis. Chronic. - Patient has been on steroids for several days, but it is unlikely that this will help her pulmonary fibrosis. She was recently on 40 mg of prednisone, decreased to 20 mg daily on 05/30. We will continue to wean prednisone over the next few days and then stop. - Will decrease to 5 mg daily tomorrow. Continue to taper and then stop steroids within the next 2-3 days. Cardiac arrest. Resolved. - Pt was found unconscious and pulseless in the bathroom the day of admission, requiring CPR and intubation. She was down for a minimal amount of time as she alerted house staff moments prior to being found down. She regained consciousness prior to arrival to [facility], so cooling protocol was not initiated. -Continue to follow on telemetry. No evidence of arrhythmia. - Code: Full Code - Fluids: None - Diet: Soft diet - Lines: Peripheral IV - Prophylaxis: SQ heparin - Dispo: PCU while on HFNC. Wean to home O2. GI Prophylaxis: Not indicated VTE Prophylaxis: Sub-Q Heparin (Unfractionated) VTE Mechanical Devices: Intermittant Pneumatic CD Resuscitation Status: CPR: Attempt Resuscitation Attending Statement Patient seen, examined, and discussed with the resident. Agree with assessment and plan. WBC 11.4 <-13.6 <-14.7 <-16.4 K 4.1 <-3.8 BUN 11 <-7 Cr 0.67 <-0.47 Procal 0.12 <-0.10 <-<-<-0.17 Fungal Ab (05/27): Negative Urine legionella (05/20): Negative C diff (05/29): Negative Catheter Tip (05/27): Negative Blood Cx 05/25: Negative 05/24: Negative Urine Cx 05/24: Negative 05/20: Klebsiella Tracheal Aspirate 05/24: NF 05/20: MSSA, klebsiella (s) CXR (05/31): bibasilar and left midlung airspace disease CXR (05/30): diffuse b/l interstitial opacities, basilar airspace dz CT (05/27): Negative PE, b/l interstitial opacities, b/l anterior rib fx Assessment: -hypoxic respiratory failure -s/p PEA arrest -pulmonary fibrosis (hx ARDS) -basilar aspiration pneumonia vs pneumonitis (seen on initial CT) -?pulmonaryHTN (prior echo poor study) -tobacco (smoked 1/2ppd x35 years), marijuana use. ?other substance abuse -prolonged QTc -PCN allergy? -hx depression/anxiety, chronic pain Plan: -Clinically improving, although remains on significant supplemental O2. I/O not accurately documented, but weights have been trending down with fluid removal. -Will continue to diurese gently today with lasix 20mg iv q12. Replete electrolytes. Repeat echo after diuresis. -Completed short course broad abx since admission. Will re-assess tomorrow about extending duration -Weaning steroids to off. Decrease duonebs to q6 -PT/OT, OOB, IS -Nutrition:PO -Lines: PIV -Prophylaxis: sq heparin -Dispo: PCU while on highflow O2 -Code: Full Ronald Finney Jun 01, 2017 12:47 Gilbert Mayers MD Jun 01, 2017 16:42
[2017-06-01] MEDS: Furosemide 10 mg/mL 2 mL Inj IVPUSH SCH ×2 (12:52→21:06)
--- NOTE | 2017-06-01 14:45 | PCM.PNMED ---
Subjective Date of Service Jun 01, 2017 Subjective Patient continues to improve from a pulmonary and PT standpoint, though movement and oxygen requirements remain suboptimal compared to baseline. She states that she continues to feel very much better, though still does not feel as if she is ready to go home. She states that her BMs have solidified somewhat over the past 24 hours. She states that she is otherwise well and has no particular complaints at this time. No significant overnight events. Exam Vital Signs Vital Sign - Last Date Time Temp Pulse Resp B/P Pulse Ox O2 Delivery O2 Flow Rate FiO2 06/01/17 13:53 94 18 96 high flow 06/01/17 13:51 37.0 127/68 06/01/17 09:21 30 70 Intake and Output 05/31/17 05/31/17 06/01/17 Cumulative From/Thru 15:00 23:00 07:00 05/17/17 20:07 - 06/01/17 05:15 Intake Total 780 ml 118 ml 58999 ml Output Total 750 ml 250 ml 91832 ml Balance 30 ml -132 ml 8263 ml Intake Oral 780 ml 118 ml 4870 ml IV Total 46825 ml Tube Feeding 4528 ml Tube Irrigant 1586 ml Output Urine Total 750 ml 250 ml 76708 ml Gastric Drainage Total 630 ml Other 300 ml # Voids 2 8 # Bowel Movements 2 2 30 Exam Gen: A/O x3 pleasant cooperative elderly woman in NAD Neck: Full ROM for age, no JVD HEENT: PERRL, EOMI, no scleral icterus, patient on high flow nasal cannula CV: RRR, no murmurs rubs or gallops Resp: Diffuse scattered rhonchi in all lung neves, no rales, no increased work of breathing Abd: diffuse mild tenderness to palpation in all 4Q, no rebound or guarding Extr: Mild BL LE edema, no cyanosis or clubbing Neuro: CN 2-12 grossly intact, no focal neurologic deficit Psych: Pleasant and appropriate mood and affect IVs and Medications Medications Reviewed: Medications were reviewed in detail Lab and Diagnostics Item Value Date Time Red Blood Count 3.79 mil/mm3 L 06/01/17 0342 Mean Corpuscular Volume 91.8 fL 06/01/17 0342 Mean Corpuscular Hemoglobin 28.8 pg 06/01/17 0342 Mean Corpuscular Hemoglobin Concent 31.3 % L 06/01/17 0342 Red Cell Distribution Width 15.5 % H 06/01/17 0342 Neutrophils (%) (Auto) 75.5 % H 06/01/17 0342 Monocytes (%) (Auto) 7.4 % 06/01/17 034 Lymphocytes (%) (Auto) 13.2 % L 06/01/17 034 Eosinophils (%) (Auto) 1.8 % 06/01/17 034 Basophils (%) (Auto) 0.2 % 06/01/17 034 Estimat Glomerular Filtration Rate 129 mL/min 06/01/17 034 Calcium Level 9.0 mg/dL 06/01/17 0342 Phosphorus Level 4.3 mg/dL 06/01/17 0342 Magnesium Level 1.8 mg/dL 06/01/17 034 Total Bilirubin 0.6 mg/dL 06/01/17 034 Aspartate Amino Transf (AST/SGOT) 57 U/L H 06/01/17 0342 Alanine Aminotransferase (ALT/SGPT) 70 U/L H 06/01/17 0342 Alkaline Phosphatase 86 U/L 06/01/17 0342 Pro-B-Type Natriuretic Peptide 1434 pg/mL H 06/01/17 0342 Total Protein 6.6 g/dL 06/01/17 0342 Albumin 3.7 g/dL 06/01/17 0342 Procalcitonin 0.12 ng/mL H 06/01/17 0342 Result Diagram: 06/01/17 0342 06/01/17 034 Microbiology Sputum culture positive for Klebsiella Blood culture negative MRSA negative X-Rays, CTs and MRIs X-RAY CHEST ONE VIEW, PORTABLE IMPRESSION: 1. Acute on chronic diffuse pulmonary opacities new since 05/11/2017 may represent edema, infection, or blood products superimposed on chronic scarring/ fibrosis. 2. ET and enteric tubes. Dictated by: Junior Quinn M.D. on 05/17/2017 at 20:42 CT CERVICAL SPINE WITHOUT CONTRAST IMPRESSION: 1. No CT evidence of acute cervical spine pathology. 2. Extensive degenerative change. 3. Possible right mandibular fracture or motion artifact on this study and on today's head CT. Please correlate with clinical point tenderness of the right mandible. Dictated by: Junior Quinn M.D. on 05/17/2017 at 21:27 CT BRAIN WITHOUT CONTRAST IMPRESSION: Low-density in the maninder may represent early infarction. Recommend MRI with and without contrast for further evaluation. If MRI cannot be performed, recommend short term CT followup. Dictated by: Junior Quinn M.D. on 05/17/2017 at 21:19 CT ANGIO CHEST PULMONARY EMBOLISM IMPRESSION: 1. No acute pulmonary emboli in the main, left or right pulmonary arteries. Smaller pulmonary obscured by respiratory motion and cannot be evaluated. 2. Diffuse interstitial opacities with confluent opacities in the dependent right greater than left lungs representing chronic emphysema with superimposed fluid imbalance, atelectasis, infection, blood products, or a combination of these possibilities. 3. Bilateral anterior rib fractures. 4. ET and enteric tube in appropriate position PROCEDURE: X-RAY CHEST ONE VIEW, PORTABLE ([id number]) IMPRESSION: Significantly improved congestive heart failure/ pulmonary edema changes. There is now the appearance of some air bronchograms consistent with some consolidation/pneumonia in the left lower lobe. Tubes and lines are appropriate in position. Dictated by: Edilson Atkins M.D. on 05/22/2017 at 9:34 X-RAY CHEST ONE VIEW, PORTABLE ([id number]) IMPRESSION: Bilateral pneumonia pattern, slightly improved at the left lower lobe. Lines and tubes in normal position. Dictated by: Chris Stein M.D. on 05/25/2017 at 8:08 Approved by: Chris Stein M.D. on 05/25/2017 at 8:10 Cardiac Echo Impressions Interpretation Summary The left ventricle is normal in size. Left ventricular systolic function is mildly reduced. Left ventricular ejection fraction is estimated to be 45%. Flattened septum is consistent with RV pressure/volume overload. There is hypokinesis along the anterolateral and inferolateral wall. The right ventricle is not well visualized however appears at least mildly enlarged. Grossly normal systolic function. Right ventricular systolic pressure is estimated to be 24 mmHg plus the clinically estimated CVP which cannot be estimated on this exam. There is mild tricuspid regurgitation. Inspiratory collapse cannot be assessed because of mechanical ventilation, thus CVP cannot be estimated.. Reading Physician:CANELO . Assessment & Plan Barbara Davila is a 61 year old woman with interstitial lung disease secondary to ARDS in 2011 who requires 6-7 L O2 at baseline who has begun to establish care with a pulmonology fellow at the [facility]. She said a recent bout of pneumonia in October and two arrest secondary to hypoxemia the second of which is the reason for this hospital admission. She was intubated in the field and found to be in acute hypercarbic respiratory failure. Initial CT demonstrated new obstruction of airways along with her interstitial lung disease which was not seen on last CT in April. Diarrhea, Not POA, acute. Active -C.diff negative by PCR -Improved, stools reduced in volume and frequency -Loperamide PRN Acute on chronic hypercarbic and hypoxic respiratory failure in setting of severe interstitial lung disease, POA. Active -Continued oxygen requirement above baseline -Respiratory status continues to improve, slowly -Continue with DuoNebs -Incentive spirometry Aspiration Pneumonia, Klebsiella and MSSA. Resolved. -Her pro-calcitonin is trending down -All antibiotics and micafungin have been stopped. No further antimicrobials. -Will continue to observe Possible drug fever, resolved. -We have stopped all antibiotics and micafungin Sepsis, present on admission with SIRS criteria were met.Resolved -Patient presented with leukocytosis and tachycardia -Resolved with IVF and Abx Acute kidney injury, present on admission and resolved. -Follow creatinine, this is been nonactive. Possible cardiac arrest, POA, acute. Resolved -Etiology uncertain although likely secondary to hypoxic episode. -Patient was also noted to have a prolonged QT and therefore arrhythmia must be considered. -Avoid QT prolonging medications. -Continue to follow on telemetry. No evidence of arrhythmia. Polysubstance abuse, present on admission and resolved. -Family has brought forth that the patient uses numerous street drugs and alcohol. Unclear when her last use was as she was recently in a SNF prior to this admission. -Complicating sedation at this time. Current sedation with midazolam and Precedex. -Pain from rib fractures sustained during CPR. -Pain control with fentanyl gtt. Disposition: Patient still approaching baseline respiratory and functional mobility status. Anticipate DC in 1-2 days. Pain Evaluation: Adequate Pain Control GI Prophylaxis: Not indicated VTE Prophylaxis: Sub-Q Heparin (Unfractionated) VTE Mechanical Devices: Intermittant Pneumatic CD Resuscitation Status: CPR: Attempt Resuscitation Attending Statement The patient was seen and examined together with Dr. Leger on 06/01/17 and I agree with the history, exam and plan as outlined in the note above. Fco Leger DO Jun 01, 2017 14:45 Timo Torres Jun 02, 2017 14:43
--- NOTE | 2017-06-01 17:23 | NUR ---
P: Resp, Hemodynamics, Neuro, social I,E: Pt has been on high flow O2 most of the day, but this afternoon following her walk with PT she has remained on oxymask at 15l and is saturating in the high 90's. She appears dyspneic but denies any sensation of dyspnea until her sats fall to the 50's she says. Pt's VS have been stable, although she is a little tachy in the 100's at times, SR/ST. Pt is A&O X 3 coremaker pipe and very talkative. She states her friend Toya will be here tomorrow with her trilogy and other things she needs that are currently at [facility]. She has plans to either move in with friends on discharge if she does not need to be placed in a SNF. Pt also states her daughter and brother can help her. Daughter will be here to visit tomorrow.
--- NOTE | 2017-06-01 17:43 | NUR ---
Social Work: Continued Discharge Planning/Multidisciplinary Rounds D: Pt discussed in multidisciplinary rounds; the patient is not yet medically stable for discharge but is improving and may be ready to d/c in 1-2 days. Patient has been identified for a bedside round tomorrow. CURING BIN OPERATOR received a telephone call from the [facility] from [place]. She states that she was speaking to the patient today and that the patient is being evicted from her apartment. The patient has been living in a sober living community but has been drinking on the campus resulting in her eviction. This has been in the process for several months but due to the patient's recent hospitalizations at [facility] and now [facility], she has not been able to move her stuff. The patient cannot return however the facility is giving her until the end of May to get her things. CURING BIN OPERATOR reviewed the patient's EMR; the patient was able to ambulate 250+ feet with PT today and may now not qualify for skilled rehab. CURING BIN OPERATOR met with the patient at bedside to discuss discharge planning. The patient knows about her eviction and states that she has been "thinking a lot about where I can go." Patient states that she "absolutely will not go back to [facility]." CURING BIN OPERATOR informed her that at this time this is the only accepting facility and inquired what her plan would be if no other facilities were able to accept. She states that she plans to stay with some friends who live [place] the [place] [facility]. She expresses hope that she won't need a SNF and that she will be able to progress with PT to go home with a friend. CURING BIN OPERATOR encouraged her to explore who she might be able to stay with and make arrangements as she is medically improving. She agrees and states that she will do this. CURING BIN OPERATOR and care team will follow up with the patient tomorrow morning at bedside rounds to discuss care plan and review discharge plan. A: Pt who might still require SNF if her insurance provides authorization P: Evolving; Patient to either discharge to SNF if a facility can be located (pt will no go to [facility] which is the only accepting location) or home with friends. CURING BIN OPERATOR to continue to follow. STEPHON Avila
[2017-06-02] VITALS (12 sets, daily range): BP systolic 119–143; BP diastolic 56–90; PULSE 88–111; RESP 16–24; O2SAT 89–98
[2017-06-02] MEDS: Heparin 5,000 Unit/mL Inj SUBQ SCH ×3 (00:22→18:04)
[2017-06-02 04:13] LABS: BASOPHILS % (AUTO) 0.3 % (0-3); EOSINOPHILS % (AUTO) 2.3 % (0-5); Mean Corpuscular Hemoglobin 29.2 pg (27.0-35.0); Mean Corpuscular Volume 91.9 fL (81-100); NEUTROPHILS % (AUTO) 76.3 % (40-74); Platelet Count 284 bil/L (150-400)
[2017-06-02 04:27] LABS: Magnesium 1.7 mg/dL (1.6-2.6)
[2017-06-02] MEDS: Albuterol-Ipratropium 3 mL Inhalation Solution NEB PRN (05:03)
--- NOTE | 2017-06-02 05:05 | NUR ---
Shift Summary No loose stools this shift. APAP given x1 for headache with moderately effective results per pt. Switched between 15L oxymask and 30L high flow with 70% O2 bleed in, sats 80-90's. Pt removed CPOX x3 because it was "annoying." Slept 2 hours at most. VSS. Pt verbalized frustration about not having Trilogy machine and the possibility of moving back to [facility]. Says she has friends she may be able to live with but doesn't have their phone numbers, as they are in her cell phone which is still at the sober living facility.
[2017-06-02] MEDS: Insulin Human REGular 300 Unit/3 mL Inj SUBQ SCH ×4 (07:30→22:00)
[2017-06-02] MEDS ORDERED: predniSONE 20 mg Tablet PO SCH (08:00)
[2017-06-02] MEDS: Furosemide 10 mg/mL 2 mL Inj IVPUSH SCH ×2 (08:55→20:56)
--- NOTE | 2017-06-02 10:34 | PCM.PNMED ---
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 Intubated May 17 and extubated May 25. She has been on high flow nasal cannula alternating with OxyMask since that time. Initial CT demonstrated new obstruction of airways along with her interstitial lung disease which was not seen on last CT in April. Patient did well with physical therapy yesterday, walking around the hallway with assist. She has been weaned down to 7L oxymask (baseline O2) with no discomfort. She does report difficulty sleeping as she has not had her Trilogy. She has no other complaints at this time and states she feels significantly better. Exam Vital Signs Vital Sign - Last Date Time Temp Pulse Resp B/P Pulse Ox O2 Delivery O2 Flow Rate FiO2 06/02/17 08:39 36.8 104 24 143/90 89 OxyMask 7.00 06/01/17 20:39 70 Intake and Output 06/01/17 06/01/17 06/02/17 Cumulative From/Thru 15:00 23:00 07:00 05/17/17 20:07 - 06/02/17 06:23 Intake Total 1240 ml 1031 ml 69352 ml Output Total 550 ml 75679 ml Balance 690 ml 1031 ml 9984 ml Intake Oral 1240 ml 1031 ml 7141 ml IV Total 17527 ml Tube Feeding 4528 ml Tube Irrigant 1586 ml Output Urine Total 550 ml 76317 ml Gastric Drainage Total 630 ml Other 300 ml # Voids 4 12 # Bowel Movements 2 1 33 Exam General: Alert, Oriented X3, Cooperative, on oxymask. No acute distress. Head: Normocephalic, atraumatic. External ears normal. Eyes: PERRLA, EOMI. Anicteric sclerae. Mouth: Mouth normal, Mucous membranes moist/pink Neck: Neck supple with full range of motion. Chest& Lungs: Crackles throughout bilateral lung neves, significantly improved from previously. Cardiovascular: Regular rate/rhythm, Normal S1, Normal S2, No murmurs/rubs/ gallops Abdomen: Non-tender, Non-distended, No masses, Normoactive bowel tones, Soft Musculoskeletal: Normal range of motion Extremities: Minimal bilateral lower extremity edema Neurological: Grossly neurologically intact. Normal speech Lab and Diagnostics Result Diagram: 06/02/17 0345 06/02/17 0345 Microbiology Sputum culture positive for Klebsiella Blood culture negative MRSA negative X-Rays, CTs and MRIs X-RAY CHEST ONE VIEW, PORTABLE IMPRESSION: 1. Acute on chronic diffuse pulmonary opacities new since 05/11/2017 may represent edema, infection, or blood products superimposed on chronic scarring/ fibrosis. 2. ET and enteric tubes. Dictated by: Junior Quinn M.D. on 05/17/2017 at 20:42 CT CERVICAL SPINE WITHOUT CONTRAST IMPRESSION: 1. No CT evidence of acute cervical spine pathology. 2. Extensive degenerative change. 3. Possible right mandibular fracture or motion artifact on this study and on today's head CT. Please correlate with clinical point tenderness of the right mandible. Dictated by: Junior Quinn M.D. on 05/17/2017 at 21:27 CT BRAIN WITHOUT CONTRAST IMPRESSION: Low-density in the maninder may represent early infarction. Recommend MRI with and without contrast for further evaluation. If MRI cannot be performed, recommend short term CT followup. Dictated by: Junior Quinn M.D. on 05/17/2017 at 21:19 CT ANGIO CHEST PULMONARY EMBOLISM IMPRESSION: 1. No acute pulmonary emboli in the main, left or right pulmonary arteries. Smaller pulmonary obscured by respiratory motion and cannot be evaluated. 2. Diffuse interstitial opacities with confluent opacities in the dependent right greater than left lungs representing chronic emphysema with superimposed fluid imbalance, atelectasis, infection, blood products, or a combination of these possibilities. 3. Bilateral anterior rib fractures. 4. ET and enteric tube in appropriate position PROCEDURE: X-RAY CHEST ONE VIEW, PORTABLE ([id number]) IMPRESSION: Significantly improved congestive heart failure/ pulmonary edema changes. There is now the appearance of some air bronchograms consistent with some consolidation/pneumonia in the left lower lobe. Tubes and lines are appropriate in position. Dictated by: Edilson Atkins M.D. on 05/22/2017 at 9:34 X-RAY CHEST ONE VIEW, PORTABLE ([id number]) IMPRESSION: Bilateral pneumonia pattern, slightly improved at the left lower lobe. Lines and tubes in normal position. Dictated by: Chris Stein M.D. on 05/25/2017 at 8:08 Approved by: Chris Stein M.D. on 05/25/2017 at 8:10 Cardiac Echo Impressions Interpretation Summary The left ventricle is normal in size. Left ventricular systolic function is mildly reduced. Left ventricular ejection fraction is estimated to be 45%. Flattened septum is consistent with RV pressure/volume overload. There is hypokinesis along the anterolateral and inferolateral wall. The right ventricle is not well visualized however appears at least mildly enlarged. Grossly normal systolic function. Right ventricular systolic pressure is estimated to be 24 mmHg plus the clinically estimated CVP which cannot be estimated on this exam. There is mild tricuspid regurgitation. Inspiratory collapse cannot be assessed because of mechanical ventilation, thus CVP cannot be estimated.. Reading Physician:CANELO . 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 She has been on high flow nasal cannula alternating with OxyMask since that time. Initial CT demonstrated new obstruction of airways along with her interstitial lung disease which was not seen on last CT in April. Acute on chronic hypercarbic and hypoxic respiratory failure in setting of severe interstitial lung disease. Improved. - Secondary to post-ARDS pulmonary fibrosis and MSSA and Klebsiella pneumonia. Intubated May 17 to May 25, currently on high flow nasal cannula. CXR today shows improved pulmonary edema. Patient is 8L positive over hospital stay, although I/O appears to be inaccurate. Patient is on 40 mg Lasix by mouth BID at home. She is currently on her home O2 settings and tolerating well. - Lasix 20 mg IV BID - Doing well with physical therapy - continue PT - Pulmonary toilet with incentive spirometry - DuoNebs q6h. Acute sepsis, resolved. - Secondary to aspiration pneumonia. Pt had low grade fevers and diarrhea over the last 2 days, but C. diff was negative. Patient continues to be afebrile. - All antibiotics and micafungin have been stopped. No further antimicrobials. - Continue to monitor Aspiration pneumonia with Staph aureus and Klebsiella. Improved. -Patient was witnessed to have aspirated during the early hospital stay. She received several doses of aztreonam, meropenem, and vancomycin but did not complete a full course as there was doubt of whether there was an active infectious process. She has been afebrile since 05/25/2017. Pro-calcitonin has been negative. Continues to have leukocytosis, which appears stable and may be secondary to prednisone. - We will continue to monitor at this time and consider restarting antibiotics if she shows any signs of infection. - Aztreonam, meropenem, vancomycin, and micafungin have been stopped Post acute respiratory distress syndrome pulmonary fibrosis. Chronic. - Patient has been on steroids for several days, but it is unlikely that this will help her pulmonary fibrosis. She was recently on 40 mg of prednisone, decreased to 20 mg daily on 05/30. We will continue to wean prednisone over the next few days and then stop. - Will decrease prednisone to 2.5 mg tomorrow, then stop. Cardiac arrest. Resolved. - Pt was found unconscious and pulseless in the bathroom the day of admission, requiring CPR and intubation. She was down for a minimal amount of time as she alerted house staff moments prior to being found down. She regained consciousness prior to arrival to [facility], so cooling protocol was not initiated. -Continue to follow on telemetry. No evidence of arrhythmia. - Code: Full Code - Fluids: None - Diet: Soft diet - Lines: Peripheral IV - Prophylaxis: SQ heparin - Dispo: Likely appropriate for transfer to [facility] if needed at this time. GI Prophylaxis: Not indicated VTE Prophylaxis: Sub-Q Heparin (Unfractionated) VTE Mechanical Devices: Intermittant Pneumatic CD Resuscitation Status: CPR: Attempt Resuscitation Attending Statement Patient seen, examined, and discussed with the resident. Agree with assessment and plan. WBC 14 <-11.4 <-13.6 <-14.7 <-16.4 K 3.9 <-4.1 <-3.8 Mg 1.7 BUN 14 <-11 <-7 Cr 0.60 <-0.67 <-0.47 Fungal Ab (05/27): Negative Urine legionella (05/20): Negative C diff (05/29): Negative Catheter Tip (05/27): Negative Blood Cx 05/25: Negative 05/24: Negative Urine Cx 05/24: Negative 05/20: Klebsiella Tracheal Aspirate 05/24: NF 05/20: MSSA, klebsiella (s) CXR (06/01): no changes CXR (05/31): bibasilar and left midlung airspace disease CXR (05/30): diffuse b/l interstitial opacities, basilar airspace dz CT (05/27): Negative PE, b/l interstitial opacities, b/l anterior rib fx Assessment: -hypoxic respiratory failure -s/p PEA arrest -pulmonary fibrosis (hx ARDS) -basilar aspiration pneumonia (mssa, kleb) vs pneumonitis (seen on initial CT) -?pulmonaryHTN (prior echo poor study) -tobacco (smoked 1/2ppd x35 years), marijuana use. ?other substance abuse -prolonged QTc -PCN allergy? -hx depression/anxiety, chronic pain Plan: -Clinically improving,down to 7LO2. I/O not accurately documented, but weights have been trending down with fluid removal. Please keep strict I/O and fluid restrict 2L -Increase lasix to 30mg iv q12. Replete electrolytes. Repeat echo after diuresis. -Completed short course broad abx since admission. Will re-assess tomorrow about extending duration -Weaning steroids to off. Decrease duonebs to q6 -PT/OT, OOB, IS -Nutrition:PO -Lines: PIV -Prophylaxis: sq heparin -Dispo: PCU while on highflow O2 -Code: Full Ronald Finney Jun 02, 2017 10:34 Gilbert Mayers MD Jun 02, 2017 16:21
[2017-06-02] MEDS: Albuterol-Ipratropium 3 mL Inhalation Solution NEB SCH ×3 (10:37→21:00)
--- NOTE | 2017-06-02 13:32 | PCM.PNMED ---
Subjective Date of Service Jun 02, 2017 Subjective Today the patient states that she continues to feel better from a respiratory standpoint, and is approaching but has not quite reached her baseline. She reiterates her firm desire not to DC back to [facility] because of what she perceived to be substandard care during her last stay at that facility. She states that she is otherwise well and has no focal complaints. No significant overnight events. Exam Vital Signs Vital Sign - Last Date Time Temp Pulse Resp B/P Pulse Ox O2 Delivery O2 Flow Rate FiO2 06/02/17 12:17 37.4 110 22 119/86 92 OxyMask 7.00 06/01/17 20:39 70 Intake and Output 06/01/17 06/01/17 06/02/17 Cumulative From/Thru 15:00 23:00 07:00 05/17/17 20:07 - 06/02/17 06:23 Intake Total 1240 ml 1031 ml 19572 ml Output Total 550 ml 68354 ml Balance 690 ml 1031 ml 9984 ml Intake Oral 1240 ml 1031 ml 7141 ml IV Total 17799 ml Tube Feeding 4528 ml Tube Irrigant 1586 ml Output Urine Total 550 ml 05759 ml Gastric Drainage Total 630 ml Other 300 ml # Voids 4 12 # Bowel Movements 2 1 33 Exam Gen: A/O x3 pleasant cooperative elderly woman in NAD Neck: Full ROM for age, no JVD HEENT: PERRL, EOMI, no scleral icterus, patient on high flow nasal cannula CV: RRR, no murmurs rubs or gallops Resp: Diffuse scattered rhonchi in all lung neves improved since prior exam, no rales, no increased work of breathing Abd: diffuse mild tenderness to palpation in all 4Q, no rebound or guarding Extr: Mild BL LE edema, no cyanosis or clubbing Neuro: CN 2-12 grossly intact, no focal neurologic deficit Psych: Pleasant and appropriate mood and affect IVs and Medications Medications Reviewed: Medications were reviewed in detail Lab and Diagnostics Item Value Date Time Red Blood Count 3.84 mil/mm3 L 06/02/17344 Mean Corpuscular Volume 91.9 fL 06/02/17344 Mean Corpuscular Hemoglobin 29.2 pg 06/02/17344 Mean Corpuscular Hemoglobin Concent 31.7 % L 06/02/17344 Red Cell Distribution Width 15.9 % H 06/02/17 034 Neutrophils (%) (Auto) 76.3 % H 06/02/17344 Lymphocytes (%) (Auto) 12.4 % L 06/02/17344 Monocytes (%) (Auto) 7.0 % 06/02/17344 Eosinophils (%) (Auto) 2.3 % 06/02/17344 Basophils (%) (Auto) 0.3 % 06/02/17344 Estimat Glomerular Filtration Rate 147 mL/min 06/02/17344 Calcium Level 9.2 mg/dL 06/02/17344 Phosphorus Level 4.0 mg/dL 06/02/17344 Magnesium Level 1.7 mg/dL 06/02/17344 Total Bilirubin 0.6 mg/dL 06/02/17344 Aspartate Amino Transf (AST/SGOT) 48 U/L 06/02/17344 Alanine Aminotransferase (ALT/SGPT) 64 U/L H 06/02/17344 Alkaline Phosphatase 92 U/L 06/02/17344 Total Protein 6.7 g/dL 06/02/17344 Albumin 4.0 g/dL 06/02/17344 Result Diagram: 06/02/1734406/02/17344 Microbiology Sputum culture positive for Klebsiella Blood culture negative MRSA negative X-Rays, CTs and MRIs X-RAY CHEST ONE VIEW, PORTABLE IMPRESSION: 1. Acute on chronic diffuse pulmonary opacities new since 05/11/2017 may represent edema, infection, or blood products superimposed on chronic scarring/ fibrosis. 2. ET and enteric tubes. Dictated by: Junior Quinn M.D. on 05/17/2017 at 20:42 CT CERVICAL SPINE WITHOUT CONTRAST IMPRESSION: 1. No CT evidence of acute cervical spine pathology. 2. Extensive degenerative change. 3. Possible right mandibular fracture or motion artifact on this study and on today's head CT. Please correlate with clinical point tenderness of the right mandible. Dictated by: Junior Quinn M.D. on 05/17/2017 at 21:27 CT BRAIN WITHOUT CONTRAST IMPRESSION: Low-density in the maninder may represent early infarction. Recommend MRI with and without contrast for further evaluation. If MRI cannot be performed, recommend short term CT followup. Dictated by: Junior Quinn M.D. on 05/17/2017 at 21:19 CT ANGIO CHEST PULMONARY EMBOLISM IMPRESSION: 1. No acute pulmonary emboli in the main, left or right pulmonary arteries. Smaller pulmonary obscured by respiratory motion and cannot be evaluated. 2. Diffuse interstitial opacities with confluent opacities in the dependent right greater than left lungs representing chronic emphysema with superimposed fluid imbalance, atelectasis, infection, blood products, or a combination of these possibilities. 3. Bilateral anterior rib fractures. 4. ET and enteric tube in appropriate position PROCEDURE: X-RAY CHEST ONE VIEW, PORTABLE ([id number]) IMPRESSION: Significantly improved congestive heart failure/ pulmonary edema changes. There is now the appearance of some air bronchograms consistent with some consolidation/pneumonia in the left lower lobe. Tubes and lines are appropriate in position. Dictated by: Edilson Atkins M.D. on 05/22/2017 at 9:34 X-RAY CHEST ONE VIEW, PORTABLE ([id number]) IMPRESSION: Bilateral pneumonia pattern, slightly improved at the left lower lobe. Lines and tubes in normal position. Dictated by: Chris Stein M.D. on 05/25/2017 at 8:08 Approved by: Chris Stein M.D. on 05/25/2017 at 8:10 Cardiac Echo Impressions Interpretation Summary The left ventricle is normal in size. Left ventricular systolic function is mildly reduced. Left ventricular ejection fraction is estimated to be 45%. Flattened septum is consistent with RV pressure/volume overload. There is hypokinesis along the anterolateral and inferolateral wall. The right ventricle is not well visualized however appears at least mildly enlarged. Grossly normal systolic function. Right ventricular systolic pressure is estimated to be 24 mmHg plus the clinically estimated CVP which cannot be estimated on this exam. There is mild tricuspid regurgitation. Inspiratory collapse cannot be assessed because of mechanical ventilation, thus CVP cannot be estimated.. Reading Physician:CANELO . Assessment & Plan Barbara Davila is a 61 year old woman with interstitial lung disease secondary to ARDS in 2011 who requires 6-7 L O2 at baseline who has begun to establish care with a pulmonology fellow at the [facility]. She said a recent bout of pneumonia in October and two arrest secondary to hypoxemia the second of which is the reason for this hospital admission. She was intubated in the field and found to be in acute hypercarbic respiratory failure. Initial CT demonstrated new obstruction of airways along with her interstitial lung disease which was not seen on last CT in April. Diarrhea, Not POA, acute. Improved -C.diff negative by PCR -Improved, stools reduced in volume and frequency -Loperamide PRN -Continues to improve Acute on chronic hypercarbic and hypoxic respiratory failure in setting of severe interstitial lung disease, POA. Active -Continued oxygen requirement above baseline -Respiratory status continues to improve, slowly -Continue with DuoNebs -Incentive spirometry Aspiration Pneumonia, Klebsiella and MSSA. Resolved. -Her pro-calcitonin is trending down -All antibiotics and micafungin have been stopped. No further antimicrobials. -Will continue to observe Possible drug fever, resolved. -We have stopped all antibiotics and micafungin Sepsis, present on admission with SIRS criteria were met.Resolved -Patient presented with leukocytosis and tachycardia -Resolved with IVF and Abx Acute kidney injury, present on admission and resolved. -Follow creatinine, this is been nonactive. Possible cardiac arrest, POA, acute. Resolved -Etiology uncertain although likely secondary to hypoxic episode. -Patient was also noted to have a prolonged QT and therefore arrhythmia must be considered. -Avoid QT prolonging medications. -Continue to follow on telemetry. No evidence of arrhythmia. Polysubstance abuse, present on admission and resolved. -Family has brought forth that the patient uses numerous street drugs and alcohol. Unclear when her last use was as she was recently in a SNF prior to this admission. -Complicating sedation at this time. Current sedation with midazolam and Precedex. -Pain from rib fractures sustained during CPR. -Pain control with fentanyl gtt. Disposition: Patient still approaching baseline respiratory and functional mobility status. Placement has been difficult as the patient is somewhat ambiguous in her needs, she is able to walk a significant distance with PT but has O2 requirements which would be difficult to manage at home and a high risk for decompensation. She has been tentatively accepted at [facility], but is adamant in her desire not to return the that institution. Pain Evaluation: Adequate Pain Control GI Prophylaxis: Not indicated VTE Prophylaxis: Sub-Q Heparin (Unfractionated) VTE Mechanical Devices: Intermittant Pneumatic CD Resuscitation Status: CPR: Attempt Resuscitation Attending Statement The patient was seen and examined together with Dr. Leger on 06/02/17 and I agree with the history, exam and plan as outlined in the note above. Fco Leger DO Jun 02, 2017 13:32 Timo Torres Jun 03, 2017 10:25
--- NOTE | 2017-06-02 16:31 | NUR ---
Social Work: Bedside Rounding/Continued Discharge Planning. D: Bedside rounding completed with patient and care team; patient care plan updated. Patient is presently on 6-7 L 02 which is about her baseline. The patient was able to ambulate with PT yesterday ambulating at least 250 feet. During this time patient required increased 02 up to 15 L however patient reports no distress with desaturations. Team reviewed patient's discharge plan. The patient remains adamantly opposed to going back to [facility]. She would be receptive to going to another SNF however one has not been located due to her insurance. Patient states "I kind of figured that would happen." She states that she has contacted a friend on [facility] who is a retired nurse who states that she can come to stay with her until she locates permanent housing. At this time the patient feels that she is able to safely discharge home. Today the patient will continue to get OOB for meals and work with PT to further assess her 02 levels with ambulation. AUTOMOTIVE PRODUCT SPECIALIST encouraged the patient to continue to make the appropriate plans with her friend in preparation for discharge in the next 1-2 days. She confirms that she will do this. A: Pt who is progressing with Physical Therapy with attempts to control patient's 02 levels with ambulation. P: Evolving; Anticipate patient to discharge home with a friend on [facility]. STEPHON has requested Industrial Design Engineer call all home health companies who service [facility] to determine if they are able to accept the patient for admission. STEPHON Avila
--- NOTE | 2017-06-02 19:38 | NUR ---
Activity/Trilogy Pt able to ambulate in room independently with steady gait. Frequently using call light for needs. Pt's trilogy brought in by Trudy missing tubing per RT. nutrition associate RN made aware.
[2017-06-03] VITALS (8 sets, daily range): BP systolic 133–147; BP diastolic 75–81; PULSE 96–118; RESP 20–24; O2SAT 92–94
[2017-06-03] MEDS: Heparin 5,000 Unit/mL Inj SUBQ SCH ×2 (00:38→08:20)
[2017-06-03 02:44] LABS: BASOPHILS % (AUTO) 0.3 % (0-3); EOSINOPHILS % (AUTO) 2.1 % (0-5); MONOCYTES % (AUTO) 7.1 % (4-12); Mean Corpuscular Hemoglobin 29.4 pg (27.0-35.0); Mean Corpuscular Volume 91.8 fL (81-100); Platelet Count 304 bil/L (150-400)
[2017-06-03] MEDS: Albuterol-Ipratropium 3 mL Inhalation Solution NEB PRN (03:04)
[2017-06-03 03:22] LABS: Magnesium 1.7 mg/dL (1.6-2.6); Phosphorus 3.5 mg/dL (2.5-4.9)
--- NOTE | 2017-06-03 05:28 | NUR ---
Activity/GI/IV Ambulating independently in room, using bathroom for frequent soft stools. Loperamide given x1 with effective results. Pt DC'd IV while using bathroom, x1 attempt by this handbook writer unsuccessful. Plan to call IV therapy at 0630.
[2017-06-03] MEDS: Insulin Human REGular 300 Unit/3 mL Inj SUBQ SCH ×2 (07:30→08:42)
[2017-06-03] MEDS: Albuterol-Ipratropium 3 mL Inhalation Solution NEB SCH ×3 (07:59→15:51)
[2017-06-03] MEDS ORDERED: predniSONE 20 mg Tablet PO ONE (08:00)
[2017-06-03] MEDS: Furosemide 10 mg/mL 2 mL Inj IVPUSH SCH ×2 (08:20→08:30)
[2017-06-03] MEDS: Sodium Chloride LOK Flush 10 mL Syringe IVFLUSH PRN (08:25)
--- NOTE | 2017-06-03 09:04 | NUR ---
HOME HEALTH NEW REFERRAL : Called and [facility] does not contract with [facility] and is unable to review referral Called and spoke with Tara at [facility] and they can accept the referral, faxed all information over to [phone] Updated CITY DRIVER
--- NOTE | 2017-06-03 10:21 | NUR ---
POST HOSPITAL FOLLOW UP: Called and scheduled appointment for patient to reestablish with in [place]. Appointment is on 06/14/17 check in at 1545 for 1600 appointment. Asked about being able to follow for home health prior to this appointment and they were sending message to RN and MD and will call back on the cell. Updated SENIOR JAVA WEB APPLICATION DEVELOPER
--- NOTE | 2017-06-03 11:38 | PCM.DIMED ---
Discharge Instructions Date of Service Jun 03, 2017 Dates of Hospitalization May 17, 2017 at 21:30 Discharge Diagnosis Discharge Diagnosis Acute on chronic hypercarbic and hypoxic respiratory failure in setting of severe interstitial lung disease, POA. Active Aspiration Pneumonia, Klebsiella and MSSA. Resolved. Interstitial Lung Disease Diarrhea, Not POA, acute. Improved Possible drug fever, resolved. Sepsis, present on admission with SIRS criteria were met.Resolved Acute kidney injury, present on admission and resolved. Possible cardiac arrest, POA, acute. Resolved Polysubstance abuse, present on admission and resolved. . Diet Discharge Diet: Heart Healthy Activity Discharge Activity: Limited until seen by PCP Call your provider Call your provider for: Fever or Chills, Shortness of breath, Bleeding, Chest pain, Vomitting, Excessive diarrhea, Weakness (unilateral) Patient Instructions Patient Instructions Please keep a very close eye on your swelling in your legs, and how much oxygen you are needing. If you find that your oxygen needs are increasing, or that your stamina is decreasing please seek medical evaluation. Follow-up plan We will set you up with a primary care provider, please follow up with this provider within 2 weeks. Follow-up Provider: [facility] Follow-up with PCP in: 2 weeks Fco Leger DO Jun 03, 2017 11:38
--- NOTE | 2017-06-03 12:43 | NUR ---
Social Work-readiness for discharge: data:EMR Reviewed. Pt is on day 17 of hospitalization for cardiac arrest per H&P. Pt is likely medically stable later today or tomorrow. PT has been working with pt, recommending home with HH, pt is ambulating 350ft. order received for HH services. NEGRA updated by UR specialist that [facility] is the only company that can take pt's insurance and will go to [facility]. SW spoke with pt at bedside, SW role explained. Pt confirms she will not return to SNF and that she has a friend on [facility] where who she can go home with. Pt states she has home O2 through [employer] and also has home trilogy through [facility]. MD states pt is missing tubing from [facility] to consult RT to work on this. SW discussed with pt about HH through [facility] and she is agreeable. Pt does not currently have PCP. Pt states she used to see Dr. Triana in [place] and would like to go back to her. order received for PCP. UR specialist arranged PCP appointment for 06/14/17 at 1545 check in. SW received a call back from RN who verifies that Dr. Triana will follow pt for HH until her PCP appointment on the 06/14. Pt's friend to transport home. F2F to be completed by . SW will continue to follow. Assessment:Pt to benefit from HH. Plan:Pt to discharge home with friend when medically stable via POV. Referral made [facility] for RN,PT services. F2F to be completed by . NEGRA will continue to follow. STEPHON Shi
--- NOTE | 2017-06-03 12:46 | PCM.PNMED ---
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 Intubated May 17 and extubated May 25. She has been on high flow nasal cannula alternating with OxyMask since that time. Initial CT demonstrated new obstruction of airways along with her interstitial lung disease which was not seen on last CT in April. Patient did well overnight Trilogy. Continues today on oxygen mask 6-7 L, which is her baseline. She has no complaints at this time. Exam Vital Signs Vital Sign - Last Date Time Temp Pulse Resp B/P Pulse Ox O2 Delivery O2 Flow Rate FiO2 06/03/17 12:15 107 20 93 Nasal Cannula 6.00 06/03/17 08:00 36.6 140/75 06/01/17 20:39 70 Intake and Output 06/02/17 06/02/17 06/03/17 Cumulative From/Thru 15:00 23:00 07:00 05/17/17 20:07 - 06/03/17 05:16 Intake Total 1080 ml 358 ml 46093 ml Output Total 1350 ml 750 ml 48582 ml Balance -270 ml -392 ml 9322 ml Intake Oral 1080 ml 358 ml 8579 ml IV Total 75744 ml Tube Feeding 4528 ml Tube Irrigant 1586 ml Output Urine Total 1350 ml 750 ml 57135 ml Gastric Drainage Total 630 ml Other 300 ml # Voids 12 # Bowel Movements 1 5 39 Exam General: Alert, Oriented X3, Cooperative, on oxymask. No acute distress. Head: Normocephalic, atraumatic. External ears normal. Eyes: PERRLA, EOMI. Anicteric sclerae. Mouth: Mouth normal, Mucous membranes moist/pink Neck: Neck supple with full range of motion. Chest& Lungs: Crackles throughout bilateral lung neves, significantly improved from previously. Cardiovascular: Regular rate/rhythm, Normal S1, Normal S2, No murmurs/rubs/ gallops Abdomen: Non-tender, Non-distended, No masses, Normoactive bowel tones, Soft Musculoskeletal: Normal range of motion Extremities: Minimal bilateral lower extremity edema Neurological: Grossly neurologically intact. Normal speech Lab and Diagnostics Result Diagram: 9/22/17 0208 9/22/17 020 Microbiology Sputum culture positive for Klebsiella Blood culture negative MRSA negative X-Rays, CTs and MRIs X-RAY CHEST ONE VIEW, PORTABLE IMPRESSION: 1. Acute on chronic diffuse pulmonary opacities new since 05/11/2017 may represent edema, infection, or blood products superimposed on chronic scarring/ fibrosis. 2. ET and enteric tubes. Dictated by: Junior Quinn M.D. on 05/17/2017 at 20:42 CT CERVICAL SPINE WITHOUT CONTRAST IMPRESSION: 1. No CT evidence of acute cervical spine pathology. 2. Extensive degenerative change. 3. Possible right mandibular fracture or motion artifact on this study and on today's head CT. Please correlate with clinical point tenderness of the right mandible. Dictated by: Junior Quinn M.D. on 05/17/2017 at 21:27 CT BRAIN WITHOUT CONTRAST IMPRESSION: Low-density in the maninder may represent early infarction. Recommend MRI with and without contrast for further evaluation. If MRI cannot be performed, recommend short term CT followup. Dictated by: Junior Quinn M.D. on 05/17/2017 at 21:19 CT ANGIO CHEST PULMONARY EMBOLISM IMPRESSION: 1. No acute pulmonary emboli in the main, left or right pulmonary arteries. Smaller pulmonary obscured by respiratory motion and cannot be evaluated. 2. Diffuse interstitial opacities with confluent opacities in the dependent right greater than left lungs representing chronic emphysema with superimposed fluid imbalance, atelectasis, infection, blood products, or a combination of these possibilities. 3. Bilateral anterior rib fractures. 4. ET and enteric tube in appropriate position PROCEDURE: X-RAY CHEST ONE VIEW, PORTABLE ([id number]) IMPRESSION: Significantly improved congestive heart failure/ pulmonary edema changes. There is now the appearance of some air bronchograms consistent with some consolidation/pneumonia in the left lower lobe. Tubes and lines are appropriate in position. Dictated by: Edilson Atkins M.D. on 05/22/2017 at 9:34 X-RAY CHEST ONE VIEW, PORTABLE ([id number]) IMPRESSION: Bilateral pneumonia pattern, slightly improved at the left lower lobe. Lines and tubes in normal position. Dictated by: Chris Stein M.D. on 05/25/2017 at 8:08 Approved by: Chris Stein M.D. on 05/25/2017 at 8:10 Cardiac Echo Impressions Interpretation Summary The left ventricle is normal in size. Left ventricular systolic function is mildly reduced. Left ventricular ejection fraction is estimated to be 45%. Flattened septum is consistent with RV pressure/volume overload. There is hypokinesis along the anterolateral and inferolateral wall. The right ventricle is not well visualized however appears at least mildly enlarged. Grossly normal systolic function. Right ventricular systolic pressure is estimated to be 24 mmHg plus the clinically estimated CVP which cannot be estimated on this exam. There is mild tricuspid regurgitation. Inspiratory collapse cannot be assessed because of mechanical ventilation, thus CVP cannot be estimated.. Reading Physician:CANELO . 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 She has been on high flow nasal cannula alternating with OxyMask since that time. Initial CT demonstrated new obstruction of airways along with her interstitial lung disease which was not seen on last CT in April. Acute on chronic hypercarbic and hypoxic respiratory failure in setting of severe interstitial lung disease. Improved. - Secondary to post-ARDS pulmonary fibrosis and MSSA and Klebsiella pneumonia. Intubated May 17 to May 25, currently on high flow nasal cannula. CXR today shows improved pulmonary edema. Patient is 8L positive over hospital stay, although I/O appears to be inaccurate. Patient is on 40 mg Lasix by mouth BID at home. She is currently on her home O2 settings and tolerating well. She is approaching her baseline and is appropriate for discharge at this time, preferably to a nursing facility although home health would be also acceptable. - Patient to home Lasix dose - Doing well with physical therapy - continue PT outpatient - Pulmonary toilet with incentive spirometry - DuoNebs q6h. Acute sepsis, resolved. - Secondary to aspiration pneumonia. Pt had low grade fevers and diarrhea over the last 2 days, but C. diff was negative. Patient continues to be afebrile. - All antibiotics and micafungin have been stopped. No further antimicrobials. - Continue to monitor Aspiration pneumonia with Staph aureus and Klebsiella. Improved. -Patient was witnessed to have aspirated during the early hospital stay. She received several doses of aztreonam, meropenem, and vancomycin but did not complete a full course as there was doubt of whether there was an active infectious process. She has been afebrile since 05/25/2017. Pro-calcitonin has been negative. Continues to have leukocytosis, which appears stable and may be secondary to prednisone. - We will continue to monitor at this time and consider restarting antibiotics if she shows any signs of infection. - Aztreonam, meropenem, vancomycin, and micafungin have been stopped Post acute respiratory distress syndrome pulmonary fibrosis. Chronic. - Patient has been on steroids for several days, but it is unlikely that this will help her pulmonary fibrosis. She was recently on 40 mg of prednisone, decreased to 20 mg daily on 05/30. We will continue to wean prednisone over the next few days and then stop. - Prednisone taper completed Cardiac arrest. Resolved. - Pt was found unconscious and pulseless in the bathroom the day of admission, requiring CPR and intubation. She was down for a minimal amount of time as she alerted house staff moments prior to being found down. She regained consciousness prior to arrival to [facility], so cooling protocol was not initiated. -Continue to follow on telemetry. No evidence of arrhythmia. - Code: Full Code - Fluids: None - Diet: Soft diet - Lines: Peripheral IV - Prophylaxis: SQ heparin - Dispo: Likely appropriate for discharge at this time. GI Prophylaxis: Not indicated VTE Prophylaxis: Sub-Q Heparin (Unfractionated) VTE Mechanical Devices: Intermittant Pneumatic CD Resuscitation Status: CPR: Attempt Resuscitation Attending Statement Patient seen, examined, and discussed with the resident. Agree with assessment and plan. WBC 13.9 <-14 <-11.4 <-13.6 <-14.7 <-16.4 K 4.0 <-3.9 <-4.1 <-3.8 Mg 1.7 <-1.7 BUN 13 <-14 <-11 <-7 Cr 0.59 <-0.60 <-0.67 <-0.47 Fungal Ab (05/27): Negative Urine legionella (05/20): Negative C diff (05/29): Negative Catheter Tip (05/27): Negative Blood Cx 05/25: Negative 05/24: Negative Urine Cx 05/24: Negative 9/8: Klebsiella Tracheal Aspirate 05/24: NF 05/20: MSSA, klebsiella (s) CXR (06/01): no changes CXR (05/31): bibasilar and left midlung airspace disease CXR (05/30): diffuse b/l interstitial opacities, basilar airspace dz CT (05/27): Negative PE, b/l interstitial opacities, b/l anterior rib fx Assessment: -hypoxic respiratory failure -s/p PEA arrest -pulmonary fibrosis (hx ARDS) -basilar aspiration pneumonia (mssa, kleb) vs pneumonitis (seen on initial CT) -?pulmonaryHTN (prior echo poor study) -tobacco (smoked 1/2ppd x35 years), marijuana use. ?other substance abuse -prolonged QTc -PCN allergy? -hx depression/anxiety, chronic pain Plan: -Continues to improve,down to 6LO2. I/O not accurately documented, but weights have been trending down with fluid removal. Please keep strict I/O and fluid restrict 2L -Continue standing lasix 30mg iv q12. Replete electrolytes. Repeat echo after diuresis. -Completed short course broad abx since admission. Leukocytosis persists. Will re-assess tomorrow about extending duration -Weaning steroids to off. Continue duonebs q6 standing -PT/OT, OOB, IS -Nutrition:PO -Lines: PIV -Prophylaxis: sq heparin -Dispo: PCU, still needs gentle diuresis -Code: Full Ronald Finney Jun 03, 2017 12:46 Gilbert Mayers MD Jun 03, 2017 13:40
[2017-06-03] MEDS ORDERED: ALBU8.5H2 INHALATION (16:32)
--- NOTE | 2017-06-03 16:33 | NUR ---
D/C.. Pt has been stable and amb in room without resp distress. D/C orders written and pt is awaiting cab for d/c to a local hotel. Plan is for 1730 pickup.
[2017-06-03] MEDS ORDERED: BISA-67 PO (16:59)
[2017-06-03] MEDS ORDERED: FURO40TA4 PO (16:59)
[2017-06-03] MEDS ORDERED: LACT1CAP65 PO (16:59)
[2017-06-03] MEDS ORDERED: FLUN8.9H IH (16:59)
[2017-06-03] MEDS ORDERED: [UNRECOGNIZED DRUG - CODE] MC (16:59)
[2017-06-03] MEDS ORDERED: MELO-253 PO (16:59)
[2017-06-03] MEDS ORDERED: OMEP40CA36 PO (16:59)
[2017-06-03] MEDS ORDERED: NORT25CA PO (16:59)
[2017-06-03] MEDS ORDERED: FLUT15.88 NS (16:59)
[2017-06-03] MEDS ORDERED: FEXO-106 PO (16:59)
[2017-06-03] MEDS ORDERED: GABA600T2 PO (16:59)
[2017-06-03] MEDS ORDERED: NA P133E23 RC (16:59)
[2017-06-03] MEDS ORDERED: EPIN0.3P2 IJ (16:59)
[2017-06-03] MEDS ORDERED: LORA0.5T PO (16:59)
[2017-06-03] MEDS ORDERED: OXYC1TAB24 PO (17:00)
[2017-06-03] MEDS ORDERED: PREN1CAP18 PO (17:00)
[2017-06-03] MEDS ORDERED: TOPI-31 PO (17:00)
[2017-06-03] MEDS ORDERED: SERT100T9 PO (17:00)
[2017-06-03] MEDS ORDERED: DIPH25CA6 PO (17:00)
--- NOTE | 2017-06-03 17:35 | NUR ---
Social Work-discharge: Data:EMR Reviewed. Pt is on day 17 of hospitalization for cardiac arrest per H&P. Pt is medically stable for discharge. Pt updated SW that her friend that was supposed to take her in is no longer able to until Tuesday. SW and pt problem solved together. No other friends or family. SW asked about pt staying a hotel and pt states she thinks she could do this. SW provided pt with a list of local hotels to call. agreeable to this discharge plan. Pt arranged for a room at the [facility] in [facility] and her brother is going to pay for a room for her. PT has been ambulating 350ft with pt and is refusing to go back to SNF, all SNF's have declined pt. NEGRA updated [facility] that pt is discharging and provided them with orders and F2F for RN and PT, access given. Tara with [facility] confirms they will be out to see pt tomorrow. NEGRA updated Tara on pt's location at this hotel. Pt does not have any medications due to being in a SNF, has written all new medications, NEGRA has faxed all these medications to [facility] per pt request. Pt has home trilogy and O2 through [facility]. RT supplied pt with 2 tanks to take home and pt arranged for [facility] to deliver concentrator to be delivered to [facility]. SW verified with [facility] that they will be delivering this to her hotel. Pt has no transport to [facility]. SW verified pt arrived via EMS .NEGRA arranged Medicaid transport for 1730 in [facility], pt and RN updated. [facility] worker also updated. PCP appointment scheduled with Dr. Triana on 06/14 at 1545, pt aware. Dr. Triana will follow for HH needs prior to appointment, confirmed with ABIMBOLA Cordova at office. All updated and agreeable to plan. Assessment:Pt who is independent at baseline. Plan:Pt to discharge to local hot via Medicaid taxi at 1730. Pt declining returning to SNF and pt is ambulating 350ft. Pt recently evicted from her home. NEGRA provided [facility] for F2F and orders for RN and PT. Pt has arranged for concentrator to be delivered to hotel from [facility] and pt has trilogy as well. All medications faxed to [facility]. All updated and agreeable to plan. STEPHON Shi
--- NOTE | 2017-06-03 18:08 | PCM.DC.MED ---
Discharge Summary Date of Service Jun 03, 2017 Dates of Hospitalization Date of Hospital Admission May 17, 2017 at 21:30 Date of Discharge: Jun 03, 2017 Providers: Admitting Physician: Sole Foley DO Primary Care Physician: Brian Attending Physician: Timo Torres Diagnosis at Time of Discharge Diagnosis at Time of Discharge Acute on chronic hypercarbic and hypoxic respiratory failure in setting of severe interstitial lung disease, POA. Active Aspiration Pneumonia, Klebsiella and MSSA. Resolved. Interstitial Lung Disease Diarrhea, Not POA, acute. Improved Possible drug fever, resolved. Sepsis, present on admission with SIRS criteria were met.Resolved Acute kidney injury, present on admission and resolved. Possible cardiac arrest, POA, acute. Resolved Polysubstance abuse, present on admission and resolved. . Consultations Infectious disease with Dr. Thai Del Rio Pulmonary critical care with Dr. Josie Reese, and Dr. Gilbert Green Procedures XRay, CTs & MRIs X-RAY CHEST ONE VIEW, PORTABLE IMPRESSION: 1. Acute on chronic diffuse pulmonary opacities new since 05/11/2017 may represent edema, infection, or blood products superimposed on chronic scarring/ fibrosis. 2. ET and enteric tubes. Dictated by: Junior Quinn M.D. on 05/17/2017 at 20:42 CT CERVICAL SPINE WITHOUT CONTRAST IMPRESSION: 1. No CT evidence of acute cervical spine pathology. 2. Extensive degenerative change. 3. Possible right mandibular fracture or motion artifact on this study and on today's head CT. Please correlate with clinical point tenderness of the right mandible. Dictated by: Junior Quinn M.D. on 05/17/2017 at 21:27 CT BRAIN WITHOUT CONTRAST IMPRESSION: Low-density in the maninder may represent early infarction. Recommend MRI with and without contrast for further evaluation. If MRI cannot be performed, recommend short term CT followup. Dictated by: Junior Quinn M.D. on 05/17/2017 at 21:19 CT ANGIO CHEST PULMONARY EMBOLISM IMPRESSION: 1. No acute pulmonary emboli in the main, left or right pulmonary arteries. Smaller pulmonary obscured by respiratory motion and cannot be evaluated. 2. Diffuse interstitial opacities with confluent opacities in the dependent right greater than left lungs representing chronic emphysema with superimposed fluid imbalance, atelectasis, infection, blood products, or a combination of these possibilities. 3. Bilateral anterior rib fractures. 4. ET and enteric tube in appropriate position PROCEDURE: X-RAY CHEST ONE VIEW, PORTABLE ([id number]) IMPRESSION: Significantly improved congestive heart failure/ pulmonary edema changes. There is now the appearance of some air bronchograms consistent with some consolidation/pneumonia in the left lower lobe. Tubes and lines are appropriate in position. Dictated by: Edilson Atkins M.D. on 05/22/2017 at 9:34 X-RAY CHEST ONE VIEW, PORTABLE ([id number]) IMPRESSION: Bilateral pneumonia pattern, slightly improved at the left lower lobe. Lines and tubes in normal position. Dictated by: hCris Stein M.D. on 05/25/2017 at 8:08 Approved by: Chris Stein M.D. on 05/25/2017 at 8:10 Cardiac Echo Impression Interpretation Summary The left ventricle is normal in size. Left ventricular systolic function is mildly reduced. Left ventricular ejection fraction is estimated to be 45%. Flattened septum is consistent with RV pressure/volume overload. There is hypokinesis along the anterolateral and inferolateral wall. The right ventricle is not well visualized however appears at least mildly enlarged. Grossly normal systolic function. Right ventricular systolic pressure is estimated to be 24 mmHg plus the clinically estimated CVP which cannot be estimated on this exam. There is mild tricuspid regurgitation. Inspiratory collapse cannot be assessed because of mechanical ventilation, thus CVP cannot be estimated.. Reading Physician:CANELO . Brief History Barbara Davila is a 61 year old woman with a PMH of severe interstitial lung disease of as yet unclear etiology with associated right sided heart failure and cor pulmonale with recent hospitalization at [facility] for respiratory failure only discharged 4 days ago and apparently some recent trauma requiring hospitalization at [facility] the nature of which is unclear at this time. She presents following a presumed cardiac arrest at [facility]. Nursing staff at the facility noted that the patient was acting strangely and refusing her home meds, then this evening she staff was alerted to her scream and found her passed out on the toilet and initiated CPR; it is unclear to what degree the patient was assessed prior to initiation of CPR; in any case when EMS arrived they noted the patient to be in PEA, and administered 2 further round of CPR and 1 dose of Epinephrine resulting in ROSC. She was somnolent post ROSC and was intubated en route to this facility, EMS notes that the patient was moving all 4 extremities and biting the ET tube, she also vomited profusely and was subsequently sedated with Versed and Fentanyl. Upon arrival to the ED the patient was initially only minimally responsive, however she began to manifest purposeful movements and was fighting the ventilator so she was again sedated in the ED. The patient is unable to provide any history or ROS. EMS noted in the field that her cardiac rhythm post ROSC appeared to be rapid Afib, however this spontaneously converted to Sinus Tach and the Afib was never definitively recorded. Per discussion with [facility], the patient is on 6-7 L O2 chronically due to her lung disease, and is in the midst of an evaluation for possible lung transplant at . In the ED the patient underwent extensive imaging including a Brain CT which was indicative of possible early infarction; a CXR which noted likely pulmonary opacities new since her last CXR on 05/11/17 at [facility]; a CT chest which revealed no PE with re-demonstration of pulmonary opacities and bilateral anterior rib fractures; CT of C spine revealed no cervical fracture and a possible mandibular fracture. ECG was noted to be Right axis deviated and negative for acute ischemic changes. Hospital Course Barbara Davila is a 61 year old woman with interstitial lung disease secondary to ARDS in 2011 who requires 6-7 L O2 at baseline who has begun to establish care with a pulmonology fellow at the [facility]. She had a recent bout of pneumonia in October and two cardiac arrests secondary to hypoxemia; the second of which is the reason for this hospital admission. She was intubated in the field and found to be in acute hypercarbic respiratory failure. Initial CT demonstrated new obstruction of airways along with her interstitial lung disease which was not seen on last CT in April. The patient was veyr difficult to wean off the ventilator given her poor pulmonary function at baseline. Following extubation it was a protracted process to wean her back to her baseline respiratory status. She has a high likelihood of continued respiratory decompensation given the tenuous nature of her respiratory status. She essentially refused what SNF facilities were available to her, and elected to discharge to a hotel with a plan to be picked up and taken into the care of a friend of hers the following day. Acute on chronic hypercarbic and hypoxic respiratory failure in setting of severe interstitial lung disease, POA. Active -prolonged period of oxygen requirement above baseline -Respiratory status continued to improve, slowly, at the time of discharge she was at or very near her baseline respiratory status -Continued with DuoNebs -Incentive spirometry Diarrhea, Not POA, acute. Improved -C.diff negative by PCR -Improved, stools reduced in volume and frequency -Loperamide PRN -Continued to improve Aspiration Pneumonia, Klebsiella and MSSA. Resolved. -Her pro-calcitonin trending down to essentially normal prior to discharge -All antibiotics and micafungin have been stopped. No further antimicrobials. -Will continue to observe as outpatient Possible drug fever, resolved. -We have stopped all antibiotics and micafungin Sepsis, present on admission with SIRS criteria were met.Resolved -Patient presented with leukocytosis and tachycardia -Resolved with IVF and Abx Acute kidney injury, present on admission and resolved. -Followed creatinine, this is been nonactive. Possible cardiac arrest, POA, acute. Resolved -Etiology uncertain although likely secondary to hypoxic episode. -Patient was also noted to have a prolonged QT and therefore arrhythmia must be considered. -Avoided QT prolonging medications. -Continued to follow on telemetry. No evidence of arrhythmia. Possible Polysubstance abuse, present on admission and resolved. -Family has brought forth that the patient uses numerous street drugs and alcohol. Unclear when her last use was as she was recently in a SNF prior to this admission. -She was previously living in a sober living apartment, she was subsequently evicted prior to this admission as alcohol was found in her residence -Complicated sedation during intubation. -Pain from rib fractures sustained during CPR. -Pain was controlled with fentanyl gtt while intubated, converted back to home PO analgesia prior to discharge Exam Vital Signs (Last) Date Time Temp Pulse Resp B/P Pulse Ox O2 Delivery O2 Flow Rate FiO2 06/03/17 16:53 36.8 118 24 147/81 92 Nasal Cannula 6.00 06/01/17 20:39 70 Exam Gen: A/O x3 pleasant cooperative elderly woman in NAD Neck: Full ROM for age, no JVD HEENT: PERRL, EOMI, no scleral icterus, patient on high flow nasal cannula CV: RRR, no murmurs rubs or gallops Resp: Diffuse scattered rhonchi in all lung neves improved since prior exam, no rales, no increased work of breathing Abd: diffuse mild tenderness to palpation in all 4Q, no rebound or guarding Extr: Mild BL LE edema, no cyanosis or clubbing Neuro: CN 2-12 grossly intact, no focal neurologic deficit Psych: Pleasant and appropriate mood and affect Test 05/17/17 20:37 05/17/17 20:58 05/18/17 05:40 05/18/17 13:00 Prothrombin Time 9.7sec (8.1-12.5) Prothromb Time International Ratio 0.91ratio Activated Partial Thromboplast Time 24.4sec (22.8-33.0) Hold Soto Top Tube Received (Received) Hold Urine Received (Received) Lactic Acid Level 0.8mmol/L (0.4-2.0) Troponin T < 0.010ug/L (0.0-0.011) Test 05/19/17 04:40 05/20/17 09:29 05/21/17 04:10 05/23/17 08:34 Triglycerides Level 96mg/dL (0-149) Urine Culture Reflexed Indicated Urine Legionella pneumophilia Ag Negative (Negative) Prealbumin 16mg/dL (20-40) Vancomycin Level Trough 14.0mcg/mL Test 05/24/17 20:13 05/25/17 08:00 05/27/17 04:10 06/01/17 03:42 Urine Color Yellow (YELLOW) Urine Appearance Clear (CLEAR,HAZY) Urine pH 6.5 (5.0-8.0) Urine Specific Priddy 1.015 (1.003-1.035) Urine Protein Negativemg/dL (NEG,TRACE) Urine Glucose (UA) Negativemg/dL (NEGATIVE) Urine Ketones Negativemg/dL (NEGATIVE) Urine Occult Blood Small (NEGATIVE) Urine Nitrite Negative (NEGATIVE) Urine Bilirubin Negative (NEGATIVE) Urine Urobilinogen Normalmg/dL (NORMAL) Urine Leukocyte Esterase Trace (NEGATIVE) Urine RBC 3-10/hpf (0-2) Urine WBC 0-5/hpf (0-5) Urine Epithelial Cells Occasional/hpf (NONE-MOD) Urine Crystals None seen (NONE SEEN) Urine Bacteria None/hpf (NONE-FEW) Urine Hyaline Casts None/lpf (NONE) Urine Granular Casts None seen (NONE SEEN) Urine Waxy Casts None seen (NONE SEEN) Urine Red Blood Cell Casts None seen (NONE SEEN) Urine White Blood Cell Casts None seen (NONE SEEN) Urine Mucus None seen (None Seen) Urine Trichomonas None seen (NONE SEEN) Urine Yeast None (NONE SEEN) Urinalysis Comment None Lipase 30U/L (13-60) Fungal Antibodies 40pg/mL (<80) Pro-B-Type Natriuretic Peptide 1434pg/mL (0-287) Procalcitonin 0.12ng/mL (0.00-0.08) Test 06/03/17 02:08 White Blood Count 13.9th/mm3 (3.8-10.1) Red Blood Count 4.01mil/mm3 (3.90-5.20) Hemoglobin 11.8g/dL (12.0-15.6) Hematocrit 36.8% (35.0-46.0) Mean Corpuscular Volume 91.8fL (81-100) Mean Corpuscular Hemoglobin 29.4pg (27.0-35.0) Mean Corpuscular Hemoglobin Concent 32.1% (32.0-37.0) Red Cell Distribution Width 16.1% (12.3-15.4) Platelet Count 304bil/L (150-400) Neutrophils (%) (Auto) 75.0% (40-74) Lymphocytes (%) (Auto) 14.4% (14-46) Monocytes (%) (Auto) 7.1% (4-12) Eosinophils (%) (Auto) 2.1% (0-5) Basophils (%) (Auto) 0.3% (0-3) Sodium Level 140mEq/L (134-144) Potassium Level 4.0mEq/L (3.5-5.2) Chloride Level 96mEq/L (97-108) Carbon Dioxide Level 26mmol/L (18-29) Blood Urea Nitrogen 13mg/dL (6-24) Creatinine 0.59mg/dL (0.57-1.00) Estimat Glomerular Filtration Rate 149mL/min (>59) Glucose Level 117mg/dL (60-99) Calcium Level 9.4mg/dL (8.5-10.1) Phosphorus Level 3.5mg/dL (2.5-4.9) Magnesium Level 1.7mg/dL (1.6-2.6) Total Bilirubin 0.7mg/dL (0.0-1.2) Aspartate Amino Transf (AST/SGOT) 47U/L (0-50) Alanine Aminotransferase (ALT/SGPT) 62U/L (0-32) Alkaline Phosphatase 101U/L (25-165) Total Protein 7.3g/dL (6.4-8.4) Albumin 4.2g/dL (3.4-5.0) Microbiology Results Sputum culture positive for Klebsiella Blood culture negative MRSA negative Discharge Medications Discharge Medications Albuterol HFA (Proair HFA) 8.5 Gm Hfa.aer.ad 2 PUFFS INHALATION Q4H Prescribed by: DIANELYS LEGER DO Epinephrine (Epipen 2-Jarad) 0.3 Mg/0.3 Ml Auto.injct 0.3 MG IJ ONCE Prescribed by: DIANELYS LEGER DO Fexofenadine (Fexofenadine) 180 Mg Tablet 180 MG PO QAM Prescribed by: DIANELYS LEGER DO Flunisolide (Aerospan) 8.9 Gm Hfa.aer.ad 8.9 GM IH BID Prescribed by: DIANELYS LEGER DO Fluticasone Propionate (Fluticasone Propionate) 50 Mcg/Actuation [place].susp 15.8 ML NS DAILY Prescribed by: DIANELYS LEGER DO Furosemide (Furosemide) 40 Mg Tablet 40 MG PO BID Prescribed by: DIANELYS LEGER DO Gabapentin (Gabapentin) 600 Mg Tablet 600 MG PO TID Prescribed by: DIANELYS LEGER DO Lactobacillus Acidophilus (Probiotic) 1 Each Capsule 1 EACH PO DAILY Prescribed by: DIANELYS LEGER DO Magnesium Hydroxide (Magnesium Hydroxide) 500 Gm Powder 400 GM MC DAILY Prescribed by: DIANELYS LEGER DO Meloxicam (Meloxicam) 15 Mg Tablet 15 MG PO DAILY Prescribed by: DIANELYS LEGER DO Na Phos,M-B/Na Phos,Di-Ba (Fleet Enema) 133 Ml Enema 133 ML RC DAILY Prescribed by: DIANELYS LEGER DO Nortriptyline (Nortriptyline) 25 Mg Capsule 50 MG PO HS Prescribed by: DIANELYS LEGER DO Omeprazole (Omeprazole) 40 Mg Capsule.dr 40 MG PO DAILY Prescribed by: DIANELYS LEGER DO #57/Iron/FA/Dss/Dha (Extra-Virt Plus Dha Softgel) 1 Each Capsule 1 EACH PO DAILY Prescribed by: DIANELYS LEGER DO Sertraline HCl (Sertraline) 100 Mg Tablet 100 MG PO DAILY Prescribed by: DIANELYS LEGER DO Topiramate (Topiramate) 100 Mg Tablet 100 MG PO QAM Prescribed by: DIANELYS LEGER DO As needed Bisacodyl (Dulcolax) 5 Mg Tablet.dr 10 MG PO DAILY PRN PRN For Constipation Prescribed by: DIANELYS LEGER DO Lorazepam (Lorazepam) 0.5 Mg Tablet 0.5 MG PO BID PRN PRN For Anxiety Prescribed by: DIANELYS LEGER DO diphenhydrAMINE HCl (Benadryl) 25 Mg Capsule 25 MG PO Q4 PRN PRN For Itching Prescribed by: DIANELYS LEGER DO oxyCODONE-Acetaminophen 5-325 mg (oxyCODONE-Acetaminophen 5-325 mg) 1 Each Tablet 1 TAB PO Q4H PRN PRN For Pain Prescribed by: DIANELYS LEGER DO Followup Plan Disposition: Home with Home health Follow-up plan We will set you up with a primary care provider, please follow up with this provider within 2 weeks. Discharge Diet: Heart Healthy Discharge Activity: Limited until seen by PCP Patient Instructions Please keep a very close eye on your swelling in your legs, and how much oxygen you are needing. If you find that your oxygen needs are increasing, or that your stamina is decreasing please seek medical evaluation. Follow-up Provider: [facility] Follow-up with PCP in: 2 weeks Time spent Time spent planning and coordinating discharge > 35 minutes. Attending Statement The patient was seen and examined together with Dr. Leger on 06/03/17 and I agree with the history, exam and plan as outlined in the note above. copies to: [facility] Dianelys Leger DO Jun 03, 2017 18:08 Timo Torres Jun 03, 2017 18:19
== END 2017-06-03 17:20 | disposition home health service (06) | DRG 951 ==
LOC: SED 20:06 → CCU 21:30 → PCC 05-27 10:29
PROVIDERS: ADMIT Internal Medicine; ATTEND Internal Medicine
PROC: 5A1955Z Respiratory Ventilation, Greater than 96 Consecutive Hours (ICD-10-PCS; principal; 2017-05-17)
PROC: 02HV33Z Insertion of Infusion Device into Superior Vena Cava, Percutaneous Approach (ICD-10-PCS; 2017-05-17)
PROC: 03HY32Z Insertion of Monitoring Device into Upper Artery, Percutaneous Approach (ICD-10-PCS; 2017-05-18)
PROC: 4A033R1 Measurement of Arterial Saturation, Peripheral, Percutaneous Approach (ICD-10-PCS; 2017-05-18)
DX: J96.21 Acute and chronic respiratory failure with hypoxia (principal); I46.9 Cardiac arrest, cause unspecified; J69.0 Pneumonitis due to inhalation of food and vomit; A41.9 Sepsis, unspecified organism; J84.9 Interstitial pulmonary disease, unspecified; N17.9 Acute kidney failure, unspecified; S22.43XA Multiple fractures of ribs, bilateral, initial encounter for closed fracture; Z68.42 Body mass index [BMI] 45.0-49.9, adult; I50.42 Chronic combined systolic (congestive) and diastolic (congestive) heart failure; J96.22 Acute and chronic respiratory failure with hypercapnia; I27.81 Cor pulmonale (chronic); E66.9 Obesity, unspecified; X58.XXXA Exposure to other specified factors, initial encounter; Y92.129 Unspecified place in nursing home as the place of occurrence of the external cause; Z88.0 Allergy status to penicillin; Z22.39 Carrier of other specified bacterial diseases; R19.7 Diarrhea, unspecified; B95.61 Methicillin susceptible Staphylococcus aureus infection as the cause of diseases classified elsewhere; F19.10 Other psychoactive substance abuse, uncomplicated; Z87.891 Personal history of nicotine dependence

== ENCOUNTER 2017-06-04 22:49 | Inpatient (IN) | payer OTHER, MEDICAID ==
[~2017-06-04] VITALS: Ht 154.9 cm; Wt 97.5 kg
[~2017-06-04 22:49] MED LIST: ALBU8.5H2 INHALATION; BISA-67 PO; DIPH25CA6 PO; EPIN0.3P2 IJ; FEXO-106 PO; FLUN8.9H IH; FLUT15.88 NS; FURO40TA4 PO; GABA600T2 PO; LACT1CAP65 PO; LORA0.5T PO; MELO-253 PO; NA P133E23 RC; NORT25CA PO; OMEP40CA36 PO; OXYC1TAB24 PO; PREN1CAP18 PO; SERT100T9 PO; TOPI-31 PO; [UNRECOGNIZED DRUG - CODE] MC
--- NOTE | 2017-06-04 22:51 | ED.REPORT ---
HPI-Dyspnea / Wheezing Date of Service Jun 04, 2017 ED Provider: Tone Pabon DO The pt is a 61 y/o female w/ a hx of polysubstance abuse presenting to the ED via EMS due to SOB. The pt was at a hotel, found cyanotic, w/ oxygen levels in the 60s per EMS. The pt was hospitalized for 15 days and discharged yesterday for an episode of cardiac arrest. Nursing Notes Stated Complaint: SHORTNESS OF BREATH Chief Complaint: SOB Nursing Notes Reviewed: Yes Allergies: Coded Allergies: Penicillins (Verified Allergy, Unknown, 05/17/17) Scheduled Albuterol HFA (Proair HFA) 8.5 Gm Hfa.aer.ad 2 PUFFS INHALATION Q4H Epinephrine (Epipen 2-Jarad) 0.3 Mg/0.3 Ml Auto.injct 0.3 MG IJ ONCE Fexofenadine (Fexofenadine) 180 Mg Tablet 180 MG PO QAM Flunisolide (Aerospan) 8.9 Gm Hfa.aer.ad 8.9 GM IH BID Fluticasone Propionate (Fluticasone Propionate) 50 Mcg/Actuation [place].susp 15.8 ML NS DAILY Furosemide (Furosemide) 40 Mg Tablet 40 MG PO BID Gabapentin (Gabapentin) 600 Mg Tablet 600 MG PO TID Lactobacillus Acidophilus (Probiotic) 1 Each Capsule 1 EACH PO DAILY Magnesium Hydroxide (Magnesium Hydroxide) 500 Gm Powder 400 GM MC DAILY Meloxicam (Meloxicam) 15 Mg Tablet 15 MG PO DAILY Na Phos,M-B/Na Phos,Di-Ba (Fleet Enema) 133 Ml Enema 133 ML RC DAILY Nortriptyline (Nortriptyline) 25 Mg Capsule 50 MG PO HS Omeprazole (Omeprazole) 40 Mg Capsule.dr 40 MG PO DAILY #57/Iron/FA/Dss/Dha (Extra-Virt Plus Dha Softgel) 1 Each Capsule 1 EACH PO DAILY Sertraline HCl (Sertraline) 100 Mg Tablet 100 MG PO DAILY Topiramate (Topiramate) 100 Mg Tablet 100 MG PO QAM Scheduled PRN Bisacodyl (Dulcolax) 5 Mg Tablet.dr 10 MG PO DAILY PRN PRN For Constipation Lorazepam (Lorazepam) 0.5 Mg Tablet 0.5 MG PO BID PRN PRN For Anxiety diphenhydrAMINE HCl (Benadryl) 25 Mg Capsule 25 MG PO Q4 PRN PRN For Itching oxyCODONE-Acetaminophen 5-325 mg (oxyCODONE-Acetaminophen 5-325 mg) 1 Each Tablet 1 TAB PO Q4H PRN PRN For Pain General Time Seen by MD: 22:48 Chief Complaint Shortness of breath Hx Obtained From: Patient, EMS Arrived By: Ambulance Sudden in Onset?: Yes Onset Occurred: Just prior to arrival Symptom Duration: Since onset Recent Healthcare: Recent doctor visit, Recent hospitalization Past Medical History Past Medical History Cardiac arrest Past Surgical History None reported Smoking History Unknown if Ever Smoker Social History Polysubstance abuse Ambulatory Status Independent Review of Systems Unable to Obtain ROS Patient condition (patient presents in extremis. She can barely answer one to 2 words at a time. She was intubated before I could perform a very thorough review of systems.) Respiratory: Reports: Shortness of breath Complete sys rev & neg: except as marked. Physical Exam Initial Vital Signs Vital Signs (First) Date Time Temp Pulse Resp B/P Pulse Ox O2 Delivery O2 Flow Rate FiO2 06/04/17 22:55 37.6 147 48 193/122 48 Non-Rebreather 20 Initial VS: Reviewed Abdomen / GI: Soft, Non-tender, No guarding Back: No CVA tenderness Lymphatic: No lymphadenopathy Extremities: Vascular intact General/Constitutional: Awake Appearance / Presentation: Positive: Pale Pt is unable to speak in full sentences; Neck: Atraumatic, Supple, Full range of motion Resp Distress / Stridor: Positive: Resp distress severe Rales / Rhonchi: Positive: Rales R base, Rales bilateral up to 1/3 Cardiovascular: Regular rhythm, Heart sounds NL Heart Rate / Rhythm: Positive: Tachycardia Bilateral pitting edema in lower extremities Abdomen: Atraumatic, Soft, Non-tender Back: Atraumatic, Inspection NL, Full range of motion Skin: No rash, Warm Diaphoretic; Head / Eyes: Normocephalic, PERRL, EOMI Forehead ecchymosis Upper Extremity / MS: Atraumatic, Full range of motion, No deformity Interpretation & Diagnostics CT Pulmonary Angiogram Conclusion: No evidence of pulmonary embolism or dissection. Moderate interstitial pulmonary edema w/ airspace consolidation/pneumonia within the superior segment of the R lower lobe and posterior segment of the R lower lobe. Scattered areas of atelectasis. Mild cardiomegaly. Endotracheal tube, feeding tube and R IJ central venous catheter. Multiple prominent mediastinal lymph nodes may be infectious, inflammatory or neoplastic. Hepatomegaly w/ hepatic steatosis Multiple nondisplaced bilateral rib fractures may be secondary to CPR. This report was transmitted to the emergency room at 06/05/17 2:32:21 AM PDT. Lab Results Interpretation Result Diagram: 06/04/17 2250 06/04/17 2250 Test 06/04/17 22:50 06/04/17 23:24 White Blood Count 18.6th/mm3 (3.8-10.1) Red Blood Count 4.25mil/mm3 (3.90-5.20) Hemoglobin 12.4g/dL (12.0-15.6) Hematocrit 39.9% (35.0-46.0) Mean Corpuscular Volume 93.9fL (81-100) Mean Corpuscular Hemoglobin 29.2pg (27.0-35.0) Mean Corpuscular Hemoglobin Concent 31.1% (32.0-37.0) Red Cell Distribution Width 16.1% (12.3-15.4) Platelet Count 334bil/L (150-400) Neutrophils (%) (Auto) 74.6% (40-74) Lymphocytes (%) (Auto) 16.3% (14-46) Monocytes (%) (Auto) 6.5% (4-12) Eosinophils (%) (Auto) 1.4% (0-5) Basophils (%) (Auto) 0.5% (0-3) Band Neutrophils % 1% (1-5) Prothrombin Time 9.8sec (8.1-12.5) Prothromb Time International Ratio 0.92ratio D-Dimer 2.70mg/L FEU (<0.50) Sodium Level 138mEq/L (134-144) Potassium Level 4.2mEq/L (3.5-5.2) Chloride Level 96mEq/L (97-108) Carbon Dioxide Level 27mmol/L (18-29) Blood Urea Nitrogen 9mg/dL (6-24) Creatinine 0.64mg/dL (0.57-1.00) Estimat Glomerular Filtration Rate 136mL/min (>59) Glucose Level 158mg/dL (60-99) Calcium Level 9.5mg/dL (8.5-10.1) Magnesium Level 1.8mg/dL (1.6-2.6) Total Bilirubin 0.9mg/dL (0.0-1.2) Aspartate Amino Transf (AST/SGOT) 50U/L (0-50) Alanine Aminotransferase (ALT/SGPT) 58U/L (0-32) Alkaline Phosphatase 110U/L (25-165) Troponin T 0.016ug/L (0.0-0.011) Pro-B-Type Natriuretic Peptide 528.1pg/mL (0-287) Total Protein 8.1g/dL (6.4-8.4) Albumin 4.7g/dL (3.4-5.0) Triglycerides Level 116mg/dL (0-149) Procalcitonin 0.10ng/mL (0.00-0.08) Alcohols < 10mg/dL (0-10) Lactic Acid Level 1.5mmol/L (0.4-2.0) ECG Interpretation ECG Interpretation: Rate 143 Sinus tachycardia Probable L atrial enlargement R axis deviation No STEMI Time: 23:01 Interpreted by: ED physician X-Ray Chest Interpretation Chest Xray Interpretation: Impression: bilat interstitial infiltrates View: Portable, 1 view Interpretation / Wet Read by: Wet read ED physician Chest Xray Interpretation: Impression: Endotracheal tube 1.5 cm above the sarah ET tube pulled back Bilateral fluffy infiltrates w/ interstitial pattern No pneumothorax View: Portable, 1 view Interpretation / Wet Read by: Wet read ED physician Chest Xray Interpretation: Impression: Need to pull ET tube 1.5 cm back. Line at cavoatrial junction. View: Portable, 1 view Interpretation / Wet Read by: Wet read ED physician CT Head Interpretation Conclusion: Moderate involutional changes. No acute intracranial abnormality. Endotracheal and orogastric tubes noted. This report was transmitted to the emergency room at 06/05/17 2:221:13 AM PDT. Study: Head CT no contrast Interpretation / Wet Read by: Interpret - Radiologist CT C-Spine Interpretation Conclusion: No evidence of a fracture or subluxation. Degenerative changes as described above. Small bilateral pleural effusions w/ mild interstitial pulmonary edema. Endotracheal and orogastric tubes noted. Right IJ central venous catheter. This report was transmitted to the emergency room at 06/05/17 2:25:52 AM PDT. Study type: CT no contrast Interpretation / Wet Read by: Interpret - Radiologist Procedures Central Line Placement Central Line Placement Note: Dr. Pabon was present for the entirety of the central line placement. Time: 00:01 Procedure Performed by: ED resident Consent / Setup / Site Prep: Informed consent provided, Consent from patient , Time-out performed, Oxygen administered, Pulse oximeter applied, drug coordinator applied, Hand hygiene observed, Standard surgical scrub, Sterile drapes applied Skin Preparation Agent: Hibiclens - Chlorhexidine Side / Location / Ultrasound: Internal jugular right Catheter / Lumen / Technique: Triple lumen, Good blood return, Secured w catheter device Post-Procedure / Complications: Dressing placed, CXR neg for pneumothorax, Condition improved, Tolerated procedure well, Patient stable Intubation Intubation Procedure: Good color change and breath sounds post intubation; Time: 22:50 Procedure Performed by: ED physician Consent / Setup / Site Prep: Informed consent provided, Consent from patient , Time-out performed, Oxygen administered, Pulse oximeter applied, drug coordinator applied, Hand hygiene observed, Stand sterile technique Patient Position: Neutral position Blade / ET Tube / Route: Route: oral Secured / Marked: Adhesive tape Complications: None Post-Procedure: Condition improved, Tolerated procedure well, Patient stable Re-Eval/Medical Decision Med Decision/Clinical Course Family 61-year-old female presents in extremis. Evidently she lives to a cardiac arrest and was discharged yesterday. This was relayed to me by EMS. She called from a hotel room and when the medics got there she literally was crawling across the floor. She was hypoxic and diaphoretic. The patient thought that she had wheezes bilaterally. She is giving a breathing treatment an IV was placed and she is brought into me. Upon presentation she was in extremis and was nearly unable to speak. She was to Think about 40. She was diaphoretic and pale. She actually looked a little cyanotic as well. Her O2 sat was in the 60s. She agreed to intubation by nodding her head yes when asked if she wanted be put on life support. I did not feel that we had any time for non-invasive airway. She was starting to fatigue. Her mentation was not great. I do not feel that BiPAP was indicated. She was rapid sequence intubated without difficulty. Please see the note for this. We are able to bag her up to a sat in the high 90s almost immediately. Diagnostics were reviewed. She is having and an STEMI. Her EKG does not show an ST elevation [place]. She has impressive pneumonia right greater than left. She did become hypotensive after some propofol however she responded nicely to fluids. She will be admitted to the intensive care unit. A right internal jugular cath was placed by the medicine resident mission coordinator. I was present before, during and after the procedure. I was there throughout the entire procedure. No complications. She was treated with IV cefepime and IV levofloxacin. She will be admitted to the intensive care unit. Source of Hx: Old records Consultation : Referral / Consult Name: Liborio Dalal MD Consulted With: Hospitalist Call Returned at: 23:27 High Value Associate: Will see patient, Agrees with eval, Agrees with plan, Accepts admit Counseled Regarding: Diagnosis, Lab results, Need for admission Discharge & Departure Impression: Primary Impression: Acute hypoxemic respiratory failure Additional Impressions: Bilateral pneumonia Pneumonia type: due to unspecified organism Lung location: unspecified part of lung Qualified Code: J18.9 - Pneumonia, unspecified organism CHF (congestive heart failure) Congestive heart failure type: unspecified congestive heart failure type Congestive heart failure chronicity: unspecified congestive heart failure chronicity Qualified Code: I50.9 - Heart failure, unspecified Disposition: ADMITTED TO HOSPITAL Discharge Condition All VS Reviewed: Yes Condition: Stable Referrals: NOPCP (PCP) Bria Caba MD Crit Care Except Billable Proc Time Spent: 30-74 minutes (managing ventilator. Management of extreme respiratory distress.) Services Performed: Patient management by me, Time spent at bedside, Reviewing test results, Reviewing imaging, Discussing patient care, Documentation in record, Time with fam/surrogate Scribe Attestation Portions of this note were transcribed by Sky Gentile. I, Dr. Pabon personally performed the history, physical exam and medical decision-making; I reviewed and confirmed the accuracy of the information in the transcribed note. copies to: Bria Caba MD, Todd P DO Jun 04, 2017 22:51 Sky Gentile Jun 04, 2017 23:37
[2017-06-04 22:55] VITALS: BP 193/122; PULSE 147; RESP 48; O2SAT 48
[2017-06-04] MEDS ORDERED: Propofol 10,000 mCg/mL 100 mL Inj ONE (22:59)
[2017-06-04 23:01] LABS: BASOPHILS % (AUTO) 0.5 % (0-3); EOSINOPHILS % (AUTO) 1.4 % (0-5); MONOCYTES % (AUTO) 6.5 % (4-12); Mean Corpuscular Hemoglobin 29.2 pg (27.0-35.0); Mean Corpuscular Volume 93.9 fL (81-100); NEUTROPHILS % (AUTO) 74.6 % (40-74); Platelet Count 334 bil/L (150-400)
[2017-06-04] MEDS ORDERED: Cefepime Inj 2,000 MG in Dextrose 5% Minibag Plus 100 ML IV ONE (23:20)
[2017-06-04] MEDS ORDERED: levoFLOXacin Inj 750 MG in IV Premix 1 EACH IV ONE (23:20)
[2017-06-04 23:21] LABS: D-Dimer 2.7 mg/L FEU (<0.50); INR 0.92 ratio
[2017-06-04] MEDS ORDERED: Etomidate 2 mg/mL 20 mL Inj IV ONE (23:25)
[2017-06-04] MEDS ORDERED: Succinylcholine Chloride 20 mg/mL 5 mL Inj IVPUSH ONE (23:25)
[2017-06-04] MEDS ORDERED: Propofol Inj 1,000,000 MCG in IV Premix 1 EACH IV SCH (23:25)
--- NOTE | 2017-06-04 23:27 | ABG ---
DateTimeAnalyzed 23:19:00 -_ pH ____7.247 - 7.350 7.450 pCO2 ___67.5__ -mmHg 35.0 45.0 pO2 111 -mmHg 80.0 100 HCO3- ___28.4__ -mmol/L 22.0 26.0 ABE ____0.1__ -mmol/L -2.0 2.0 tHb ___12.1__ -g/dL 12.0 18.0 O2Hb ___93.9__ -% COHb ____1.8__ -% 1.5 MetHb ____1.1__ -% 0.4 1.5 sO2 ___96.7__ -% 95.0 FIO2 __100.0__ -% PEEP ____5.0__ -cmH2O Set_RR ___16.0__ -b/min Vt __380.0__ -L Drawn By AF - Date/Time Notified____ 23:26:00 -_ Spontaneous_RR ___28.0__ -b/min Oxygen Device 1 VENTILATOR - Notified By AF - Notified Whom ___Dr. Beia - B 760 -mmHg tO2 ___16.2__ -Vol% OrderingPhysicianInitials tb - Wisam test _Positive -
[2017-06-04 23:33] LABS: TROPONIN T 0.016 ug/L (0.0-0.011)
[2017-06-04] MEDS ORDERED: Vecuronium 1,000 mCg/mL 10 mL Inj IV ONE (23:40)
[2017-06-04 23:44] LABS: Magnesium 1.8 mg/dL (1.6-2.6)
[2017-06-04] MEDS ORDERED: fentaNYL 2,500 mCg/250 mL IV Premix IV SCH (23:55)
[2017-06-05] VITALS (15 sets, daily range): BP systolic 80–128; BP diastolic 48–71; PULSE 94–124; RESP 18–28; O2SAT 92–100
[2017-06-05] MEDS: fentaNYL 2,500 mCg/250 mL 2,500 MCG in IV Premix 1 EACH IV PRN ×2 (01:00→01:50)
[2017-06-05] MEDS ORDERED: Senna-Docusate 8.6-50 mg Tablet PO PRN (01:30)
[2017-06-05] MEDS ORDERED: Polyethylene Glycol (PEG) 17 Gm Powder PO PRN (01:30)
[2017-06-05] MEDS ORDERED: Alum-Mag Hydrox-Simeth 30 mL Suspension PO PRN (01:30)
[2017-06-05] MEDS ORDERED: Ondansetron 2 mg/mL 2 mL Inj IVPUSH PRN (01:30)
--- NOTE | 2017-06-05 02:00 | PCM.HPMED ---
Subjective Date of Service Jun 05, 2017 Primary Provider: Admitting Physician: Liborio Dalal MD Primary Care Physician: Nopadryan Attending Physician: Liborio Dalal MD Chief Complaint: Acute Hypoxic respiratory failure History of Present Illness: 61-year-old female with severe interstitial lung disease from prior ARDS who was discharged from the hospital approximately 36 hours ago after being admitted for hypoxic cardiac arrest 2 with a prolonged ICU course due to difficulty weaning ventilation and possible aspiration pneumonia with staph aureus and Klebsiella. From discharge summary it also appears that the patient uses numerous recreational drugs and alcohol. She was discharged after improvements were made in her overall respiratory status, although she continues to require 6-7 L, if not more, of O2 at baseline. Per ED report, which was received by EMS, the patient was brought in due to shortness of breath with cyanosis and persistent desaturation in the 60s. Attempts were made to bring the patient's oxygen up lower immediately unsuccessful and patient was intubated and sedated on propofol. Chest x-ray was obtained and showed only mildly progressed opacities that were previously seen prior to admission. Procalcitonin was negative. D-dimer is obtained was elevated and patient is currently pending a CT of the head and neck, as well as PE protocol of the chest. Central line was placed in the ED and patient is currently on propofol and fentanyl. Review of Systems: Patient unable to give reverse systems due to intubation and sedation Allergies Coded Allergies: Penicillins (Verified Allergy, Unknown, 05/17/17) Home Medications Albuterol HFA (Proair HFA) 8.5 Gm Hfa.aer.ad 2 PUFFS INHALATION Q4H Epinephrine (Epipen 2-Jarad) 0.3 Mg/0.3 Ml Auto.injct 0.3 MG IJ ONCE Fexofenadine (Fexofenadine) 180 Mg Tablet 180 MG PO QAM Flunisolide (Aerospan) 8.9 Gm Hfa.aer.ad 8.9 GM IH BID Fluticasone Propionate (Fluticasone Propionate) 50 Mcg/Actuation [place].susp 15.8 ML NS DAILY Furosemide (Furosemide) 40 Mg Tablet 40 MG PO BID Gabapentin (Gabapentin) 600 Mg Tablet 600 MG PO TID Lactobacillus Acidophilus (Probiotic) 1 Each Capsule 1 EACH PO DAILY Magnesium Hydroxide (Magnesium Hydroxide) 500 Gm Powder 400 GM MC DAILY Meloxicam (Meloxicam) 15 Mg Tablet 15 MG PO DAILY Na Phos,M-B/Na Phos,Di-Ba (Fleet Enema) 133 Ml Enema 133 ML RC DAILY Nortriptyline (Nortriptyline) 25 Mg Capsule 50 MG PO HS Omeprazole (Omeprazole) 40 Mg Capsule.dr 40 MG PO DAILY #57/Iron/FA/Dss/Dha (Extra-Virt Plus Dha Softgel) 1 Each Capsule 1 EACH PO DAILY Sertraline HCl (Sertraline) 100 Mg Tablet 100 MG PO DAILY Topiramate (Topiramate) 100 Mg Tablet 100 MG PO QAM Bisacodyl (Dulcolax) 5 Mg Tablet.dr 10 MG PO DAILY PRN PRN For Constipation Lorazepam (Lorazepam) 0.5 Mg Tablet 0.5 MG PO BID PRN PRN For Anxiety diphenhydrAMINE HCl (Benadryl) 25 Mg Capsule 25 MG PO Q4 PRN PRN For Itching oxyCODONE-Acetaminophen 5-325 mg (oxyCODONE-Acetaminophen 5-325 mg) 1 Each Tablet 1 TAB PO Q4H PRN PRN For Pain PMH Severe interstitial lung disease Right sided heart failure Cor pulmonale Depression/Anxiety Chronic Pain Surgical History None provided as patient is sedated and intubated Family History None provided as patient is sedated and intubated Social History Hx Alcohol Use: Yes Hx Substance Use: Yes Smoking Status: Unknown if Ever Smoker Exam Vital Signs Vital Sign - Last Date Time Temp Pulse Resp B/P Pulse Ox O2 Delivery O2 Flow Rate FiO2 06/05/17 00:12 95 Exam General: Sedated and intubated HEENT: PERRLA, nonicteric, right IJ in place, ET tube in place Lymph: No lymphadenopathy Cardio: Tachycardic and sinus rhythm no murmurs rubs or gallops Respiratory: CTA bilaterally, no wheezes, no crackles Abdomen: Soft, positive bowel sounds, nondistended Extremities: Pitting edema Psych: Appropriate mood and affect Neuro: CN II through XII grossly intact, sensation intact throughout Skin: No rash Lab and Diagnostics Result Diagram: 06/04/17224906/04/172249 X-Rays, CTs and MRIs Chest x-ray Official read pending; mild increase in opacities compared to previous CT brain and neck pending CTA PE protocol pending 12-lead ECG Sinus tachycardia with rate around 143; no concerning ST changes Assessment & Plan Barbara Davila is a 61 year old woman with 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 It is difficult to tell why this patient all of a sudden decompensated so severely. Per EMS reports she was satting in the 60s and high flow was unable to provide benefit. Patient was intubated and sedated, and prior to this the ED physician reports that she was unable to speak in complete sentences. Reviewing her last infectious disease consults on her last admission, it is questionable whether she had a pulmonary infection at all as the procalcitonin was never very elevated. Patient does have a history of alcohol and recreational drug abuse which could have precipitated her acute decline. Pulmonary embolism cause being the differential and currently she is undergoing CT for evaluation. In any case it appears that this is primarily due to her severe lung disease and possible aspiration, pneumonitis, or drug abuse.. Patient does not appear to be septic even though she meets criteria, as the left shift is very mild, there is no fever, and the leukocytosis and tachycardia are likely due to the severe hypoxia. However the patient has had a large amount of secretions after she was intubated. Problem list: Acute on chronic hypoxic respiratory failure Sepsis with tachycardia and leukocytosis, source unclear Severe interstitial lung disease Polysubstance abuse/dependence Alcohol dependence Possible aspiration pneumonia versus aspiration pneumonitis Plan: -CT of brain, neck, and PE protocol pending -Ventilator management by ICU team; repeat ABG once on the floor -Toxicology and alcohol levels pending -Repeat chest x-ray in the morning -DuoNeb every 6hr prn and pulmonary toilet -Continue Lasix 40 mg changed to IV due to overload picture -We will again place on vancomycin, aztreonam, and Flagyl, as the patient has a severe penicillin allergy which has limited her previous antibiotic selection - Code: Full Code - Fluids: None - Diet: Famotidine IV; recommend trickle feeds in a.m. - Lines: Right IJ line - Prophylaxis: SQ heparin Disposition: Patient is being admitted to inpatient status with expected length of stay greater than two midnights due to to severity of presentation, duration of treatment, and risks of adverse events disposition. Prognosis remains guarded as patient's lung function continues to decline. Pain Evaluation: Adequate Pain Control GI Prophylaxis: H2 pat VTE Prophylaxis: Sub-Q Heparin (Unfractionated) VTE Mechanical Devices: Intermittant Pneumatic CD Resuscitation Status: CPR: Attempt Resuscitation Time spent 1 hour critical care time spend Attending Statement The patient was seen and examined together with Dr. Venegas on 06/04 and I agree with the history, exam and plan as outlined in the note above. Gilbert Venegas DO Jun 05, 2017 02:00 Liborio Dalal MD Jun 05, 2017 03:00
[2017-06-05] MEDS ORDERED: Furosemide 10 mg/mL 4 mL Inj IVPUSH SCH (02:30)
[2017-06-05] MEDS: Vancomycin Dose per Pharmacist XX SCH ×2 (02:30→08:18)
--- NOTE | 2017-06-05 02:40 | PCM.PROC ---
Procedure Note Date of Service: Jun 05, 2017 Pre Procedure Diagnosis: Acute hypoxic respiratory failure Post Procedure Diagnosis: Acute hypoxic respiratory failure Procedure Details: Date: 06/04/17 Time: 2330 Indication: Intravenous access Resident: Gilbert Venegas DO Attending: Tone Pabon DO A time-out was completed verifying correct patient, procedure, site, positioning , and special equipment if applicable. The patient was placed in a dependent position appropriate for central line placement based on the vein to be cannulated. The patients right neck/shoulder was prepped and draped in sterile fashion. A triple lumen catheter was introduced into the the internal jugular under ultrasound guidance. The catheter was threaded smoothly over the guide wire and appropriate blood return was obtained. Each lumen of the catheter was evacuated of air and flushed with sterile saline. The catheter was then dressed in place to the skin and a sterile dressing applied. Perfusion to the extremity distal to the point of catheter insertion was checked and found to be adequate. Dr. Pabon was present for the entire procedure. Estimated Blood Loss: < 5ml The patient tolerated the procedure well and there were no complications. Gilbert Venegas DO Jun 05, 2017 02:40
[2017-06-05] MEDS ORDERED: Vancomycin Inj 2,000 MG in 0.9% Sodium Chloride 500 ML IV ONE (02:50)
--- NOTE | 2017-06-05 03:11 | ABG ---
DateTimeAnalyzed 03:01:57 -_ pH ____7.384 - 7.350 7.450 pCO2 ___52.0__ -mmHg 35.0 45.0 pO2 ___78.2__ -mmHg 80.0 100 HCO3- ___31.0__ -mmol/L 22.0 26.0 ABE ____5.4__ -mmol/L -2.0 2.0 tHb ___10.5__ -g/dL 12.0 18.0 O2Hb ___93.5__ -% COHb ____2.9__ -% 1.5 MetHb ____0.0__ -% 0.4 1.5 sO2 ___96.3__ -% 95.0 FIO2 __100.0__ -% PEEP ____5.0__ -cmH2O Set_RR 18 -b/min Vt __430.0__ -L Drawn By MK - Date/Time Notified____ 03:11:00 -_ Spontaneous_RR 19 -b/min Oxygen Device 1 VENTILATOR - Notified By MK - K+ ____3.7__ -mmol/L 3.5 5.0 tO2 ___13.9__ -Vol% Wisam test _Positive -
[2017-06-05] MEDS: Propofol Inj 1,000,000 MCG in IV Premix 1 EACH IV SCH ×6 (03:32→21:19)
[2017-06-05] MEDS: Aztreonam Inj 2,000 MG in Dextrose 5% Minibag Plus 100 ML IV SCH ×3 (03:42→18:27)
[2017-06-05] MEDS ORDERED: Norepinephrine 8,000 mCg/250 mL NS Premix IV ONE (04:11)
--- NOTE | 2017-06-05 04:30 | PCM.CONPHA ---
Subjective Date of Service: Jun 05, 2017 Requesting Provider: Gilbert Venegas DO Acute Hypoxic respiratory failure Reason for Pharmacy Consult: Vancomycin Dosing Objective Vital Signs Date Time Temp Pulse Resp B/P Pulse Ox O2 Delivery O2 Flow Rate FiO2 06/05/17 02:49 122 86/50 100 100 06/05/17 00:12 95 06/04/17 22:55 37.6 147 48 193/122 48 Non-Rebreather 20 Weight (Kilograms): 91 Height (Feet): 5 Height (Inches): 5 Test 06/04/17 22:50 06/04/17 23:24 06/05/17 01:00 White Blood Count 18.6th/mm3 (3.8-10.1) Red Blood Count 4.25mil/mm3 (3.90-5.20) Hemoglobin 12.4g/dL (12.0-15.6) Hematocrit 39.9% (35.0-46.0) Mean Corpuscular Volume 93.9fL (81-100) Mean Corpuscular Hemoglobin 29.2pg (27.0-35.0) Mean Corpuscular Hemoglobin Concent 31.1% (32.0-37.0) Red Cell Distribution Width 16.1% (12.3-15.4) Platelet Count 334bil/L (150-400) Neutrophils (%) (Auto) 74.6% (40-74) Lymphocytes (%) (Auto) 16.3% (14-46) Monocytes (%) (Auto) 6.5% (4-12) Eosinophils (%) (Auto) 1.4% (0-5) Basophils (%) (Auto) 0.5% (0-3) Band Neutrophils % 1% (1-5) Prothrombin Time 9.8sec (8.1-12.5) Prothromb Time International Ratio 0.92ratio D-Dimer 2.70mg/L FEU (<0.50) Sodium Level 138mEq/L (134-144) Potassium Level 4.2mEq/L (3.5-5.2) Chloride Level 96mEq/L (97-108) Carbon Dioxide Level 27mmol/L (18-29) Blood Urea Nitrogen 9mg/dL (6-24) Creatinine 0.64mg/dL (0.57-1.00) Estimat Glomerular Filtration Rate 136mL/min (>59) Glucose Level 158mg/dL (60-99) Calcium Level 9.5mg/dL (8.5-10.1) Magnesium Level 1.8mg/dL (1.6-2.6) Total Bilirubin 0.9mg/dL (0.0-1.2) Aspartate Amino Transf (AST/SGOT) 50U/L (0-50) Alanine Aminotransferase (ALT/SGPT) 58U/L (0-32) Alkaline Phosphatase 110U/L (25-165) Troponin T 0.016ug/L (0.0-0.011) Pro-B-Type Natriuretic Peptide 528.1pg/mL (0-287) Total Protein 8.1g/dL (6.4-8.4) Albumin 4.7g/dL (3.4-5.0) Triglycerides Level 116mg/dL (0-149) Procalcitonin 0.10ng/mL (0.00-0.08) Alcohols < 10mg/dL (0-10) Lactic Acid Level 1.5mmol/L (0.4-2.0) Urine Opiates Screen Negative Urine Methadone Screen Negative Urine Barbiturates Screen Negative Urine Amphetamines Screen Negative Urine Benzodiazepines Screen Negative Urine Cocaine Metabolite Screen Negative Urine Cannabinoids Screen Negative Assessment/Plan Assessment/Plan A: * Vancomycin dosing by pharmacy for 61 y/o woman with possible aspiration pneumonia * The patient is also being started on aztreonam and metronidazole (penicillin allergy) * Estimated CrCl for this patient is 106 mL/min (Cockcroft & Gault using AdjBW) * Estimated vancomycin half-life is 8 hours and estimated Vd is 55 liters (0.6 L /kg for BMI 33.4 kg/m2) * She was on vancomycin therapy about two weeks ago in her previous admission to this facility * While on vancomycin 1000 mg IV every 12 hours last admit, she had a trough level of 19.5 mcg/mL P: * Give one 2000 mg IV vancomycin loading dose * Continue with vancomycin 1000 mg IV every 12 hours * Target a vancomycin trough in the range of 15 - 20 mcg/mL * Draw a trough level prior to the fourth dose Thank you. Pharmacy will continue to follow this patient. Peg Haider Jun 05, 2017 04:30
[2017-06-05 05:22] LABS: BASOPHILS % (AUTO) 0.2 % (0-3); EOSINOPHILS % (AUTO) 0.4 % (0-5); MONOCYTES % (AUTO) 4.1 % (4-12); Mean Corpuscular Volume 94.4 fL (81-100); NEUTROPHILS % (AUTO) 88.2 % (40-74); Platelet Count 215 bil/L (150-400)
--- NOTE | 2017-06-05 05:24 | NUR ---
Admit note: Pt received into room 2013 per cart from ED. Pt was restrained on arrival from ED. Pt is ventilated and sedated but is restless and attempts to reach for IV and ETT when stimulated. Pt move to bed with slide board restraints were reapplied once positioned in bed. Pt is restless at times BP low resident was paged no responce DR. Dalal paged levephed ordered and started on pt titrated for BP.
[2017-06-05] MEDS ORDERED: KCl 40 mEq/100 mL Premix (K 3 - 3.7 & Creat < 2) IV ONE (07:25)
[2017-06-05] MEDS: Famotidine Inj 20 MG in IV Premix 1 EACH IV SCH ×2 (08:13→20:01)
[2017-06-05] MEDS: Heparin 5,000 Unit/mL Inj SUBQ SCH ×2 (08:14→15:53)
[2017-06-05] MEDS: Albuterol-Ipratropium 3 mL Inhalation Solution NEB SCH ×4 (08:26→19:45)
[2017-06-05] MEDS: metroNIDAZOLE Inj 1,000 MG in IV Premix 1 EACH IV SCH ×2 (08:42→20:01)
--- NOTE | 2017-06-05 08:51 | ABG ---
DateTimeAnalyzed 08:39:56 -_ pH ____7.481 - 7.350 7.450 pCO2 ___40.4__ -mmHg 35.0 45.0 pO2 ___62.8__ -mmHg 80.0 100 HCO3- ___30.1__ -mmol/L 22.0 26.0 ABE ____6.1__ -mmol/L -2.0 2.0 tHb ___10.4__ -g/dL 12.0 18.0 O2Hb ___91.9__ -% COHb ____2.6__ -% 1.5 MetHb ____0.0__ -% 0.4 1.5 sO2 ___94.2__ -% 95.0 FIO2 ___80.0__ -% PEEP ____8.0__ -cmH2O Set_RR 22 -b/min Vt __430.0__ -L Drawn By NB - Date/Time Notified____ 08:49:00 -_ A/C ___22.0__ - Oxygen Device 1 VENTILATOR - Notified By NB - Notified Whom DR ROMEO - K+ ____3.5__ -mmol/L 3.5 5.0 tO2 ___13.4__ -Vol% Wisam test N/A -
--- NOTE | 2017-06-05 09:21 | DRSVH ---
PROCEDURE: CT BRAIN WITHOUT CONTRAST ([id number]) INDICATIONS: head injury TECHNIQUE: Noncontrast 4.5 mm thick angled axial sections acquired from the foramen magnum to the vertex, with c oronal reformats. COMPARISON: [facility], CT, CT BRAIN WO CON, 05/17/2017, 20:48. FINDINGS: Image quality: Excellent. CSF spaces: Basal cisterns are patent. No extra-axial fluid collections. The ventricles are symmet cuate in size and shape. Brain: No intracranial bleeds or masses. There is cerebral volume loss for age, with resultant vent ricular and sulcal prominence. There are periventricular and deep white matter chronic small vessel ischemic changes. There is intracranial internal carotid artery atherosclerosis. Skull and face: Calvarium and visualized facial bones appear intact, without suspicious lesions. En dotracheal and nasogastric tubes are noted. Sinuses: Visualized sinuses demonstrate moderate scattered ethmoid and mild frontal and sphenoid mucosal thickening. IMPRESSION: 1. No acute intracranial process. 2. Mild to moderate atrophy and chronic microvascular ischemic changes. Dictated by: Dilcia Hernandez M.D. on 06/05/2017 at 9:15 Approved by: Dilcia Hernandez M.D. on 06/05/2017 at 9:19
--- NOTE | 2017-06-05 09:24 | DRSVH ---
PROCEDURE: CT CERVICAL SPINE WITHOUT CONTRAST ([id number]) INDICATIONS: head injury TECHNIQUE: Noncontrast 3 mm thick sections acquired from the skull base to the T4 level. Sagittal and coronal r eformats were then constructed. For radiation dose reduction, the following was used: automated exp osure control, adjustment of mA and/or kV according to patient size. COMPARISON: [facility], CT, CT ANGIO CHEST PE, 06/05/2017, 1:59. [facility], CT, CT CERVICAL SPINE WO CON, 05/17/2017, 20:48. FINDINGS: Image quality: Excellent. Bones: No fractures or dislocations. Visualized superior ribs are intact. Multilevel degenerative changes are present. Soft tissues: Prevertebral soft tissues are normal in thickness. No paravertebral hematomas. No ap ical pneumothoraces. Partially visualized small pleural effusions and overall appearance of edema ar e noted. Endotracheal tube, nasogastric tube as well as right-sided central venous catheter are noted . IMPRESSION: 1. Multilevel degenerative changes without visualized fracture. 2. Bilateral pleural effusions and pulmonary edema. Dictated by: Dilcia Hernandez M.D. on 06/05/2017 at 9:19 Approved by: Dilcia Hernandez M.D. on 06/05/2017 at 9:23
--- NOTE | 2017-06-05 09:29 | DRSVH ---
PROCEDURE: CT ANGIO CHEST PULMONARY EMBOLISM ([id number]) INDICATIONS: respiratory distress TECHNIQUE: After the administration of intravenous contrast, 2 mm thick sections acquired from the pulmonary api rachna to the posterior costophrenic angles. 3-dimensional maximum intensity projection (MIP) coronal a nd sagittal reformats were then acquired through the thorax. For radiation dose reduction, the follo wing was used: automated exposure control, adjustment of mA and/or kV according to patient size. COMPARISON: None. FINDINGS: Image quality: Excellent. Pulmonary arteries: Pulmonary arteries are normal in size, and demonstrate no intraluminal filling d efects to suggest central pulmonary embolism. Lungs and pleura: Minimal mild pleural effusions with superimposed consolidation on the right are pre sent. There is a diffuse appearance of pulmonary vascularity. No pneumothorax. Mediastinum: Heart size is normal, without pericardial effusion. Multiple mediastinal lymph nodes ar e present, with several enlarged, the largest measuring 18 mm in the right anterior paratracheal kylee on. Thoracic aorta is normal in caliber and enhancement. Esophagus is normal in caliber, without hi atal hernia. Bones and chest wall: No suspicious bony lesions. The thoracic spine appear intact throughout. Frac tures are noted within the right lateral second through seventh ribs. In addition, a left lateral and anterior rib fractures are noted in the second through seventh ribs. Thyroid gland is unremarkable. No axillary or supraclavicular adenopathy. Abdomen: Liver is enlarged. Otherwise, visualized upper abdominal solid organs appear normal in the early arterial phase of enhancement. IMPRESSION: 1. No pulmonary embolism. 2. Minimal effusions with right-sided consolidation. The latter could be represented atelectasis vers us developing pneumonia. 3. Diffuse pulmonary edema. 4. Multiple bilateral rib fractures. Dictated by: Dilcia Hernandez M.D. on 06/05/2017 at 9:23 Approved by: Dilcia Hernandez M.D. on 06/05/2017 at 9:27
--- NOTE | 2017-06-05 10:17 | DRSVH ---
PROCEDURE: X-RAY CHEST ONE VIEW, PORTABLE ([id number]) INDICATIONS: respiratory distress TECHNIQUE: One view of the chest was acquired. COMPARISON: [facility], CT, CT ANGIO CHEST PE, 06/05/2017, 1:59. FINDINGS: Surgical changes and devices: Endotracheal tube is present at the level of the cassidy. Lungs and pleura: Diffuse appearance of increased pulmonary vascularity as well as increased areas of focal opacity is present within the right lower lobe. Mediastinum: Mediastinal contours appear normal. Heart size is normal. Bones and chest wall: No suspicious bony lesions. Overlying soft tissues appear unremarkable. IMPRESSION: Marked increased pulmonary vascular suggestive of edema. Focal appearance of increased op acity is present in the right base suggestive of atelectasis and/or pneumonia. Dictated by: Dilcia Hernandez M.D. on 06/05/2017 at 10:12 Approved by: Dilcia Hernandez M.D. on 06/05/2017 at 10:15
--- NOTE | 2017-06-05 10:22 | DRSVH ---
PROCEDURE: X-RAY CHEST ONE VIEW, PORTABLE ([id number]) INDICATIONS: line placement TECHNIQUE: One view of the chest was acquired. COMPARISON: [facility], CR, XR CHEST 1VW (PORTABLE), 06/04/2017, 23:00. [facility], CR, XR CHEST 1VW (PORTABLE), 06/05/2017, 6:02. FINDINGS: Surgical changes and devices: Endotracheal tube is present at the level of the cassidy. Right-sided ce ntral venous catheter is present with distal tip overlying the SVC/right atrial junction. Lungs and pleura: Increased pulmonary vascularity is present. Mild appearance of bibasilar opacities as well as trace effusions are noted. Mediastinum: Mediastinal contours appear normal. Heart size is normal. Bones and chest wall: No suspicious bony lesions. Overlying soft tissues appear unremarkable. IMPRESSION: Increased pulmonary vascularity with bibasilar opacities suggestive of edema and/or atele ctasis or developing pneumonia cannot be excluded. Trace effusions are noted. Dictated by: Dilcia Hernandez M.D. on 06/05/2017 at 10:17 Approved by: Dilcia Hernandez M.D. on 06/05/2017 at 10:20
--- NOTE | 2017-06-05 10:38 | DRSVH ---
PROCEDURE: X-RAY CHEST ONE VIEW, PORTABLE ([id number]) INDICATIONS: intubated TECHNIQUE: One view of the chest was acquired. COMPARISON: [facility], CR, XR CHEST 1VW (PORTABLE), 06/04/2017, 23:00. [facility], CR, XR CHEST 1VW (PORTABLE), 06/05/2017, 0:37. FINDINGS: Surgical changes and devices: Endotracheal tube, nasogastric tube and right-sided central venous cath eter are unchanged. Lungs and pleura: There is slight improvement of right basilar opacity. Left basilar opacity remains present as well as trace effusions, left greater than right. Mediastinum: Mediastinal contours appear normal. Heart size is normal. Bones and chest wall: No suspicious bony lesions. Overlying soft tissues appear unremarkable. IMPRESSION: Relatively stable overall examination, with questionable slight improvement of right basi lar opacity. Dictated by: Dilcia Hernandez M.D. on 06/05/2017 at 10:33 Approved by: Dilcia Hernandez M.D. on 06/05/2017 at 10:36
--- NOTE | 2017-06-05 10:43 | PCM.CHPMED ---
Subjective Date of Service: Jun 05, 2017 Primary Physician: Admitting Physician: Liborio Dalal MD Primary Care Physician: Brian Attending Physician: Liborio Dalal MD Admit Status: From the Emergency Department Chief Complaint: Chief Complaint: respiratory distress History of Present Illness: Patient is a 61 y/o F with PMHx post-ARDS pulmonary fibrosis, ?pulmonary HTN, pneumonia, recent discharged for hypoxic hypercapneic respiratory failure. During her prior admission she improved with short course empiric antibiotics and diuresis. In the ED her O2 saturations were reportedly in the 60's and she was intubated. WBC 22.7, proal 0.63, BNP 528 (was 1434 at discharge) UDS negative CT showed worsening RLL pneumonia; chronic interstitial changes; no PE She received broad abx (vanco, aztreo, flagyl) as well as lasix x1. RIJ CVC was placed in ED. She currently remains sedated on the ventilator on propofol gtt, fentanyl gtt, and low dose levophed (0.15). Unable to obtain history due to patient's mental status. Review of Systems: Unable to obtain ROS as the patient is sedated and intubated PMH Past Medical History PMHx reviewed as per HPI in H&P Bedside Blood Glucose: 110 Home Medications Medications reviewed as per H&P Allergies: Coded Allergies: Penicillins (Verified Allergy, Unknown, 05/17/17) Family History Family History Family hx reviewed as per H&P Social History Hx Alcohol Use: YesHx Substance Use: Yes Smoking Status: Unknown if Ever Smoker Exam Vital Signs Vital Sign - Last Date Time Temp Pulse Resp B/P Pulse Ox O2 Delivery O2 Flow Rate FiO2 06/05/17 08:00 95 97/56 95 90 06/05/17 07:32 37.6 24 Mechanical Ventilator 06/04/17 22:55 20 Intake and Output 06/04/17 06/04/17 06/05/17 Cumulative From/Thru 15:00 23:00 07:00 06/04/17 22:55 - 06/05/17 06:21 Intake Total 799 ml 799 ml Output Total 450 ml 450 ml Balance 349 ml 349 ml Intake IV Total 799 ml 799 ml Output Urine Total 450 ml 450 ml General: No Acute Distress Head: Normal Eyes: PERRLA Nose: Mucous Membr Moist/Agenda Mouth: Other (#7.[address]) Neck: Supple Chest & Lungs: Coarse breath sounds Cardiovascular: Normal S1, Normal S2 Abdomen: Non-tender, Non-distended, Obese Genitourinary: Horn Present Musculoskeletal: Normal Range of Motion Extremities: No cyanosis/clubbing/edma bilat Skin: Other (No new rashes) Neurological: Other (Withdraws to pain) Lab and Diagnostics Result Diagram: 06/05/1751406/05/17514 Assessment & Plan Pain Evaluation: Adequate Pain Control GI Prophylaxis: H2 pta VTE Prophylaxis: Sub-Q Heparin (Unfractionated) VTE Mechanical Devices: Intermittant Pneumatic CD Resuscitation Status: CPR: Attempt Resuscitation Attending Statement WBC 22.7 <-18.6 <-13.9 <-14 <-11.4 <-13.6 <-14.7 <-16.4 Hb 9.8 <-12.4 Fungal Ab (05/27): Negative Urine legionella (05/20): Negative C diff (05/29): Negative Catheter Tip (05/27): Negative Blood Cx 06/04: Pending 05/25: Negative 05/24: Negative Urine Cx 05/24: Negative 05/20: Klebsiella Tracheal Aspirate 05/24: NF 05/20: MSSA, klebsiella (s) CT (06/04): worsening consolidation of RLL as compared to prior CT. chronic interstitial changes. no PE CXR (06/01): no changes CXR (05/31): bibasilar and left midlung airspace disease CXR (05/30): diffuse b/l interstitial opacities, basilar airspace dz CT (05/27): Negative PE, b/l interstitial opacities, b/l anterior rib fx Assessment: -ventilator dependent hypoxic respiratory failure -worsening RLL consolidation. recent admit for basilar pna (MSSA, klebsiella) -pulmonary fibrosis (hx ARDS) -?pulmonaryHTN (prior echo poor study) -recent PEA arrest -tobacco (smoked 1/2ppd x35 years), marijuana use. ?other substance abuse -prolonged QTc -PCN allergy? -hx depression/anxiety, chronic pain Plan: -Continue current abx (aztreo, flagyl, vanco) for RLL pneumonia. (?if she really has pcn allergy). Follow cultures. May need bronchoscopy BAL to RLL tomorrow if she does not improve on empiric abx. -Lung protective strategy: Will decrease TV to 6-8mL/kg. Keep plateau <30. Increase PEEP to 10, wean down FiO2 for goal pulseox >88% (goal PaO2 >55) -Keep sedated to prevent vent dyssynchrony while on higher vent settings, but would taper off fentanyl if possible. Continue propofol for RASS -2 (check triglycerides and CPK while on propofol) -Give another 1L LR. Titrate levophed for MAP>65 -Duonebs q6 -Nutrition:Maintenance fluids. Start TF's via NG tomorrow if off pressors -Lines: RIJ CVC (06/04), PIVs, Horn -Prophylaxis: sq heparin, pepcid -Dispo: Admitted to ICU. Son has been updated that pt is readmitted. -Code: Full -cc time: 75 mins Gilbert Mayers MD Jun 05, 2017 10:43
[2017-06-05] MEDS ORDERED: Lactated Ringer's 500 ML IV ONE (11:20)
--- NOTE | 2017-06-05 12:09 | ABG ---
DateTimeAnalyzed 11:58:03 -_ pH ____7.439 - 7.350 7.450 pCO2 ___44.3__ -mmHg 35.0 45.0 pO2 ___56.9__ -mmHg 80.0 100 HCO3- ___30.0__ -mmol/L 22.0 26.0 ABE ____5.4__ -mmol/L -2.0 2.0 tHb ___10.3__ -g/dL 12.0 18.0 O2Hb ___88.3__ -% COHb ____2.4__ -% 1.5 MetHb ____0.0__ -% 0.4 1.5 sO2 ___90.3__ -% 95.0 FIO2 ___70.0__ -% PEEP ___10.0__ -cmH2O Set_RR 18 -b/min Drawn By NB - Date/Time Notified____ 12:08:00 -_ Spontaneous_RR 21 -b/min A/C __400.0__ - Oxygen Device 1 VENTILATOR - Notified By NB - K+ ____4.1__ -mmol/L 3.5 5.0 tO2 ___12.8__ -Vol% Wisam test N/A -
[2017-06-05 12:42] LABS: APPEARANCE,URINE CLEAR (CLEAR,HAZY); COLOR,URINE STRAW (YELLOW)
[2017-06-05 12:43] LABS: OCCULT BLOOD,URINE NEGATIVE (NEGATIVE); PH,URINE 5.5 (5.0-8.0); UROBILINOGEN,URINE NORMAL (NORMAL)
[2017-06-05] MEDS: Norepinephrine 8,000 mCg/250 mL D5W Premix IV SCH ×2 (14:20→23:58)
--- NOTE | 2017-06-05 14:59 | PCM.PROC ---
Procedure Note Date of Service: Jun 05, 2017 Pre Procedure Diagnosis: Hypotension, on pressors, requiring hemodynamic monitoring Post Procedure Diagnosis: Same Procedure: Arterial line placement Provider and Seed Core Operator: Dr. Gilbert Boston Indication for Procedure: hypotension, on pressors Procedural Analgesia: 1cc 1% lidocaine Procedure Details: Consent: Obtained from the daughter and the brother via telephone. All risks and benefits were explained, and informed consent was obtained. All questions were answered. Left wrist drapped and prepped with chlorhexidine 1cc of 1% lidocaine used to anesthetize the area around the left radial artery After locating the left radial artery with the needle, the arterial probe was inserted into the artery using seldinger technique. There was good wave form on the monitor. The line was secured and sterile dressed. No immediate complications Post Procedure Plan: Will plan to titrate pressors for MAPs >65 via arterial line monitoring. Gilbert Boston MD Jun 05, 2017 14:59
--- NOTE | 2017-06-05 15:14 | NUR ---
Vent/BP Ventilator changer earlier during the shift by RT and attending collections rep- please see RT documentation. Two sets of blood gas drawn twice earlier today- PH stabilized- see results in EMR. Oxygen saturation 92-97% on 70% FIO2. Patient continued to require Levophed drip for BP support- see CCU flow sheet for drip titration and details. Left radial A-line was placed by attending collections rep this afternoon for better BP monitoring- continue assessment. Temp 38.0C at noon time- MD was made aware- urine culture was send tot lab in addition to already pending blood cultures and sputum culture.
[2017-06-05] MEDS ORDERED: Sodium Chloride LOK Flush 10 mL Syringe IVFLUSH PRN ×2 (15:15)
[2017-06-05] MEDS: Vancomycin Inj 1,000 MG in IV Premix 1 EACH IV SCH (15:53)
--- NOTE | 2017-06-05 17:11 | PCM.PNMED ---
Subjective Date of Service Jun 05, 2017 Subjective Today the patient was intermittently responsive to external stimuli. At times she was able to nod her head appropriately to questions, at others she was essentially only minimally responsive to noxious stimuli. ROS essentially could not be obtained from this intubated and sedated patient. Overnight the patient arrived intubated and sedated, and was stabilized on mechanical ventilation. Exam Vital Signs Vital Sign - Last Date Time Temp Pulse Resp B/P Pulse Ox O2 Delivery O2 Flow Rate FiO2 06/05/17 16:35 100 102/52 94 72 06/05/17 16:02 Ventilator 06/05/17 16:02 22 06/05/17 11:24 38.0 06/04/17 22:55 20 Intake and Output 06/04/17 06/04/17 06/05/17 Cumulative From/Thru 15:00 23:00 07:00 06/04/17 22:55 - 06/05/17 06:21 Intake Total 799 ml 799 ml Output Total 450 ml 450 ml Balance 349 ml 349 ml Intake IV Total 799 ml 799 ml Output Urine Total 450 ml 450 ml Exam Gen: Chronically ill appearing intubated and sedated patient Neck: Right IJ in place and appears patent HEENT: PERRL, will intermittently motion track, no scleral icterus CV: RRR, no murmurs rubs or gallops Resp: Diffuse coarse breath sounds most rhonchorus in the RLL Abd: No rebound masses guarding or tenderness Extr: Art line in place, mild BL LE edema, no clubbing or cyanosis Skin: No visible lesions or masses, sallow complexion Neuro: Difficult to assess in intubated and sedated patient . IVs and Medications Medications Reviewed: Medications were reviewed in detail Lab and Diagnostics Result Diagram: 06/05/17 0515 06/05/17 1314 X-Rays, CTs and MRIs X-RAY CHEST ONE VIEW, PORTABLE IMPRESSION: Marked increased pulmonary vascular suggestive of edema. Focal appearance of increased opacity is present in the right base suggestive of atelectasis and/or pneumonia. Dictated by: Dilcia Hernandez M.D. on 06/05/2017 at 10:12 Approved by: Dilcia Hernandez M.D. on 06/05/2017 at 10:15 CT CERVICAL SPINE WITHOUT CONTRAST IMPRESSION: 1. Multilevel degenerative changes without visualized fracture. 2. Bilateral pleural effusions and pulmonary edema. Dictated by: Dilcia Hernandez M.D. on 06/05/2017 at 9:19 Approved by: Dilcia Hernandez M.D. on 06/05/2017 at 9:23 CT BRAIN WITHOUT CONTRAST IMPRESSION: 1. No acute intracranial process. 2. Mild to moderate atrophy and chronic microvascular ischemic changes. Dictated by: Dilcia Hernandez M.D. on 06/05/2017 at 9:15 Approved by: Dilcia Hernandez M.D. on 06/05/2017 at 9:19 CT ANGIO CHEST PULMONARY EMBOLISM IMPRESSION: 1. No pulmonary embolism. 2. Minimal effusions with right-sided consolidation. The latter could be represented atelectasis versus developing pneumonia. 3. Diffuse pulmonary edema. 4. Multiple bilateral rib fractures. Dictated by: Dilcia Hernandez M.D. on 06/05/2017 at 9:23 Approved by: Dilcia Hernandez M.D. on 06/05/2017 at 9:27 . Assessment & Plan Barbara Davila is a 61 year old woman with a PMH of severe interstitial lung disease with very tenuous respiratory status and a recent history of cardiac arrest with lengthy hospitalization only recently discharged on 06/03; she returns to [facility] acutely SOB and hypoxemic requiring intubation and sedation. Acute on chronic hypercarbic and hypoxic respiratory failure in setting of severe interstitial lung disease, POA. Active - Patient arrived acutely hypoxemic and was subsequently intubated and sedated - Likely secondary to pneumonia, possibly aspiration pneumonia with concurrent pulmonary edema - Propofol, Fentanyl for sedation - Patient initially requiring Norepinephrine for pressor support - Pulmonary Critical care consulted and we appreciated their opinion - Will attempt to wean off mechanical ventilation once pneumonia improves, will likely be a difficult and protracted weaning process as it was during her last hospitalization - A pallavi discussion was had with the daughter at bedside, who is concerned that further care may be futile and the patient will not be able to wean off the vent - Per discussion with daughter we will trial a few days of ventilator support and IV antibiotics, at which time if she has not made progress will consider conversion to comfort care Suspected Aspiration Pneumonia, POA. Active. - Patient with imaging suggestive of new focal consolidation - Vanco, Aztreonam, Metro with cultures pending, will attempt to narrow once pathogen identified - Will use IVF judiciously given pulmonary edema, and obligate amount of fluids with IV meds Severe Sepsis, POA, acute. Active - Patient arrived with labile pressures and hypotension, leukocytosis, tachycardia, and hypoxemic respiratory failure - Abx as above - Cautious use of IVF as above - Continue to track infectious indicators - Will attempt to wean pressors as able - Mechanical ventilation per ICU team Recent cardiac arrest, POA, acute. Stable - Patient recently hospitalized for 15 days post cardiac arrest - Etiology uncertain although likely secondary to hypoxic episode. - Patient was also noted to have a prolonged QT and therefore arrhythmia must be considered. - Avoid QT prolonging medications. - Continue to follow on telemetry. No evidence of arrhythmia. Pulmonary Fibrosis, POA, chronic. Active - Patient with severe interstitial lung disease - Is exceptionally fragile from a respiratory standpoint - As above pulmonary critical care has been consulted - Patient will likely be difficult to wean off ventilation - Will consider palliative care consult if patient not making progress ventilator Possible Polysubstance abuse, present on admission and resolved. - Family has brought forth that the patient uses numerous street drugs and alcohol. Unclear when her last use was as she was recently in a SNF prior to this admission. Patient denies active substance use - Complicating sedation at this time. - Tox screen negative on admission Disposition: Disposition will likely be difficult for this patient, SNF was recommended at last discharge and patient refused the only facility which would accept her. Should the patient make good progress on ventilation she will likely require a protracted hospital stay with possible LTAC consideration; a conversation about goals of care will be initiated if the patient is failing to make adequate progress in the near future. Pain Evaluation: Adequate Pain Control GI Prophylaxis: H2 pat VTE Prophylaxis: Sub-Q Heparin (Unfractionated) VTE Mechanical Devices: Intermittant Pneumatic CD Resuscitation Status: CPR: Attempt Resuscitation Attending Statement The patient was seen and examined together with Dr. Leger on 06/05/17 and I agree with the history, exam and plan as outlined in the note above. Fco Leger DO Jun 05, 2017 17:11 Timo Torres Jun 05, 2017 17:46
[2017-06-05] MEDS: Acetaminophen 32.5 mg/mL 20 mL Liquid PO PRN (20:02)
--- NOTE | 2017-06-05 22:16 | NUR ---
Fever/Restless: 1999 Pt's temp was 39.[address] Zamora was here on floor and informed. liquid tylenol was ordered and given down OG. Blood cultures were drawn and sent to lab. Pt was also restless alrming vent with high pressures and fast resp rate. A small bolus of propofol was given and rate increased to 45mcg/kg/min, which also caused BP to trend down and levophed was titrated to maintain BP. Temp was rechecked 30min after tylenol with no change and 1 hour after tylenol with temp down 39.2
[2017-06-06] VITALS (12 sets, daily range): BP systolic 99–133; BP diastolic 48–64; PULSE 87–114; RESP 18–30; O2SAT 97–100
[2017-06-06] MEDS: Heparin 5,000 Unit/mL Inj SUBQ SCH ×3 (00:37→16:03)
[2017-06-06] MEDS: Propofol Inj 1,000,000 MCG in IV Premix 1 EACH IV SCH ×7 (01:13→19:58)
[2017-06-06] MEDS: Aztreonam Inj 2,000 MG in Dextrose 5% Minibag Plus 100 ML IV SCH ×2 (02:39→10:54)
[2017-06-06] MEDS: Vancomycin Inj 1,000 MG in IV Premix 1 EACH IV SCH (03:13)
[2017-06-06] MEDS: Acetaminophen 32.5 mg/mL 20 mL Liquid PO PRN (03:45)
[2017-06-06 04:13] LABS: BASOPHILS % (AUTO) 0.3 % (0-3); EOSINOPHILS % (AUTO) 4.3 % (0-5); MONOCYTES % (AUTO) 4.1 % (4-12); Mean Corpuscular Hemoglobin 29.2 pg (27.0-35.0); NEUTROPHILS % (AUTO) 82.6 % (40-74); Platelet Count 224 bil/L (150-400)
--- NOTE | 2017-06-06 04:15 | ABG ---
DateTimeAnalyzed 04:05:00 -_ pH ____7.415 - 7.350 7.450 pCO2 ___40.6__ -mmHg 35.0 45.0 pO2 ___50.8__ -mmHg 80.0 100 HCO3- ___25.5__ -mmol/L 22.0 26.0 ABE ____1.4__ -mmol/L -2.0 2.0 tHb ___10.4__ -g/dL 12.0 18.0 O2Hb ___83.4__ -% COHb ____1.7__ -% 1.5 MetHb ____0.8__ -% 0.4 1.5 sO2 ___85.5__ -% 95.0 FIO2 ___65.0__ -% PEEP ___10.0__ -cmH2O Set_RR ___18.0__ -b/min Vt __400.0__ -L Drawn By MM - Date/Time Notified____ 04:14:00 -_ Spontaneous_RR ___18.0__ -b/min Oxygen Device 1 VENTILATOR - Notified By MM - Notified Whom DR BARNET - B 759 -mmHg tO2 ___12.3__ -Vol% Wisam test N/A -
[2017-06-06 04:58] LABS: Magnesium 1.3 mg/dL (1.6-2.6); Phosphorus 2.8 mg/dL (2.5-4.9)
[2017-06-06] MEDS: Chlorhexidine 0.12% 15 mL Oral Solution MT SCH ×5 (05:25→19:59)
[2017-06-06] MEDS ORDERED: Mag Sulf 4 Gm/100 mL IV Premix (Mag < 1.6 & Creat < 2) IV ONE (05:55)
[2017-06-06] MEDS ORDERED: KCl 40 mEq/100 mL Premix (K 3 - 3.7 & Creat < 2) IV ONE (05:55)
--- NOTE | 2017-06-06 06:30 | NUR ---
Fever/BP/Resp/Rash: Pt has required freq titration of levophed and propofol. Pt becomes very restless and agitated need boluses to calm down. Pt was alarming vent for fast respiratory rate as high as 36 and high peak pressures. BP also was up and down needing titration of levophed. Pt spiked a high temp of 39.5 twice and was given liquid tylenol 650mg which took about a hour to help temp. Pt developed a raised rash/hives which was associated with the high temp, short after azactam finished infusing and during the vanco infusion. Pt also received azactam 1round 1900 and at 2000 pt had temp of 39.5 and received azactam at 0300 and at 0420 had temp of 39.5. By 0530 most of the rash had resolved and temp trending down. Dr Zamora was paged around 0500 with no return call.
[2017-06-06] MEDS: Norepinephrine 8,000 mCg/250 mL D5W Premix IV SCH ×4 (06:35→19:59)
--- NOTE | 2017-06-06 06:51 | NUR ---
AM labs: Potassium was 3.7 and mag was 1.3 K-rider 40meq and mag-rider 4gms was ordered per replacement protocol and infusing.
[2017-06-06] MEDS: Albuterol-Ipratropium 3 mL Inhalation Solution NEB SCH ×4 (07:50→19:17)
[2017-06-06] MEDS ORDERED: TOBRAMYCIN 300 MG/5 ML NEB SCH ×2 (08:30→12:00)
[2017-06-06] MEDS: Famotidine Inj 20 MG in IV Premix 1 EACH IV SCH ×2 (08:52→19:59)
[2017-06-06] MEDS: metroNIDAZOLE Inj 1,000 MG in IV Premix 1 EACH IV SCH (08:54)
[2017-06-06] MEDS: Vancomycin Dose per Pharmacist XX SCH (08:55)
[2017-06-06] MEDS: fentaNYL 2,500 mCg/250 mL 2,500 MCG in IV Premix 1 EACH IV PRN (10:27)
--- NOTE | 2017-06-06 11:05 | NUR ---
NUTRITION ASSESSMENT Assess: 61 YO F admitted to CCU with acute on chronic respiratory failure in setting of severe interstitial lung disease requiring intubation. Pt NPO X 2 days. PMHX: Interstitial lung disease, R-sided heart failure, cor pulmonale, depression, anxiety, chronic pain. DIET: NPO. LABS: Glu 129, Ca 7.6, Mg 1.3 MEDICATIONS: Reviewed. Fentanyl, Propofol @ ~26 ml/hr providing 686 kcal/day. GI: No BM noted. SKIN: No issues noted. ANTHROPOMETRICS: Wt: 88.2 kg, BMI 36.7 kg/m2, Admit wt: 88.8 kg, IBW: 47.7 kg. Possible wt loss of 15 kg since 05/18/17 per EMR (14.5% of BW X <1 month) = significant wt loss. ESTIMATED NEEDS: BMI/VENT Calories: 2816-4904 kcal/day (20-22 kcal/kg BW) Protein: 72-86 g/day (1.5-1.8 g/kg IBW) NUTRITION DIAGNOSIS: 1) Inadequate oral intake related to decreased ability to consume sufficient energy as evidenced by NPO/Vent status. INTERVENTION: 1) If pt remains intubated, recommend initiation of enteral nutrition. Recommend Pulmocare starting at 10 ml/hr, once tolerance established, advance 10 ml q 6 hr to goal rate of 35 ml/hr. At goal TF will provide 1155 kcal (TF+Propofol = 1841 kcal), 48 g protein; meeting 100% calorie, 67% protein needs. Once TF tolerated at goal, recommend addition of 1 Prosource liquid protein packets TID to provide a total of 81 g protein; meeting 100% of protein needs. 2) Adjust goal rate based on daily Propofol rate. Eventual TF goal (without Propofol) is 55 ml/hr to provide 1815 kcal, 76 g protein; meeting 100% calorie/protein needs. MONITOR/EVALUATE: NPO/Vent status, labs, wt, nutrition support, GI/nutrition status. Follow per high nutrition risk guidelines.
--- NOTE | 2017-06-06 11:21 | PROG NOTE ---
[address] [address] PROGRESS NOTE PATIENT: ALISSON STAFFORD : 1955 MR#: [id number] ADMIT: 06/04/2017 JOB ID: [id number] DATE: 06/06/2017 PROBLEM LIST: 1. Pulmonary infiltrates with fever. 2. Hypoxemic hypercarbic respiratory failure acute on chronic. 3. Pulmonary fibrosis secondary to ARDS of 2011. 4. Polysubstance abuse. 5. Septic shock. 6. Metabolic alkalemia. 7. Right ventricular volume overload. SUBJECTIVE: None. OBJECTIVE: Temperature 39.5. Pulse 103, respiratory rate 30 with ventilator set at 18, blood pressure 102/52 on norepinephrine at 0.35 mcg/kg per minute. O2 sat on FiO2 is 75%, PEEP of 10 is 99%. I and O shows 2.8 L in, 1.8 L out. General appearance: Will awaken with voice and touch. Becomes somewhat agitated when awake. Currently on propofol and fentanyl drips. Chest: Coarse crackles throughout both lung neves. Some are a bit finer. Mild expiratory wheeze. Pulmonary adventitial sounds are somewhat scattered. Heart: Somewhat distant heart tones. Heart tones seem otherwise normal. Abdomen: Soft. Nondistended. No apparent tenderness. Some bowel tones present. Extremities: SCD in place. No pedal edema. Skin: I do not see a rash at this point. There may be a little fine scattered small areas of some erythema, but hard to distinguish. LABORATORY STUDIES: White count is 17,500, with 82 polymorphonuclears, no bands, 8 lymphocytes, 4 monocytes. Hemoglobin stable at 10.4. Platelet count relatively stable at 224,000. Sodium 136, potassium 3.7, chloride 100, CO2 is 24, BUN 11, creatinine 0.7, glucose 129. Lactic acid is 0.9. Calcium 7.6, with albumin of 2.8. Phosphorus normal at 2.8. Magnesium significantly low at 1.3. Total bilirubin normal at 0.9. AST 25, ALT 29, alkaline phos 72. Blood cultures negative at 24 hours. Sputum Gram stain shows rare polys. Many mixed erich. MRSA screen by PCR is negative. Urine culture, no growth to date. Repeat blood cultures pending. Arterial blood gases on FiO2 of 65%, PEEP of 10, rate of 18, and tidal volume of 400, shows a pO2 of 50, a pCO2 of 40, a pH of 7.41. Chest x-ray shows right basilar patchy ill-defined opacity. Less, but similar patchy ill-defined basilar opacity on the left. Endotracheal tube in good position. CVP in good position. ASSESSMENT: 1. Acute on chronic hypoxemic hypercarbic respiratory failure. Doing reasonably well on the ventilator. With a tidal volume of 400, PEEP of 10, peak inspiratory pressure 29, plateau about 26-28. PEEP is set at 10, measured at 10. Radiograph shows somewhat of an increase in infiltrate at the right base with consolidation. Seems relatively chronic, though maybe a bit worse at this point. Whether there is an infectious process or whether this represents a reaction to the drugs, as the nurses seem to think, fever is precipitated by aztreonam infusions is unclear. Will await cultures. Speak with Infectious Disease, as the patient has already had a course of aztreonam during her last hospitalization and probably not a great idea to restart aztreonam at this point. 2. Shock. The patient is on relatively high doses of norepinephrine currently at 0.35 mcg/kg per minute. Suspect there is an element of sepsis as well as hypovolemia. She has an arterial line on. Blood pressure is fine. Diastolics relatively normal, though that might be accounted for by the norepinephrine. Will set up Vigileo monitoring to assess the situation, as I suspect she might benefit from better fluid and see if we can get the norepinephrine down a bit. 3. Multiple electrolyte abnormalities. Currently, potassium is low, as is the magnesium. Receiving riders. Given these electrolyte problems, if fluids are necessary use lactated Ringer's. Albumin reasonably normal, only mildly decreased at 2.8. 4. Recurrent hospitalizations. The patient was hospitalized in October 2016 for pneumonia, hospitalized again in late March after cardiac arrest requiring intubation, mechanical ventilation, again in April, and now has been discharged a matter of a day or so and back requiring intubation, mechanical ventilation. Likely represents severe hypoxemia due to her underlying pulmonary fibrosis. Whether there is a reversible component here is unclear. Treated for aspiration pneumonia last hospitalization with MSSA and Klebsiella being growing. Klebsiella was resistant to ampicillin, but otherwise sensitive to beta lactams, floxacins, carbapenems and aminoglycosides. Unfortunately, she seems to be exquisitely sensitive to penicillin. In fact, carrying an EpiPen presumably for a PENICILLIN allergy, and therefore, that prompted the treatment with aztreonam for Klebsiella at the last hospitalization. In any case, the question is where are we going with regard to long-term prognosis. She has been, I think, indicating that she is not really a good candidate for lung transplantation. The transplant service would want her stable for a good six months to a year before they would consider a transplant in this patient who has been repeatedly critically ill for the past two months or more at this time. PLAN: 1. Vigileo hemodynamic monitoring to assess hemodynamics and fluid responsiveness. 2. Infectious Disease consult regarding antibiotic selection at this point. 3. Continue current vent settings. 4. Consider increased sedation. 5. Consider fluids with lactated Ringer's. Will see what our hemodynamic monitoring tells us. Discussed at length on rounds especially regarding her goals for therapy, as apparently she has expressed in the past that she wishes only one more go around with intubation before considering comfort care. TIME SPENT: Time spent so far in critical care, 75 minutes.
[2017-06-06] MEDS ORDERED: Tigecycline Inj 100 MG in 0.9% Sodium Chloride 100 ML IV ONE (12:00)
--- NOTE | 2017-06-06 12:51 | NUR ---
Palliative Care Verbal order received from Dr Leger 06/06/17 to assist with goals of care. Patient readmitted 06/04/17. Palliative Care to follow. Diana Willson
[2017-06-06 12:53] LABS: Magnesium 2.4 mg/dL (1.6-2.6)
--- NOTE | 2017-06-06 15:12 | CONS ---
[address] [address] CONSULTATION REPORT PATIENT: ALISSON STAFFORD : 1955 MR#: [id number] ADMIT: 06/04/2017 JOB ID: [id number] DATE OF SERVICE: 06/06/2017 REASON FOR CONSULT: Respiratory failure with shock, fever, and possible aspiration pneumonia. I thank Dr Yeh for this timely consult HISTORY OF THE PRESENT ILLNESS: The patient is a 61-year-old woman well known to us from a prolonged recent admission. The patient was admitted to this facility most of the month of May, between May 17 and her discharge on June 04. During this long hospital stay, she was admitted most of the time for respiratory failure occurring in the setting of chronic pulmonary fibrosis due to ARDS. I saw her and evaluated her for possible superimposed infection. We were concerned because sputum on multiple occasions grew Klebsiella pneumoniae and on one occasion grew MSSA, though all blood cultures were negative. It was never clear whether or not she had a significant aspiration pneumonia during the last admission, and it was also unclear whether these two organisms were colonizing or infecting. In any event, we decided to treat it for about two weeks in the 1st portion of her hospital admission and she was treated with a combination of vancomycin, aztreonam, and Flagyl. This unusual combination of antibiotics was chosen because a history of anaphylaxis to BETALACTAMS, which was said to be so severe the patient carried EpiPens at all times because of the risk of drug-induced anaphylaxis. Eventually, all antibiotics were stopped during that lengthy recent admission and for the last week or so of her hospital stay she was off antibiotics, slowly improving, and eventually extubated and discharged on June 04. She was discharged to a hotel room as she had no permanent residence and was going to be getting together with family and finding a more permanent location after that time. Unfortunately, the patient developed acutely worsening shortness of breath and was evaluated by emergency services and found to be profoundly hypoxic requiring readmission within 24 hours of her discharge. The patient was intubated in the emergency department and then of course transferred directly to the ICU. Overnight in the ICU, the patient has had a wide variety of problems including development of a rash which seems temporally related to aztreonam as well as hypotension requiring vasopressor agents and continued need for ventilator support. No additional history can be obtained from this intubated, sedated patient at this time but we did discuss this case in detail with the physician who admitted the patient as well as the current ICU team and ICU nurse. This patient was also discussed during ICU rounds. PAST MEDICAL HISTORY: 1. Pulmonary fibrosis with chronic respiratory failure. 2. Recent admission and intubation for respiratory failure May 2017. 3. Cor pulmonale. 4. History of ARDS. 5. Recurrent sinusitis. 6. Peripheral neuropathy of unknown etiology. 7. History of substance abuse including alcohol, cocaine and methamphetamine. 8. History of PFO, which is noted on some records. SOCIAL HISTORY: The patient has been evaluated at the [facility] for lung transplant but apparently is not considered a candidate. She has been spending time at [facility] up until her admission and cardiopulmonary arrest, which precipitated admission on May 17. Subsequent to her discharge here on June 04, she spent a period of hours really at a local hotel. FAMILY HISTORY: Cannot be obtained from this intubated patient. REVIEW OF SYSTEMS: Cannot be obtained from this intubated patient. PHYSICAL EXAMINATION: Reveals a woman lying supine, intubated in the ICU. She is afebrile right now. Temp 37.1, pulse 96, respiratory rate 22, blood pressure 108/50. She is saturating 99% but requiring 75% FiO2. Of note, about 4:30 this morning, she spiked to 39.5. This was said to be coincident with an aztreonam dose, but it is worth noting that since admission, she has had a series of fevers including 38 degrees yesterday on the and 39.5 twice during the night, so it is clearly not all related to a drug reaction based on that. Examination of the mental status reveals that the patient will open her eyes with stimulation but does not interact meaningfully. She has no evidence of head trauma. No temporal wasting. No conjunctivitis. Oral endotracheal tube, orogastric tube in good position. She has a new central line in the right IJ. This appears uninfected. Her lungs are notable for very coarse breath sounds, rhonchi and rales both sides, as before basically. Cardiac tones are distant and hard to hear given her lung sounds and the noise of the ventilator, but she has a regular rate and rhythm. Abdomen soft, nontender. Somewhat obese. There is no hepatosplenomegaly. The patient has a Horn catheter. She is producing urine with a pink tinge. She has an erythrodermic rash which is quite extensive over her anterior torso, upper arms and lower abdomen. This is a classic, drug related rash and is blanching. The nurse reports that this is much worse in the last half hour or so since aztreonam was started. Lower extremities without significant edema. Her feet are well perfused. No evidence of synovitis. No rash extending below the waist. We cannot do a neurologic exam as the patient is intubated, sedated, but she does move her extremities and that is about all we can say. It is worth noting, the patient is on 0.4 mcg/kg/minute of norepinephrine. LABORATORIES: Include white blood count 17.5, platelet count 224, creatinine 0.73. LFTs are normal. Procalcitonin 0.6 on two consecutive measurements. Note that during her last hospital stay, she had many measures of procalcitonin, usually about 0.1 or 0.2, so these are a little higher but an indeterminate range. Urinalysis without white cells. Toxicology negative. During last admission we had a Fungitell that was negative. Micro studies include blood cultures that are pending from yesterday, urine that is pending from yesterday,a MRSA screen from yesterday which was negative, and a complete review of her labs from last time in her culture shows on May 17 and May 20, she had Klebsiella in her airway and on May 20, she also had MSSA. She also had a urine which grew Klebsiella at one point. IMAGING: Was reviewed during ICU rounds. There is a CT scan which is difficult to interpret because it is so abnormal. There could be some degree of increased right-sided consolidation, but her CT scan has diffuse bilateral infiltrates as before. IMPRESSION: This is an extremely difficult case of a woman with severe and probably end-stage lung disease who was being evaluated but apparently was not approved for a lung transplant at the [facility]. She was subsequently at a chcf in [place] on May 17, when she coded, apparently from respiratory failure and was intubated and spent about three weeks in the hospital here. During the first 10-12 days of that time she was treated with vancomycin, aztreonam and Flagyl for possible aspiration pneumonia which may or may not have included Klebsiella pneumoniae. She improved, was extubated, and was actually able to go to a hotel where she spent about one day before having a respiratory decline and being brought back to the hospital. She now has ventilatory dependent respiratory failure once again, with possibly increased right-sided infiltrate. Also notable is high-spiking fevers during her 24 hours here as well as leukocytosis and a bit of an elevated procalcitonin as compared to prior. Her CT scan suggests the possibility of some increased right-sided infiltrate, though it is difficult to read. The patient also seems to be evolving an aztreonam rash, as two nurses now have noticed worsening erythrodermia with aztreonam. Aztreonam is being used in this patient to avoid betalactam anaphylaxis risk, but it appears it may have produced its own drug-related exanthem but I do not think that is the cause of her hypotension. RECOMMENDATIONS: 1. Will repeat the Fungitell and fungal blood cultures that were done during the last admission. 2. I would stop the vancomycin, aztreonam and Flagyl she is receiving, as she now has a drug rash and these are the antibiotics she just received, and I think it is better to switch to some alternative agents. 3. Tigecycline is an infrequently used ICU drug but here would provide good coverage for staph as well as Klebsiella and anaerobes. It is not an optimal drug, especially when patients are bacteremic, but as of yet we, have no proof of bacteremia in this patient. 4. Will continue to closely follow this complex patient with you. 5. This case was discussed with Dr. Leonardo Yeh. PIEDAD
--- NOTE | 2017-06-06 15:13 | NUR ---
Social Work: Initial Assessment/Multidisciplinary Rounds D: Per EMR review, patient is a 61 year old female admitted for intubation, post cardiac arrest, hypoxemia. Patient is [facility] with [facility] Medicaid. PCP is not listed. NOK is Edilson Espinal, brother, and son, Deisy (?) who is presently incarcerated at the [place] facility . Advanced directives have not been completed. Care management notes from last admission state patient would want re-intubation for a short period of time. Readmit score is high, 7/8. Pt discussed in multidisciplinary rounds; the patient is currently in CCU, vented. Patient is a readmission and was discharged on 06/03/17 to a private pay motel with home health services (RN and PT) through [facility] after patient declined to discharge to the only Long Term Facility who had accepted her. Patient was found at her hotel with decreased respiratory status and EMS contacted to find patient sats in the 60's. Pt brought to [facility] ED and required intubation. Patient will be a difficult to wean due to her end stage lung disease. Discharge planning will also be a challenge as patient presents with multiple psychosocial barriers and has demonstrated an inability to safely discharge for a substantial period of time before oxygenation levels requires re-hospitalization. At last admission, case management learned that the patient does not have a permanent residence and was was evicted from her sober living housing after she was found drinking on property. Patient's insurance presents as an additional barrier for SNF discharge as the only facility who locally holds an [employer] Contract ([facility]ending [facility] To [facility]) is a facility that the patient refuses to return to. At the time of last admission, patient was ambulating with a FWW 350 feet, SBA and was at her baseline 02 (6-7L). Patient's 02 is supplied through [employer] and pt also has a trilogy through [employer]. SERVICE CENTER ASSISTANT has requested the Canteen Operator reach out to [employer] to confirm that they do not have a contract with [employer]. Patient is also listed with [facility] which was not included on her previous admission. Patient may benefit from an expedited [facility] referral. SERVICE CENTER ASSISTANT will continue to follow clinical progress and discuss this option with providers as a possible resource. A: Pt who lives alone. P: Evolving; Patient's case is to be reviewed with administrative teams at complex care rounds due to her complex medical and psychosocial status. This case specialist will continue to follow to assist with discharge planning coordination. STEPHON Avila Addendum: 06/06/17 at 1554 by ENRIQUE MALAGON Amended: Links added.
--- NOTE | 2017-06-06 15:25 | PCM.PNMED ---
Subjective Date of Service Jun 06, 2017 Subjective Today the patient was alert at the time of evaluation and was able to follow commands appropriately and nod to questions appropriately, at that time she was having some dyssynchrony on the Vent so sedation was increased and upon re- evaluation of the patient she was significantly more somnolent. Overnight the patient manifested fevers of 39.5, and difficulties with vent synchrony requiring upward titration of sedation, which resulted in hypotension requiring increase in Pressor support. Exam Vital Signs Vital Sign - Last Date Time Temp Pulse Resp B/P Pulse Ox O2 Delivery O2 Flow Rate FiO2 06/06/17 12:05 100 109/51 98 75 06/06/17 08:30 Supplement Oxygen Ventilator 06/06/17 08:30 37.1 22 06/04/17 22:55 20 Intake and Output 06/05/17 06/05/17 06/06/17 Cumulative From/Thru 15:00 23:00 07:00 06/04/17 22:55 - 06/06/17 06:25 Intake Total 2035 ml 1566 ml 4400 ml Output Total 1400 ml 500 ml 2350 ml Balance 635 ml 1066 ml 2050 ml Intake IV Total 2035 ml 1566 ml 4400 ml Output Urine Total 1200 ml 400 ml 2050 ml Gastric Drainage Total 200 ml 100 ml 300 ml Exam Gen: Chronically ill appearing intubated and sedated patient following commands appropriately Neck: Right IJ in place and appears patent HEENT: PERRL, EOMI, no scleral icterus CV: RRR, no murmurs rubs or gallops Resp: Diffuse coarse breath sounds most rhonchorus in the RLL Abd: No rebound masses guarding or tenderness Extr: Art line in place, mild BL LE edema, no clubbing or cyanosis Skin: No visible lesions or masses, sallow complexion Neuro: CN 2-12 grossly intact, no focal neurologic deficit. IVs and Medications Medications Reviewed: Medications were reviewed in detail Lab and Diagnostics Item Value Date Time Red Blood Count 3.56 mil/mm3 L 06/06/17 0408 Mean Corpuscular Volume 93.0 fL 06/06/17 0408 Mean Corpuscular Hemoglobin 29.2 pg 06/06/17 0408 Mean Corpuscular Hemoglobin Concent 31.4 % L 06/06/17 0408 Red Cell Distribution Width 16.8 % H 06/06/17 0408 Neutrophils (%) (Auto) 82.6 % H 06/06/17 0408 Lymphocytes (%) (Auto) 8.1 % L 06/06/17 0408 Monocytes (%) (Auto) 4.1 % 06/06/17 0408 Eosinophils (%) (Auto) 4.3 % 06/06/17 0408 Basophils (%) (Auto) 0.3 % 06/06/17 0408 Estimat Glomerular Filtration Rate 117 mL/min 06/06/17 0408 Lactic Acid Level 0.9 mmol/L 06/06/17 0408 Calcium Level 7.6 mg/dL L 06/06/17 0408 Phosphorus Level 2.8 mg/dL 06/06/17 0408 Magnesium Level 2.4 mg/dL 06/06/17 1223 Total Bilirubin 0.9 mg/dL 06/06/17 0408 Aspartate Amino Transf (AST/SGOT) 25 U/L 06/06/17 0408 Alanine Aminotransferase (ALT/SGPT) 29 U/L 06/06/17 0408 Alkaline Phosphatase 72 U/L 06/06/17 0408 Total Protein 5.3 g/dL L 06/06/17 0408 Albumin 2.8 g/dL L 06/06/17 0408 Triglycerides Level 146 mg/dL 06/06/17 0408 Procalcitonin 0.57 ng/mL H 06/06/17 0408 Result Diagram: 06/06/17 0408 06/06/17 1223 Microbiology Blood and sputum cultures pending Respiratory PCR pending X-Rays, CTs and MRIs X-RAY CHEST ONE VIEW, PORTABLE IMPRESSION: Marked increased pulmonary vascular suggestive of edema. Focal appearance of increased opacity is present in the right base suggestive of atelectasis and/or pneumonia. Dictated by: Dilcia Hernandez M.D. on 06/05/2017 at 10:12 Approved by: Dilcia Hernandez M.D. on 06/05/2017 at 10:15 CT CERVICAL SPINE WITHOUT CONTRAST IMPRESSION: 1. Multilevel degenerative changes without visualized fracture. 2. Bilateral pleural effusions and pulmonary edema. Dictated by: Dilcia Hernandez M.D. on 06/05/2017 at 9:19 Approved by: Dilcia Hernandez M.D. on 06/05/2017 at 9:23 CT BRAIN WITHOUT CONTRAST IMPRESSION: 1. No acute intracranial process. 2. Mild to moderate atrophy and chronic microvascular ischemic changes. Dictated by: Dilcia Hernandez M.D. on 06/05/2017 at 9:15 Approved by: Dilcia Hernandez M.D. on 06/05/2017 at 9:19 CT ANGIO CHEST PULMONARY EMBOLISM IMPRESSION: 1. No pulmonary embolism. 2. Minimal effusions with right-sided consolidation. The latter could be represented atelectasis versus developing pneumonia. 3. Diffuse pulmonary edema. 4. Multiple bilateral rib fractures. Dictated by: Dilcia Hernandez M.D. on 06/05/2017 at 9:23 Approved by: Dilcia Hernandez M.D. on 06/05/2017 at 9:27 . Assessment & Plan Barbara Davila is a 61 year old woman with a PMH of severe interstitial lung disease with very tenuous respiratory status and a recent history of cardiac arrest with lengthy hospitalization only recently discharged on 06/03; she returns to [facility] acutely SOB and hypoxemic requiring intubation and sedation. Acute on chronic hypercarbic and hypoxic respiratory failure in setting of severe interstitial lung disease, POA. Active - Patient arrived acutely hypoxemic and was subsequently intubated and sedated - Likely secondary to pneumonia, possibly aspiration pneumonia with concurrent pulmonary edema - Propofol, Fentanyl for sedation - Patient initially requiring Norepinephrine for pressor support - Pulmonary Critical care consulted and we appreciated their opinion - Will attempt to wean off mechanical ventilation once pneumonia improves, will likely be a difficult and protracted weaning process as it was during her last hospitalization - A pallavi discussion was had with the daughter at bedside, who is concerned that further care may be futile and the patient will not be able to wean off the vent - Per discussion with daughter we will trial a few days of ventilator support and IV antibiotics, at which time if she has not made progress will consider conversion to comfort care Suspected Aspiration Pneumonia, POA. Active. - Patient with imaging suggestive of new focal consolidation - Vanco, Aztreonam, Metro with cultures pending, changed to Tigacycline per ID recommendations - Will use IVF judiciously given pulmonary edema, and obligate amount of fluids with IV meds Severe Sepsis, POA, acute. Active - Patient arrived with labile pressures and hypotension, leukocytosis, tachycardia, and hypoxemic respiratory failure - Abx as above - Cautious use of IVF as above - Continue to track infectious indicators - Will attempt to wean pressors as able - Mechanical ventilation per ICU team Recent cardiac arrest, POA, acute. Stable - Patient recently hospitalized for 15 days post cardiac arrest - Etiology uncertain although likely secondary to hypoxic episode. - Patient was also noted to have a prolonged QT and therefore arrhythmia must be considered. - Avoid QT prolonging medications. - Continue to follow on telemetry. No evidence of arrhythmia. Pulmonary Fibrosis, POA, chronic. Active - Patient with severe interstitial lung disease - Is exceptionally fragile from a respiratory standpoint - As above pulmonary critical care has been consulted - Patient will likely be difficult to wean off ventilation - Will consider palliative care consult if patient not making progress ventilator Possible Polysubstance abuse, present on admission and resolved. - Family has brought forth that the patient uses numerous street drugs and alcohol. Unclear when her last use was as she was recently in a SNF prior to this admission. Patient denies active substance use - Complicating sedation at this time. - Tox screen negative on admission Disposition: Disposition will likely be difficult for this patient, SNF was recommended at last discharge and patient refused the only facility which would accept her. Should the patient make good progress on ventilation she will likely require a protracted hospital stay with possible LTAC consideration; a conversation about goals of care will be initiated if the patient is failing to make adequate progress in the near future. Pain Evaluation: Adequate Pain Control GI Prophylaxis: H2 pat VTE Prophylaxis: Sub-Q Heparin (Unfractionated) VTE Mechanical Devices: Intermittant Pneumatic CD Resuscitation Status: CPR: Attempt Resuscitation Attending Statement The patient was seen and examined together with Dr. Leger on 06/06/17 and I agree with the history, exam and plan as outlined in the note above. Fco Leger DO Jun 06, 2017 15:25 Timo Torres Jun 06, 2017 17:57
[2017-06-06] MEDS ORDERED: Vancomycin Serum Trough XX ONE (15:30)
--- NOTE | 2017-06-06 16:18 | NUR ---
[facility] REFERRAL : Called and left message for Rosie Gutierrez at [place] [phone], let her know I would like to have her review this for acceptance. And if [facility] will not contract can patient go under her straight [facility]. Faxed clinicals and facesheet to [phone]
--- NOTE | 2017-06-06 16:49 | NUR ---
P: Respiratory failure I: Pt very restless but shakes her head yes and no appropriately. Propofol was at 50 mcqs decreased to 40 mcqs will see if she tolerates it. Fentanyl increased to 100mcqs for pts discomfort. Pt shakes her head no for pain at this time. OGT patent and draining green fluid. Norepinephrine gtt 0.3 mcqs at this time, was as high as 0.4 mcqs. LR bolus 500cc given x2. Pt connected to [place]. CVP 12-14. Horn patent and draining rosa urine with some pink tinged.Potassium and magnesium came back WNL. Turned Q 2 hours. Daughter and pt's son was updated on pt's condition and plan of care by Dr. Yeh. E: Stable S: Restraints on for pt safety. Frequent rounding.
--- NOTE | 2017-06-06 16:54 | DRSVH ---
PROCEDURE: X-RAY CHEST ONE VIEW, PORTABLE ([id number]) INDICATIONS: fu intubated TECHNIQUE: One view of the chest was acquired. COMPARISON: [facility], CR, XR CHEST 1VW (PORTABLE), 06/05/2017, 6:02. FINDINGS: Surgical changes and devices: ETT tip projected 4.4 cm above the cassidy. Nasogastric tube traverses the GE junction. Stable positioning of right IJ CVL tip projects over the mid to lower SVC. Lungs and pleura: Diffuse, widespread bilateral pulmonary interstitial and bibasilar air space opaci ties are present similar to prior exam. Small pleural effusion redemonstrated. Mediastinum: Mediastinal contours appear normal. Heart size is normal. Bones and chest wall: No suspicious bony lesions. Overlying soft tissues appear unremarkable. IMPRESSION: Pulmonary edema and/or bibasilar pneumonia similar to prior examination. Small left pleural effusion. Dictated by: Imtiaz Olivares RRA Interpreted: Dilcia Hernandez MD on 06/06/2017 at 7:59 Approved by: Dilcia Hernandez M.D. on 06/06/2017 at 16:52
[2017-06-06] MEDS ORDERED: 0.9% Sodium Chloride 1,000 ML IV ONE (18:00)
[2017-06-06] MEDS: Tigecycline Inj 50 MG in 0.9% Sodium Chloride 100 ML IV SCH (22:27)
[2017-06-07] VITALS (13 sets, daily range): BP systolic 108–157; BP diastolic 50–90; PULSE 77–99; RESP 18–27; O2SAT 93–100
[2017-06-07] MEDS: Chlorhexidine 0.12% 15 mL Oral Solution MT SCH ×6 (01:02→20:42)
[2017-06-07] MEDS: Propofol Inj 1,000,000 MCG in IV Premix 1 EACH IV SCH ×6 (01:03→22:37)
[2017-06-07] MEDS: Heparin 5,000 Unit/mL Inj SUBQ SCH ×3 (01:03→16:19)
[2017-06-07] MEDS: Norepinephrine 8,000 mCg/250 mL D5W Premix IV SCH ×3 (03:04→18:36)
[2017-06-07 03:46] LABS: BASOPHILS % (AUTO) 0.2 % (0-3); EOSINOPHILS % (AUTO) 8.5 % (0-5); MONOCYTES % (AUTO) 5.5 % (4-12); Mean Corpuscular Hemoglobin 28.7 pg (27.0-35.0); Mean Corpuscular Volume 94.8 fL (81-100); NEUTROPHILS % (AUTO) 75.4 % (40-74); Platelet Count 226 bil/L (150-400)
[2017-06-07 04:04] LABS: INR 0.96 ratio
[2017-06-07 04:43] LABS: Phosphorus 3.5 mg/dL (2.5-4.9)
--- NOTE | 2017-06-07 04:55 | ABG ---
DateTimeAnalyzed 04:47:00 -_ pH ____7.289 - 7.350 7.450 pCO2 ___48.2__ -mmHg 35.0 45.0 pO2 141 -mmHg 80.0 100 HCO3- ___22.4__ -mmol/L 22.0 26.0 ABE ___-3.7__ -mmol/L -2.0 2.0 tHb ____9.9__ -g/dL 12.0 18.0 O2Hb ___96.3__ -% COHb ____1.4__ -% 1.5 MetHb ____0.9__ -% 0.4 1.5 sO2 ___98.6__ -% 95.0 FIO2 ___75.0__ -% PEEP ___10.0__ -cmH2O Set_RR ___18.0__ -b/min Vt __400.0__ -L Drawn By MM - Date/Time Notified____ 04:55:00 -_ Spontaneous_RR ___18.0__ -b/min Oxygen Device 1 VENTILATOR - Notified By MM - Notified Whom DR ROMEO - B 761 -mmHg tO2 ___13.6__ -Vol% [place] test N/A -
[2017-06-07] MEDS: Famotidine Inj 20 MG in IV Premix 1 EACH IV SCH ×2 (07:48→20:43)
[2017-06-07] MEDS: Albuterol-Ipratropium 3 mL Inhalation Solution NEB SCH ×4 (08:20→20:35)
[2017-06-07] MEDS ORDERED: TOBRAMYCIN 300 MG/5 ML NEB SCH (08:30)
--- NOTE | 2017-06-07 09:15 | NUR ---
NUTRITION FOLLOW UP Assess: 61 YO F admitted to CCU with acute on chronic respiratory failure in setting of severe interstitial lung disease requiring intubation. Pt NPO X 3 days. Plan to start tube feeds today. PMHX: Interstitial lung disease, R-sided heart failure, cor pulmonale, depression, anxiety, chronic pain. DIET: NPO. LABS: Cr 0.53, Glu 110, Ca 7.7, Alb 2.7 MEDICATIONS: Reviewed. Fentanyl, Propofol @ ~21 ml/hr providing 554 kcal/day. GI: No BM noted. SKIN: No issues noted. ANTHROPOMETRICS: Wt: 91.8 kg, BMI 38.2 kg/m2, Admit wt: 88.8 kg, IBW: 47.7 kg. Possible wt loss of 15 kg since 05/18/17 per EMR (14.5% of BW X <1 month) = significant wt loss. ESTIMATED NEEDS: BMI/VENT Calories: 8452-9287 kcal/day (20-22 kcal/kg BW) Protein: 72-86 g/day (1.5-1.8 g/kg IBW) NUTRITION DIAGNOSIS: 1) Inadequate oral intake related to decreased ability to consume sufficient energy as evidenced by NPO/Vent status.---PERSISTS. INTERVENTION: 1) Recommend Pulmocare starting at 10 ml/hr, once tolerance established, advance 10 ml q 6 hr to goal rate of 40 ml/hr. At goal TF will provide 1320 kcal (TF+Propofol = 1874 kcal), 55 g protein; meeting 100% calorie, 76% protein needs. Signed orders to be placed in chart per Suzie Hackett. 2) Once TF tolerated at goal, recommend addition of 1 Prosource liquid protein packets BID to provide a total of 77 g protein; meeting 100% of protein needs. 3) Adjust goal rate based on daily Propofol rate. Eventual TF goal (without Propofol) is 55 ml/hr to provide 1815 kcal, 76 g protein; meeting 100% calorie/protein needs. MONITOR/EVALUATE: NPO/Vent status, labs, wt, nutrition support, GI/nutrition status. Follow per high nutrition risk guidelines.
[2017-06-07] MEDS: fentaNYL 2,500 mCg/250 mL 2,500 MCG in IV Premix 1 EACH IV PRN (10:22)
[2017-06-07] MEDS: Tigecycline Inj 50 MG in 0.9% Sodium Chloride 100 ML IV SCH ×2 (10:26→22:29)
[2017-06-07] MEDS ORDERED: Lactated Ringer's 500 ML IV ONE ×2 (10:30→11:30)
--- NOTE | 2017-06-07 10:49 | PCM.PNMED ---
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 Intubated May 17 and extubated May 25. She has been on high flow nasal cannula alternating with OxyMask since that time. Initial CT demonstrated new obstruction of airways along with her interstitial lung disease which was not seen on last CT in April. No acute events overnight. Patient tolerated fluid boluses well, weaning down from epinephrine 0.35 --> 0.15 overnight. Exam Vital Signs Vital Sign - Last Date Time Temp Pulse Resp B/P Pulse Ox O2 Delivery O2 Flow Rate FiO2 06/07/17 08:30 36.8 95 108/58 98 Mechanical Ventilator 60 06/07/17 04:30 18 06/04/17 22:55 20 Intake and Output 06/06/17 06/06/17 06/07/17 Cumulative From/Thru 15:00 23:00 07:00 06/04/17 22:55 - 06/07/17 06:01 Intake Total 3903 ml 1251 ml 9554 ml Output Total 650 ml 500 ml 3500 ml Balance 3253 ml 751 ml 6054 ml Intake IV Total 3903 ml 1251 ml 9554 ml Output Urine Total 650 ml 450 ml 3150 ml Gastric Drainage Total 0 ml 50 ml 350 ml Exam Gen: Chronically ill appearing intubated and sedated patient following commands appropriately, nodding/shaking head appropriately to questions. Neck: Right IJ in place and appears patent HEENT: PERRL, EOMI, no scleral icterus CV: RRR, no murmurs rubs or gallops Resp: Diffuse coarse breath sounds most rhonchorus in the RLL. Wheezes also present. Abd: No rebound masses guarding or tenderness Extr: Art line removed, mild BL LE edema, no clubbing or cyanosis Skin: No visible lesions or masses Neuro: CN 2-12 grossly intact, no focal neurologic deficit. Lab and Diagnostics Result Diagram: 06/07/17 0342 06/07/17 034 Microbiology Blood and sputum cultures pending Respiratory PCR pending X-Rays, CTs and MRIs X-RAY CHEST ONE VIEW, PORTABLE IMPRESSION: Marked increased pulmonary vascular suggestive of edema. Focal appearance of increased opacity is present in the right base suggestive of atelectasis and/or pneumonia. Dictated by: Dilcia Hernandez M.D. on 06/05/2017 at 10:12 Approved by: Dilcia Hernandez M.D. on 06/05/2017 at 10:15 CT CERVICAL SPINE WITHOUT CONTRAST IMPRESSION: 1. Multilevel degenerative changes without visualized fracture. 2. Bilateral pleural effusions and pulmonary edema. Dictated by: Dilcia Hernandez M.D. on 06/05/2017 at 9:19 Approved by: Dilcia Hernandez M.D. on 06/05/2017 at 9:23 CT BRAIN WITHOUT CONTRAST IMPRESSION: 1. No acute intracranial process. 2. Mild to moderate atrophy and chronic microvascular ischemic changes. Dictated by: Dilcia Hernandez M.D. on 06/05/2017 at 9:15 Approved by: Dilcia Hernandez M.D. on 06/05/2017 at 9:19 CT ANGIO CHEST PULMONARY EMBOLISM IMPRESSION: 1. No pulmonary embolism. 2. Minimal effusions with right-sided consolidation. The latter could be represented atelectasis versus developing pneumonia. 3. Diffuse pulmonary edema. 4. Multiple bilateral rib fractures. Dictated by: Dilcia Hernandez M.D. on 06/05/2017 at 9:23 Approved by: Dilcia Hernandez M.D. on 06/05/2017 at 9:27 . 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 Readmitted and intubated 06/05/17 for acute hypoxic respiratory failure. Acute on chronic hypercarbic and hypoxic respiratory failure in setting of severe interstitial lung disease. - Secondary to post-ARDS pulmonary fibrosis and possible aspiration pneumonia. Also an element of COPD as centrilobular emphysema was noted on chest CT. Pt currently intubated and sedated. - Continue mechanical ventilation. - Pressure support trials as tolerated - Continue fentanyl and propofol gtt - wean as tolerated - DuoNebs q6h and q2h PRN Acute sepsis. - Secondary to aspiration pneumonia. Pt is hypotensive, requiring norepi gtt at this time. SVV is elevated and IVC is collapsible on ultrasound - likely volume depleted. - IV fluid boluses as tolerated. Wean norepinephrine. - Continue tigecycline Aspiration pneumonia . Improved. - Patient previously treated for aspiration pneumonia with aztreonam, meropenem , and vancomycin but did not complete a full course as there was doubt of whether there was an active infectious process. CT chest on 06/05 showed worsening RLL consolidation suspicious for aspiration pneumonia. Pt had rash with restarting aztreonam, so antibiotics were changed to tigecycline. - Dr. Del Rio of Infectious Disease is consulted. We appreciate his input. - Continue tigecycline - Will schedule bronchoscopy with BAL Recent cardiac arrest, POA, acute. Stable - Patient recently hospitalized for 15 days post cardiac arrest. Likely secondary to severe hypoxic episode. Patient was also noted to have a prolonged QT and therefore arrhythmia must be considered. - Avoid QT prolonging medications. - Continue to follow on telemetry. No evidence of arrhythmia. Post-ARDS pulmonary fibrosis - Patient is exceptionally fragile from a respiratory standpoint, s/p multiple intubations. Difficult to wean off ventilation. SNF was recommended at last discharge and patient refused the only facility which would accept her. Should the patient make good progress on ventilation she will likely require a protracted hospital stay with possible LTAC consideration; a conversation about goals of care will be initiated if the patient is failing to make adequate progress in the near future. Possible polysubstance abuse - Family has brought forth that the patient uses numerous street drugs and alcohol. Unclear when her last use was as she was recently in a SNF prior to this admission. Patient denies active substance use. Drug screen negative on admission. GI Prophylaxis: H2 pat VTE Prophylaxis: Sub-Q Heparin (Unfractionated) VTE Mechanical Devices: Intermittant Pneumatic CD Resuscitation Status: CPR: Attempt Resuscitation Attending Statement Evidence of bronchiectasis on review of HRCT imaging. Centrilobular emphysema with non-UIP pattern of pulmonary fibrosis consistent with the prior history of ARDS. Today's chest x-ray suggestive of a new left lower lobe infiltrate. Patient underwent bronchoscopy with removal of some mucous plugs. BAL of right lower lobe and left lower lobe were obtained and sent for Gram stain and culture. Spoke with ID and we will adjust antibiotics according BAL results. FiO2 was weaned to 50%. She continues on the Levophed but less than half from yesterday. She has received approximate 4 L fluid since yesterday. Another arterial line was placed today. Patient seen and examined. Pertinent labs and imaging reviewed. Findings reviewed and discussed with the resident. Amendments made verbally with the resident and/or directly on this document. Agree with the above. Total critical care time spent in direct patient care independent of all procedures today minutes 80. Ronald Finney Jun 07, 2017 10:49 Pete Ron MD Jun 07, 2017 16:48 - Mechanical ventilation per ICU team Recent cardiac arrest, POA, acute. Stable - Patient recently hospitalized for 15 days post cardiac arrest - Etiology uncertain although likely secondary to hypoxic episode. - Patient was also noted to have a prolonged QT and therefore arrhythmia must be considered. - Avoid QT prolonging medications. - Continue to follow on telemetry. No evidence of arrhythmia. Pulmonary Fibrosis, POA, chronic. Active - Patient with severe interstitial lung disease - Is exceptionally fragile from a respiratory standpoint - As above pulmonary critical care has been consulted - Patient will likely be difficult to wean off ventilation - Will consider palliative care consult if patient not making progress ventilator Possible Polysubstance abuse, present on admission and resolved. - Family has brought forth that the patient uses numerous street drugs and alcohol. Unclear when her last use was as she was recently in a SNF prior to this admission. Patient denies active substance use - Complicating sedation at this time. - Tox screen negative on admission Disposition: Disposition will likely be difficult for this patient, SNF was recommended at last discharge and patient refused the only facility which would accept her. Should the patient make good progress on ventilation she will likely require a protracted hospital stay with possible LTAC consideration; a conversation about goals of care will be initiated if the patient is failing to make adequate progress in the near future. GI Prophylaxis: H2 pat VTE Prophylaxis: Sub-Q Heparin (Unfractionated) VTE Mechanical Devices: Intermittant Pneumatic CD Resuscitation Status: CPR: Attempt Resuscitation Ronald Finney Jun 07, 2017 10:49
--- NOTE | 2017-06-07 11:53 | PCM.PNMED ---
Subjective Date of Service Jun 07, 2017 Subjective Today that patient is rousable with verbal stimuli, she will follow commands appropriately and will nod yes or no to questions and will then lapse back into sleep. ROS is negative or unobtainable. No significant overnight events. Exam Vital Signs Vital Sign - Last Date Time Temp Pulse Resp B/P Pulse Ox O2 Delivery O2 Flow Rate FiO2 06/07/17 11:27 97 157/90 99 55 06/07/17 08:30 36.8 Mechanical Ventilator 06/07/17 04:30 18 06/04/17 22:55 20 Intake and Output 06/06/17 06/06/17 06/07/17 Cumulative From/Thru 15:00 23:00 07:00 06/04/17 22:55 - 06/07/17 06:01 Intake Total 3903 ml 1251 ml 9554 ml Output Total 650 ml 500 ml 3500 ml Balance 3253 ml 751 ml 6054 ml Intake IV Total 3903 ml 1251 ml 9554 ml Output Urine Total 650 ml 450 ml 3150 ml Gastric Drainage Total 0 ml 50 ml 350 ml Exam Gen: Chronically ill appearing intubated and sedated patient following commands appropriately Neck: Right IJ in place and appears patent HEENT: PERRL, EOMI, no scleral icterus CV: RRR, no murmurs rubs or gallops Resp: Diffuse coarse breath sounds most rhonchorus in the RLL Abd: No rebound masses guarding or tenderness Extr: mild BL LE edema, no clubbing or cyanosis Skin: No visible lesions or masses, sallow complexion Neuro: CN 2-12 grossly intact, no focal neurologic deficit. . IVs and Medications Medications Reviewed: Medications were reviewed in detail Lab and Diagnostics Item Value Date Time Red Blood Count 3.45 mil/mm3 L 06/07/17 0342 Mean Corpuscular Volume 94.8 fL 06/07/17 034 Mean Corpuscular Hemoglobin 28.7 pg 06/07/17 034 Mean Corpuscular Hemoglobin Concent 30.3 % L 06/07/17 034 Red Cell Distribution Width 17.3 % H 06/07/17 0342 Neutrophils (%) (Auto) 75.4 % H 06/07/17 0342 Lymphocytes (%) (Auto) 10.0 % L 06/07/17 034 Monocytes (%) (Auto) 5.5 % 06/07/17 034 Eosinophils (%) (Auto) 8.5 % H 06/07/17 034 Basophils (%) (Auto) 0.2 % 06/07/17 034 Estimat Glomerular Filtration Rate 169 mL/min 06/07/17 034 Calcium Level 7.7 mg/dL L 06/07/17 034 Phosphorus Level 3.5 mg/dL 06/07/17 034 Magnesium Level 2.0 mg/dL 06/07/17 034 Total Bilirubin 0.6 mg/dL 06/07/17 034 Aspartate Amino Transf (AST/SGOT) 19 U/L 06/07/17 034 Alanine Aminotransferase (ALT/SGPT) 24 U/L 06/07/17 034 Alkaline Phosphatase 73 U/L 06/07/17 034 Total Protein 5.4 g/dL L 06/07/17 034 Albumin 2.7 g/dL L 06/07/17 034 Triglycerides Level 115 mg/dL 06/07/17 034 Procalcitonin 0.44 ng/mL H 06/07/17 034 Result Diagram: 06/07/17 03406/07/17 034 Microbiology Blood culture from 06/06 positive for Staph, nature indeterminant could be contaminant Respiratory PCR negative X-Rays, CTs and MRIs X-RAY CHEST ONE VIEW, PORTABLE IMPRESSION: Marked increased pulmonary vascular suggestive of edema. Focal appearance of increased opacity is present in the right base suggestive of atelectasis and/or pneumonia. Dictated by: Dilcia Hernandez M.D. on 06/05/2017 at 10:12 Approved by: Dilcia Hernandez M.D. on 06/05/2017 at 10:15 CT CERVICAL SPINE WITHOUT CONTRAST IMPRESSION: 1. Multilevel degenerative changes without visualized fracture. 2. Bilateral pleural effusions and pulmonary edema. Dictated by: Dilcia Hernandez M.D. on 06/05/2017 at 9:19 Approved by: Dilcia Hernandez M.D. on 06/05/2017 at 9:23 CT BRAIN WITHOUT CONTRAST IMPRESSION: 1. No acute intracranial process. 2. Mild to moderate atrophy and chronic microvascular ischemic changes. Dictated by: Dilcia Hernandez M.D. on 06/05/2017 at 9:15 Approved by: Dilcia Hernandez M.D. on 06/05/2017 at 9:19 CT ANGIO CHEST PULMONARY EMBOLISM IMPRESSION: 1. No pulmonary embolism. 2. Minimal effusions with right-sided consolidation. The latter could be represented atelectasis versus developing pneumonia. 3. Diffuse pulmonary edema. 4. Multiple bilateral rib fractures. Dictated by: Dilcia Hernandez M.D. on 06/05/2017 at 9:23 Approved by: Dilcia Hernandez M.D. on 06/05/2017 at 9:27 . Assessment & Plan Barbara Davila is a 61 year old woman with a PMH of severe interstitial lung disease with very tenuous respiratory status and a recent history of cardiac arrest with lengthy hospitalization only recently discharged on 06/03; she returns to [facility] acutely SOB and hypoxemic requiring intubation and sedation. Acute on chronic hypercarbic and hypoxic respiratory failure in setting of severe interstitial lung disease, POA. Active - Patient arrived acutely hypoxemic and was subsequently intubated and sedated - Likely secondary to pneumonia, possibly aspiration pneumonia with concurrent pulmonary edema - Propofol, Fentanyl for sedation - Patient initially requiring Norepinephrine for pressor support - Pulmonary Critical care consulted and we appreciated their opinion - Will attempt to wean off mechanical ventilation once pneumonia improves, will likely be a difficult and protracted weaning process as it was during her last hospitalization - A pallavi discussion was had with the daughter at bedside, who is concerned that further care may be futile and the patient will not be able to wean off the vent - Per discussion with daughter we will trial a few days of ventilator support and IV antibiotics, at which time if she has not made progress will consider conversion to comfort care Suspected Aspiration Pneumonia, POA. Active. - Patient with imaging suggestive of new focal consolidation - Vanco, Aztreonam, Metro with cultures pending, changed to Tigacycline per ID recommendations - Will use IVF judiciously given pulmonary edema, and obligate amount of fluids with IV meds Severe Sepsis, POA, acute. Active - Patient arrived with labile pressures and hypotension, leukocytosis, tachycardia, and hypoxemic respiratory failure - Abx as above - Cautious use of IVF as above - Continue to track infectious indicators - Will attempt to wean pressors as able - Mechanical ventilation per ICU team Recent cardiac arrest, POA, acute. Stable - Patient recently hospitalized for 15 days post cardiac arrest - Etiology uncertain although likely secondary to hypoxic episode. - Patient was also noted to have a prolonged QT and therefore arrhythmia must be considered. - Avoid QT prolonging medications. - Continue to follow on telemetry. No evidence of arrhythmia. Pulmonary Fibrosis, POA, chronic. Active - Patient with severe interstitial lung disease - Is exceptionally fragile from a respiratory standpoint - As above pulmonary critical care has been consulted - Patient will likely be difficult to wean off ventilation - Will consider palliative care consult if patient not making progress ventilator Possible Polysubstance abuse, present on admission and resolved. - Family has brought forth that the patient uses numerous street drugs and alcohol. Unclear when her last use was as she was recently in a SNF prior to this admission. Patient denies active substance use - Complicating sedation at this time. - Tox screen negative on admission Disposition: Disposition will likely be difficult for this patient, SNF was recommended at last discharge and patient refused the only facility which would accept her. Should the patient make good progress on ventilation she will likely require a protracted hospital stay with possible LTAC consideration; a conversation about goals of care will be initiated if the patient is failing to make adequate progress in the near future. Pain Evaluation: Adequate Pain Control GI Prophylaxis: H2 pat VTE Prophylaxis: Sub-Q Heparin (Unfractionated) VTE Mechanical Devices: Intermittant Pneumatic CD Resuscitation Status: CPR: Attempt Resuscitation Time spent 25 minutes Attending Statement Patient has been seen and examined by myself with medical services manager and agree with above history, physical, assessment and plan. Fco Leger DO Jun 07, 2017 11:53 Indigo Acuña MD Jun 07, 2017 13:40
[2017-06-07] MEDS: TOBRAMYCIN 300 MG/5 ML NEB SCH ×2 (12:52→21:07)
--- NOTE | 2017-06-07 14:02 | PROG NOTE ---
[address] [address] PROGRESS NOTE PATIENT: ALISSON STAFFORD : 1955 MR#: [id number] ADMIT: 06/04/2017 JOB ID: [id number] DATE: 06/07/2017 INFECTIOUS DISEASE FOLLOWUP NOTE: INTERVAL HISTORY: Overnight, the patient has remained intubated and sedated. This morning she is once again a bit arousable, and seems to recognize people and nod and follow some very limited commands appropriately, but she remains intubated and quite sedated, and unable to give any meaningful history. This case was discussed in great detail during rounds as well as with the ICU attending in person and the nurse at the bedside. PHYSICAL EXAMINATION: Reveals an intubated sedated woman. Temp 36.8, pulse 95, blood pressure 157/90. She is still on vasopressors but her norepinephrine has been weaned from 0.4 to 0.15 mcg/kg per minute. Her FiO2 has been reduced considerably from 75% early this morning all the way down to 40% now. Her urine output continues to be a bit sluggish but reasonable. The patient has no conjunctival abnormalities. Oral endotracheal tube and orogastric tube in good position. Lungs with coarse rales and rhonchi bilaterally, as always in this patient with pulmonary fibrosis. Cardiac tones without new murmur. Abdomen is soft and nontender. No skin rash noted. LABORATORIES: Include white count 14,700, 75% segs, 10% lymphs. Eos have jumped to 8%, likely due to antibiotics. Creatinine 0.53. LFTs normal. Procalcitonin stable at 0.4. Urinalysis negative. Urine tox screen negative. Fungitell is pending. Cultures include a sputum from the which showed normal erich. Additionally we have negative blood cultures, negative MRSA screen. More recently we have a single blood culture from yesterday which is growing what appears to be coag-negative staph by PCR. This Staph species is negative for Staph aureus by PCR, which means it is likely Staph aureus. It is also notable that it has a MAC aging meaning it would be resistant to beta lactams. Respiratory viral PCR panel negative. IMAGING: Includes a chest x-ray done yesterday which shows bilateral infiltrates. IMPRESSION: This patient is slightly better in that she is on less vasopressors and less FiO2 is required for support. Additionally, she is a little more awake, though still not able to provide much in terms of history or information. Recall that she has a longstanding history of many drug allergies and appeared to be getting a rare aztreonam rash while on that agent after admission. Yesterday we switched her antibiotics of vancomycin, Flagyl, and aztreonam to simply tigecycline to try and minimize the risk of ongoing monolactam or beta-lactam rash, and also to broaden the spectrum a bit and provide good coverage for most gram-negatives, anaerobes, and staph species. I had also written for some aerosolized tobramycin yesterday as a recent article suggested this can be of benefit, especially when gram-negative pneumonia is encounter. Apparently there have been troubles acquiring the KEN. RECOMMENDATIONS: 1. We await the Fungitell and fungal blood cultures that were done. 2. Will continue with tigecycline. 3. At the discretion of the intensive care unit team, I would strongly consider adding aerosolized tobramycin, especially if the patient does not improve in a fashion we anticipate. Thank you very much.
[2017-06-07] MEDS ORDERED: Lidocaine Topical 2% 30 mL Jelly ONE (14:39)
[2017-06-07] MEDS ORDERED: Lidocaine PF 2% 10 mL Inj ONE (14:39)
--- NOTE | 2017-06-07 14:44 | DRSVH ---
PROCEDURE: X-RAY CHEST ONE VIEW, PORTABLE ([id number]) INDICATIONS: fu intubated TECHNIQUE: One view of the chest was acquired. COMPARISON: [facility], CR, XR CHEST 1VW (PORTABLE), 06/06/2017, 5:01. FINDINGS: Surgical changes and devices: ETT tip projected 2.6 cm above the cassidy. Nasogastric tube tip tylor ses the GE junction and the side port likely positioned at the level of the GE junction. Stable posi tion of right subclavian CVL tip projected over the mid-lower SVC. Lungs and pleura: Diffuse, widespread bilateral pulmonary interstitial and bibasilar air space opaci ties are present. Small left pleural effusion. No pneumothorax. Mediastinum: Mediastinal contours appear normal. Heart size is enlarged. Bones and chest wall: No suspicious bony lesions. Overlying soft tissues appear unremarkable. IMPRESSION: 1. Support lines and tubes as above. 2. Edema and/or bibasilar pneumonia similar to prior examination. 3. Stable cardiomegaly. 4. Small left pleural effusion. Dictated by: Imtiaz Olivares [facility] Interpreted: Chris Stein MD on 06/07/2017 at 8:06 Approved by: Chris Stein M.D. on 06/07/2017 at 14:40
--- NOTE | 2017-06-07 15:05 | PCM.PROC ---
Procedure Note Date of Service: Jun 07, 2017 Pre Procedure Diagnosis: Pneumonia Provider and Manual Machinist: Provider: Dr. Ronald Finney Attending: Dr. Pete Ron Procedure Details: Date: 06/07/17 Time: 1400 Indication: Hemodynamic monitoring, ABG A time-out was completed verifying correct patient, procedure, site, positioning , and special equipment if applicable. The patients right wrist was prepped and draped in sterile fashion. An arterial line was introduced into the radial artery. The catheter was threaded over the guide wire and the needle was removed with appropriate pulsatile blood return. The catheter was then secured place to the skin and a sterile dressing applied. Perfusion to the extremity distal to the point of catheter insertion was checked and found to be adequate. Dr. Ron was present for the entire procedure. Estimated Blood Loss: Minimal The patient tolerated the procedure well and there were no complications. Attending Statement I was present during the entire procedure. Estimated blood loss 2 mL. Agree with the above. Ronald Finney Jun 07, 2017 15:05 Pete Ron MD Jun 07, 2017 16:49
[2017-06-07] MEDS ORDERED: Lidocaine PF 2% 5 mL Inj MUC_MEMBRM SCH (15:40)
[2017-06-07] MEDS ORDERED: Lidocaine Topical 2% 30 mL Jelly MUC_MEMBRM PRN (15:40)
--- NOTE | 2017-06-07 16:38 | PCM.PROC ---
Procedure Note Date of Service: Jun 07, 2017 Pre Procedure Diagnosis: Pneumonia Post Procedure Diagnosis: Pneumonia Procedure: Bronchoscopy with BAL Provider and Genetic Coordinator: Dr. Ron Indication for Procedure: Mucus plugging Findings: Mucous Procedural Analgesia: Propofol fentanyl on ventilator Procedure Details: Patient was intubated with head of the bed 30. Bronchoscopic adapter was applied to the endotracheal tube. I personally inserted the bronchoscope into the endotracheal tube through the bronchoscopic adapter. Some mucus was noted at the trachea which was suctioned clear. Endotracheal tube was 3 cm above the cassidy. Additional mucous suctioned out of the right lower lobe and left lower lobe. Right upper lobe right, middle lobe, right lower lobe, left upper lobe and left lower lobe appear to be normal caliber with no evidence of endobronchial mass or lesions. Bronchoalveolar lavage was performed of the right lower lobe as well as the left lower lobe and sent for Gram stain and culture. She tolerated the procedure well. Specimen: Right lower lobe and left lower lobe BAL Post Procedure Plan: Continue mechanical ventilation Attending Statement Consent was obtained from the patient's POA. Risks and benefits explained. All questions asked and answered. Pete Ron MD Jun 07, 2017 16:38
--- NOTE | 2017-06-07 16:48 | NUR ---
P: Respiratory Distress I: Pt BP a little low this am and one liter NS bolus given. Norepinephrine gtt 0.15-.2 mcqs to maintain BP. Temp max 37.3. bronch done and secretions sent to lab. Fentanyl 100 mcqs and propofol 50 mcqs tried to lower sedation but pt coughs and fights the vent and sats drop to 66%. Tube feeding started at 10cc/hr. Residuals 30cc. NS TKO. Pt still has a light pink rash from the antibiotic from yesterday. Horn patent and draining adequate urine output. Turned Q 2 hours. New arterial line placed in right radial wrist. vigileo restarted. Left radial arterial line was dc'd as it was not working any more. CVP 16, C.I 3.5 and SVR 689with norepinephrine at 0.15mcqs. Turned Q 2 hours. Oral care done Q 4 hours. NSR/ST no ectopy noted. SCd's on E: Slightly improved S: Restraints on for pt safety. Daughter and pt's brother updated on pt's condition and plan of care. Frequent rounding.
--- NOTE | 2017-06-07 17:38 | ABG ---
DateTimeAnalyzed 17:27:07 -_ pH ____7.404 - 7.350 7.450 pCO2 ___35.7__ -mmHg 35.0 45.0 pO2 ___58.5__ -mmHg 80.0 100 HCO3- ___22.3__ -mmol/L 22.0 26.0 ABE ___-2.2__ -mmol/L -2.0 2.0 tHb ____9.4__ -g/dL 12.0 18.0 O2Hb ___90.5__ -% COHb ____2.6__ -% 1.5 MetHb ____0.0__ -% 0.4 1.5 sO2 ___92.6__ -% 95.0 AaDpO2 __187.0__ -mmHg FIO2 ___40.0__ -% PEEP ___10.0__ -cmH2O Set_RR 25 -b/min Vt __400.0__ -L Drawn By NB - Date/Time Notified____ 17:37:00 -_ Spontaneous_RR 25 -b/min Oxygen Device 1 VENTILATOR - Notified By NB - Notified Whom DR Leger - K+ ____4.4__ -mmol/L 3.5 5.0 Wisam test N/A -
[2017-06-07] MEDS ORDERED: 0.9% Sodium Chloride 1,000 ML IV ONE (18:20)
--- NOTE | 2017-06-07 18:30 | ABG ---
DateTimeAnalyzed 17:27:07 -_ pH ____7.404 - 7.350 7.450 pCO2 ___35.7__ -mmHg 35.0 45.0 pO2 ___58.5__ -mmHg 80.0 100 HCO3- ___22.3__ -mmol/L 22.0 26.0 ABE ___-2.2__ -mmol/L -2.0 2.0 tHb ____9.4__ -g/dL 12.0 18.0 O2Hb ___90.5__ -% COHb ____2.6__ -% 1.5 MetHb ____0.0__ -% 0.4 1.5 sO2 ___92.6__ -% 95.0 AaDpO2 __187.0__ -mmHg FIO2 ___40.0__ -% Drawn By NB - Date/Time Notified____ 17:37:00 -_ Notified By NB - Notified Whom DR Leger - K+ ____4.4__ -mmol/L 3.5 5.0 Wisam test N/A -
[2017-06-08] VITALS (11 sets, daily range): BP systolic 100–140; BP diastolic 47–66; PULSE 75–107; RESP 23; O2SAT 88–100
[2017-06-08] MEDS: Chlorhexidine 0.12% 15 mL Oral Solution MT SCH ×6 (01:56→20:14)
[2017-06-08] MEDS: Heparin 5,000 Unit/mL Inj SUBQ SCH ×3 (01:57→16:05)
[2017-06-08] MEDS: Propofol Inj 1,000,000 MCG in IV Premix 1 EACH IV SCH ×4 (01:57→18:54)
--- NOTE | 2017-06-08 04:45 | ABG ---
DateTimeAnalyzed 04:42:24 -_ pH ____7.391 - 7.350 7.450 pCO2 ___34.9__ -mmHg 35.0 45.0 pO2 117 -mmHg 80.0 100 HCO3- ___21.2__ -mmol/L 22.0 26.0 ABE ___-3.5__ -mmol/L -2.0 2.0 tHb ____9.3__ -g/dL 12.0 18.0 O2Hb ___97.6__ -% COHb ____2.6__ -% 1.5 MetHb ____0.0__ -% 0.4 1.5 sO2 __100.0__ -% 95.0 AaDpO2 __165.2__ -mmHg FIO2 ___45.0__ -% PEEP ___10.0__ -cmH2O Set_RR 23 -b/min Vt __400.0__ -L Drawn By MK - Date/Time Notified____ 04:44:00 -_ Spontaneous_RR 23 -b/min Oxygen Device 1 VENTILATOR - Notified By MK - K+ ____4.2__ -mmol/L 3.5 5.0 Wisam test N/A -
[2017-06-08 05:13] LABS: BASOPHILS % (AUTO) 0.3 % (0-3); EOSINOPHILS % (AUTO) 11.1 % (0-5); MONOCYTES % (AUTO) 5.8 % (4-12); Mean Corpuscular Hemoglobin 28.5 pg (27.0-35.0); Mean Corpuscular Volume 94.4 fL (81-100); NEUTROPHILS % (AUTO) 65.6 % (40-74); Platelet Count 206 bil/L (150-400)
[2017-06-08 05:35] LABS: Magnesium 1.8 mg/dL (1.6-2.6); Phosphorus 3.2 mg/dL (2.5-4.9)
[2017-06-08] MEDS: Albuterol-Ipratropium 3 mL Inhalation Solution NEB SCH ×4 (07:35→21:07)
[2017-06-08] MEDS: Famotidine Inj 20 MG in IV Premix 1 EACH IV SCH ×2 (07:44→20:14)
--- NOTE | 2017-06-08 08:47 | PROG NOTE ---
[address] [address] PROGRESS NOTE PATIENT: ALISSON STAFFORD : 1955 MR#: [id number] ADMIT: 06/04/2017 JOB ID: [id number] DATE: 06/08/2017 REASON FOR FOLLOW UP: Ventilator dependent respiratory failure with probable pulmonary infection. INTERVAL HISTORY: Overnight, the patient has improved considerably. She is now wide awake on the ventilator. Answers questions appropriately and has been weaned off her vasopressor agents. Her respiratory status is stabilized and she is now down to 40% FiO2 and 10 of PEEP and quite comfortable on those settings. This morning, she denies headache, significant cough, or air hunger. She does have some abdominal pain at the site of her heparin injections, and also some sore throat which she ascribes to her endotracheal tube. The patient is able to communicate by shaking her head appropriately and is obviously quite awake, though she remains intubated. PHYSICAL EXAMINATION: Reveals an afebrile woman. Temp 37.6, pulse 107, blood pressure 124/66, saturating reasonably well 40% and 10 of PEEP. Eyes without conjunctivitis. Oral endotracheal tube, orogastric tube in good position. Lungs with scattered rales and rhonchi as before. Cardiac tones without new murmur. Abdomen is soft and nontender to palpation, though the patient does note some tenderness which she believes are due to the heparin injection. She has a Horn catheter. Her skin rash that had been attributed to aztreonam is now resolved. LABORATORIES: Include a white count 7800, basically normal diff at this point. Creatinine 0.49. LFTs normal. Albumin 2.3. Procalcitonin 0.4. I would stop checking procalcitonin, they are all around 0.5, in sort of indeterminate range which is not of value. Urinalysis had no white cells. Fungitell is still pending. Since her readmission late on the , she has had approximately 10 sets of 10 blood culture bottles have been drawn. One of these is growing a coag-negative Staph as identified by the new PCR methodology, and I would attribute this to contaminant. Otherwise blood cultures are negative. Sputum from a bronch wash shows a few epithelial cells and rare polys without organisms. The MRSA screen of the nares was negative. IMAGING: Includes a chest x-ray, done yesterday, that we had previously reviewed. Shows bilateral infiltrates as before. IMPRESSION: This patient is steadily improving. She is now off vasopressor agents, awake and comfortable on the ventilator with reduced oxygen requirements. As to whether or not she had any significant pulmonary infection precipitating her decline and readmission with re-intubation, is still not clear. The tigecycline which she is currently receiving provides good coverage for atypicals as well as most pulmonary pathogens, though not Pseudomonas. So far, we have no evidence of any significant gram-negative infection, and I am comfortable continuing the Tygacil over a short course. RECOMMENDATIONS: 1. Will continue to watch the fungal blood cultures as well as Fungitell. 2. Will continue with tigecycline. 3. Would not be unreasonable to continue inhaled tobra 4. The total course of tigecycline will probably five days which would take us through the end of the , and at that point, I would discontinue therapy. 5. A stop date has been entered. 6. Will continue to follow with you. PIEDAD
[2017-06-08] MEDS: Tigecycline Inj 50 MG in 0.9% Sodium Chloride 100 ML IV SCH ×2 (09:05→22:28)
--- NOTE | 2017-06-08 09:15 | NUR ---
VANCE FOLLOW UP: Faxed additional clinicals to [facility], patient is still vented and likely to remain vented. Spoke with Rosie Gutierrez at [facility] and she will finish processing this morning and will likely initiate authorization today. Updated TEST ADMINISTRATOR Addendum: 06/08/17 at 1531 by AILEEN STARR CM Updated Rosie at [facility] about ABG and asked her to call me back to discuss this patient. Updated TEST ADMINISTRATOR
[2017-06-08] MEDS: fentaNYL 2,500 mCg/250 mL 2,500 MCG in IV Premix 1 EACH IV PRN (09:31)
--- NOTE | 2017-06-08 10:59 | NUR ---
NUTRITION FOLLOW UP Assess: 61 YO F admitted to CCU with acute on chronic respiratory failure in setting of severe interstitial lung disease requiring intubation. TF was started 06/08. Currently running at 10ml/hr and tolerated well. TF to start advancing towards goal today. 0 BM x4 days. RN aware. Pt's wt is up 5kg from admit. PMHX: Interstitial lung disease, R-sided heart failure, cor pulmonale, depression, anxiety, chronic pain. DIET: NPO. NUTRITION SUPPORT: Pulmocare @ 10ml/hr LABS: director of publications .49, Ca 7.6, alb 2.3 MEDICATIONS: Reviewed. Fentanyl, Propofol @ 19.1ml/hr ml/hr providing 504 kcal/day. GI: No BM noted. SKIN: No issues noted. ANTHROPOMETRICS: Wt: 96.7 kg, BMI 40.3 kg/m2, Admit wt: 88.8 kg, IBW: 47.7 kg. Possible wt loss of 15 kg since 05/18/17 per EMR (14.5% of BW X <1 month) = significant wt loss. ESTIMATED NEEDS: BMI/VENT Calories: 3825-2031 kcal/day (20-22 kcal/kg BW) Protein: 75-85 g/day (1.5-1.8 g/kg IBW) Fluids: 2125-2420ml/day (22-25ml/kg) NUTRITION DIAGNOSIS: 1) Inadequate oral intake related to decreased ability to consume sufficient energy as evidenced by NPO/Vent status.---PERSISTS. INTERVENTION: 1) Recommend Pulmocare starting at 10 ml/hr, once tolerance established, advance 10 ml q 6 hr to goal rate of 45 ml/hr. At goal TF will provide 1485 kcal (TF+Propofol = 1989kcal), 62 g protein; meeting 100% calorie, 82% protein needs. Signed orders to be placed in chart. If no IVF, fluid flush 115ml q 2 hrs. 2) Once TF tolerated at goal, recommend addition of 1 Prosource liquid protein packets BID to provide a total of 84 g protein; meeting 100% of protein needs. 3) Adjust goal rate based on daily Propofol rate. Eventual TF goal (without Propofol) is 55 ml/hr to provide 1815 kcal, 76 g protein; meeting 100% calorie/protein needs. MONITOR/EVALUATE: NPO/Vent status, BM, TF advance/joel, labs, wt, nutrition support, GI/nutrition status. Follow per high nutrition risk guidelines.
--- NOTE | 2017-06-08 11:42 | PCM.PNMED ---
Subjective Date of Service Jun 08, 2017 Subjective Today the patient is awake and alert on mechanical ventilation. She is responding to questions with appropriate yes no nodding, and will follow commands. She denies any pain or other concerning symptoms beyond the obvious ET tube. No significant overnight events. Exam Vital Signs Vital Sign - Last Date Time Temp Pulse Resp B/P Pulse Ox O2 Delivery O2 Flow Rate FiO2 06/08/17 07:46 37.6 107 23 124/66 88 Mechanical Ventilator 45 06/04/17 22:55 20 Intake and Output 06/07/17 06/07/17 06/08/17 Cumulative From/Thru 15:00 23:00 07:00 06/04/17 22:55 - 06/08/17 05:52 Intake Total 2335 ml 3283 ml 62279 ml Output Total 400 ml 1025 ml 4925 ml Balance 1935 ml 2258 ml 39337 ml Intake IV Total 2219 ml 3035 ml 86775 ml Tube Feeding 76 ml 128 ml 204 ml Tube Irrigant 40 ml 120 ml 160 ml Output Urine Total 400 ml 1025 ml 4575 ml Gastric Drainage Total 350 ml Exam Gen: Chronically ill appearing intubated patient following commands appropriately Neck: Right IJ in place and appears patent HEENT: PERRL, EOMI, no scleral icterus CV: RRR, no murmurs rubs or gallops Resp: Diffuse coarse breath sounds most rhonchorus in the RLL Abd: No rebound masses guarding or tenderness Extr: mild BL LE edema, no clubbing or cyanosis Skin: No visible lesions or masses, sallow complexion Neuro: CN 2-12 grossly intact, no focal neurologic deficit. Psych: Patient smiling and in generally remarkably good spirits . IVs and Medications Medications Reviewed: Medications were reviewed in detail Lab and Diagnostics Item Value Date Time Red Blood Count 3.19 mil/mm3 L 06/08/17 0440 Mean Corpuscular Volume 94.4 fL 06/08/17 0440 Mean Corpuscular Hemoglobin 28.5 pg 06/08/17 0440 Mean Corpuscular Hemoglobin Concent 30.2 % L 06/08/17 0440 Red Cell Distribution Width 16.9 % H 06/08/17 0440 Neutrophils (%) (Auto) 65.6 % 06/08/17 0440 Lymphocytes (%) (Auto) 16.8 % 06/08/17 0440 Monocytes (%) (Auto) 5.8 % 06/08/17 044 Eosinophils (%) (Auto) 11.1 % H 06/08/17 044 Basophils (%) (Auto) 0.3 % 06/08/17 044 Estimat Glomerular Filtration Rate 185 mL/min 06/08/17 044 Calcium Level 7.6 mg/dL L 06/08/17 044 Phosphorus Level 3.2 mg/dL 06/08/17 044 Magnesium Level 1.8 mg/dL 06/08/17 044 Total Bilirubin 0.5 mg/dL 06/08/17 044 Aspartate Amino Transf (AST/SGOT) 18 U/L 06/08/17 044 Alanine Aminotransferase (ALT/SGPT) 18 U/L 06/08/17 044 Alkaline Phosphatase 68 U/L 06/08/17 044 Total Protein 4.6 g/dL L 06/08/17 044 Albumin 2.3 g/dL L 06/08/17 044 Result Diagram: 06/08/17 04406/08/17439 Microbiology Blood culture from 06/06 positive for Staph, nature indeterminant could be contaminant Respiratory PCR negative X-Rays, CTs and MRIs X-RAY CHEST ONE VIEW, PORTABLE IMPRESSION: Marked increased pulmonary vascular suggestive of edema. Focal appearance of increased opacity is present in the right base suggestive of atelectasis and/or pneumonia. Dictated by: Dilcia Hernandez M.D. on 06/05/2017 at 10:12 Approved by: Dilcia Hernandez M.D. on 06/05/2017 at 10:15 CT CERVICAL SPINE WITHOUT CONTRAST IMPRESSION: 1. Multilevel degenerative changes without visualized fracture. 2. Bilateral pleural effusions and pulmonary edema. Dictated by: Dilcia Hernandez M.D. on 06/05/2017 at 9:19 Approved by: Dilcia Hernandez M.D. on 06/05/2017 at 9:23 CT BRAIN WITHOUT CONTRAST IMPRESSION: 1. No acute intracranial process. 2. Mild to moderate atrophy and chronic microvascular ischemic changes. Dictated by: Dilcia Hernandez M.D. on 06/05/2017 at 9:15 Approved by: Dilcia Hernandez M.D. on 06/05/2017 at 9:19 CT ANGIO CHEST PULMONARY EMBOLISM IMPRESSION: 1. No pulmonary embolism. 2. Minimal effusions with right-sided consolidation. The latter could be represented atelectasis versus developing pneumonia. 3. Diffuse pulmonary edema. 4. Multiple bilateral rib fractures. Dictated by: Dilcia Hernandez M.D. on 06/05/2017 at 9:23 Approved by: Dilcia Hernandez M.D. on 06/05/2017 at 9:27 . Assessment & Plan Barbara Davila is a 61 year old woman with a PMH of severe interstitial lung disease with very tenuous respiratory status and a recent history of cardiac arrest with lengthy hospitalization only recently discharged on 06/03; she returns to [facility] acutely SOB and hypoxemic requiring intubation and sedation. She is now quite awake and alert and is following commands appropriately, she is having difficulty weaning down FIO2 below 40 as she will rapidly desaturate. Acute on chronic hypercarbic and hypoxic respiratory failure in setting of severe interstitial lung disease, POA. Active - Patient arrived acutely hypoxemic and was subsequently intubated and sedated - Likely secondary to pneumonia, possibly aspiration pneumonia with concurrent pulmonary edema - Propofol, Fentanyl for sedation - Patient initially requiring Norepinephrine for pressor support - Pulmonary Critical care consulted and we appreciated their opinion - Will attempt to wean off mechanical ventilation once pneumonia improves, will likely be a difficult and protracted weaning process as it was during her last hospitalization - The patient is progressing well on mechanical ventilation, while she has made great improvement in the past 48 hours her overall prognosis is guarded given her poor baseline respiratory status Suspected Aspiration Pneumonia, POA. Active. - Patient with imaging suggestive of new focal consolidation - Vanco, Aztreonam, Metro with cultures pending, changed to Tigacycline per ID recommendations - Will use IVF judiciously given pulmonary edema, and obligate amount of fluids with IV meds Severe Sepsis, POA, acute. Active - Patient arrived with labile pressures and hypotension, leukocytosis, tachycardia, and hypoxemic respiratory failure - Abx as above - Cautious use of IVF as above - Continue to track infectious indicators - Will attempt to wean pressors as able - Mechanical ventilation per ICU team Recent cardiac arrest, POA, acute. Stable - Patient recently hospitalized for 15 days post cardiac arrest - Etiology uncertain although likely secondary to hypoxic episode. - Patient was also noted to have a prolonged QT and therefore arrhythmia must be considered. - Avoid QT prolonging medications. - Continue to follow on telemetry. No evidence of arrhythmia. Pulmonary Fibrosis, POA, chronic. Active - Patient with severe interstitial lung disease - Is exceptionally fragile from a respiratory standpoint - As above pulmonary critical care has been consulted - Patient will likely be difficult to wean off ventilation - Patient appears to be steroid dependent as prior DC off steroids did not end well Possible Polysubstance abuse, present on admission and resolved. - Family has brought forth that the patient uses numerous street drugs and alcohol. Unclear when her last use was as she was recently in a SNF prior to this admission. Patient denies active substance use - Complicating sedation at this time. - Tox screen negative on admission Disposition: Disposition will likely be difficult for this patient, SNF was recommended at last discharge and patient refused the only facility which would accept her. Should the patient make good progress on ventilation she will likely require a protracted hospital stay with possible LTAC consideration; a conversation about goals of care will be initiated if the patient is failing to make adequate progress in the near future. Pain Evaluation: Adequate Pain Control GI Prophylaxis: H2 pat VTE Prophylaxis: Sub-Q Heparin (Unfractionated) VTE Mechanical Devices: Intermittant Pneumatic CD Resuscitation Status: CPR: Attempt Resuscitation Time spent 30 minutes Attending Statement Patient has been seen and examined by myself with medical equipment repair technician and agree with above history, physical, assessment and plan. Fco Leger DO Jun 08, 2017 11:42 Indigo Acuña MD Jun 08, 2017 13:25
[2017-06-08] MEDS: TOBRAMYCIN 300 MG/5 ML NEB SCH ×2 (12:36→21:07)
--- NOTE | 2017-06-08 14:56 | PCM.PNMED ---
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 Intubated May 17 and extubated May 25. She has been on high flow nasal cannula alternating with OxyMask since that time. Initial CT demonstrated new obstruction of airways along with her interstitial lung disease which was not seen on last CT in April. Patient received bronchoscopy with BAL 06/07/17. She received about 2L of fluids overnight. Her pressure improved to the point that she was able to wean off of norepinephrine by 6 am. Continues on propofol and fentanyl gtt. today she has no complaints, denies shortness of breath, chest pain, fevers or chills, nausea , vomiting, diarrhea. Exam Vital Signs Vital Sign - Last Date Time Temp Pulse Resp B/P Pulse Ox O2 Delivery O2 Flow Rate FiO2 06/08/17 12:15 104 100/51 94 40 06/08/17 07:46 37.6 23 Mechanical Ventilator 06/04/17 22:55 20 Intake and Output 06/07/17 06/07/17 06/08/17 Cumulative From/Thru 15:00 23:00 07:00 06/04/17 22:55 - 06/08/17 05:52 Intake Total 2335 ml 3283 ml 94017 ml Output Total 400 ml 1025 ml 4925 ml Balance 1935 ml 2258 ml 87918 ml Intake IV Total 2219 ml 3035 ml 05338 ml Tube Feeding 76 ml 128 ml 204 ml Tube Irrigant 40 ml 120 ml 160 ml Output Urine Total 400 ml 1025 ml 4575 ml Gastric Drainage Total 350 ml Exam Gen: Chronically ill appearing intubated and sedated patient following commands appropriately, nodding/shaking head appropriately to questions. Neck: Right IJ in place and appears patent HEENT: PERRL, EOMI, no scleral icterus CV: RRR, no murmurs rubs or gallops Resp: Diffuse coarse breath sounds most rhonchorus in the RLL. Wheezes also present. Abd: No rebound masses guarding or tenderness Extr: Art line in place, mild BL LE edema, no clubbing or cyanosis Skin: No visible lesions or masses Neuro: CN 2-12 grossly intact, no focal neurologic deficit. Lab and Diagnostics Result Diagram: 06/08/17 0440 06/08/17 0440 Microbiology Blood culture from 06/06 positive for Staph, nature indeterminant could be contaminant Respiratory PCR negative X-Rays, CTs and MRIs X-RAY CHEST ONE VIEW, PORTABLE IMPRESSION: Marked increased pulmonary vascular suggestive of edema. Focal appearance of increased opacity is present in the right base suggestive of atelectasis and/or pneumonia. Dictated by: Dilcia Hernandez M.D. on 06/05/2017 at 10:12 Approved by: Dilcia Hernandez M.D. on 06/05/2017 at 10:15 CT CERVICAL SPINE WITHOUT CONTRAST IMPRESSION: 1. Multilevel degenerative changes without visualized fracture. 2. Bilateral pleural effusions and pulmonary edema. Dictated by: Dilcia Hernandez M.D. on 06/05/2017 at 9:19 Approved by: Dilcia Hernandez M.D. on 06/05/2017 at 9:23 CT BRAIN WITHOUT CONTRAST IMPRESSION: 1. No acute intracranial process. 2. Mild to moderate atrophy and chronic microvascular ischemic changes. Dictated by: Dilcia Hernandez M.D. on 06/05/2017 at 9:15 Approved by: Dilcia Hernandez M.D. on 06/05/2017 at 9:19 CT ANGIO CHEST PULMONARY EMBOLISM IMPRESSION: 1. No pulmonary embolism. 2. Minimal effusions with right-sided consolidation. The latter could be represented atelectasis versus developing pneumonia. 3. Diffuse pulmonary edema. 4. Multiple bilateral rib fractures. Dictated by: Dilcia Hernandez M.D. on 06/05/2017 at 9:23 Approved by: Dilcia Hernandez M.D. on 06/05/2017 at 9:27 . 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 Readmitted and intubated 06/05/17 for acute hypoxic respiratory failure. Acute on chronic hypercarbic and hypoxic respiratory failure in setting of severe interstitial lung disease. - Secondary to post-ARDS pulmonary fibrosis and possible aspiration pneumonia. Also an element of COPD as centrilobular emphysema was noted on chest CT. Pt currently intubated and sedated. Her FiO2 requirements have been improving. - Continue mechanical ventilation. - Continue fentanyl and propofol gtt for now. Avoid dropping sedation too much as she tends to oxygenate more poorly when fully awake. - DuoNebs q6h and q2h PRN Acute sepsis. Resolving - Secondary to aspiration pneumonia. Blood cultures show Staph in 1 bottle, likely Staph epidermidis. - IV fluid boluses as tolerated. - Norepinephrine discontinued - Continue tigecycline Aspiration pneumonia . Improved. - CT chest on 06/05 showed worsening RLL consolidation suspicious for aspiration pneumonia. Respiratory status and CXR today look significantly improved from yesterday s/p bronchoscopy with BAL. Lavage cultures negative so far. - Dr. Del Rio of Infectious Disease is consulted. We appreciate his input. - Continue tigecycline Recent cardiac arrest, POA, acute. Stable - Patient recently hospitalized for 15 days post cardiac arrest. Likely secondary to severe hypoxic episode. Patient was also noted to have a prolonged QT and therefore arrhythmia must be considered. - Avoid QT prolonging medications. - Continue to follow on telemetry. No evidence of arrhythmia. Post-ARDS pulmonary fibrosis - Patient has a history of ARDS following sinus infection. There is evidence of bronchiectasis on review of HRCT imaging. It is unusual that she would develop ARDS following a sinus infection, and there is possibility of an underlying process contributing to this and her bronchiectasis. Cannot rule out the possibility of an autoimmune process such as DIRECTOR [employer]IATION [employer]COL[employer]Y or other interstitial lung disease. Recommend autoimmune workup before discharge. Will hold off for now as she is recently on steroids. - IBRAHIMA with reflex, ANCA, RF, ESR before discharge Possible polysubstance abuse - Family has brought forth that the patient uses numerous street drugs and alcohol. Unclear when her last use was as she was recently in a SNF prior to this admission. Patient denies active substance use. Drug screen negative on admission. Disposition: CCU while intubated. Patient is fragile from a respiratory standpoint, s/p multiple intubations. Difficult to wean off ventilation. SNF was recommended at last discharge and patient refused the only facility which would accept her. She is making good progress on ventilation but she will likely require a protracted hospital stay. GI Prophylaxis: H2 pat VTE Prophylaxis: Sub-Q Heparin (Unfractionated) VTE Mechanical Devices: Intermittant Pneumatic CD Resuscitation Status: CPR: Attempt Resuscitation Time spent Total critical care time spent in direct patient care today 75 minutes. Attending Statement Chest x-ray personally reviewed from today compared to yesterday's film: Improvement in left lower lobe infiltrate. ET tube in good position. I personally spoke with the patient's family at the bedside today. All asked and answered. Her PF ratio has improved considerably in the last 24 hours. Continue current vent settings with a respiratory rate of 23, tidal volume 400 ( 8ml/kg), PEEP 10, and FiO2 45%. Anticipate extubation with the next 48-72 hours. I do not think this patient will require long-term ventilatory facility. If her condition were to worsen I would place a percutaneous tracheostomy at bedside. I agree with stopping tigecycline. Autoimmune workup should be considered prior to discharge and definitely prior to institution of steroids. She may have an autoimmune interstitial lung disease such as eosinophilic pneumonitis, cryptogenic organizing pneumonia, etc which may have led to her ARDS. Ronald Finney Jun 08, 2017 14:47 Pete Ron MD Jun 08, 2017 17:27
--- NOTE | 2017-06-08 16:08 | NUR ---
Remains on vent support. Did not tolerate Fi02 to 35% this morning, desaturating to 85%; maintaining sats 90-96% on 40% Fi02. Sedation titrated to optimal ventilation, RR improved with increased Propofol rate; Fentanyl titrated down to 50mcg/hr. IVF bolus given with good effect for hypotension, remains off pressors. Afebrile, temp improved from this morning. Advancing tube feed rate per dietary recommendations, 0-scant residuals. No stool. Denies pain or nausea when asked. Opens eyes to voice or stimulation, follows commands. Horn draining adequate amount of rosa urine. Jaki area pink, appears rashy as reported by nightshift RN, multiple scattered abdominal bruises noted. Daughter here this morning,updated by care team. Sinus rhythm/tachycardia on tele, occasional PVCs. Appears comfortable and in no distress.
--- NOTE | 2017-06-08 17:39 | PCM.CONPAL ---
Date of Service Jun 08, 2017 Date of Hospital Admission: Jun 04, 2017 at 23:52 Requesting Provider: Gilbert Venegas DO Reason Palliative Care Consult: Goals of Care Discussion Hospital Unit @time of consult: Critical Care Palliative Care Recommendation Barbara Davila is a 61 year old woman with post-ARDS pulmonary fibrosis in 2011 on 6-7 L O2 at baseline and polysubstance abuse, who presented with acute hypercarbic respiratory failure, and PEA arrest, requiring CPR and intubation in the field. Intubated May 17 and extubated May 25. She has been on high flow nasal cannula alternating with OxyMask since that time. Initial CT demonstrated new obstruction of airways along with her interstitial lung disease which was not seen on last CT in April. Patient received bronchoscopy with BAL. She received about 2L of fluids overnight. Her pressure improved to the point that she was able to wean off of nor appendectomy early this morning. Continues on propofol and fentanyl gtt. today she has no complaints, denies shortness of breath, chest pain, fevers or chills, nausea, vomiting, diarrhea. Palliative Care was consulted earlier to help establish her goals and confirm whether her prior wishes were still in effect. To assist the family in deciding to what extent this exacerbation should be managed in light of her goals. See discussion below. We will continue to follow distantly as the team works to stabilize patient toward LTAC discharge. Support to family given today. Palliative will consider signing off as disposition becomes more clear. Summary of palliative recommendations: -Symptom management: Respiratory distress: patient now on vent, respiratory effort and comfort managed by ICU team --propofol being weaned --fentanyl weaned from 100mcg/hr to 50 today, tolerating this well. -DPOA/Advanced Directives/POLST Previously stated no terminal block assembler vent, but pt and family agree that improvements warrant going forward and are taking the encouragement of the ICU team that recovery will require a very slow weaning from ventilator. Patient agreeable to this with family support now. -Family/emotional support -Spiritual support Patient Goals: 1. Patient wants to be told the truth about his/her illness, even if it is unpleasant. 2. Patient would like to be told prognosis when it can be predicted, to better guide treatment decisions. 3. Patient would choose quality of life over quantity of life, and defines quality as being able to interact with family and have comfortable breathing such that she can "do something". 4. Patient would request that comfort care take priority over cognitive/mental confusion. Additional Medical Diagnoses with primary management by Hospitalist team include : Acute on chronic hypercarbic and hypoxic respiratory failure in setting of severe interstitial lung disease. - Secondary to post-ARDS pulmonary fibrosis and possible aspiration pneumonia. Also an element of COPD as centrilobular emphysema was noted on chest CT. Pt currently intubated and sedated. Her FiO2 requirements have been improving. - Continue mechanical ventilation. - Continue fentanyl and propofol gtt for now. Avoid dropping sedation too much as she tends to oxygenate more poorly when fully awake. - DuoNebs q6h and q2h PRN Acute sepsis. Resolving - Secondary to aspiration pneumonia. Blood cultures show Staph in 1 bottle, likely Staph epidermidis. - IV fluid boluses as tolerated. - Norepinephrine discontinued - Continue tigecycline Aspiration pneumonia . Improved. - CT chest on 06/05 showed worsening RLL consolidation suspicious for aspiration pneumonia. Respiratory status and CXR today look significantly improved from yesterday s/p bronchoscopy with BAL. Lavage cultures negative so far. - Dr. Del Rio of Infectious Disease is consulted. We appreciate his input. - Continue tigecycline Recent cardiac arrest, POA, acute. Stable - Patient recently hospitalized for 15 days post cardiac arrest. Likely secondary to severe hypoxic episode. Patient was also noted to have a prolonged QT and therefore arrhythmia must be considered. - Avoid QT prolonging medications. - Continue to follow on telemetry. No evidence of arrhythmia. Post-ARDS pulmonary fibrosis - Patient has a history of ARDS following sinus infection. There is evidence of bronchiectasis on review of HRCT imaging. It is unusual that she would develop ARDS following a sinus infection, and there is possibility of an underlying process contributing to this and her bronchiectasis. Cannot rule out the possibility of an autoimmune process such as CHICK[employer] HATCHERY HELPER or other interstitial lung disease. Recommend autoimmune workup before discharge. Will hold off for now as she is recently on steroids. - IBRAHIMA with reflex, ANCA, RF, ESR before discharge Possible polysubstance abuse - Family has brought forth that the patient uses numerous street drugs and alcohol. Unclear when her last use was as she was recently in a SNF prior to this admission. Patient denies active substance use. Drug screen negative on admission. Problems: End of Life Preferences if end of life is inevitable, patient would prefer non-aggressive comfort- focused care. Goals of Care to aim for a recovery that would allow patient to move freely, interact with family and live a "normal life". Pt has low tolerance for respiratory debility. Disposition likely [place] if pt continues to improve and stabilize but is deemed to need slow weaning from vent. Resuscitation Status Resuscitation Status: CPR: Attempt Resuscitation POLST Updates/Changes Previous POLST?: No . Pain: Moderate Symptom management: Dyspnea, Pain Pt History History of Present Illness Patient is a 61 y/o F with PMHx post-ARDS pulmonary fibrosis, ?pulmonary HTN, pneumonia, recent discharged for hypoxic hypercapneic respiratory failure. During her prior admission she improved with short course empiric antibiotics and diuresis. In the ED her O2 saturations were reportedly in the 60's and she was intubated. WBC 22.7, proal 0.63, BNP 528 (was 1434 at discharge) UDS negative CT showed worsening RLL pneumonia; chronic interstitial changes; no PE She received broad abx (vanco, aztreo, flagyl) as well as lasix x1. RIJ CVC was placed in ED. She currently remains sedated on the ventilator on propofol gtt, fentanyl gtt, and low dose levophed (0.15). Unable to obtain history due to patient's mental status. Past Medical History Significant PMH Noted: Severe interstitial lung disease Right sided heart failure Cor pulmonale Depression/Anxiety Chronic Pain Social History Hx Alcohol Use: Yes Hx Substance Use: Yes Smoking Status: Current every day smoker Social History Family Members Issues: brother is POA, daughter Sherri is at bedside Living Situation: pt had discharged back to her home setting but had lost her place in the alcohol rehab house where she had lived. She then was in a hotel where she resumed smoking and had limited access to services. Responsive Patient Symptoms Pain (current): Moderate Tiredness/Fatigue: Mild Shortness of Breath: Moderate Palliative Performance Scale PPS Patient Status: Baseline PPS Ambulation: Reduced PPS Activity: Unable to do any work PPS Self-Care: Occasional assistance necessary PPS Intake: Normal or reduced PPS Conscious Level: Full or confusion Performance Scale: 60% ADLs ADL Patient Status: Current ADL Ambulation: Totally Bed ADL Dressing: Total care ADL Feeding: Total care ADL Hygene/bathing: Total care ADL Transfers: Mainly assistance Allergy Allergies Reviewed: Yes Medications Current Medications: Current Medications Tigecycline/ Sodium Chloride 105 ml @ 210 mls/hr Q12H IV Last administered on 09:05; Admin Dose 210 MLS/HR; Start 06/06/17 at 22:00; Stop 06/10/17 at 11:11 Tobramycin Sulfate/Sodium Chloride 300 mg Q12 NEB; Start 06/07/17 at 08:30; Stop 06/07/17 at 10:33; Status DC Tobramycin Sulfate/Sodium Chloride 300 mg Q12 NEB Last administered on t 12:36; Admin Dose 300 MG; Start 06/07/17 at 12:00; Stop 06/08/17 at 15:20; Status DC Tobramycin Sulfate/Sodium Chloride 300 mg Q12 NEB; Start 06/08/17 at 20:30 Scheduled Albuterol HFA (Proair HFA) 8.5 Gm Hfa.aer.ad 2 PUFFS INHALATION Q4H Epinephrine (Epipen 2-Jarad) 0.3 Mg/0.3 Ml Auto.injct 0.3 MG IJ ONCE Fexofenadine (Fexofenadine) 180 Mg Tablet 180 MG PO QAM Flunisolide (Aerospan) 8.9 Gm Hfa.aer.ad 8.9 GM IH BID Fluticasone Propionate (Fluticasone Propionate) 50 Mcg/Actuation [place].susp 15.8 ML NS DAILY Furosemide (Furosemide) 40 Mg Tablet 40 MG PO BID Gabapentin (Gabapentin) 600 Mg Tablet 600 MG PO TID Lactobacillus Acidophilus (Probiotic) 1 Each Capsule 1 EACH PO DAILY Magnesium Hydroxide (Magnesium Hydroxide) 500 Gm Powder 400 GM MC DAILY Meloxicam (Meloxicam) 15 Mg Tablet 15 MG PO DAILY Na Phos,M-B/Na Phos,Di-Ba (Fleet Enema) 133 Ml Enema 133 ML RC DAILY Nortriptyline (Nortriptyline) 25 Mg Capsule 50 MG PO HS Omeprazole (Omeprazole) 40 Mg Capsule.dr 40 MG PO DAILY #57/Iron/FA/Dss/Dha (Extra-Virt Plus Dha Softgel) 1 Each Capsule 1 EACH PO DAILY Sertraline HCl (Sertraline) 100 Mg Tablet 100 MG PO DAILY Topiramate (Topiramate) 100 Mg Tablet 100 MG PO QAM Scheduled PRN Bisacodyl (Dulcolax) 5 Mg Tablet.dr 10 MG PO DAILY PRN PRN For Constipation Lorazepam (Lorazepam) 0.5 Mg Tablet 0.5 MG PO BID PRN PRN For Anxiety diphenhydrAMINE HCl (Benadryl) 25 Mg Capsule 25 MG PO Q4 PRN PRN For Itching oxyCODONE-Acetaminophen 5-325 mg (oxyCODONE-Acetaminophen 5-325 mg) 1 Each Tablet 1 TAB PO Q4H PRN PRN For Pain Objective Findings Exam Vital Sign - Last Date Time Temp Pulse Resp B/P Pulse Ox O2 Delivery O2 Flow Rate FiO2 06/08/17 16:00 36.6 102 23 102/50 96 Mechanical Ventilator 40 06/04/17 22:55 20 Intake and Output 06/07/17 06/07/17 06/08/17 Cumulative From/Thru 15:00 23:00 07:00 06/04/17 22:55 - 06/08/17 05:52 Intake Total 2335 ml 3283 ml 49317 ml Output Total 400 ml 1025 ml 4925 ml Balance 1935 ml 2258 ml 78931 ml IV Total 2219 ml 3035 ml 98928 ml Tube Feeding 76 ml 128 ml 204 ml Tube Irrigant 40 ml 120 ml 160 ml Output Urine Total 400 ml 1025 ml 4575 ml Gastric Drainage Total 350 ml Objective Chronically ill appearing patient, Patient more awake, smiling and in good spirits today General: Alert, Mild distress HEENT: Atraumatic, PERRLA, EOMI, Scleral Anicteric Heart: Regular Rate/Rhythm, No Murmurs/Rubs/Gallops Lungs: Diminished, Rhonchorus Abdomen: Soft, Non Tender Neuro: Arousable Extremities: Edema (2+ b/l MURTAZA) Lab/Diagnostics Lab and Imaging results reviewed in detail in EMR. Patient/Family Conference Members Present Family Members Present Pt awake, Brother Edilson and daughter at bedside. They are all please to hear report of patient's improved status, decreased need for O2 and fentanyl. Medical Team Members Present? Elsa TORRES, along with members of ICU giving input to family during rounds. Discussion/Goals of Care Discussion FAMILY UNDERSTANDING OF DISEASE: [onset and severity do seem unusual for the stated etiology. There is history of COPD. Family is gathering info from physicians which has in the last week ranged from near hopeless, to hope for significant improvement. DISEASE PROGRESSION/EVIDENCE OF DECLINE/SYMPTOM BURDEN: [onset s/p ARDS, questionable damage to lungs. Family feels patient did not take care of herself after discharge and thus starting this spiral of decline.] GOALS: [Family is convincing patient to be accepting of a longer time for recovery and allow for thorough care to be given with the hope and goal of returning to close to her baseline, or at least being able to enjoy life with minimal respiratory debility.] HOPES/WORRIES: [Hopes to resume her activities, fears she will end up on a machine.] Palliative Care counselled: Family appreciative of medical care that is looking at long-term improvement. they understand that there may be irreversible damage but are encouraged today to hear that a long-term approach might offer hope of reversing some damage. Support given for identifying goals and for their advocacy. Time spent Total time 60 minutes; >50% face to face with patient and/or family, providing counselling regarding plans and recommendations, and in care coordination with his/her medical teams. I also spent an additional 20 minutes counseling for advanced care planning with the patient/the patients family/the surrogate decision maker. Elsa Conde. [facility] Jun 08, 2017 17:39
--- NOTE | 2017-06-08 20:55 | DRSVH ---
PROCEDURE: X-RAY CHEST ONE VIEW, PORTABLE ([id number]) INDICATIONS: intubated patient TECHNIQUE: One view of the chest was acquired. COMPARISON: [facility], CR, XR CHEST 1VW (PORTABLE), 06/06/2017, 5:01. [facility], CR, XR CHEST 1VW (PORTABLE), 06/05/2017, 6:02. [facility], CR, XR CHEST 1VW (ANABEL BLE), 06/07/2017, 5:40. FINDINGS: Surgical changes and devices: ETT tip projected 5.1 cm above the cassidy. Stable positioning of nasog astric tube and right IJ CVL. Lungs and pleura: Diffuse, widespread bilateral pulmonary interstitial and air space opacities are p resent no significant change. Small left pleural effusion also unchanged. Mediastinum: Mediastinal contours appear normal. Heart size is enlarged. Bones and chest wall: No suspicious bony lesions. Overlying soft tissues appear unremarkable. IMPRESSION: 1. Stable support lines and tubes. 2. Edema and/or bibasilar pneumonia unchanged. 3. Stable cardiomegaly. 4. Stable left pleural effusion. Dictated by: Imtiaz AUGUSTIN Interpreted: Dilcia Hernandez MD on 06/08/2017 at 8:44 Approved by: Dilcia Hernandez M.D. on 06/08/2017 at 20:53
[2017-06-09] VITALS (14 sets, daily range): BP systolic 101–131; BP diastolic 49–65; PULSE 74–103; RESP 22–24; O2SAT 92–100
[2017-06-09] MEDS: Chlorhexidine 0.12% 15 mL Oral Solution MT SCH ×6 (00:03→20:55)
[2017-06-09] MEDS: Propofol Inj 1,000,000 MCG in IV Premix 1 EACH IV SCH ×3 (00:03→13:25)
[2017-06-09] MEDS: Heparin 5,000 Unit/mL Inj SUBQ SCH ×3 (01:14→16:05)
--- NOTE | 2017-06-09 04:40 | ABG ---
DateTimeAnalyzed 04:37:49 -_ pH ____7.330 - 7.350 7.450 pCO2 ___37.7__ -mmHg 35.0 45.0 pO2 ___62.2__ -mmHg 80.0 100 HCO3- ___19.9__ -mmol/L 22.0 26.0 ABE ___-5.6__ -mmol/L -2.0 2.0 tHb ____9.0__ -g/dL 12.0 18.0 O2Hb ___89.5__ -% COHb ____2.5__ -% 1.5 MetHb ____0.0__ -% 0.4 1.5 sO2 ___91.6__ -% 95.0 AaDpO2 ___43.9__ -mmHg FIO2 ___21.0__ -% PEEP ___10.0__ -cmH2O Set_RR 23 -b/min Vt __400.0__ -L Drawn By AF - Date/Time Notified____ 04:40:00 -_ Spontaneous_RR 23 -b/min Oxygen Device 1 VENTILATOR - Notified By AF - K+ ____3.9__ -mmol/L 3.5 5.0 Wisam test N/A -
[2017-06-09 04:50] LABS: BASOPHILS % (AUTO) 0.3 % (0-3); EOSINOPHILS % (AUTO) 12.5 % (0-5); MONOCYTES % (AUTO) 7.9 % (4-12); Mean Corpuscular Hemoglobin 28.7 pg (27.0-35.0); Mean Corpuscular Volume 94.9 fL (81-100); NEUTROPHILS % (AUTO) 57.5 % (40-74); Platelet Count 218 bil/L (150-400)
[2017-06-09 05:15] LABS: INR 0.91 ratio
--- NOTE | 2017-06-09 05:21 | NUR ---
Cough/BP: Pt had been doing well throughout the night has been awake responding to questions with nodding head. Around 0130 pt started to have coughing spell become very forceful. Pt was given propofol bolus continued to cough propofol bolus repeated and suctioned down ETT. Pt still having continuous cough another bolus of propofol was given and pt began to calm BP had dropped A-line position was checked and cuff pressure obtained, which matched the A-line 70s/40s. @50ml bolus of NS was given with very little change in BP. Levophed was restarted and quickly titrated up to .3mcg/kg/min. Dr Zamora was notified. Pt cardiac output was down to 2.6, stroke volume had dropped from 60s to low 30s, SVRI had shot up from 1100-1200s to 2500-3000s. CVP had been trending around 16 had jumped to 24. Spo2 had maintained mid 90s and was ventilating well. once levophed started to work and the systolic BP increased the diastolic increased the same amount with any separation the pulse pressure was holding around 23-26. After about 45min on levophed BP started to increase and CVP drooped to 16 again and SVRI trended down and levophed was titrated from .3 mcg/kg/min to .15 mcg/kg/min. Pt continues to have good BP and remains at ,15mcg/kg/min of levophed. Addendum: 06/09/17 at 0542 by SOUMYA SLOAN RN Rash: 0100 notice red blotchy rash to pt's arms, legs, and chest. Dr. Zamora was notified was notified and order for benadryl was obtained and given at 0129. Just prior to pt having episode of hypotension.
[2017-06-09 06:02] LABS: Creatine Kinase 37 U/L (21-215)
[2017-06-09 06:03] LABS: TROPONIN T 0.011 ug/L (0.0-0.011)
[2017-06-09 06:16] LABS: Magnesium 1.7 mg/dL (1.6-2.6); Phosphorus 3.4 mg/dL (2.5-4.9)
[2017-06-09] MEDS: Albuterol-Ipratropium 3 mL Inhalation Solution NEB SCH ×4 (07:41→21:12)
[2017-06-09] MEDS: TOBRAMYCIN 300 MG/5 ML NEB SCH (07:43)
[2017-06-09] MEDS: Famotidine Inj 20 MG in IV Premix 1 EACH IV SCH ×2 (07:47→20:55)
[2017-06-09] MEDS: fentaNYL 2,500 mCg/250 mL 2,500 MCG in IV Premix 1 EACH IV PRN (08:35)
--- NOTE | 2017-06-09 08:41 | DRSVH ---
PROCEDURE: X-RAY CHEST ONE VIEW, PORTABLE ([id number]) INDICATIONS: resp failure TECHNIQUE: One view of the chest was acquired. COMPARISON: [facility], CR, XR CHEST 1VW (PORTABLE), 06/08/2017, 5:06. FINDINGS: Surgical changes and devices: Endotracheal tube with the tip approximately 4 cm above the cassidy. Rig ht internal jugular central venous catheter and enteric tube probably unchanged although the enteric tube tip is not well-seen Lungs and pleura: No pleural effusions or pneumothorax. Bibasilar consolidative opacities are grossl y unchanged since yesterday Mediastinum: Cardiac silhouette and mediastinal contours are stable. Bones and chest wall: No suspicious bony lesions. Overlying soft tissues appear unremarkable. IMPRESSION: Overall, stable examination since yesterday. Bibasilar consolidative opacities, grossly unchanged. Dictated by: Dwayne Aguirre M.D. on 06/09/2017 at 8:38 Approved by: Dwayne Aguirre M.D. on 06/09/2017 at 8:40
--- NOTE | 2017-06-09 09:10 | NUR ---
MARYCRUZ FOLLOW UP: Spoke with Rosie Gutierrez from [place] and patient has been accepted and all information has been submitted to [employer] for final authorization. Updated UNBUNDLER
--- NOTE | 2017-06-09 09:43 | PROG NOTE ---
[address] [address] PROGRESS NOTE PATIENT: ALISSON STAFFORD : 1955 MR#: [id number] ADMIT: 06/04/2017 JOB ID: [id number] DATE: 06/09/2017 INFECTIOUS DISEASE FOLLOWUP NOTE: REASON FOR FOLLOWUP: Possible superimposed pulmonary infection on pre-existing pulmonary fibrosis of unknown etiology. INTERVAL HISTORY: Overnight, the patient has developed yet another macular rash, as well as a period of hypotension, which, during the middle of the night, required fairly significant doses of vasopressor agents. This morning though his vasopressor agents are rapidly being weaned off. The patient remains awake and alert on the ventilator, and states she is having no fevers or chills. She states she is having no air hunger. No chest pain. No nausea. No vomiting, and does not have any pruritis despite her rash. PHYSICAL EXAMINATION: Reveals an intubated, sedated woman. Temp 37.2. She has been essentially afebrile now for three days. Her pulse is in the 70s, respiratory rate is ventilator dependent. She is currently on 40%, saturating very well. Blood pressure 125/58, and norepinephrine is down to 0.02 mcg per kg a minute. She is awake, alert, nods her head appropriately when asked questions on the vent. Eyes without conjunctivitis. Oral endotracheal tube and orogastric tube in good position. Her central line appears benign. Lungs with coarse breath sounds as before. No change. Cardiac tones somewhat distant but regular rate and rhythm this morning. Abdomen is slightly obese, soft and nontender. She does have a new macular rash. Recall this is a patient who seemed to have had a macular rash when she received aztreonam in the past and now, there is speculation this could be due to tigecycline. LABORATORIES: Include white count 7600, basically normal diff. Creatinine 0.49. LFT completely normal. Procalcitonin 0.2 but was never higher than 0.6. So, it is unclear what that means. Urinalysis, no white cells. Fungitell was negative. A wide variety of microbiologic studies have been done. Sputum cultures, urine cultures and blood cultures have been negative except a single positive blood culture for coag-negative staph which was almost certainly a contaminant. Respiratory viral PCR panel done on a bronch wash the was negative. Additional studies from the bronch wash including a respiratory culture, which shows actually no growth which is pretty extraordinary, no polys, no organisms seen and no growth. IMAGING STUDIES: Include a chest x-ray from today which shows stable bilateral infiltrates. IMPRESSION: I remain unconvinced that the patient has any infection. So far, a wide net of cultures from sputum, bronchoscopy samples, blood and urine have been negative. Earlier in her course, we treated with vancomycin, Flagyl and aztreonam, and there was a suggestion that she may have had a drug rash due to aztreonam which would be quite unusual even in a PENICILLIN-allergic patient such as this. We subsequently switched to tigecycline, which seemed to be a useful drug in that her fevers resolved but, unfortunately, now she has another rash. The odds of a single person with no prior history of such allergy as being allergic to aztreonam and tigecycline seem quite small but is not, of course, impossible. I discussed this case this morning with the Pulmonary attending. We were both of the opinion that her pulmonary infiltrates, and indeed her pulmonary fibrosis, may be on the basis of some autoimmune type process such as cryptogenic organizing pneumonia. I also wonder whether her recurrent skin rash is may be related to her underlying, as of yet nondiagnosed, pulmonary disorder rather than a drug allergy, as it seems unlikely she is allergic to everything though it is, of course, remotely possible. In any event, I see no ongoing evidence for infection. RECOMMENDATIONS: 1. Will stop her tigecycline today rather than tomorrow as we had originally planned. 2. I would be inclined to stop her inhaled tobramycin, too, and simply watch the patient off all antibiotics for a period and see how we do. 3. Infectious Disease will continue to follow this complex case with you.
--- NOTE | 2017-06-09 10:16 | PCM.PNMED ---
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 Intubated May 17 and extubated May 25. She has been on high flow nasal cannula alternating with OxyMask since that time. Initial CT demonstrated new obstruction of airways along with her interstitial lung disease which was not seen on last CT in April. Overnight, patient had a persistent cough. Around 1 AM she developed a red blotchy rash around her arms, legs, and chest. She was given Benadryl. Shortly following, she became hypotensive with BP around the 70s/40s, requiring norepinephrine to be restarted. She was able to wean from 0.3 of norepi down to 0.15 this morning, and is now down to 0.02. Exam Vital Signs Vital Sign - Last Date Time Temp Pulse Resp B/P Pulse Ox O2 Delivery O2 Flow Rate FiO2 06/09/17 07:21 Ventilator 06/09/17 07:21 37.2 74 23 125/58 100 40 06/04/17 22:55 20 Intake and Output 06/08/17 06/08/17 06/09/17 Cumulative From/Thru 15:00 23:00 07:00 06/04/17 22:55 - 06/09/17 06:49 Intake Total 1207 ml 3035 ml 22128 ml Output Total 505 ml 650 ml 6080 ml Balance 702 ml 2385 ml 03050 ml Intake Oral 0 ml 0 ml IV Total 1007 ml 1915 ml 79243 ml Tube Feeding 80 ml 505 ml 789 ml Tube Irrigant 120 ml 615 ml 895 ml Output Urine Total 500 ml 650 ml 5725 ml Stool Total 0 ml 0 ml Gastric Drainage Total 5 ml 355 ml Exam Gen: Chronically ill appearing intubated and sedated patient following commands appropriately, nodding/shaking head appropriately to questions. Neck: Right IJ in place and appears patent HEENT: PERRL, EOMI, no scleral icterus CV: RRR, no murmurs rubs or gallops Resp: Diffuse coarse breath sounds most rhonchorus in the RLL. Abd: No rebound masses guarding or tenderness Extr: Art line in place, mild BL LE edema, no clubbing or cyanosis Skin: Blotchy rash on thighs and arms Neuro: CN 2-12 grossly intact, no focal neurologic deficit. Lab and Diagnostics Result Diagram: 06/09/1743806/09/17438 Microbiology Blood culture from 06/06 positive for Staph, nature indeterminant could be contaminant Respiratory PCR negative X-Rays, CTs and MRIs X-RAY CHEST ONE VIEW, PORTABLE IMPRESSION: Marked increased pulmonary vascular suggestive of edema. Focal appearance of increased opacity is present in the right base suggestive of atelectasis and/or pneumonia. Dictated by: Dilcia Hernandez M.D. on 06/05/2017 at 10:12 Approved by: Dilcia Hernandez M.D. on 06/05/2017 at 10:15 CT CERVICAL SPINE WITHOUT CONTRAST IMPRESSION: 1. Multilevel degenerative changes without visualized fracture. 2. Bilateral pleural effusions and pulmonary edema. Dictated by: Dilcia Hernandez M.D. on 06/05/2017 at 9:19 Approved by: iDlcia Hernandez M.D. on 06/05/2017 at 9:23 CT BRAIN WITHOUT CONTRAST IMPRESSION: 1. No acute intracranial process. 2. Mild to moderate atrophy and chronic microvascular ischemic changes. Dictated by: Dilcia Hernandez M.D. on 06/05/2017 at 9:15 Approved by: Dilcia Hernandez M.D. on 06/05/2017 at 9:19 CT ANGIO CHEST PULMONARY EMBOLISM IMPRESSION: 1. No pulmonary embolism. 2. Minimal effusions with right-sided consolidation. The latter could be represented atelectasis versus developing pneumonia. 3. Diffuse pulmonary edema. 4. Multiple bilateral rib fractures. Dictated by: Dilcia Hernandez M.D. on 06/05/2017 at 9:23 Approved by: Dilcia Hernandez M.D. on 06/05/2017 at 9:27 . 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 Readmitted and intubated 06/05/17 for acute hypoxic respiratory failure. Acute on chronic hypercarbic and hypoxic respiratory failure in setting of severe interstitial lung disease. - Secondary to post-ARDS pulmonary fibrosis and possible aspiration pneumonia. Also likely an element of COPD as centrilobular emphysema was noted on chest CT. Pt currently intubated and sedated. Her FiO2 requirements have been improving. Anticipate extubation in the next 2 to 3 days. - Continue mechanical ventilation. - Continue fentanyl and propofol gtt for now. Avoid dropping sedation too much as she tends to oxygenate more poorly when fully awake. - DuoNebs q6hwa and q2h PRN Acute sepsis. Resolving - Secondary to aspiration pneumonia. Blood cultures show Staph in 1 bottle, likely Staph epidermidis. - IV fluid boluses as tolerated. - Norepinephrine continuing, wean as tolerated - Discontinued tigecycline and tobramycin Acute pneumonia. Improved. - CT chest on 06/05 showed worsening RLL consolidation suspicious for aspiration pneumonia. Respiratory status and CXR improved s/p bronchoscopy with BAL. Lavage cultures negative so far. At this point, infectious process is less likely and currently considering autoimmune causes. Given that she is on tobramycin, which causes bronchospasm and she has been having coughing fits, we will stop this medication at this time. There is evidence of bronchiectasis on review of HRCT imaging. It is unusual that she would develop ARDS following a sinus infection, and there is possibility of an underlying process contributing to this and her bronchiectasis. Cannot rule out the possibility of an autoimmune process such as MOTOR ANALYST or other interstitial lung disease. Recommend autoimmune workup before discharge. Will hold off for now as she is recently on steroids. - Dr. Del Rio of Infectious Disease is consulted. We appreciate his input. - Discontinued all antibiotics - Sent BAL fluid for cell count and differential - IBRAHIMA with reflex, ANCA, RF, ESR ordered - Will order prednisone 80 mg by mouth daily after autoimmune panel is drawn - Recommend follow-up with pulmonology within 2 weeks of discharge for further management of her interstitial lung disease and steroid dosing Recent cardiac arrest, POA, acute. Stable - Patient recently hospitalized for 15 days post cardiac arrest. Likely secondary to severe hypoxic episode. Patient was also noted to have a prolonged QT and therefore arrhythmia must be considered. - Avoid QT prolonging medications. - Continue to follow on telemetry. No evidence of arrhythmia. Post-ARDS pulmonary fibrosis - Patient has a history of ARDS following sinus infection with resulting pulmonary fibrosis. - Follow up with pulmonology outpatient Obstructive lung disease - Patient has evidence of an obstructive process evident on CT and on the ventilator. In part due to bronchiectasis, but likely also COPD given her smoking history and centrilobular emphysema seen on CT. - Follow-up with pulmonology outpatient for PFTs. - DuoNebs q6hwa and q2h PRN - Life Skills Specialist on smoking cessation Possible polysubstance abuse - Family has brought forth that the patient uses numerous street drugs and alcohol. Unclear when her last use was as she was recently in a SNF prior to this admission. Patient denies active substance use. Drug screen negative on admission. Disposition: CCU while intubated. Patient is fragile from a respiratory standpoint, s/p multiple intubations. SNF was recommended at last discharge and patient refused the only facility which would accept her. She is making good progress on ventilation but she will likely require a protracted hospital stay. If she does not qualify for a SNF on discharge, she does need to be discharged to a more stable home situation. GI Prophylaxis: H2 pat VTE Prophylaxis: Sub-Q Heparin (Unfractionated) VTE Mechanical Devices: Intermittant Pneumatic CD Resuscitation Status: CPR: Attempt Resuscitation Time spent Total critical care time spent with patient care independent of all procedures 60 minutes. Attending Statement Eosinophils continue to increase even though normal wbc. A tracheal lavage by RT was performed RLL and sent for cell count with differential. Autoimmune panel ordered. 80 mg steroids today. Most likely will require 60-40 prednisone upon discharge. She will require a Business Unit Manager to asses her steroids needs. I anticipate this will help decrease her supplemental oxygen needs. Anticipate intubation soon. Tolerating cpap 10/10 fio2 40 throughout the day. Lung compliance has been poor most likely from prior ARDS with resultant fibrosis. Evidence of some small airway obstruction on vent. Continue scheduled inhalers as she appears to have combined restrictive and obstructive lung disease. Repeat echo perfomed today. Skin biopsy of new rash performed today prior to steroids. She barely requires Levophed. Patient seen/examined. Multidisciplinary rounds occurred this am with the patient's daughter in attendance. All questions asked and answered. Pertinent labs and imaging reviewed. Findings reviewed and discussed with the resident. Amendments made verbally with the resident and/or directly on this document. Agree with the above. Ronald Finney Jun 09, 2017 10:16 Pete Ron MD Jun 09, 2017 12:24
--- NOTE | 2017-06-09 10:34 | DRSVH ---
[facility] [address] [place] [address] Echocardiogram Report Name: ALISSON STAFFORD CStudy Date: 06/09/20 17 Height: 61 in Hospital Exam Location: [facility] Weight: 213 lb Gender: Female BSA: 1.9 m2 : 1955 Age: 61 yrs BP: 133/66 m mHg Reason For Study: CHECK VOLUME STATUS Ordering Physician: Cole Peterson Performed By: Jordan Jane Referring Physician: CHRIS JAMES Interpretation Summary Left ventricular systolic function is low normal with the ejection fraction grossly estimated to be 50-55% with paradoxical septal motion and a flattened septum, consistent with right ventricular pressure/volume overload, unchanged compared to the previous study. There is mild hypokinesis in the proximal inferior and inferolateral coulter that appears improved from the previous study, and compared to the prior exam, left ventricular function has slightly improved. Otherwise, no significant change compared to the previous study. The right ventricle is moderately dilated and right ventricular systolic function is mildly reduced, likely unchanged compared to the previous study. Right ventricular systolic pressure is estimated to be 38 mmHg plus the clinically estimated CVP which cannot be estimated on this exam since inspiratory collapse cannot be assessed because of mechanical ventilation, but is likely somewhat higher compared to the previous study. CVP cannot be estimated but the IVC is dilated, suggesting elevated CVP but likely unchanged from the previous study. There is mild biatrial enlargement. There is mild mitral regurgitation and mild tricuspid regurgitation but no other significant valvular heart disease. Procedure: A two-dimensional transthoracic echocardiogram with color flow and Doppler was performed in limited views only. The study quality was technically adequate. Comparison is made with the echocardiogram of 05/18/17. The patient was in sinus tachycardia with heart rates between 98-101 bpm during the exam. Left Ventricle: The left ventricle is normal in size. Left ventricular systolic function is low normal. The ejection fraction is estimated to be 50- 55%. Compared to the prior exam, left ventricular function is slightly improved. Paradoxical septal motion is consistent with right ventricular volume overload. Flattened septum is consistent with RV pressure/volume overload. There is mild hypokinesis in the proximal inferior and inferolateral coulter that appears improved from the previous study. This is otherwise unchanged compared to the previous study. Right Ventricle: The right ventricle is moderately dilated. Right ventricular systolic function is mildly reduced. This is unchanged compared to the previous study. Atria: There is mild biatrial enlargement. Mitral Valve: There is mild mitral annular calcification. There is mild mitral regurgitation. Tricuspid Valve: There is mild tricuspid regurgitation. Right ventricular systolic pressure is estimated to be 38 mmHg plus the clinically estimated CVP which cannot be estimated on this exam. This is likely somewhat higher compared to the previous study. Pulmonic Valve: There is no other significant valvular heart disease. Great Vessels: Inspiratory collapse cannot be assessed because of mechanical ventilation, thus CVP cannot be estimated.. Pericardium/ Pleura There is no pericardial effusion. MMode/2D Measurements & Calculations IVC diam: 2.6 cm TAPSE: 2.0 cm Doppler Measurements & Calculations TR max milad: 307.6 cm/sec PA pr(Accel): 44.1 mmHg TR max P.8 mmHg Reading Physician:10:33 AM
[2017-06-09 11:56] LABS: BFWBC 545 /mm3; MONOCYTES,BODY FLUID 20 %; OTHER CELLS,BODY FLUID 0
[2017-06-09] MEDS ORDERED: predniSONE 20 mg Tablet PO SCH (12:30)
[2017-06-09] MEDS ORDERED: MethylprednisoLONE Sodium Succinate 62.5 mg/mL 2 mL Inj IVPUSH ONE (12:35)
--- NOTE | 2017-06-09 14:06 | NUR ---
Physical Therapy PT order received, pt has not been appropriate for PT eval x5 days and will be discharged from PT caseload. Please re-order once pt appropriate to mobilize with PT.
--- NOTE | 2017-06-09 14:12 | PCM.PALLBR ---
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 Intubated May 17 and extubated May 25. She has been on high flow nasal cannula alternating with OxyMask since that time. Initial CT demonstrated new obstruction of airways along with her interstitial lung disease which was not seen on last CT in April. Palliative Care was consulted earlier to help establish her goals and confirm whether her prior wishes were still in effect. To assist the family in deciding to what extent this exacerbation should be managed in light of her goals. See discussion below. Palliative Care will sign off at this time. This was explained and support to family given today. Summary of palliative recommendations: -Symptom management: Respiratory distress: patient now on vent, respiratory effort and comfort managed by ICU team --propofol being weaned --fentanyl weaned from 100mcg/hr to 50 today, tolerating this well. -DPOA/Advanced Directives/POLST Previously stated no fdc vent, but pt and family agree that improvements warrant going forward and are taking the encouragement of the ICU team that recovery will require a very slow weaning from ventilator. Patient agreeable to this with family support now. Pt remains full code: no changes to this per her goals of life-prolonging care -Family/emotional support --dtr and brother appreciative of palliative care support. They know that they can call us back if needed. -Spiritual support Patient Goals: 1. Patient wants to be told the truth about his/her illness, even if it is unpleasant. 2. Patient would like to be told prognosis when it can be predicted, to better guide treatment decisions. 3. Patient would choose quality of life over quantity of life, and defines quality as being able to interact with family and have comfortable breathing such that she can "do something". 4. Patient would request that comfort care take priority over cognitive/mental confusion. Additional Medical Diagnoses with primary management by Hospitalist team include : Acute on chronic hypercarbic and hypoxic respiratory failure in setting of severe interstitial lung disease. - Secondary to post-ARDS pulmonary fibrosis and possible aspiration pneumonia. Also an element of COPD as centrilobular emphysema was noted on chest CT. Pt currently intubated and sedated. Her FiO2 requirements have been improving. - Continue mechanical ventilation. - Continue fentanyl and propofol gtt for now. Avoid dropping sedation too much as she tends to oxygenate more poorly when fully awake. - DuoNebs q6h and q2h PRN Acute sepsis. Resolving - Secondary to aspiration pneumonia. Blood cultures show Staph in 1 bottle, likely Staph epidermidis. - IV fluid boluses as tolerated. - Norepinephrine discontinued - Continue tigecycline Aspiration pneumonia . Improved. - CT chest on 06/05 showed worsening RLL consolidation suspicious for aspiration pneumonia. Respiratory status and CXR today look significantly improved from yesterday s/p bronchoscopy with BAL. Lavage cultures negative so far. - Dr. Del Rio of Infectious Disease is consulted. We appreciate his input. - Continue tigecycline Recent cardiac arrest, POA, acute. Stable - Patient recently hospitalized for 15 days post cardiac arrest. Likely secondary to severe hypoxic episode. Patient was also noted to have a prolonged QT and therefore arrhythmia must be considered. - Avoid QT prolonging medications. - Continue to follow on telemetry. No evidence of arrhythmia. Post-ARDS pulmonary fibrosis - Patient has a history of ARDS following sinus infection. There is evidence of bronchiectasis on review of HRCT imaging. It is unusual that she would develop ARDS following a sinus infection, and there is possibility of an underlying process contributing to this and her bronchiectasis. Cannot rule out the possibility of an autoimmune process such as COMMISSIONING EDITOR or other interstitial lung disease. Recommend autoimmune workup before discharge. Will hold off for now as she is recently on steroids. - IBRAHIMA with reflex, ANCA, RF, ESR before discharge Possible polysubstance abuse - Family has brought forth that the patient uses numerous street drugs and alcohol. Unclear when her last use was as she was recently in a SNF prior to this admission. Patient denies active substance use. Drug screen negative on admission. Problems: End of Life Preferences if end of life is inevitable, patient would prefer non-aggressive comfort- focused care. Goals of Care to aim for a recovery that would allow patient to move freely, interact with family and live a "normal life". Pt has low tolerance for respiratory debility. Disposition likely [place] if pt continues to improve and stabilize but is deemed to need slow weaning from vent. Resuscitation Status Resuscitation Status: CPR: Attempt Resuscitation POLST Updates/Changes Previous POLST?: No . Symptom management: Dyspnea Total time 30 minutes; >50% face to face with patient and/or family, providing counselling regarding plans and recommendations, and in care coordination with his/her medical teams. Palliative Brief Note Date of Service Jun 09, 2017 . Pt is more awake today again. She did have a bout of rash and respiratory secretions last night but seems back to an improving course today. Her medical team is committed to continuing to work toward a slow wean off the vent with the hopes that she could discharge back to her normal outpatient setting. If she were to regain her strength as she has in the past, this may mean that she is not eligible for detention placement, but rather would go home with home health. Her family is very concerned about this as they feel she needs the to make good decisions. Dr. Ron feels strongly that tobacco cessation will be essential to her recovery. They have expressed the hope that palliative care would help ensure a good placement. Today I discussed with case management and gave the CM's card to the family, explaining that they do the discharge planning work on the team. Given the goals and direction, there is no need for palliative care at this time and I have explained to the family that we will be signing off. Elsa Conde [facility] Jun 09, 2017 14:12 Elsa Conde [facility] Jun 09, 2017 14:12
--- NOTE | 2017-06-09 15:29 | NUR ---
Note Patient cierra to open her eyes to verbal commands and was able to follow commands appropriately. Fentanyl drip at 50mcg/h and propofol at 20mcg/kg/min. patient received 1ml propofol boluses prior to turning and repositioning and tolerated activity well without increased RR or HR. Weaned levophed drip off by 0930 this morning. By 1400 patient reared levophed drip to be resumed at low dose 0.01-0.03mcg/kg/min to support BP without any other changes to sedation drips at the time please see CCU flow sheet fro drip titration and vitals. Some patches of skin rash to shoulders and thighs MD aware and preformed skin biopsy at the lateral portion of upper left thigh- dressing remained C/D/I. Specimen was send to the lab for testing. Ventilator PS 10/10 support since noon time- patient appeared to be more relax than on PRVC settings with oxygen saturation 92-94% and acceptable per attending dogman/woman ranges of 88-96% per verbal statement- please see RT documentation for details. Patient has not have s stool since admit to the hospital. Tube feeding at goal of 45ml/h with 115ml flush of H2O Q 2h. Residuals 70-160 ML with hypoactive bowel sounds throughout abdomen. Consulted with MD- PRN dose of Senokot per OG tube was given this morning and Miralax dose at noon time- continue assessment.
--- NOTE | 2017-06-09 15:50 | NUR ---
[facility] FOLLOW UP: Patient has been authorized by [facility] to go to [place]. ICU team has decided to wean patient here and then if in 48 hours patient is still not needing [place] we will cancel referral and authorization. Updated [employer]ICK [employer]ER and [employer]
--- NOTE | 2017-06-09 15:57 | PCM.PALLBR ---
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 Intubated May 17 and extubated May 25. She has been on high flow nasal cannula alternating with OxyMask since that time. Initial CT demonstrated new obstruction of airways along with her interstitial lung disease which was not seen on last CT in April. Palliative Care was consulted earlier to help establish her goals and confirm whether her prior wishes were still in effect. To assist the family in deciding to what extent this exacerbation should be managed in light of her goals. See discussion below. Palliative Care will sign off at this time. This was explained and support to family given today. Summary of palliative recommendations: -Symptom management: Respiratory distress: patient now on vent, respiratory effort and comfort managed by ICU team --propofol being weaned --fentanyl weaned from 100mcg/hr to 50 today, tolerating this well. -DPOA/Advanced Directives/POLST Previously stated no shelter vent, but pt and family agree that improvements warrant going forward and are taking the encouragement of the ICU team that recovery will require a very slow weaning from ventilator. Patient agreeable to this with family support now. Pt remains full code: no changes to this per her goals of life-prolonging care -Family/emotional support --dtr and brother appreciative of palliative care support. They know that they can call us back if needed. -Spiritual support Patient Goals: 1. Patient wants to be told the truth about his/her illness, even if it is unpleasant. 2. Patient would like to be told prognosis when it can be predicted, to better guide treatment decisions. 3. Patient would choose quality of life over quantity of life, and defines quality as being able to interact with family and have comfortable breathing such that she can "do something". 4. Patient would request that comfort care take priority over cognitive/mental confusion. Additional Medical Diagnoses with primary management by Hospitalist team include : Acute on chronic hypercarbic and hypoxic respiratory failure in setting of severe interstitial lung disease. - Secondary to post-ARDS pulmonary fibrosis and possible aspiration pneumonia. Also an element of COPD as centrilobular emphysema was noted on chest CT. Pt currently intubated and sedated. Her FiO2 requirements have been improving. - Continue mechanical ventilation. - Continue fentanyl and propofol gtt for now. Avoid dropping sedation too much as she tends to oxygenate more poorly when fully awake. - DuoNebs q6h and q2h PRN Acute sepsis. Resolving - Secondary to aspiration pneumonia. Blood cultures show Staph in 1 bottle, likely Staph epidermidis. - IV fluid boluses as tolerated. - Norepinephrine discontinued - Continue tigecycline Aspiration pneumonia . Improved. - CT chest on 06/05 showed worsening RLL consolidation suspicious for aspiration pneumonia. Respiratory status and CXR today look significantly improved from yesterday s/p bronchoscopy with BAL. Lavage cultures negative so far. - Dr. Del Rio of Infectious Disease is consulted. We appreciate his input. - Continue tigecycline Recent cardiac arrest, POA, acute. Stable - Patient recently hospitalized for 15 days post cardiac arrest. Likely secondary to severe hypoxic episode. Patient was also noted to have a prolonged QT and therefore arrhythmia must be considered. - Avoid QT prolonging medications. - Continue to follow on telemetry. No evidence of arrhythmia. Post-ARDS pulmonary fibrosis - Patient has a history of ARDS following sinus infection. There is evidence of bronchiectasis on review of HRCT imaging. It is unusual that she would develop ARDS following a sinus infection, and there is possibility of an underlying process contributing to this and her bronchiectasis. Cannot rule out the possibility of an autoimmune process such as VENEER STOCK LAYER or other interstitial lung disease. Recommend autoimmune workup before discharge. Will hold off for now as she is recently on steroids. - IBRAHIMA with reflex, ANCA, RF, ESR before discharge Possible polysubstance abuse - Family has brought forth that the patient uses numerous street drugs and alcohol. Unclear when her last use was as she was recently in a SNF prior to this admission. Patient denies active substance use. Drug screen negative on admission. Problems: End of Life Preferences if end of life is inevitable, patient would prefer non-aggressive comfort- focused care. Goals of Care to aim for a recovery that would allow patient to move freely, interact with family and live a "normal life". Pt has low tolerance for respiratory debility. Disposition likely SNF if pt continues to improve and stabilize but is deemed to need slow weaning from vent. LTAC will be reconsidered if patient does not tolerate weaning. Resuscitation Status Resuscitation Status: CPR: Attempt Resuscitation POLST Updates/Changes Previous POLST?: No Total time 20 minutes; >50% face to face with patient and/or family, providing counselling regarding plans and recommendations, and in care coordination with his/her medical teams. Palliative Brief Note Date of Service Jun 09, 2017 . Received email from brother Edilson expressing his thanks for us being involved and the hope that we will advocate for a more appropriate (higher) level of care on discharge. This is subsequent to an earlier conversation about the referral to [place] and my answering questions about the level of care provided there. In light of the medical team's increasingly positive outlook for this patient, the referral has been put on hold and the goal of her treatment here is to see if she can improve enough to be extubated. At that point, of course, her placement options would shift back to local resources. Discussed this with family and medical team. Agreed that patient's needs are being met and that palliative interventions are no longer required. This was also discussed with CM and their card and phone number are now given to family; they know that the CM will be responsible for follow-up regarding placement. Palliative care signing off, thank you for allowing us to take part in the care of this patient. Elsa Conde. [facility] Jun 09, 2017 15:57 Elsa Conde. [facility] Jun 09, 2017 15:57
--- NOTE | 2017-06-09 16:03 | PCM.PNMED ---
Subjective Date of Service Jun 09, 2017 Subjective Today the patient is awake and alert and interacting appropriately; she is following commands and responding to yes no questions with head shakes. She denies chest pain, abdominal pain, SOB, or nausea. Daughter was in the room at the bedside and expresses a desire to continue with her current care as she is clearly improving daily. No significant overnight events. Exam Vital Signs Vital Sign - Last Date Time Temp Pulse Resp B/P Pulse Ox O2 Delivery O2 Flow Rate FiO2 06/09/17 15:32 Ventilator 06/09/17 15:32 37.1 86 22 105/55 92 50 06/04/17 22:55 20 Intake and Output 06/08/17 06/08/17 06/09/17 Cumulative From/Thru 15:00 23:00 07:00 06/04/17 22:55 - 06/09/17 06:49 Intake Total 1207 ml 3035 ml 80834 ml Output Total 505 ml 650 ml 6080 ml Balance 702 ml 2385 ml 22781 ml Intake Oral 0 ml 0 ml IV Total 1007 ml 1915 ml 17478 ml Tube Feeding 80 ml 505 ml 789 ml Tube Irrigant 120 ml 615 ml 895 ml Output Urine Total 500 ml 650 ml 5725 ml Stool Total 0 ml 0 ml Gastric Drainage Total 5 ml 355 ml Exam Gen: Chronically ill appearing intubated patient following commands appropriately Neck: Right IJ in place and appears patent HEENT: PERRL, EOMI, no scleral icterus CV: RRR, no murmurs rubs or gallops Resp: Diffuse coarse breath sounds most rhonchorus in the RLL, improved since prior exam Abd: No rebound masses guarding or tenderness Extr: mild BL LE edema, no clubbing or cyanosis Skin: No visible lesions or masses, sallow complexion Neuro: CN 2-12 grossly intact, no focal neurologic deficit. Psych: Pleasant and appropriate mood and affect . IVs and Medications Medications Reviewed: Medications were reviewed in detail Lab and Diagnostics Item Value Date Time Red Blood Count 3.14 mil/mm3 L 06/09/17438 Mean Corpuscular Volume 94.9 fL 06/09/17438 Mean Corpuscular Hemoglobin 28.7 pg 06/09/17438 Mean Corpuscular Hemoglobin Concent 30.2 % L 06/09/17438 Red Cell Distribution Width 16.9 % H 06/09/17438 Neutrophils (%) (Auto) 57.5 % 06/09/17438 Lymphocytes (%) (Auto) 21.4 % 06/09/17438 Monocytes (%) (Auto) 7.9 % 06/09/17438 Eosinophils (%) (Auto) 12.5 % H 06/09/17438 Basophils (%) (Auto) 0.3 % 06/09/17438 Erythrocyte Sedimentation Rate 37 mm/hr 06/09/17438 Estimat Glomerular Filtration Rate 185 mL/min 06/09/17438 Lactic Acid Level 0.8 mmol/L 06/09/17438 Calcium Level 7.6 mg/dL L 06/09/17438 Phosphorus Level 3.4 mg/dL 06/09/17438 Magnesium Level 1.7 mg/dL 06/09/17438 Total Bilirubin 0.4 mg/dL 06/09/17438 Aspartate Amino Transf (AST/SGOT) 20 U/L 06/09/17438 Alanine Aminotransferase (ALT/SGPT) 15 U/L 06/09/17438 Alkaline Phosphatase 71 U/L 06/09/17438 Total Creatine Kinase 37 U/L 06/09/17438 Creatine Kinase MB 2.5 ng/mL 06/09/17438 Creatine Kinase MB % % 06/09/17438 Troponin T 0.011 ug/L 06/09/17438 C-Reactive Protein 1.7 mg/dL H 06/09/17438 Total Protein 5.1 g/dL L 06/09/17438 Albumin 2.4 g/dL L 06/09/17438 Procalcitonin 0.21 ng/mL H 06/09/17438 Result Diagram: 06/09/1743806/09/17438 Microbiology Blood culture from 06/06 positive for Staph, nature indeterminant could be contaminant Respiratory PCR negative X-Rays, CTs and MRIs X-RAY CHEST ONE VIEW, PORTABLE IMPRESSION: Marked increased pulmonary vascular suggestive of edema. Focal appearance of increased opacity is present in the right base suggestive of atelectasis and/or pneumonia. Dictated by: Dilcia Hernandez M.D. on 06/05/2017 at 10:12 Approved by: Dilcia Hernandez M.D. on 06/05/2017 at 10:15 CT CERVICAL SPINE WITHOUT CONTRAST IMPRESSION: 1. Multilevel degenerative changes without visualized fracture. 2. Bilateral pleural effusions and pulmonary edema. Dictated by: Dilcia Hernandez M.D. on 06/05/2017 at 9:19 Approved by: Dilcia Hernandez M.D. on 06/05/2017 at 9:23 CT BRAIN WITHOUT CONTRAST IMPRESSION: 1. No acute intracranial process. 2. Mild to moderate atrophy and chronic microvascular ischemic changes. Dictated by: Dilcia Hernandez M.D. on 06/05/2017 at 9:15 Approved by: Dilcia Hernandez M.D. on 06/05/2017 at 9:19 CT ANGIO CHEST PULMONARY EMBOLISM IMPRESSION: 1. No pulmonary embolism. 2. Minimal effusions with right-sided consolidation. The latter could be represented atelectasis versus developing pneumonia. 3. Diffuse pulmonary edema. 4. Multiple bilateral rib fractures. Dictated by: Dilcia Hernandez M.D. on 06/05/2017 at 9:23 Approved by: Dilcia Hernandez M.D. on 06/05/2017 at 9:27 . Cardiac Echo Impressions Interpretation Summary Left ventricular systolic function is low normal with the ejection fraction grossly estimated to be 50-55% with paradoxical septal motion and a flattened septum, consistent with right ventricular pressure/volume overload, unchanged compared to the previous study. There is mild hypokinesis in the proximal inferior and inferolateral coulter that appears improved from the previous study, and compared to the prior exam, left ventricular function has slightly improved. Otherwise, no significant change compared to the previous study. The right ventricle is moderately dilated and right ventricular systolic function is mildly reduced, likely unchanged compared to the previous study. Right ventricular systolic pressure is estimated to be 38 mmHg plus the clinically estimated CVP which cannot be estimated on this exam since inspiratory collapse cannot be assessed because of mechanical ventilation, but is likely somewhat higher compared to the previous study. CVP cannot be estimated but the IVC is dilated, suggesting elevated CVP but likely unchanged from the previous study. There is mild biatrial enlargement. There is mild mitral regurgitation and mild tricuspid regurgitation but no other significant valvular heart disease. Reading Physician:10:33 AM . Additional Diagnostics Item Value Date Time Body Fluid Source Bronchial washing 06/09/17 1030 Body Fluid Color Colorless 06/09/17 1030 Body Fluid Appearance Hazy 06/09/17 1030 Body Fluid WBC 545 /mm3 06/09/17 1030 Body Fluid RBC 85 /mm3 06/09/17 1030 Body Fluid Polynuclear WBCs 70 % 06/09/17 1030 Body Fluid Lymphocytes 10 % 06/09/17 1030 Body Fluid Monocytes 20 % 06/09/17 1030 Body Fluid Eosinophils 0 % 06/09/17 1030 Body Fluid Basophils 0 % 06/09/17 1030 Assessment & Plan Barbara Davila is a 61 year old woman with a PMH of severe interstitial lung disease with very tenuous respiratory status and a recent history of cardiac arrest with lengthy hospitalization only recently discharged on 06/03; she returns to [facility] acutely SOB and hypoxemic requiring intubation and sedation. She is now quite awake and alert and is following commands appropriately, she is having difficulty weaning down FIO2 below 40 as she will rapidly desaturate. Overall patient is making very good progress, given the overall weakly positive infectious workup and the patient's rapid decompensation following prior DC off steroids the patient appears to be suffering from an auto-immune type of condition, potentially crytogenic organizing pneumonia; auto-immune workup is pending. Acute on chronic hypercarbic and hypoxic respiratory failure in setting of severe interstitial lung disease, POA. 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 - Propofol, Fentanyl for sedation - Patient initially requiring Norepinephrine for pressor support - Pulmonary Critical care consulted and we appreciated their opinion - Will attempt to wean off mechanical ventilation once pneumonia improves, will likely be a difficult and protracted weaning process as it was during her last hospitalization - The patient is progressing well on mechanical ventilation, while she has made great improvement in the past 48 hours her overall prognosis is guarded given her poor baseline respiratory status - Continue Steroids per pulmonology Severe Sepsis, POA, acute. Active - Patient arrived with labile pressures and hypotension, leukocytosis, tachycardia, and hypoxemic respiratory failure - Abx as above - Cautious use of IVF as above - Continue to track infectious indicators - Will attempt to wean pressors as able - Mechanical ventilation per ICU team Possible Aspiration Pneumonia, POA. Active. - Patient with imaging suggestive of new focal consolidation - Antibiotics discontinued as this does not appear to be an infectious etiology Recent cardiac arrest, POA, acute. Stable - Patient recently hospitalized for 15 days post cardiac arrest - Etiology uncertain although likely secondary to hypoxic episode. - Patient was also noted to have a prolonged QT and therefore arrhythmia must be considered. - Avoid QT prolonging medications. - Continue to follow on telemetry. No evidence of arrhythmia. Pulmonary Fibrosis, POA, chronic. Active - Patient with severe interstitial lung disease - Is exceptionally fragile from a respiratory standpoint - As above pulmonary critical care has been consulted - Patient will likely be difficult to wean off ventilation - Patient appears to be steroid dependent as prior DC off steroids did not end well Possible Polysubstance abuse, present on admission and resolved. - Family has brought forth that the patient uses numerous street drugs and alcohol. Unclear when her last use was as she was recently in a SNF prior to this admission. Patient denies active substance use - Complicating sedation at this time. - Tox screen negative on admission Disposition: Disposition will likely be difficult for this patient, SNF was recommended at last discharge and patient refused the only facility which would accept her. Should the patient make good progress on ventilation she will likely require a protracted hospital stay with possible LTAC consideration. Pain Evaluation: Adequate Pain Control GI Prophylaxis: H2 pat VTE Prophylaxis: Sub-Q Heparin (Unfractionated) VTE Mechanical Devices: Intermittant Pneumatic CD Resuscitation Status: CPR: Attempt Resuscitation Fco Leger DO Jun 09, 2017 16:03 VTE Mechanical Devices: Intermittant Pneumatic CD Resuscitation Status: CPR: Attempt Resuscitation Fco Leger DO Jun 09, 2017 16:03
[2017-06-10] VITALS (13 sets, daily range): BP systolic 106–173; BP diastolic 50–87; PULSE 90–116; RESP 15–24; O2SAT 90–98
[2017-06-10] MEDS: Chlorhexidine 0.12% 15 mL Oral Solution MT SCH ×5 (00:02→16:10)
[2017-06-10] MEDS: Propofol Inj 1,000,000 MCG in IV Premix 1 EACH IV SCH ×2 (00:02→07:54)
[2017-06-10] MEDS: Heparin 5,000 Unit/mL Inj SUBQ SCH ×4 (00:04→23:38)
--- NOTE | 2017-06-10 05:09 | ABG ---
DateTimeAnalyzed 05:07:21 -_ pH ____7.370 - 7.350 7.450 pCO2 ___42.8__ -mmHg 35.0 45.0 pO2 ___86.3__ -mmHg 80.0 100 HCO3- ___24.7__ -mmol/L 22.0 26.0 ABE ___-0.6__ -mmol/L -2.0 2.0 tHb ____9.0__ -g/dL 12.0 18.0 O2Hb ___95.7__ -% COHb ____2.3__ -% 1.5 MetHb ____0.0__ -% 0.4 1.5 sO2 ___97.8__ -% 95.0 AaDpO2 __148.9__ -mmHg FIO2 ___40.0__ -% Pressure_Support ___10.0__ -cmH2O PEEP ___10.0__ -cmH2O Drawn By MK - Date/Time Notified____ 05:08:00 -_ Spontaneous_RR 15 -b/min Oxygen Device 1 VENTILATOR - Notified By MK - K+ ____4.1__ -mmol/L 3.5 5.0 Wisam test _Positive -
[2017-06-10 06:04] LABS: BASOPHILS % (AUTO) 0.3 % (0-3); EOSINOPHILS % (AUTO) 0.3 % (0-5); MONOCYTES % (AUTO) 6.6 % (4-12); Mean Corpuscular Volume 92.8 fL (81-100); Platelet Count 189 bil/L (150-400)
--- NOTE | 2017-06-10 06:10 | NUR ---
Respiratory P: RASS 0 to +1, fentanyl and propofol sedation, vent support/CPAP PS 10 above peep of 10, fio2 0.45,sp02 >92%. I: oral care prn. E: am abg with pH 7.370, pc02 43, p02 86, hc03 24. Remain off levophed throughout shift. S: bilateral soft wrist restraints on.
[2017-06-10 06:27] LABS: Magnesium 1.8 mg/dL (1.6-2.6); Phosphorus 3.8 mg/dL (2.5-4.9)
[2017-06-10] MEDS: Albuterol-Ipratropium 3 mL Inhalation Solution NEB SCH ×4 (07:42→20:01)
[2017-06-10] MEDS: Famotidine Inj 20 MG in IV Premix 1 EACH IV SCH ×2 (07:55→19:42)
[2017-06-10 08:21] LABS: BASOPHILS % (AUTO) 0.4 % (0-3); EOSINOPHILS % (AUTO) 0.7 % (0-5); MONOCYTES % (AUTO) 8.3 % (4-12); Mean Corpuscular Hemoglobin 29.1 pg (27.0-35.0); Mean Corpuscular Volume 92.7 fL (81-100); NEUTROPHILS % (AUTO) 68.9 % (40-74); Platelet Count 198 bil/L (150-400)
--- NOTE | 2017-06-10 08:31 | PROG NOTE ---
[address] [address] PROGRESS NOTE PATIENT: ALISSON STAFFORD : 1955 MR#: [id number] ADMIT: 06/04/2017 JOB ID: [id number] DATE: 06/10/2017 INFECTIOUS DISEASE FOLLOW UP NOTE: REASON FOR FOLLOWUP: Possible pulmonary superinfection superimposed upon chronic pulmonary fibrosis and respiratory failure. INTERVAL HISTORY: Overnight, the patient has been relatively stable in the ICU. Her vasopressor agents have been completely weaned off and her sedation has been lessened. She is currently wide awake and on a pressure support trial with 5/5 support. She is tolerating her weaning trial quite well. She denies any fevers, chills, significant chest pain or air hunger. She denies nausea or vomiting. This case discussed with the bedside nurse. The patient has minimal respiratory secretions and has been very calm and doing quite well on this pressure support trial. I also discussed this situation with the respiratory therapist. PHYSICAL EXAMINATION: Reveals an afebrile woman. Temperature 36.8, pulse 94, respiratory rate 15 on the pressure support trial. Blood pressure 118/57. Her O2 sats are 97% on the pressure support trial. Eyes without conjunctivitis. Oral endotracheal tube, orogastric tube in good position. Her lungs are improved with still some scattered rales and rhonchi especially in the dependent portions of the lungs, but this actually sounds better for the first time. Abdomen soft and nontender. She does have a Horn catheter. No skin rash noted. LABORATORIES: Include white count 3700. Completely normal differential. Sed rate 37. Creatinine 0.39. LFTs are normal. CRP 1.7. Procalcitonin 0.14 and I would stop checking procalcitonins. Micro studies include just a single blood culture that grew coag-negative staph, which is of no significance. Otherwise we have numerous blood, sputum and urine cultures which are negative. IMAGING: Yesterday showed bilateral infiltrates without change, not surprisingly. IMPRESSION: This patient is doing quite well off antibiotics. Whether or not she had a rash due to tigecycline is unclear but the erythroderma of yesterday seems to have resolved, so it is possible but not proven that she has a tigecycline issue. Recall this patient started off on vanc, aztreonam, Flagyl and developed a rash we thought might be due to the aztreonam, which was subsequently stopped. We then switched to Tygacil and another macular erythematous rash erupted. At no point was there any compelling evidence that she had a pulmonary infection and I think she did receive an adequate though short course of therapy if a significant infection had been present. At this point, I see no evidence of infection and would continue to watch off all antibiotics. RECOMMENDATIONS: 1. No antibiotics. 2. Hopefully, the patient will be weaned off and extubated today. 3. ID will go ahead and sign off as there are no active ID issues at this time.
--- NOTE | 2017-06-10 08:56 | NUR ---
NUTRITION FOLLOW UP Assess: 61 YO F admitted to CCU with acute on chronic respiratory failure in setting of severe interstitial lung disease requiring intubation. TF was started 06/08 and now currently running at goal rate. Plan today is for possible extubation so TF will be held. Pt had 2 BM overnight. PMHX: Interstitial lung disease, R-sided heart failure, cor pulmonale, depression, anxiety, chronic pain. DIET: NPO. NUTRITION SUPPORT: Pulmocare @ 45ml/hr LABS: Cl 110, supervisor toy assembly .39, Glu 123, Ca 7.6, Alb 2.4 MEDICATIONS: Reviewed. Fentanyl, Propofol @ 5.5ml/hr ml/hr providing 145 kcal/day, senna and miralax prn. GI: BMx2 06/10 SKIN: No issues noted. No WC note ANTHROPOMETRICS: Wt: 100.8 kg, BMI 42.0 kg/m2, Admit wt: 88.8 kg, IBW: 47.7 kg. Possible wt loss of 15 kg since 05/18/17 per EMR (14.5% of BW X <1 month) = significant wt loss. ESTIMATED NEEDS: BMI/VENT Calories: 5313-7604 kcal/day (20-22 kcal/kg BW) Protein: 75-85 g/day (1.5-1.8 g/kg IBW) Fluids: 2125-2420ml/day (22-25ml/kg) NUTRITION DIAGNOSIS: 1) Inadequate oral intake related to decreased ability to consume sufficient energy as evidenced by NPO/Vent status.---IMPROVING w/TF. INTERVENTION: 1) If pt is extubated, recommend advance diet per ST. 2) If pt is unable to be extubated, recommend re-start TF. Due to decrease in propofol, recommend increase goal rate to 55ml/hr to provide 1815kcal (1960kcal w/propofol) and 75g pro (100% estimated needs). Fluid flush 40ml q 4 if on IVF. If not on IVF, flush 95ml q 2 hrs to provide 2082ml h20/day MONITOR/EVALUATE: NPO/Vent status, extubate vs re-start tf, labs, wt, GI/nutrition status. Follow per high nutrition risk guidelines.
--- NOTE | 2017-06-10 11:51 | NUR ---
received call from Dena at [facility], pt has been approved for lower level of care at [place]. pt's stay is no longer covered at [facility]. advised SW Nanoscience Technician and DC medical planner.
--- NOTE | 2017-06-10 14:53 | PCM.PNMED ---
Subjective Date of Service Jun 10, 2017 Subjective Upon initial evaluation this AM the patient was awake and alert on mechanical ventilation and interacting appropriately. She was able to signal that her only complaint at that time was discomfort from the ET tube. She was subsequently extubated this afternoon and transitioned to O2 mask and appears to be doing quite well; she has no complaints beyond sore throat and weak voice at this time. Overnight the patient tolerated pressure support trial. Exam Vital Signs Vital Sign - Last Date Time Temp Pulse Resp B/P Pulse Ox O2 Delivery O2 Flow Rate FiO2 06/10/17 12:27 107 15 96 OxyMask 6.00 06/10/17 12:10 36.9 119/74 06/10/17 07:35 45 Intake and Output 06/09/17 06/09/17 06/10/17 Cumulative From/Thru 15:00 23:00 07:00 06/04/17 22:55 - 06/10/17 06:05 Intake Total 1745 ml 2749 ml 92358 ml Output Total 1400 ml 1500 ml 8980 ml Balance 345 ml 1249 ml 07126 ml Intake Oral 0 ml IV Total 652 ml 551 ml 98689 ml Tube Feeding 443 ml 1022 ml 2254 ml Tube Irrigant 650 ml 1176 ml 2721 ml Output Urine Total 1400 ml 1500 ml 8625 ml Stool Total 0 ml Gastric Drainage Total 355 ml # Bowel Movements 2 2 Exam Gen: A/O x3 Chronically ill appearing intubated patient following commands appropriately Neck: Right IJ in place and appears patent HEENT: PERRL, EOMI, no scleral icterus CV: RRR, no murmurs rubs or gallops Resp: Diffuse coarse breath sounds most rhonchorus in the RLL, improved since prior exam Abd: No rebound masses guarding or tenderness Extr: mild BL LE edema, no clubbing or cyanosis Skin: No visible lesions or masses, sallow complexion Neuro: CN 2-12 grossly intact, no focal neurologic deficit. Psych: Pleasant and appropriate mood and affect IVs and Medications Medications Reviewed: Medications were reviewed in detail Lab and Diagnostics Item Value Date Time Red Blood Count 3.02 mil/mm3 L 06/10/17 0815 Mean Corpuscular Volume 92.7 fL 06/10/17 0815 Mean Corpuscular Hemoglobin 29.1 pg 06/10/17 08 Mean Corpuscular Hemoglobin Concent 31.4 % L 06/10/17 0815 Red Cell Distribution Width 15.8 % H 06/10/17 08 Neutrophils (%) (Auto) 68.9 % 06/10/17 08 Lymphocytes (%) (Auto) 20.8 % 06/10/17 08 Monocytes (%) (Auto) 8.3 % 06/10/17 08 Eosinophils (%) (Auto) 0.7 % 06/10/17814 Basophils (%) (Auto) 0.4 % 06/10/17814 Estimat Glomerular Filtration Rate 241 mL/min 06/10/17 0540 Calcium Level 7.6 mg/dL L 06/10/17 0540 Phosphorus Level 3.8 mg/dL 06/10/17 0540 Magnesium Level 1.8 mg/dL 06/10/17 0540 Total Bilirubin 0.3 mg/dL 06/10/17 0540 Aspartate Amino Transf (AST/SGOT) 19 U/L 06/10/17 0540 Alanine Aminotransferase (ALT/SGPT) 14 U/L 06/10/17 0540 Alkaline Phosphatase 67 U/L 06/10/17 0540 Total Protein 5.2 g/dL L 06/10/17 0540 Albumin 2.4 g/dL L 06/10/17 0540 Procalcitonin 0.14 ng/mL H 06/10/17 0540 Result Diagram: 06/10/17 0815 06/10/17 0540 Microbiology Blood culture from 06/06 positive for Staph, nature indeterminant could be contaminant Respiratory PCR negative X-Rays, CTs and MRIs X-RAY CHEST ONE VIEW, PORTABLE IMPRESSION: Marked increased pulmonary vascular suggestive of edema. Focal appearance of increased opacity is present in the right base suggestive of atelectasis and/or pneumonia. Dictated by: Dilcia Hernandez M.D. on 06/05/2017 at 10:12 Approved by: Dilcia Hernandez M.D. on 06/05/2017 at 10:15 CT CERVICAL SPINE WITHOUT CONTRAST IMPRESSION: 1. Multilevel degenerative changes without visualized fracture. 2. Bilateral pleural effusions and pulmonary edema. Dictated by: Dilcia Hernandez M.D. on 06/05/2017 at 9:19 Approved by: Dilcia Hernandez M.D. on 06/05/2017 at 9:23 CT BRAIN WITHOUT CONTRAST IMPRESSION: 1. No acute intracranial process. 2. Mild to moderate atrophy and chronic microvascular ischemic changes. Dictated by: Dilcia Hernandez M.D. on 06/05/2017 at 9:15 Approved by: Dilcia Hernandez M.D. on 06/05/2017 at 9:19 CT ANGIO CHEST PULMONARY EMBOLISM IMPRESSION: 1. No pulmonary embolism. 2. Minimal effusions with right-sided consolidation. The latter could be represented atelectasis versus developing pneumonia. 3. Diffuse pulmonary edema. 4. Multiple bilateral rib fractures. Dictated by: Dilcia Hernandez M.D. on 06/05/2017 at 9:23 Approved by: Dilcia Hernandez M.D. on 06/05/2017 at 9:27 . Cardiac Echo Impressions Interpretation Summary Left ventricular systolic function is low normal with the ejection fraction grossly estimated to be 50-55% with paradoxical septal motion and a flattened septum, consistent with right ventricular pressure/volume overload, unchanged compared to the previous study. There is mild hypokinesis in the proximal inferior and inferolateral coulter that appears improved from the previous study, and compared to the prior exam, left ventricular function has slightly improved. Otherwise, no significant change compared to the previous study. The right ventricle is moderately dilated and right ventricular systolic function is mildly reduced, likely unchanged compared to the previous study. Right ventricular systolic pressure is estimated to be 38 mmHg plus the clinically estimated CVP which cannot be estimated on this exam since inspiratory collapse cannot be assessed because of mechanical ventilation, but is likely somewhat higher compared to the previous study. CVP cannot be estimated but the IVC is dilated, suggesting elevated CVP but likely unchanged from the previous study. There is mild biatrial enlargement. There is mild mitral regurgitation and mild tricuspid regurgitation but no other significant valvular heart disease. Reading Physician:10:33 AM . Additional Diagnostics Item Value Date Time Body Fluid Source Bronchial washing 06/09/17 1030 Body Fluid Color Colorless 06/09/17 1030 Body Fluid Appearance Hazy 06/09/17 1030 Body Fluid WBC 545 /mm3 06/09/17 1030 Body Fluid RBC 85 /mm3 06/09/17 1030 Body Fluid Polynuclear WBCs 70 % 06/09/17 1030 Body Fluid Lymphocytes 10 % 06/09/17 1030 Body Fluid Monocytes 20 % 06/09/17 1030 Body Fluid Eosinophils 0 % 06/09/17 1030 Body Fluid Basophils 0 % 06/09/17 1030 Assessment & Plan Barbara Davila is a 61 year old woman with a PMH of severe interstitial lung disease with very tenuous respiratory status and a recent history of cardiac arrest with lengthy hospitalization only recently discharged on 06/03; she returns to [facility] acutely SOB and hypoxemic requiring intubation and sedation. She is now quite awake and alert and is following commands appropriately, she is having difficulty weaning down FIO2 below 40 as she will rapidly desaturate. Overall patient is making very good progress, given the overall weakly positive infectious workup and the patient's rapid decompensation following prior DC off steroids the patient appears to be suffering from an auto-immune type of condition, potentially crytogenic organizing pneumonia; auto-immune workup is pending. The patient was extubated on 06/10 without incident. Acute on chronic hypercarbic and hypoxic respiratory failure in setting of severe interstitial lung disease, POA. 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 Active - Patient arrived with labile pressures and hypotension, leukocytosis, tachycardia, and hypoxemic respiratory failure - Abx as above - Cautious use of IVF as above - Continue to track infectious indicators - Will attempt to wean pressors as able - Mechanical ventilation per ICU team Possible Aspiration Pneumonia, POA. Resolved - Patient with imaging suggestive of new focal consolidation - Antibiotics discontinued as this does not appear to be an infectious etiology Recent cardiac arrest, POA, acute. Stable - Patient recently hospitalized for 15 days post cardiac arrest - Etiology uncertain although likely secondary to hypoxic episode. - Patient was also noted to have a prolonged QT and therefore arrhythmia must be considered. - Avoid QT prolonging medications. - Continue to follow on telemetry. No evidence of arrhythmia. Pulmonary Fibrosis, POA, chronic. Active - Patient with severe interstitial lung disease - Is exceptionally fragile from a respiratory standpoint - As above pulmonary critical care has been consulted - Patient appears to be steroid dependent as prior DC off steroids did not end well Possible Polysubstance abuse, present on admission and resolved. - Family has brought forth that the patient uses numerous street drugs and alcohol. Unclear when her last use was as she was recently in a SNF prior to this admission. Patient denies active substance use - Complicating sedation at this time. - Tox screen negative on admission Disposition: Patient is now extubated and doing well on supplemental O2, she will likely have a somewhat protracted course of weaning back to an acceptable level of O2 supplementation to DC, likely in 5-7 days. Pain Evaluation: Adequate Pain Control GI Prophylaxis: H2 pat VTE Prophylaxis: Sub-Q Heparin (Unfractionated) VTE Mechanical Devices: Intermittant Pneumatic CD Resuscitation Status: CPR: Attempt Resuscitation Time spent 25 minutes Attending Statement Patient has been seen and examined by myself with medical biller and agree with above history, physical, assessment and plan. Fco Leger DO Jun 10, 2017 14:52 Indigo Acuña MD Jun 10, 2017 15:19
--- NOTE | 2017-06-10 15:22 | PCM.PNMED ---
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 Intubated May 17 and extubated May 25. She has been on high flow nasal cannula alternating with OxyMask since that time. Initial CT demonstrated new obstruction of airways along with her interstitial lung disease which was not seen on last CT in April. Overnight, she did well, still on fentanyl and propofol. She was off of Levophed for the majority of the night and blood pressure maintains. She had no complaints this morning on pressure support and nodded when asked if she was doing well. She was extubated in the morning, and remained stable and alert tolerating oxymask at 6L. Exam Vital Signs Vital Sign - Last Date Time Temp Pulse Resp B/P Pulse Ox O2 Delivery O2 Flow Rate FiO2 06/10/17 12:27 107 15 96 OxyMask 6.00 06/10/17 12:10 36.9 119/74 06/10/17 07:35 45 Intake and Output 06/09/17 06/09/17 06/10/17 Cumulative From/Thru 15:00 23:00 07:00 06/04/17 22:55 - 06/10/17 06:05 Intake Total 1745 ml 2749 ml 46214 ml Output Total 1400 ml 1500 ml 8980 ml Balance 345 ml 1249 ml 83924 ml Intake Oral 0 ml IV Total 652 ml 551 ml 31500 ml Tube Feeding 443 ml 1022 ml 2254 ml Tube Irrigant 650 ml 1176 ml 2721 ml Output Urine Total 1400 ml 1500 ml 8625 ml Stool Total 0 ml Gastric Drainage Total 355 ml # Bowel Movements 2 2 Exam Gen: Alert and oriented. Cooperative. Vocalizes poorly immediately status post extubation, as is expected. Neck: Right IJ in place and appears patent HEENT: PERRL, EOMI, no scleral icterus CV: RRR, no murmurs rubs or gallops Resp: Diffuse coarse breath sounds most rhonchorus in the RLL. Abd: No rebound masses guarding or tenderness Extr: Art line in place, mild BL LE edema, no clubbing or cyanosis Skin: Blotchy rash on thighs and arms Neuro: CN 2-12 grossly intact, no focal neurologic deficit. Lab and Diagnostics Result Diagram: 06/10/17 0815 06/10/17 0540 Microbiology Blood culture from 06/06 positive for Staph, nature indeterminant could be contaminant Respiratory PCR negative X-Rays, CTs and MRIs X-RAY CHEST ONE VIEW, PORTABLE IMPRESSION: Marked increased pulmonary vascular suggestive of edema. Focal appearance of increased opacity is present in the right base suggestive of atelectasis and/or pneumonia. Dictated by: Dilcia Hernandez M.D. on 06/05/2017 at 10:12 Approved by: Dilcia Hernandez M.D. on 06/05/2017 at 10:15 CT CERVICAL SPINE WITHOUT CONTRAST IMPRESSION: 1. Multilevel degenerative changes without visualized fracture. 2. Bilateral pleural effusions and pulmonary edema. Dictated by: Dilcia Hernandez M.D. on 06/05/2017 at 9:19 Approved by: Dilcia Hernandez M.D. on 06/05/2017 at 9:23 CT BRAIN WITHOUT CONTRAST IMPRESSION: 1. No acute intracranial process. 2. Mild to moderate atrophy and chronic microvascular ischemic changes. Dictated by: Dilcia Hernandez M.D. on 06/05/2017 at 9:15 Approved by: Dilcia Hernandez M.D. on 06/05/2017 at 9:19 CT ANGIO CHEST PULMONARY EMBOLISM IMPRESSION: 1. No pulmonary embolism. 2. Minimal effusions with right-sided consolidation. The latter could be represented atelectasis versus developing pneumonia. 3. Diffuse pulmonary edema. 4. Multiple bilateral rib fractures. Dictated by: Dilcia Hernandez M.D. on 06/05/2017 at 9:23 Approved by: Dilcia Hernandez M.D. on 06/05/2017 at 9:27 . Cardiac Echo Impressions Interpretation Summary Left ventricular systolic function is low normal with the ejection fraction grossly estimated to be 50-55% with paradoxical septal motion and a flattened septum, consistent with right ventricular pressure/volume overload, unchanged compared to the previous study. There is mild hypokinesis in the proximal inferior and inferolateral coulter that appears improved from the previous study, and compared to the prior exam, left ventricular function has slightly improved. Otherwise, no significant change compared to the previous study. The right ventricle is moderately dilated and right ventricular systolic function is mildly reduced, likely unchanged compared to the previous study. Right ventricular systolic pressure is estimated to be 38 mmHg plus the clinically estimated CVP which cannot be estimated on this exam since inspiratory collapse cannot be assessed because of mechanical ventilation, but is likely somewhat higher compared to the previous study. CVP cannot be estimated but the IVC is dilated, suggesting elevated CVP but likely unchanged from the previous study. There is mild biatrial enlargement. There is mild mitral regurgitation and mild tricuspid regurgitation but no other significant valvular heart disease. Reading Physician:10:33 AM . 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 Readmitted and intubated 06/05/17-06/10 for acute hypoxic respiratory failure. Acute on chronic hypercarbic and hypoxic respiratory failure in setting of severe interstitial lung disease. Improving. - Secondary to post-ARDS pulmonary fibrosis and possible aspiration pneumonia. Also likely an element of COPD as centrilobular emphysema was noted on chest CT. She did quite well on pressure support and was eventually extubated this morning. She is currently on oxygen mask and tolerating well. - DuoNebs q6hwa and q2h PRN - Probable diagnosis of acute ILD in addition to known pulmonary fibrosis from prior ARDS inconsistent with IPF. Responded well to 80 solu-medrol on 06/09. Give solu-medrol IV 40 mg daily. Upon discharge changed to prednisone 40 mg. It is imperative that she follows up with an outpatient emt dispatcher and further tapers her steroids. I am a [facility] physician and I only see patients in the hospital setting. I have no pulmonary office. Hospitalist team is aware. Acute sepsis. Resolving - Secondary to aspiration pneumonia. Blood cultures show Staph in 1 bottle, likely Staph epidermidis. - IV fluid boluses as tolerated. - Norepinephrine discontinued - Discontinued tigecycline and tobramycin Acute pneumonia. Improved. - CT chest on 06/05 showed worsening RLL consolidation suspicious for aspiration pneumonia. Respiratory status and CXR improved s/p bronchoscopy with BAL. Lavage cultures negative. At this point, infectious process is less likely and currently considering autoimmune causes. There is evidence of bronchiectasis on review of HRCT imaging. It is unusual that she would develop ARDS following a sinus infection, and there is possibility of an underlying process contributing to this and her bronchiectasis. Cannot rule out the possibility of an autoimmune process such as ACCESS DIRECTOR or other interstitial lung disease. IBRAHIMA and RF negative. BAL cell count negative for eosinophils. Patient also developed a rash multiple times during this admission, so skin biopsy has been taken and sent to pathology - Dr. Del Rio of Infectious Disease is consulted. We appreciate his input. - Discontinued all antibiotics - Sent BAL fluid for cell count and differential - ANCA panel pending - Prednisone 80 mg PO daily - Skin biopsy sent to pathology - Recommend follow-up with pulmonology within 2 weeks of discharge for further management of her interstitial lung disease and steroid dosing Recent cardiac arrest, POA, acute. Stable - Patient recently hospitalized for 15 days post cardiac arrest. Likely secondary to severe hypoxic episode. Patient was also noted to have a prolonged QT and therefore arrhythmia must be considered. - Avoid QT prolonging medications. - Continue to follow on telemetry. No evidence of arrhythmia. Post-ARDS pulmonary fibrosis - Patient has a history of ARDS following sinus infection with resulting pulmonary fibrosis. - Follow up with pulmonology outpatient Obstructive lung disease - Patient has evidence of an obstructive process evident on CT and on the ventilator. In part due to bronchiectasis, but likely also COPD given her smoking history and centrilobular emphysema seen on CT. - Follow-up with pulmonology outpatient for PFTs. - DuoNebs q6hwa and q2h PRN - Order Schedule Clerk on smoking cessation Possible polysubstance abuse - Family has brought forth that the patient uses numerous street drugs and alcohol. Unclear when her last use was as she was recently in a SNF prior to this admission. Patient denies active substance use. Drug screen negative on admission. Disposition: CCU while intubated. Patient is fragile from a respiratory standpoint, s/p multiple intubations. SNF was recommended at last discharge and patient refused the only facility which would accept her. She is making good progress on ventilation but she will likely require a protracted hospital stay. If she does not qualify for a SNF on discharge, she does need to be discharged to a more stable home situation. GI Prophylaxis: H2 pat VTE Prophylaxis: Sub-Q Heparin (Unfractionated) VTE Mechanical Devices: Intermittant Pneumatic CD Resuscitation Status: CPR: Attempt Resuscitation Time spent Total critical care time 45 minutes. Attending Statement Patient seen and examined. Pertinent labs and imaging reviewed. Findings reviewed and discussed with the resident. Amendments made verbally with the resident and/or directly on this document. Agree with the above. Ronadl Finney Jun 10, 2017 15:22 Pete Ron MD Jun 10, 2017 16:22
--- NOTE | 2017-06-10 17:20 | NUR ---
Order for swallow evaluation received and appreciated. Pt extubated today after 5 days of intubation. The pt presented with an aphonic voice, a weak throat clear and significantly reduced breath support. Volitional cough was strong. D/t reduced airway protection, pt not yet appropriate for PO trials. ST will follow up tomorrow AM to re-assess. Rec strict NPO with frequent oral care.
[2017-06-10] MEDS ORDERED: MethylprednisoLONE Sodium Succinate 40 mg/mL Inj IVPUSH ONE (17:40)
[2017-06-10] MEDS: Dextrose 5% 0.45% NaCl 1,000 ML IV SCH (18:03)
--- NOTE | 2017-06-10 18:48 | NUR ---
Extubation/failed swallow eval Patient was ex-tubated at 1105 this morning to oxy-mask at 6l O2 flow. Oxygen saturation remained 92-96% throughout the shift. Patient denied having any pain or discomfort. Sedation propofol and fentanyl drips were discontinued. OG tube was removed together with ET tube and tube feeding was discontinued during one hour prior to extubation. Patient failed swallow evaluation and remained NPO per speech therapy recommendation. Consulted with MD patient was started on D51/2Ns at 75ml/h continue assessment.
[2017-06-11] VITALS (9 sets, daily range): BP systolic 120–147; BP diastolic 64–97; PULSE 84–112; RESP 12–23; O2SAT 89–100
--- NOTE | 2017-06-11 02:48 | ABG ---
DateTimeAnalyzed 02:43:09 -_ pH ____7.359 - 7.350 7.450 pCO2 ___47.5__ -mmHg 35.0 45.0 pO2 ___80.6__ -mmHg 80.0 100 HCO3- ___26.7__ -mmol/L 22.0 26.0 ABE ____1.2__ -mmol/L -2.0 2.0 tHb ____8.9__ -g/dL 12.0 18.0 O2Hb ___94.7__ -% COHb ____2.3__ -% 1.5 MetHb ____0.0__ -% 0.4 1.5 sO2 ___96.7__ -% 95.0 AaDpO2 ____..... -mmHg FIO2 ____8.0__ -% Pressure_Support ___10.0__ -cmH2O Vt __450.0__ -L Drawn By TLA - Date/Time Notified____ 02:48:00 -_ Spontaneous_RR 22 -b/min Liter_Flow ____8.00_ -L/min Oxygen Device 1 VENTILATOR - Notified By TLA - Notified Whom MOO SWAN-RN - K+ ____3.8__ -mmol/L 3.5 5.0 Wisam test _Positive -
[2017-06-11 03:30] LABS: BASOPHILS % (AUTO) 0.4 % (0-3); EOSINOPHILS % (AUTO) 1.1 % (0-5); MONOCYTES % (AUTO) 5.6 % (4-12); Mean Corpuscular Hemoglobin 28.5 pg (27.0-35.0); Mean Corpuscular Volume 94.6 fL (81-100); NEUTROPHILS % (AUTO) 75.3 % (40-74); Platelet Count 240 bil/L (150-400)
--- NOTE | 2017-06-11 03:33 | NUR ---
Resp / Restless Patient placed on home trilogy for night. Desaturated to 69% because patient is breathing through her mouth and mask only has the nasal pillows. Oxymask placed again and RT replaced trilogy mask and restarted it. SpO2 88-92%. Patient complains about trilogy mask but is agreeable to continue wearing it. Patient restless, fidgeting, not sleeping. Patient intermittently pulls leads, BP cuff, and pulse ox off. MD notified and orders received for ABG. Insignificant changes. Patient sleeping on and off and remains restless while awake.
[2017-06-11 03:54] LABS: Magnesium 1.8 mg/dL (1.6-2.6); Phosphorus 4.4 mg/dL (2.5-4.9)
[2017-06-11] MEDS: Dextrose 5% 0.45% NaCl 1,000 ML IV SCH (06:49)
[2017-06-11] MEDS: Albuterol-Ipratropium 3 mL Inhalation Solution NEB SCH ×4 (08:05→21:00)
[2017-06-11] MEDS: Famotidine Inj 20 MG in IV Premix 1 EACH IV SCH ×2 (08:10→19:51)
[2017-06-11] MEDS: Heparin 5,000 Unit/mL Inj SUBQ SCH ×3 (08:10→23:24)
--- NOTE | 2017-06-11 08:20 | DRSVH ---
PROCEDURE: X-RAY CHEST ONE VIEW, PORTABLE ([id number]) INDICATIONS: f/u post extubation TECHNIQUE: One view of the chest was acquired. COMPARISON: [facility], CR, XR CHEST 1VW (PORTABLE), 06/10/2017, 3:01. [facility], CR, XR CHEST 1VW (PORTABLE), 06/09/2017, 3:10. FINDINGS: Surgical changes and devices: Endotracheal tube has been removed. Central line from right sided appr [facility] is in normal position. Lungs and pleura: No pleural effusions or pneumothorax. Lungs are abnormal, with a pulmonary edema pattern appears mildly worsened, with reference to the prior chest plain films with endotracheal tube in place. Mediastinum: Mediastinal contours appear normal. Heart size is mildly enlarged. Bones and chest wall: No suspicious bony lesions. Overlying soft tissues appear unremarkable. IMPRESSION: Endotracheal tube removed but the lung parenchyma appears to demonstrate increased pulmon matt edema when compared to the recent prior plain films. Central line in normal position of a right- sided approach. Dictated by: Chris Stein M.D. on 06/11/2017 at 8:17 Approved by: Chris Stein M.D. on 06/11/2017 at 8:18
[2017-06-11] MEDS ORDERED: Furosemide 10 mg/mL 4 mL Inj IVPUSH ONE ×4 (08:25→17:20)
[2017-06-11] MEDS ORDERED: Albumin 25% 25 GM in IV Premix 1 EACH IV ONE ×2 (08:30→14:05)
[2017-06-11] MEDS ORDERED: MethylprednisoLONE Sodium Succinate 40 mg/mL Inj IVPUSH SCH (08:30)
--- NOTE | 2017-06-11 09:42 | NUR ---
ST re-attempted bedside swallow evaluation this am. Pt extubated yesterday after 5 days of intubation. The pt continues to present with an aphonic voice, and significantly reduced breath support, with infrequent wet cough. D/t reduced airway protection, pt not yet appropriate for PO trials. ST will follow up tomorrow AM to re-assess. Rec strict NPO with frequent oral care.
--- NOTE | 2017-06-11 10:05 | NUR ---
Evaluation completed. Please go to "Notes" then click on "Assessments and Notes" (bottom left corner of screen). Then select appropriate discipline tab on top of screen.
[2017-06-11] MEDS ORDERED: .Epic Conversion Completed XX PRN (10:10)
[2017-06-11] MEDS ORDERED: fentaNYL-PF 50 mCg/mL 2 mL Inj IVPUSH PRN (12:10)
[2017-06-11] MEDS ORDERED: fentaNYL-PF 50 mCg/mL 2 mL Inj ONE (12:12)
--- NOTE | 2017-06-11 13:31 | NUR ---
Mentation/Resp/Cardiac/GI- Patient oriented x3. Restless. Fidgets. Sat pleth is sensitive to movement and falls then sats fall. Sats also drop due to activity. Difficult to assess O2 needs. Took Trilogy off in morning hours and trialed oxymask at 6L. Patient tried to sleep and sats fell, despite increase in O2 to 0 L Oxymask. Trilogy put back on. Currently 8L O2 being bled into Trilogy. Switching patient from Mask to Trilogy, sats drop to the 30s. Patient given Lasix and has had >3000 mls out this shift so far. Gave Fentanyl for air hunger, which helped. Patient was then able to rest. At rest on Trilogy, sats at 95%. Patient unable to pass swallow test so remains NPO. MDs aware of all above events.
--- NOTE | 2017-06-11 14:36 | NUR ---
NUTRITION FOLLOW UP Assess: 61 YO F admitted to CCU with acute on chronic respiratory failure in setting of severe interstitial lung disease. Pt requiring TF while intubated, now TF'g discontinued (06/10) prior to pt extubation. ST has seen pt, reports pt currently unable to protect airway and not appropriate for po trials, will f/u tomorrow (06/12) re diet recommendations. Currently NPO x 24hrs. Per Am rounds notes pt with fluid overload, being diuresed. PMHX: Interstitial lung disease, R-sided heart failure, cor pulmonale, depression, anxiety, chronic pain. DIET: NPO. (x24hrs) NUTRITION SUPPORT: DISCONTINUED. On 06/10:Pulmocare @ goal rate to 55ml/hr to provide 1815kcal ,75g pro.Fluid flush 40ml q 4 if on IVF. If not on IVF, flush 95ml q 2 hrs to provide 2082ml h20/day LABS: Alb 3.0, Glu 120, MEDICATIONS: Reviewed. Propofol discontinued 06/10 per notes GI: BMx8 06/10 SKIN: No issues noted. No WC note ANTHROPOMETRICS: Wt: 97.5 kg, BMI 40.6 kg/m2, Admit wt: 88.8 kg, IBW: 47.7 kg. Possible wt loss of 15 kg since 05/18/17 per EMR (14.5% of BW X <1 month) = significant wt loss. ESTIMATED NEEDS: BMI/VENT Calories: 7142-5401 kcal/day (20-22 kcal/kg BW) Protein: 75-85 g/day (1.5-1.8 g/kg IBW) Fluids: 2125-2420ml/day (22-25ml/kg) NUTRITION DIAGNOSIS: 1) Inadequate oral intake related to decreased ability to consume sufficient energy as evidenced by NPO x 24hrs---PERSISTS. Tube feeding off. INTERVENTION: 1) Recommend advance diet per ST. 2) In event pt diet unable to be advanced 06/12 strongly recommend re-start TF at 25ml/hr advancing 10ml q 8hrs to goal rate of 55ml/hr to provide 1815kcal and 75g pro (100% estimated needs). Fluid flush 40ml q 4 if on IVF. If not on IVF, flush 95ml q 2 hrs to provide 2082ml h20/day MONITOR/EVALUATE: NPOstatus, diet advance vs re-start tf, labs, wt, GI/nutrition status. Follow per high nutrition risk guidelines.
--- NOTE | 2017-06-11 14:55 | PCM.PNMED ---
Subjective Date of Service Jun 11, 2017 Subjective CC: SOB Patient was extubated 06/10. She tolerated approximately mass 6-8 L throughout most of the day. She was started on additional IV fluids as speech standards too early for feeds. Over the night she used her home noninvasive ventilator but had some trouble when she came off the exam. Respiratory therapists myself spent time troubleshooting and teaching patient how to use equipment appropriately. Saturations in the 90s while on NIPPV. She is diuresing well. Chest x-ray personally reviewed: Worsening bilateral infiltrates consistent with the acute pulmonary edema. Exam Vital Signs Vital Sign - Last Date Time Temp Pulse Resp B/P Pulse Ox O2 Delivery O2 Flow Rate FiO2 06/11/17 13:58 103 22 92 TRILOGY 9.00 06/11/17 11:30 36.8 139/76 06/10/17 07:35 45 Intake and Output 06/10/17 06/10/17 06/11/17 Cumulative From/Thru 15:00 23:00 07:00 06/04/17 22:55 - 06/11/17 06:16 Intake Total 795 ml 891 ml 96008 ml Output Total 950 ml 1500 ml 55469 ml Balance -155 ml -609 ml 87225 ml Intake Oral 0 ml IV Total 300 ml 891 ml 65877 ml Tube Feeding 265 ml 2519 ml Tube Irrigant 230 ml 2951 ml Output Urine Total 950 ml 1500 ml 49709 ml Stool Total 0 ml Gastric Drainage Total 355 ml # Bowel Movements 6 8 Exam Gen: Alert and oriented. Cooperative. Speaking. On NIPPV. Neck: Trachea midline no crepitus. HEENT: PERRL, EOMI, no scleral icterus CV: RRR, no murmurs rubs or gallops Resp: Diffuse coarse breath sounds throughout all lung neves. Abd: No rebound masses guarding or tenderness Extr: BL LE edema, no clubbing or cyanosis Skin: Blotchy rash on thighs and arms improved. Capillary refill 2 seconds. Neuro: CN 2-12 grossly intact, no focal neurologic deficit. Lab and Diagnostics Result Diagram: 06/11/17 0320 06/11/17 0320 Microbiology Blood culture from 06/06 positive for Staph, nature indeterminant could be contaminant Respiratory PCR negative X-Rays, CTs and MRIs X-RAY CHEST ONE VIEW, PORTABLE IMPRESSION: Marked increased pulmonary vascular suggestive of edema. Focal appearance of increased opacity is present in the right base suggestive of atelectasis and/or pneumonia. Dictated by: Dilcia Hernandez M.D. on 06/05/2017 at 10:12 Approved by: Dilcia Hernandez M.D. on 06/05/2017 at 10:15 CT CERVICAL SPINE WITHOUT CONTRAST IMPRESSION: 1. Multilevel degenerative changes without visualized fracture. 2. Bilateral pleural effusions and pulmonary edema. Dictated by: Dilcia Hernandez M.D. on 06/05/2017 at 9:19 Approved by: Dilcia Hernandez M.D. on 06/05/2017 at 9:23 CT BRAIN WITHOUT CONTRAST IMPRESSION: 1. No acute intracranial process. 2. Mild to moderate atrophy and chronic microvascular ischemic changes. Dictated by: Dilcia Hernandez M.D. on 06/05/2017 at 9:15 Approved by: Dilcia Hernandez M.D. on 06/05/2017 at 9:19 CT ANGIO CHEST PULMONARY EMBOLISM IMPRESSION: 1. No pulmonary embolism. 2. Minimal effusions with right-sided consolidation. The latter could be represented atelectasis versus developing pneumonia. 3. Diffuse pulmonary edema. 4. Multiple bilateral rib fractures. Dictated by: Dilcia Hernandez M.D. on 06/05/2017 at 9:23 Approved by: Dilcia Hernandez M.D. on 06/05/2017 at 9:27 . Cardiac Echo Impressions Interpretation Summary Left ventricular systolic function is low normal with the ejection fraction grossly estimated to be 50-55% with paradoxical septal motion and a flattened septum, consistent with right ventricular pressure/volume overload, unchanged compared to the previous study. There is mild hypokinesis in the proximal inferior and inferolateral coulter that appears improved from the previous study, and compared to the prior exam, left ventricular function has slightly improved. Otherwise, no significant change compared to the previous study. The right ventricle is moderately dilated and right ventricular systolic function is mildly reduced, likely unchanged compared to the previous study. Right ventricular systolic pressure is estimated to be 38 mmHg plus the clinically estimated CVP which cannot be estimated on this exam since inspiratory collapse cannot be assessed because of mechanical ventilation, but is likely somewhat higher compared to the previous study. CVP cannot be estimated but the IVC is dilated, suggesting elevated CVP but likely unchanged from the previous study. There is mild biatrial enlargement. There is mild mitral regurgitation and mild tricuspid regurgitation but no other significant valvular heart disease. Reading Physician:10:33 AM . 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 Readmitted and intubated 06/05/17-06/10 for acute hypoxic respiratory failure. Acute pulmonary edema - She is +10 kg since admission. Aggressive diuretics as tolerated. Combination of Lasix and albumin repeated throughout the day. Repeat BMP and magnesium and supplement as necessary. Acute on chronic hypercarbic and hypoxic respiratory failure with possible ILD and history ARDS induced pulmonary fibrosis. - Secondary to post-ARDS pulmonary fibrosis and possible aspiration pneumonia. Also likely an element of COPD as centrilobular emphysema was noted on chest CT. Extubated 06/10. - DuoNebs q6hwa and q2h PRN - Probable diagnosis of acute ILD in addition to known pulmonary fibrosis from prior ARDS inconsistent with IPF. Responded well to 80 solu-medrol on 06/09. Give solu-medrol IV 40 mg daily. Upon discharge changed to prednisone 40 mg. It is imperative that she follows up with an outpatient rug drying machine operator and further tapers her steroids. I am a [facility] physician and I only see patients in the hospital setting. I have no pulmonary office. Hospitalist team is aware. Acute pneumonia. Improved. - CT chest on 06/05 showed worsening RLL consolidation suspicious for aspiration pneumonia. Respiratory status and CXR improved s/p bronchoscopy with BAL. Lavage cultures negative. At this point, infectious process is less likely and currently considering autoimmune causes. There is evidence of bronchiectasis on review of HRCT imaging. It is unusual that she would develop ARDS following a sinus infection, and there is possibility of an underlying process contributing to this and her bronchiectasis. Cannot rule out the possibility of an autoimmune process such as SENIOR HRIS ANALYST or other interstitial lung disease. IBRAHIMA and RF negative. BAL cell count negative for eosinophils. Patient also developed a rash multiple times during this admission, so skin biopsy has been taken and sent to pathology - Dr. Del Rio of Infectious Disease is consulted. We appreciate his input. - Discontinued all antibiotics - Sent BAL fluid for cell count and differential - ANCA panel pending - Skin biopsy sent to pathology - Recommend follow-up with pulmonology within 2 weeks of discharge for further management of her interstitial lung disease and steroid dosing Possible polysubstance abuse - Family has brought forth that the patient uses numerous street drugs and alcohol. Unclear when her last use was as she was recently in a SNF prior to this admission. Patient denies active substance use. Drug screen negative on admission. Disposition: CCU while intubated. Patient is fragile from a respiratory standpoint, s/p multiple intubations. SNF was recommended at last discharge and patient refused the only facility which would accept her. She is making good progress on ventilation but she will likely require a protracted hospital stay. If she does not qualify for a SNF on discharge, she does need to be discharged to a more stable home situation. GI Prophylaxis: H2 pat VTE Prophylaxis: Sub-Q Heparin (Unfractionated) VTE Mechanical Devices: Intermittant Pneumatic CD Resuscitation Status: CPR: Attempt Resuscitation Time spent Total critical care time spent in direct patient care 50 minutes Pete Ron MD Jun 11, 2017 14:55
[2017-06-11 16:28] LABS: Magnesium 1.6 mg/dL (1.6-2.6)
--- NOTE | 2017-06-11 16:41 | NUR ---
Social Work Note: Continued Discharge Planning Data& Assessment: Per MD in multidisciplinary rounds, pt has been extubated successfully. PT not able to work with PT very much today due to weakness they are recommending SNF. SNF order from MD acknowledged. BALLISTICS EXPERT to follow up with pt regarding SNF preference. BALLISTICS EXPERT spoke with Teresa locke [place] who requested clinicals to confirm whether or not pt could still benefit from transferring to their hospital. Clinicals have been faxed. BALLISTICS EXPERT to continue to follow. Plan: Anticipated discharge to SNF when medically ready. BALLISTICS EXPERT to follow up with pt regarding SNF options and preferences. BALLISTICS EXPERT to continue to follow. STEPHON Meyers
[2017-06-11] MEDS ORDERED: KCl 40 mEq/100 mL (CENTRAL) 20 MEQ in IV Premix 1 EACH IV ONE (17:20)
[2017-06-11] MEDS ORDERED: KCl 20 mEq/100 mL(CENTRAL) 20 MEQ in IV Premix 1 EACH IV ONE (17:20)
[2017-06-11] MEDS: KCl 20 mEq/100 mL(CENTRAL) 20 MEQ in IV Premix 1 EACH IV SCH ×3 (18:16→22:37)
--- NOTE | 2017-06-11 18:41 | PCM.PNMED ---
Subjective Date of Service Jun 11, 2017 Subjective Patient was extubated yesterday afternoon and currently is on Trilogy. She has no complaints. Exam Vital Signs Vital Sign - Last Date Time Temp Pulse Resp B/P Pulse Ox O2 Delivery O2 Flow Rate FiO2 06/11/17 16:06 9.00 06/11/17 15:43 37.1 112 23 141/97 95 trilogy 06/10/17 07:35 45 Intake and Output 06/10/17 06/10/17 06/11/17 Cumulative From/Thru 15:00 23:00 07:00 06/04/17 22:55 - 06/11/17 06:16 Intake Total 795 ml 891 ml 12843 ml Output Total 950 ml 1500 ml 42316 ml Balance -155 ml -609 ml 40619 ml Intake Oral 0 ml IV Total 300 ml 891 ml 93013 ml Tube Feeding 265 ml 2519 ml Tube Irrigant 230 ml 2951 ml Output Urine Total 950 ml 1500 ml 44236 ml Stool Total 0 ml Gastric Drainage Total 355 ml # Bowel Movements 6 8 Exam Constitutional: Middle-aged female in no acute distress Head: Normocephalic atraumatic Chest reveals scattered rhonchi Cor: Regular rate and rhythm S1-S2 Abdomen: Soft nontender bowel sounds present Extremities: Trace bilateral pedal edema Neuro: Alert and oriented 3, motor strength is intact bilaterally IVs and Medications Medications Reviewed: Medications were reviewed in detail Lab and Diagnostics Result Diagram: 06/11/17 0320 06/11/17 1515 Microbiology Blood culture from 06/06 positive for Staph, nature indeterminant could be contaminant Respiratory PCR negative X-Rays, CTs and MRIs X-RAY CHEST ONE VIEW, PORTABLE IMPRESSION: Marked increased pulmonary vascular suggestive of edema. Focal appearance of increased opacity is present in the right base suggestive of atelectasis and/or pneumonia. Dictated by: Dilcia Hernandez M.D. on 06/05/2017 at 10:12 Approved by: Dilcia Hernandez M.D. on 06/05/2017 at 10:15 CT CERVICAL SPINE WITHOUT CONTRAST IMPRESSION: 1. Multilevel degenerative changes without visualized fracture. 2. Bilateral pleural effusions and pulmonary edema. Dictated by: Dilcia Hernandez M.D. on 06/05/2017 at 9:19 Approved by: Dilcia Hernandez M.D. on 06/05/2017 at 9:23 CT BRAIN WITHOUT CONTRAST IMPRESSION: 1. No acute intracranial process. 2. Mild to moderate atrophy and chronic microvascular ischemic changes. Dictated by: Dilcia Hernandez M.D. on 06/05/2017 at 9:15 Approved by: Dilcia Hernandez M.D. on 06/05/2017 at 9:19 CT ANGIO CHEST PULMONARY EMBOLISM IMPRESSION: 1. No pulmonary embolism. 2. Minimal effusions with right-sided consolidation. The latter could be represented atelectasis versus developing pneumonia. 3. Diffuse pulmonary edema. 4. Multiple bilateral rib fractures. Dictated by: Dilcia Hernandez M.D. on 06/05/2017 at 9:23 Approved by: Dilcia Hernandez M.D. on 06/05/2017 at 9:27 . Cardiac Echo Impressions Interpretation Summary Left ventricular systolic function is low normal with the ejection fraction grossly estimated to be 50-55% with paradoxical septal motion and a flattened septum, consistent with right ventricular pressure/volume overload, unchanged compared to the previous study. There is mild hypokinesis in the proximal inferior and inferolateral coulter that appears improved from the previous study, and compared to the prior exam, left ventricular function has slightly improved. Otherwise, no significant change compared to the previous study. The right ventricle is moderately dilated and right ventricular systolic function is mildly reduced, likely unchanged compared to the previous study. Right ventricular systolic pressure is estimated to be 38 mmHg plus the clinically estimated CVP which cannot be estimated on this exam since inspiratory collapse cannot be assessed because of mechanical ventilation, but is likely somewhat higher compared to the previous study. CVP cannot be estimated but the IVC is dilated, suggesting elevated CVP but likely unchanged from the previous study. There is mild biatrial enlargement. There is mild mitral regurgitation and mild tricuspid regurgitation but no other significant valvular heart disease. Reading Physician:10:33 AM . 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 Readmitted and intubated 06/05/17-06/10 for acute hypoxic respiratory failure. Acute pulmonary edema - She is +10 kg since admission. Aggressive diuretics as tolerated. Combination of Lasix and albumin repeated throughout the day as per pulmonary. Repeat BMP and magnesium and supplement as necessary. Acute on chronic hypercarbic and hypoxic respiratory failure with possible ILD and history ARDS induced pulmonary fibrosis. - Secondary to post-ARDS pulmonary fibrosis and possible aspiration pneumonia. Also likely an element of COPD as centrilobular emphysema was noted on chest CT. Extubated 06/10. - DuoNebs q6hwa and q2h PRN - Probable diagnosis of acute ILD in addition to known pulmonary fibrosis from prior ARDS inconsistent with IPF. Responded well to 80 solu-medrol on 06/09. Give solu-medrol IV 40 mg daily. Upon discharge changed to prednisone 40 mg. It is imperative that she follows up with an outpatient voice teacher and further tapers her steroids. I am a [facility] physician and I only see patients in the hospital setting. I have no pulmonary office. Hospitalist team is aware. Acute pneumonia. Improved. - CT chest on 06/05 showed worsening RLL consolidation suspicious for aspiration pneumonia. Respiratory status and CXR improved s/p bronchoscopy with BAL. Lavage cultures negative. At this point, infectious process is less likely and currently considering autoimmune causes. There is evidence of bronchiectasis on review of HRCT imaging. Cannot rule out the possibility of an autoimmune process such as BUSINESS OBJECTS REPORT DEVELOPER or other interstitial lung disease. IBRAHIMA and RF negative. BAL cell count negative for eosinophils. Patient also developed a rash multiple times during this admission, so skin biopsy has been taken and sent to pathology - Dr. Del Rio of Infectious Disease is consulted. We appreciate his input. - Discontinued all antibiotics - Sent BAL fluid for cell count and differential - ANCA panel pending - Skin biopsy sent to pathology GI Prophylaxis: H2 pat VTE Prophylaxis: Sub-Q Heparin (Unfractionated) VTE Mechanical Devices: Intermittant Pneumatic CD Resuscitation Status: CPR: Attempt Resuscitation Time spent 20 minutes Indigo Acuña MD Jun 11, 2017 18:41
[2017-06-11] MEDS ORDERED: Magnesium Sulf 2 Gm/50mL Water 2 GM in IV Premix 1 EACH IV ONE (18:50)
--- NOTE | 2017-06-11 23:56 | NUR ---
Mentation / Resp Patient less restless this evening compared to last, able to sleep on and off. Alert and oriented while awake. Patient occasionally removes Trilogy and places oxymask at 9L. If there is a delay her SpO2 drops to the low 70s. Reminded patient to call RN prior to removing Trilogy for assistance. Overall patient agreeable with wearing Trilogy tonight. RT in to assess frequently.
--- NOTE | 2017-06-12 11:55 | PCM.DC.MED ---
Discharge Summary Date of Service Jun 12, 2017 Dates of Hospitalization Date of Hospital Admission Jun 04, 2017 at 23:52 Date of Discharge: Jun 12, 2017 Providers: Admitting Physician: Liborio Dalal MD Primary Care Physician: Nopadryan Attending Physician: Indigo Acuña MD Diagnosis at Time of Discharge Diagnosis at Time of Discharge Acute pulmonary edema, not present on admission Acute on chronic hypercarbic and hypoxic respiratory failure with possible intercurrent status of lung disease and history ARDS-induced pulmonary fibrosis Possible polysubstance abuse Consultations Pulmonary, cardiology, gastroenterology, infectious disease Procedures XRay, CTs & MRIs X-RAY CHEST ONE VIEW, PORTABLE IMPRESSION: Marked increased pulmonary vascular suggestive of edema. Focal appearance of increased opacity is present in the right base suggestive of atelectasis and/or pneumonia. Dictated by: Dilcia Hernandez M.D. on 06/05/2017 at 10:12 Approved by: Dilcia Hernandez M.D. on 06/05/2017 at 10:15 CT CERVICAL SPINE WITHOUT CONTRAST IMPRESSION: 1. Multilevel degenerative changes without visualized fracture. 2. Bilateral pleural effusions and pulmonary edema. Dictated by: Dilcia Hernandez M.D. on 06/05/2017 at 9:19 Approved by: Dilcia Hernandez M.D. on 06/05/2017 at 9:23 CT BRAIN WITHOUT CONTRAST IMPRESSION: 1. No acute intracranial process. 2. Mild to moderate atrophy and chronic microvascular ischemic changes. Dictated by: Dilcia Hernandez M.D. on 06/05/2017 at 9:15 Approved by: Dilcia Hernandez M.D. on 06/05/2017 at 9:19 CT ANGIO CHEST PULMONARY EMBOLISM IMPRESSION: 1. No pulmonary embolism. 2. Minimal effusions with right-sided consolidation. The latter could be represented atelectasis versus developing pneumonia. 3. Diffuse pulmonary edema. 4. Multiple bilateral rib fractures. Dictated by: Dilcia Hernandez M.D. on 06/05/2017 at 9:23 Approved by: Dilcia Hernandez M.D. on 06/05/2017 at 9:27 . Cardiac Echo Impression Interpretation Summary Left ventricular systolic function is low normal with the ejection fraction grossly estimated to be 50-55% with paradoxical septal motion and a flattened septum, consistent with right ventricular pressure/volume overload, unchanged compared to the previous study. There is mild hypokinesis in the proximal inferior and inferolateral coulter that appears improved from the previous study, and compared to the prior exam, left ventricular function has slightly improved. Otherwise, no significant change compared to the previous study. The right ventricle is moderately dilated and right ventricular systolic function is mildly reduced, likely unchanged compared to the previous study. Right ventricular systolic pressure is estimated to be 38 mmHg plus the clinically estimated CVP which cannot be estimated on this exam since inspiratory collapse cannot be assessed because of mechanical ventilation, but is likely somewhat higher compared to the previous study. CVP cannot be estimated but the IVC is dilated, suggesting elevated CVP but likely unchanged from the previous study. There is mild biatrial enlargement. There is mild mitral regurgitation and mild tricuspid regurgitation but no other significant valvular heart disease. Reading Physician:10:33 AM . Other Diagnostics Item Value Date Time Body Fluid Source Bronchial washing 06/09/17 1030 Body Fluid Color Colorless 06/09/17 1030 Body Fluid Appearance Hazy 06/09/17 1030 Body Fluid WBC 545 /mm3 06/09/17 1030 Body Fluid RBC 85 /mm3 06/09/17 1030 Body Fluid Polynuclear WBCs 70 % 06/09/17 1030 Body Fluid Lymphocytes 10 % 06/09/17 1030 Body Fluid Monocytes 20 % 06/09/17 1030 Body Fluid Eosinophils 0 % 06/09/17 1030 Body Fluid Basophils 0 % 06/09/17 1030 Brief History Patient is a 61 y/o F with PMHx post-ARDS pulmonary fibrosis, ?pulmonary HTN, pneumonia, recent discharged for hypoxic hypercapneic respiratory failure. During her prior admission she improved with short course empiric antibiotics and diuresis. In the ED her O2 saturations were reportedly in the 60's and she was intubated. WBC 22.7, proal 0.63, BNP 528 (was 1434 at discharge) UDS negative CT showed worsening RLL pneumonia; chronic interstitial changes; no PE She received broad abx (vanco, aztreo, flagyl) as well as lasix x1. RIJ CVC was placed in ED. She currently remains sedated on the ventilator on propofol gtt, fentanyl gtt, and low dose levophed (0.15). Unable to obtain history due to patient's mental status. Hospital Course Barbara Davila is a 61 year old woman with post-ARDS pulmonary fibrosis in 2011 on 6-7 L O2 at baseline and polysubstance abuse, and a recent admission for acute respiratory in May 17. Readmitted and intubated 06/05/17-06/10 for acute hypoxic respiratory failure. Acute pulmonary edema - She is +10 kg since admission. Aggressive diuretics as tolerated. Combination of Lasix and albumin repeated throughout the day as per pulmonary. Repeat BMP and magnesium and supplement as necessary. Acute on chronic hypercarbic and hypoxic respiratory failure with possible ILD and history ARDS induced pulmonary fibrosis. - Secondary to post-ARDS pulmonary fibrosis and possible aspiration pneumonia. Also likely an element of COPD as centrilobular emphysema was noted on chest CT. Extubated 06/10. - DuoNebs q6hwa and q2h PRN - Probable diagnosis of acute ILD in addition to known pulmonary fibrosis from prior ARDS inconsistent with IPF. Responded well to 80 solu-medrol on 06/09. Give solu-medrol IV 40 mg daily. Upon discharge changed to prednisone 40 mg. It is imperative that she follows up with an outpatient weight control lecturer and further tapers her steroids. I am a [facility] physician and I only see patients in the hospital setting. I have no pulmonary office. Hospitalist team is aware. Acute pneumonia. Improved. - CT chest on 06/05 showed worsening RLL consolidation suspicious for aspiration pneumonia. Respiratory status and CXR improved s/p bronchoscopy with BAL. Lavage cultures negative. At this point, infectious process is less likely and currently considering autoimmune causes. There is evidence of bronchiectasis on review of HRCT imaging. Cannot rule out the possibility of an autoimmune process such as VP PLATFORMS or other interstitial lung disease. IBRAHIMA and RF negative. BAL cell count negative for eosinophils. Patient also developed a rash multiple times during this admission, so skin biopsy has been taken and sent to pathology - Dr. Del Rio of Infectious Disease is consulted. We appreciate his input. - Discontinued all antibiotics - Sent BAL fluid for cell count and differential - ANCA panel pending - Skin biopsy sent to pathology Exam Vital Signs (Last) Date Time Temp Pulse Resp B/P Pulse Ox O2 Delivery O2 Flow Rate FiO2 06/11/17 23:29 Supplement Oxygen 06/11/17 23:22 36.8 84 17 120/64 100 9.00 06/10/17 07:35 45 Test 06/04/17 22:50 06/05/17 01:00 06/05/17 11:54 06/06/17 12:23 Band Neutrophils % 1% (1-5) D-Dimer 2.70mg/L FEU (<0.50) Pro-B-Type Natriuretic Peptide 528.1pg/mL (0-287) Alcohols < 10mg/dL (0-10) Urine Opiates Screen Negative Urine Methadone Screen Negative Urine Barbiturates Screen Negative Urine Amphetamines Screen Negative Urine Benzodiazepines Screen Negative Urine Cocaine Metabolite Screen Negative Urine Cannabinoids Screen Negative Urine Color Straw (YELLOW) Urine Appearance Clear (CLEAR,HAZY) Urine pH 5.5 (5.0-8.0) Urine Specific [place] 1.010 (1.003-1.035) Urine Protein Negativemg/dL (NEG,TRACE) Urine Glucose (UA) Negativemg/dL (NEGATIVE) Urine Ketones Negativemg/dL (NEGATIVE) Urine Occult Blood Negative (NEGATIVE) Urine Nitrite Negative (NEGATIVE) Urine Bilirubin Negative (NEGATIVE) Urine Urobilinogen Normalmg/dL (NORMAL) Urine Leukocyte Esterase Small (NEGATIVE) Urine RBC 0-2/hpf (0-2) Urine WBC 0-5/hpf (0-5) Urine Epithelial Cells None/hpf (NONE-MOD) Urine Crystals None seen (NONE SEEN) Urine Bacteria Few/hpf (NONE-FEW) Urine Hyaline Casts None/lpf (NONE) Urine Granular Casts None seen (NONE SEEN) Urine Waxy Casts None seen (NONE SEEN) Urine Red Blood Cell Casts None seen (NONE SEEN) Urine White Blood Cell Casts None seen (NONE SEEN) Urine Mucus None seen (None Seen) Urine Trichomonas None seen (NONE SEEN) Urine Yeast None (NONE SEEN) Urinalysis Comment None Urine Culture Reflexed Indicated Fungal Antibodies <31pg/mL (<80) Test 06/07/17 03:42 06/09/17 04:39 06/09/17 10:30 06/09/17 10:45 Triglycerides Level 115mg/dL (0-149) Erythrocyte Sedimentation Rate 37mm/hr (0-40) Prothrombin Time 9.7sec (8.1-12.5) Prothromb Time International Ratio 0.91ratio Lactic Acid Level 0.8mmol/L (0.4-2.0) Total Creatine Kinase 37U/L (21-215) Creatine Kinase MB 2.5ng/mL (0.0-5.3) Creatine Kinase MB % % (0.0-5.0) Troponin T 0.011ug/L (0.0-0.011) C-Reactive Protein 1.7mg/dL (0.0-0.5) Body Fluid Source Bronchial washing Body Fluid Color Colorless (Clear) Body Fluid Appearance Hazy Body Fluid WBC 545/mm3 Body Fluid RBC 85/mm3 Body Fluid Polynuclear WBCs 70% Body Fluid Lymphocytes 10% Body Fluid Monocytes 20% Body Fluid Eosinophils 0% Body Fluid Basophils 0% Rheumatoid Factor 13.0IU/mL (0.0-13.9) Anti-Nuclear Antibody Screen Negative (Negative) Test 06/10/17 05:40 06/11/17 03:20 06/11/17 15:15 Procalcitonin 0.14ng/mL (0.00-0.08) White Blood Count 4.5th/mm3 (3.8-10.1) Red Blood Count 3.16mil/mm3 (3.90-5.20) Hemoglobin 9.0g/dL (12.0-15.6) Hematocrit 29.9% (35.0-46.0) Mean Corpuscular Volume 94.6fL (81-100) Mean Corpuscular Hemoglobin 28.5pg (27.0-35.0) Mean Corpuscular Hemoglobin Concent 30.1% (32.0-37.0) Red Cell Distribution Width 16.2% (12.3-15.4) Platelet Count 240bil/L (150-400) Neutrophils (%) (Auto) 75.3% (40-74) Lymphocytes (%) (Auto) 16.3% (14-46) Monocytes (%) (Auto) 5.6% (4-12) Eosinophils (%) (Auto) 1.1% (0-5) Basophils (%) (Auto) 0.4% (0-3) Phosphorus Level 4.4mg/dL (2.5-4.9) Total Bilirubin 0.3mg/dL (0.0-1.2) Aspartate Amino Transf (AST/SGOT) 25U/L (0-50) Alanine Aminotransferase (ALT/SGPT) 17U/L (0-32) Alkaline Phosphatase 71U/L (25-165) Total Protein 6.1g/dL (6.4-8.4) Albumin 3.0g/dL (3.4-5.0) Sodium Level 144mEq/L (134-144) Potassium Level 3.6mEq/L (3.5-5.2) Chloride Level 99mEq/L (97-108) Carbon Dioxide Level 32mmol/L (18-29) Blood Urea Nitrogen 7mg/dL (6-24) Creatinine 0.45mg/dL (0.57-1.00) Estimat Glomerular Filtration Rate 204mL/min (>59) Glucose Level 106mg/dL (60-99) Calcium Level 9.2mg/dL (8.5-10.1) Magnesium Level 1.6mg/dL (1.6-2.6) Microbiology Results Blood culture from 06/06 positive for Staph, nature indeterminant could be contaminant Respiratory PCR negative Discharge Medications Discharge Medications Albuterol HFA (Proair HFA) 8.5 Gm Hfa.aer.ad 2 PUFFS INHALATION Q4H Prescribed by: DIANELYS ROMEO DO Epinephrine (Epipen 2-Jarad) 0.3 Mg/0.3 Ml Auto.injct 0.3 MG IJ ONCE Prescribed by: DIANELYS ROMEO DO Fexofenadine (Fexofenadine) 180 Mg Tablet 180 MG PO QAM Prescribed by: DIANELYS ROMEO DO Flunisolide (Aerospan) 8.9 Gm Hfa.aer.ad 8.9 GM IH BID Prescribed by: DIANELYS ROMEO DO Fluticasone Propionate (Fluticasone Propionate) 50 Mcg/Actuation [place].susp 15.8 ML NS DAILY Prescribed by: DIANELYS ROMEO DO Furosemide (Furosemide) 40 Mg Tablet 40 MG PO BID Prescribed by: DIANELYS ROMEO DO Gabapentin (Gabapentin) 600 Mg Tablet 600 MG PO TID Prescribed by: DIANELYS ROMEO DO Lactobacillus Acidophilus (Probiotic) 1 Each Capsule 1 EACH PO DAILY Prescribed by: DIANELYS ROMEO DO Magnesium Hydroxide (Magnesium Hydroxide) 500 Gm Powder 400 GM MC DAILY Prescribed by: DIANELYS ROMEO DO Meloxicam (Meloxicam) 15 Mg Tablet 15 MG PO DAILY Prescribed by: DIANELYS ROMEO DO Na Phos,M-B/Na Phos,Di-Ba (Fleet Enema) 133 Ml Enema 133 ML RC DAILY Prescribed by: DIANELYS ROMEO DO Nortriptyline (Nortriptyline) 25 Mg Capsule 50 MG PO HS Prescribed by: DIANELYS ROMEO DO Omeprazole (Omeprazole) 40 Mg Capsule.dr 40 MG PO DAILY Prescribed by: DIANELYS ROMEO DO #57/Iron/FA/Dss/Dha (Extra-Virt Plus Dha Softgel) 1 Each Capsule 1 EACH PO DAILY Prescribed by: DIANELYS ROMEO DO Sertraline HCl (Sertraline) 100 Mg Tablet 100 MG PO DAILY Prescribed by: DIANELYS ROMEO DO Topiramate (Topiramate) 100 Mg Tablet 100 MG PO QAM Prescribed by: DIANELYS ROMEO DO As needed Bisacodyl (Dulcolax) 5 Mg Tablet.dr 10 MG PO DAILY PRN PRN For Constipation Prescribed by: DIANELYS ROMEO DO Lorazepam (Lorazepam) 0.5 Mg Tablet 0.5 MG PO BID PRN PRN For Anxiety Prescribed by: DIANELYS ROMEO DO diphenhydrAMINE HCl (Benadryl) 25 Mg Capsule 25 MG PO Q4 PRN PRN For Itching Prescribed by: DIANELYS ROMEO DO oxyCODONE-Acetaminophen 5-325 mg (oxyCODONE-Acetaminophen 5-325 mg) 1 Each Tablet 1 TAB PO Q4H PRN PRN For Pain Prescribed by: DIANELYS ROMEO DO Followup Plan Disposition: [facility] acute care facility Time spent 60 minutes Indigo Acuña MD Jun 12, 2017 11:55
--- NOTE | 2017-06-12 16:47 | DRSVH ---
PROCEDURE: X-RAY CHEST ONE VIEW, PORTABLE ([id number]) INDICATIONS: intubated patient TECHNIQUE: One view of the chest was acquired. COMPARISON: [facility], CR, XR CHEST 1VW (PORTABLE), 06/09/2017, 3:10. FINDINGS: Surgical changes and devices: Stable position of the ETT, nasogastric tube and right IJ CVL. Lungs and pleura: Diffuse, widespread bilateral pulmonary interstitial and bibasilar air space opaci ties are present, left greater than right. No pneumothorax. Mediastinum: Mediastinal contours appear normal. Heart size is enlarged. Bones and chest wall: No suspicious bony lesions. Overlying soft tissues appear unremarkable. IMPRESSION: 1. Pulmonary edema and/or bibasilar pneumonia, left greater than right similar to prior examination. 2. Stable support lines and tubes. 3. Stable cranially. Dictated by: Imtiaz AUGUSTIN Interpreted: Dilcia Hernandez MD on 06/10/2017 at 8:21 Approved by: Dilcia Hernandez M.D. on 06/12/2017 at 16:46
[2017-06-14 15:09] LABS: Antiproteinase 3 (PR-3) Abs <3.5 U/mL (0.0-3.5); Perinuclear (P-ANCA) <1:20 titer (Neg:<1:20)
--- NOTE | 2017-06-20 14:43 | PATH ---
SURGICAL PATHOLOGY Attending Physician:See Additional MD CASE STATUS: Signed Out PATIENT NAME: LARISSA STAFFORD PID: [id number] : 1955 DATE COLLECTED:06/09/2017 00:00 SPECIMEN: Skin, biopsy CLINICAL HISTORY: ALLERGIC, DERMATITIS, RASH, ALLERGIES TO MEDS VS ANAPHYLAXIS VS SUSPECT AUTOIMMUNE, PUNCH 1). LEFT THIGH FINAL DIAGNOSIS: 1.LEFT THIGH, PUNCH BIOPSY: SPONGIOTIC DERMATITIS WITH EOSINOPHILS, SEE COMMENT. ICD10: L23.9 bulmaro, 06/16/2017 NOTE: The differential diagnosis includes allergic contact dermatitis or a drug reaction. Connective tissue diseases such as lupus are not favored. A PAS special stain is negative for fungal elements. The control stains appropriately. This case has been reviewed by a board-certified dermatopathologist, Dr. Edilson Joyce. It has been reviewed and signed out by Dr. Nelia Small. GROSS DESCRIPTION: The specimen is received in one formalin filled container labeled with the patient's name, sublabeled "LT thigh" and consists of a 0.4 x 0.4 x 0.3 CM salas-calderon punch biopsy of skin. The epidermal surface appears slightly thickened. The surgical margin is inked blue, bisected and entirely submitted in one cassette. 06/10/2017DC MICRO DESCRIPTION: See diagnosis. ICD-9 CODES: CPT CODES: 1: 39951, 50710 Electronically Signed Out Margarito Small M.D.,[facility] [address], [place] [address] Technical component performed at [facility], [facility] [address], [place], [address]
== END 2017-06-12 01:14 | disposition admitted as inpatient to this hospital (09) | DRG 207 ==
LOC: SED 22:49 → PCC 23:52 → CCU 06-05 02:43
PROVIDERS: ADMIT Hospitalist; ATTEND Specialist
PROC: 5A1955Z Respiratory Ventilation, Greater than 96 Consecutive Hours (ICD-10-PCS; principal; 2017-06-04)
PROC: 0B9B8ZX Drainage of Left Lower Lobe Bronchus, Via Natural or Artificial Opening Endoscopic, Diagnostic (ICD-10-PCS; 2017-06-04)
PROC: 0B968ZX Drainage of Right Lower Lobe Bronchus, Via Natural or Artificial Opening Endoscopic, Diagnostic (ICD-10-PCS; 2017-06-04)
DX: J96.21 Acute and chronic respiratory failure with hypoxia (principal); R57.9 Shock, unspecified; J84.116 Cryptogenic organizing pneumonia; J84.10 Pulmonary fibrosis, unspecified; R65.10 Systemic inflammatory response syndrome (SIRS) of non-infectious origin without acute organ dysfunction; J96.22 Acute and chronic respiratory failure with hypercapnia